=== PATIENT | male | born 1945 | race Two or more races ===

== ENCOUNTER → 2017-10-31 | Day surgery (SDC) | payer MEDICARE, BC ==
[2017-10-25 15:04] VITALS: BMI 35.4
[~2017-10-31] MED LIST: BUPIVACAIN-EPI 0.25%-1:200,000 30 ML VIAL SQ ONE; DEXAMETHASONE SOD PHOSPHATE 10 MG/ML 1 ML VIAL IV ONE; GLYCOPYRROLATE 0.2 MG/ML 2 ML VIAL ONE; HEPARIN SODIUM,PORCINE 5,000 UNIT/ML 1 ML VIAL SQ ONE; HYDROcodone/APAP 7.5-325MG 1 EACH TAB PO ONE; LACTATED RINGERS 1,000 ML IV SCH; LIDOCAINE 1% 20 ML VIAL (10MG/ML) FOR IV START INTRADERMA ONE; LIDOCAINE 1% INJ 10MG/ML (20 ML MDV) ONE; MIDAZOLAM 2 MG/2 ML VIAL IV PRN; NEOSTIGMINE 1 MG/ML 10 ML VIAL ONE; ONDANSETRON 4 MG/2 ML VIAL IVP ONE; PHENYLEPHRINE-0.9% NACL SYG 1 MG/10 ML SYRINGE ONE; PROPOFOL 10 MG/ML 20 ML VIAL IV ONE; ROCURONIUM BROMIDE 10 MG/ML 10 ML VIAL IV ONE; SUCCINYLCHOLINE CHLORIDE 100 MG/5 ML SYR IV ONE; ceFAZolin IN SWFI 2 GM/20 ML SYRINGE IVP ONE; fentaNYL (PF) 50 MCG/ML 2 ML AMP ONE
[2017-10-31 10:47] LABS: Glucose,Whole Blood 98 mg/dL (75-99)
--- NOTE | 2017-10-31 11:04 | P.GSHP ---
History of Present Illness H&P Date: 10/31/17 Chief Complaint: Umbilical hernia This a 72-year-old male has developed complaints of umbilical pain. He seen in the office and found have a reducible umbilical hernia. Patient presents today for laparoscopic robotic-assisted repair of umbilical hernia. Past Medical History Past Medical History: Chest Pain / Angina, Heart Failure, CVA/TIA, Diabetes Mellitus, Hyperlipidemia, Hypertension, Osteoarthritis (OA) Additional Past Medical History / Comment(s): TIA-no effects, frequent urination and bowel movements History of Any Multi-Drug Resistant Organisms: None Reported Past Surgical History: No Surgical Hx Reported Past Anesthesia/Blood Transfusion Reactions: No Reported Reaction Additional Past Anesthesia/Blood Transfusion Reaction / Comment(s): never had anesthesia Smoking Status: Current every day smoker - Past Family History Mother Family Medical History: Cancer Additional Family Medical History / Comment(s): breast cancer Father Family Medical History: Unable to Obtain Sister(s) Family Medical History: Cancer Medications and Allergies Home Medications Medication Instructions Recorded Confirmed Type Benazepril HCl 40 mg PO W/SUPPER 01/22/17 10/25/17 History glipiZIDE [Glucotrol] 20 mg PO W/LUNCH 01/22/17 10/25/17 History Aspirin 81 mg PO DAILY 01/23/17 10/25/17 History Insulin Glargine [Lantus] 45 unit SQ DAILY 01/23/17 10/25/17 History Tamsulosin [Flomax] 0.4 mg PO HS 01/23/17 10/25/17 History metFORMIN HCL ER [Glucophage Xr] 500 mg PO QID 01/23/17 10/25/17 History Carvedilol [Coreg] 6.25 mg PO BID 10/25/17 10/31/17 History Furosemide [Lasix] 40 mg PO BID 10/25/17 10/25/17 History Isosorbide Mononitrate ER [Imdur] 30 mg PO W/LUNCH 10/25/17 10/25/17 History Lovastatin [Mevacor] 40 mg PO HS 10/25/17 10/25/17 History Spironolactone [Aldactone] 25 mg PO W/SUPPER 10/25/17 10/25/17 History Allergies Allergy/AdvReac Type Severity Reaction Status Date / Time No Known Allergies Allergy Verified 10/31/17 10:26 Surgical - Exam Vital Signs Temp Pulse Resp BP Pulse Ox 97.8 F 69 18 172/77 96 10/31/17 10:18 10/31/17 10:18 10/31/17 10:18 10/31/17 10:18 10/31/17 10:18 - General well developed, no distress - Eyes PERRL - ENT normal pinna - Neck no masses - Respiratory normal expansion - Cardiovascular Rhythm: regular - Abdomen Abdomen: soft, non tender Hernia: umbilical Assessment and Plan Assessment: We'll perform laparoscopic robotic system repair of umbilical hernia.
--- NOTE | 2017-10-31 12:17 | P.OP ---
Date of Procedure: 10/31/17 Preoperative Diagnosis: Incarcerated umbilical hernia Postoperative Diagnosis: Incarcerated umbilical hernia Procedure(s) Performed: Laparoscopic robotic-assisted repair of incarcerated hernia Partial omentectomy Anesthesia: KRAIG Surgeon: Ochoa Kulkarni Estimated Blood Loss (ml): 5 Pathology: other (Omentum) Condition: stable Disposition: PACU Description of Procedure: The patient was placed on the operating table in the supine position. He received general anesthesia. His abdomen was prepped and draped usual fashion. Using a 5 mm optical trocar under direct visualization the peritoneal cavity was entered in the left upper quadrant. The abdomen was then insufflated. The laparoscope was placed back into the perineal cavity. Next a 8 mm robotic trocar was placed in the left lower quadrant and a 12 mm robotic trocar was placed in the left lateral position. The original 5 mm trocar was exchanged for a 8 mm robotic trocar. The patient's placed in the left side up position. And the patient was undocked the robot. The umbilical hernia was visualized. Using the cautery the incarcerated omentum was reduced and transected. Using hook cautery the peritoneum over the umbilical hernia was excised. The fascial opening was repaired using 0V LOC suture. Next a piece of 11 cm round ventral light ST mesh was placed into the. Cavity and secured with 2 OV lock suture. The patient was undocked the robot. The needles were retrieved. The omentum was retrieved. The fascia of the 12 mm trocar site was closed with 0 Ethibond suture. Skin was closed interrupted 3-0 Monocryl suture. Dermabond dressings was applied. Patient top procedure well and was sent to recovery room stable condition.
[2017-10-31 12:39] VITALS: RESP 16; TEMP 97.6
[2017-10-31] MEDS: HYDROmorphone 0.5 MG/0.5 ML SYRINGE IVP PRN ×3 (12:52→13:36)
[2017-10-31 14:21] VITALS: BP 178/91; PULSE 71
== END ==
LOC: OR 09:52
PROVIDERS: ATTEND Surgery
DX: K42.0 Umbilical hernia with obstruction, without gangrene (principal); I20.9 Angina pectoris, unspecified; I11.0 Hypertensive heart disease with heart failure; I50.9 Heart failure, unspecified; F17.200 Nicotine dependence, unspecified, uncomplicated; E78.5 Hyperlipidemia, unspecified; E11.9 Type 2 diabetes mellitus without complications; Z79.4 Long term (current) use of insulin; Z86.73 Personal history of transient ischemic attack (TIA), and cerebral infarction without residual deficits; M19.90 Unspecified osteoarthritis, unspecified site; Z79.82 Long term (current) use of aspirin; Z79.899 Other long term (current) drug therapy
CPT/HCPCS: 49653; S2900; 88302; 88305

== ENCOUNTER 2018-01-18 02:28 | Inpatient (IN) | payer MEDICARE, BC ==
--- NOTE | 2018-01-18 02:36 | ED ---
General Adult HPI - General Stated complaint: SOB Time Seen by Provider: 01/18/18 02:35 - History of Present Illness Initial comments: is a 72-year-old male with a history of congestive heart failure who is brought to the ED today via EMS for evaluation of acute respiratory failure. Per EMS they were dispatched for complaint of respiratory distress, they found the patient in respiratory distress with oxygen saturations in the 70s, patient was tachypneic and had wails in all lung obrine. He was placed on CPAP given nitro as well as DuoNeb and Solu-Medrol in route to the hospital with improvement in his oxygenation to the high 80s. Patient was awake and alert though in respiratory distress which limited his ability to speak however he could nod his head and provide minimal history. He denied chest pain or palpitations. He stated that this came on suddenly. Patient's son arrived at bedside to provide further history on the medication list. Patient's son states that seen by a physician who discontinued his Lasix approximately a couple weeks ago however the patient does continue to take Aldactone for a diuretic. Patient's medications are managed primarily by his who provides him with his appropriate pills throughout the day. Son and do admit that the patient does not always take all of his pills, he is somewhat overwhelmed by his pill burden. He has been taking most of his pills lately. He reports the patient was in his usual state of health when he went to bed last evening and woke during the night in acute distress. Son does state that this exact situation occurred approximately one year ago requiring admission to the hospital at that time however at that time the patient did not require any airway support including BiPAP or CPAP to the son's recollection. - Related Data Home Medications Medication Instructions Recorded Confirmed Benazepril HCl 40 mg PO W/SUPPER 01/22/17 10/25/17 glipiZIDE [Glucotrol] 20 mg PO W/LUNCH 01/22/17 10/25/17 Aspirin 81 mg PO DAILY 01/23/17 10/25/17 Insulin Glargine [Lantus] 45 unit SQ DAILY 01/23/17 10/25/17 Tamsulosin [Flomax] 0.4 mg PO HS 01/23/17 10/25/17 metFORMIN HCL ER [Glucophage Xr] 500 mg PO QID 01/23/17 10/25/17 Carvedilol [Coreg] 6.25 mg PO BID 10/25/17 10/31/17 Furosemide [Lasix] 40 mg PO BID 10/25/17 10/25/17 Isosorbide Mononitrate ER [Imdur] 30 mg PO W/LUNCH 10/25/17 10/25/17 Lovastatin [Mevacor] 40 mg PO HS 10/25/17 10/25/17 Spironolactone [Aldactone] 25 mg PO W/SUPPER 10/25/17 10/25/17 Previous Rx's Medication Instructions Recorded Docusate [Colace] 100 mg PO BID #20 capsule 10/31/17 HYDROcodone/APAP 7.5-325MG [[place] 1 tab PO Q4H PRN 3 Days #18 tab 10/31/17 7.5-325] Allergies Allergy/AdvReac Type Severity Reaction Status Date / Time No Known Allergies Allergy Verified 10/31/17 10:26 Review of Systems ROS Statement: Those systems with pertinent positive or pertinent negative responses have been documented in the HPI. ROS Other: All systems not noted in ROS Statement are negative. Past Medical History Past Medical History: Chest Pain / Angina, Heart Failure, CVA/TIA, Diabetes Mellitus, Hyperlipidemia, Hypertension, Osteoarthritis (OA) Additional Past Medical History / Comment(s): TIA-no effects, frequent urination and bowel movements History of Any Multi-Drug Resistant Organisms: None Reported Past Surgical History: No Surgical Hx Reported Past Anesthesia/Blood Transfusion Reactions: No Reported Reaction Additional Past Anesthesia/Blood Transfusion Reaction / Comment(s): never had anesthesia Smoking Status: Current every day smoker - Past Family History Mother Family Medical History: Cancer Additional Family Medical History / Comment(s): breast cancer Father Family Medical History: Unable to Obtain Sister(s) Family Medical History: Cancer General Exam - General Exam Comments Initial Comments: GENERAL: Moderate respiratory distress HENT: Normocephalic, Atraumatic. JVD EYES: The sclera were anicteric and conjunctiva were pink and moist. Extraocular movements were intact and pupils were equal round and reactive to light. Eyelids were unremarkable. PULMONARY: Rales in all lung obrien CARDIOVASCULAR: Tachycardic, regular ABDOMEN: Obese, Soft and nontender with normal bowel sounds. SKIN: Ashen and diaphoretic NEUROLOGIC: Patient is alert Cranial nerves II through XII are grossly intact. Motor and sensory are also intact. Normal speech, volume and content. Symmetrical smile. MUSCULOSKELETAL: Normal extremities with adequate strength and full range of motion. No lower extremity swelling or edema. No calf tenderness. LYMPHATICS: No significant lymphadenopathy is noted PSYCHIATRIC: Normal psychiatric evaluation. Limitations: Respiratory distress Course Vital Signs 01/18/18 01/18/18 01/18/18 02:30 02:47 03:08 Temperature 97.4 F L Pulse Rate 121 H 103 H Respiratory 27 H 27 H 21 Rate Blood Pressure 201/114 170/94 O2 Sat by Pulse 98 99 Oximetry 01/18/18 04:15 Temperature Pulse Rate 90 Respiratory 19 Rate Blood Pressure 106/93 O2 Sat by Pulse 98 Oximetry EKG Findings - EKG Comments: EKG Findings:: Initial EKG was obtained at 2:33 AM, there is significant artifact on this EKG likely related to the patient's respiratory distress, rate is 121, rhythm is sinus tachycardia, There are frequent PVCs appears to be bigeminy. Difficult to assess for ST elevations or depressions patient's not currently having a chest pain will repeat EKG upon resolution of respiratory distress. Repeat EKG obtained at 3:21 AM, repeat is 100, rhythm is sinus tachycardia, there is a left axis deviation, ME is 168, QRS is 132, QTc is mildly prolonged at 516. There is no acute ST elevations, mild ST depressions in lateral leads. No evidence of acute ischemia or infarction. Medical Decision Making - Medical Decision Making Patient called in by EMS as a constitution party 1 respiratory distress The patient was seen and evaluated immediately upon arrival to the emergency department Patient appears to be in flash pulmonary edema BiPAP initiated immediately Cardiac workup initiated Initial EKG nondiagnostic due to respiratory distress Patient improving with BiPAP Labs are reviewed, troponin not elevated, electrolytes within normal limits, mild anemia Chest x-ray is consistent with CHF exacerbation Patient was reevaluated, has improved significantly with BiPAP and Nitropaste, blood pressure is within normal limits, heart rate in the 80s to 90s, oxygen saturation 100%, continues to have rales in all lung obrien, producing significant amount of urine secondary to the IV Lasix Patient care was discussed with Dr. Read who accepts the admission for CHF exacerbation with a consult to cardiology - Lab Data Result diagrams: 01/18/18 02:33 01/18/18 02:33 Lab Results 01/18/18 01/18/18 01/18/18 Range/Units 02:32 02:33 02:33 WBC 9.4 (3.8-10.6) k/uL RBC 4.35 (4.30-5.90) m/uL Hgb 10.9 L (13.0-17.5) gm/dL Hct 35.4 L (39.0-53.0) % MCV 81.4 (80.0-100.0) fL MCH 25.0 (25.0-35.0) pg MCHC 30.7 L (31.0-37.0) g/dL RDW 15.3 (11.5-15.5) % Plt Count 237 (150-450) k/uL Neutrophils % 70 % Lymphocytes % 19 % Monocytes % 6 % Eosinophils % 3 % Basophils % 0 % Neutrophils # 6.6 (1.3-7.7) k/uL Lymphocytes # 1.8 (1.0-4.8) k/uL Monocytes # 0.6 (0-1.0) k/uL Eosinophils # 0.2 (0-0.7) k/uL Basophils # 0.0 (0-0.2) k/uL Hypochromasia Moderate PT (9.0-12.0) sec INR (<1.2) APTT (22.0-30.0) sec Sodium 142 (137-145) mmol/L Potassium 4.8 (3.5-5.1) mmol/L Chloride 111 H (98-107) mmol/L Carbon Dioxide 23 (22-30) mmol/L Anion Gap 8 mmol/L BUN 25 H (9-20) mg/dL Creatinine 1.19 (0.66-1.25) mg/dL Est GFR (CKD-EPI)AfAm 69 (>60 ml/min/1.73 sqM) Est GFR (CKD-EPI)NonAf 60 (>60 ml/min/1.73 sqM) Glucose 180 H (74-99) mg/dL POC Glucose (mg/dL) 180 H (75-99) mg/dL POC Glu Seismic Interpreter ID Nusrat Platt Plasma Lactic Acid Calvin (0.7-2.0) mmol/L Calcium 8.0 L (8.4-10.2) mg/dL Total Bilirubin 0.5 (0.2-1.3) mg/dL AST 30 (17-59) U/L ALT 31 (21-72) U/L Alkaline Phosphatase 134 H (38-126) U/L Troponin I (0.000-0.034) ng/mL Total Protein 6.5 (6.3-8.2) g/dL Albumin 3.1 L (3.5-5.0) g/dL 01/18/18 01/18/18 01/18/18 Range/Units 02:33 02:33 02:33 WBC (3.8-10.6) k/uL RBC (4.30-5.90) m/uL Hgb (13.0-17.5) gm/dL Hct (39.0-53.0) % MCV (80.0-100.0) fL MCH (25.0-35.0) pg MCHC (31.0-37.0) g/dL RDW (11.5-15.5) % Plt Count (150-450) k/uL Neutrophils % % Lymphocytes % % Monocytes % % Eosinophils % % Basophils % % Neutrophils # (1.3-7.7) k/uL Lymphocytes # (1.0-4.8) k/uL Monocytes # (0-1.0) k/uL Eosinophils # (0-0.7) k/uL Basophils # (0-0.2) k/uL Hypochromasia PT 10.6 (9.0-12.0) sec INR 1.1 (<1.2) APTT 22.5 (22.0-30.0) sec Sodium (137-145) mmol/L Potassium (3.5-5.1) mmol/L Chloride (98-107) mmol/L Carbon Dioxide (22-30) mmol/L Anion Gap mmol/L BUN (9-20) mg/dL Creatinine (0.66-1.25) mg/dL Est GFR (CKD-EPI)AfAm (>60 ml/min/1.73 sqM) Est GFR (CKD-EPI)NonAf (>60 ml/min/1.73 sqM) Glucose (74-99) mg/dL POC Glucose (mg/dL) (75-99) mg/dL POC Glu Seismic Interpreter ID Plasma Lactic Acid Calvin 1.0 (0.7-2.0) mmol/L Calcium (8.4-10.2) mg/dL Total Bilirubin (0.2-1.3) mg/dL AST (17-59) U/L ALT (21-72) U/L Alkaline Phosphatase (38-126) U/L Troponin I <0.012 (0.000-0.034) ng/mL Total Protein (6.3-8.2) g/dL Albumin (3.5-5.0) g/dL Critical Care Time Critical Care Time: Yes Total Critical Care Time: 30 Disposition Clinical Impression: Congestive heart failure Disposition: ADMITTED IP TO THIS HOSP Referrals: Minerva Edgar MD [Primary Care Provider] - 1-2 days
[2018-01-18 02:45] LABS: Basophils % (A) 0 %; Eosinophils # (A) 0.2 k/uL (0-0.7); Eosinophils % (A) 3 %; HCT 35.4 % (39.0-53.0); HGB 10.9 gm/dL (13.0-17.5); Hypochromasia Moderate; Lymphocytes # (A) 1.8 k/uL (1.0-4.8); Lymphocytes % (A) 19 %; MCHC 30.7 g/dL (31.0-37.0); MCV 81.4 fL (80.0-100.0); Mean Platelet Volume 6.7; Monocytes # (A) 0.6 k/uL (0-1.0); Monocytes % (A) 6 %; Neutrophils # (A) 6.6 k/uL (1.3-7.7); Neutrophils % (A) 70 %; Platelet Count 237 k/uL (150-450); RBC 4.35 m/uL (4.30-5.90); RDW 15.3 % (11.5-15.5); WBC 9.4 k/uL (3.8-10.6)
[2018-01-18 02:55] LABS: INR 1.1 (<1.2); Partial Thromboplastin Time 22.5 sec (22.0-30.0); Prothrombin Time 10.6 sec (9.0-12.0)
[2018-01-18 03:06] LABS: Glucose,Whole Blood 180 mg/dL (75-99)
[2018-01-18 03:11] LABS: Albumin 3.1 g/dL (3.5-5.0); Potassium 4.8 mmol/L (3.5-5.1); Total Bilirubin 0.5 mg/dL (0.2-1.3); Total Protein 6.5 g/dL (6.3-8.2)
--- NOTE | 2018-01-18 03:42 | XR ---
EXAMINATION TYPE: XR chest 1V portable DATE OF EXAM: 01/18/2018 COMPARISON: 01/24/2017 HISTORY: Heart failure short of breath TECHNIQUE: Single frontal view of the chest is obtained. FINDINGS: Heart is enlarged. There is pulmonary interstitial edema. Thoracic aorta is atheromatous. There are chest leads. I see no pleural fluid. IMPRESSION: There is new pulmonary interstitial edema compared to old exam and suggestive of acute c ongestive heart failure.
[2018-01-18] MEDS ORDERED: FUROSEMIDE 10 MG/ML 4 ML VIAL IV STA (03:48)
[2018-01-18] MEDS ORDERED: NITROGLYCERIN OINT 1 INCH/GM PACKET TOPICAL STA (03:48)
[2018-01-18] MEDS ORDERED: NALOXONE 0.4 MG/ML 1 ML VIAL IV PRN (04:45)
[2018-01-18] MEDS ORDERED: HYDROcodone/APAP 7.5-325MG 1 EACH TAB PO PRN (04:47)
[2018-01-18 05:40] LABS: Appearance,Urine Clear (Clear); Bilirubin,Urine Negative (Negative); Blood,Urine Negative (Negative); Color,Urine Yellow; Glucose,Urine (UA) Negative (Negative); Ketones,Urine Negative (Negative); Leukocyte Esterase,Urine Negative (Negative); Mucus,Urine Rare /hpf; Nitrite,Urine Negative (Negative); PH, Urine 5.5 (5.0-8.0); Protein,Urine 2+ (Negative); RBC,Urine 1 /hpf (0-5); Specific Gravity,Urine 1.012 (1.001-1.035); Squamous Epithelial Cell,Urine <1 /hpf (0-4); Urobilinogen,Urine <2.0 mg/dL (<2.0); WBC,Urine 2 /hpf (0-5)
[2018-01-18] MEDS: FUROSEMIDE 10 MG/ML 4 ML VIAL IV SCH ×3 (06:36→20:26)
[2018-01-18 09:57] LABS: Glucose,Whole Blood 230 mg/dL (75-99)
[2018-01-18] MEDS: INSULIN ASPART 100 UNIT/ML 1 ML 10 ML VIAL SQ SCH ×4 (10:27→20:39)
[2018-01-18] MEDS: CARVEDILOL 6.25 MG TAB PO SCH ×2 (10:50→19:44)
--- NOTE | 2018-01-18 11:18 | P.HPIM ---
History of Present Illness H&P Date: 01/18/18 Chief Complaint: Shortness of breath This is a 72-year-old male, patient of Dr. Edgar. Patient has a known past medical history of congestive heart failure, TIA, diabetes, hypertension, hyperlipidemia, osteoarthritis and nicotine dependence. Patient presents to the emergency room with complaints of shortness of breath and evidence of congestive heart failure. Patient reports the shortness of breath started around midnight last night. He was concerned and called EMS. Per ER reports upon EMS evaluation patient was in acute respiratory failure. Oxygen saturations were in the 70s and radials noted on lung exam. He was placed on CPAP given nitro and DuoNeb as well as IV Solu-Medrol in route. He required to be on BiPAP in the ER. Patient was started on IV Lasix for congestive heart failure and pulmonary edema. Chest x-ray showed evidence of congestive heart failure. Patient did have significant elevated blood pressure and was tachycardic on admission. Blood pressure 201/114 and heart rate 121. Patient started on IV Lasix. Respiratory symptoms are improving. He is currently on 2 L of oxygen satting at 95%. Cardiology has been placed on consult. Patient stopped taking his oral Lasix about 2 weeks ago by his physician. Patient reports eating a half of sausage yesterday, in which she knows is very salty. And blames this for contributing to his fluid overload. Patient denies any chest pain, fever, chills, sweats, nausea or vomiting, bowel movement changes or urinary symptoms. Uriostegui catheter inserted in ER due to him being on IV Lasix. Cardiology has been placed on consult for CHF exacerbation. Review of Systems Please refer to HPI otherwise unremarkable Past Medical History Past Medical History: Chest Pain / Angina, Heart Failure, CVA/TIA, Diabetes Mellitus, Hyperlipidemia, Hypertension, Osteoarthritis (OA) Additional Past Medical History / Comment(s): TIA-no effects, frequent urination and bowel movements History of Any Multi-Drug Resistant Organisms: None Reported Past Surgical History: No Surgical Hx Reported Past Anesthesia/Blood Transfusion Reactions: No Reported Reaction Additional Past Anesthesia/Blood Transfusion Reaction / Comment(s): never had anesthesia Smoking Status: Current every day smoker - Past Family History Mother Family Medical History: Cancer Additional Family Medical History / Comment(s): breast cancer Father Family Medical History: Unable to Obtain Sister(s) Family Medical History: Cancer Medications and Allergies Home Medications Medication Instructions Recorded Confirmed Type Benazepril HCl 40 mg PO DAILY 01/22/17 01/18/18 History glipiZIDE [Glucotrol] 20 mg PO W/BRKFST 01/22/17 01/18/18 History Aspirin 81 mg PO DAILY 01/23/17 01/18/18 History Insulin Glargine [Lantus] 40 unit SQ DAILY 01/23/17 01/18/18 History Tamsulosin [Flomax] 0.4 mg PO HS 01/23/17 01/18/18 History metFORMIN HCL ER [Glucophage Xr] 1,000 mg PO BID 01/23/17 01/18/18 History Carvedilol [Coreg] 6.25 mg PO BID 10/25/17 01/18/18 History Furosemide [Lasix] 40 mg PO BID 10/25/17 01/18/18 History Isosorbide Mononitrate ER [Imdur] 30 mg PO DAILY 10/25/17 01/18/18 History Lovastatin [Mevacor] 20 mg PO HS 10/25/17 01/18/18 History Spironolactone [Aldactone] 25 mg PO DAILY 10/25/17 01/18/18 History Allergies Allergy/AdvReac Type Severity Reaction Status Date / Time No Known Allergies Allergy Verified 01/18/18 08:52 Physical Exam Vitals: Vital Signs Temp Pulse Resp BP Pulse Ox 01/18/18 10:25 85 18 180/96 95 01/18/18 07:00 84 23 163/87 99 01/18/18 06:00 79 12 142/66 96 01/18/18 05:00 82 19 123/62 96 01/18/18 04:15 90 19 106/93 98 01/18/18 04:00 92 19 132/70 97 01/18/18 03:08 103 H 21 170/94 99 01/18/18 03:00 107 H 10 L 170/94 99 01/18/18 02:47 27 H 01/18/18 02:34 117 H 29 H 201/114 99 01/18/18 02:30 97.4 F L 121 H 27 H 201/114 98 Intake and Output 01/17/18 01/18/18 01/18/18 22:59 06:59 14:59 Output Total 3100 Balance -3100 Output: Urine 3100 Other: Weight 106.594 kg Head normocephalic Neck supple Lungs crackles at bases Heart regular rate and rhythm S1-S2, no rub or gallop Abdomen is soft nontender nondistended positive bowel sounds no hepatosplenomegaly Extremities no edema Neuro alert and orientated to 3 Results CBC & Chem 7: 01/18/18 02:33 01/18/18 02:33 Labs: Abnormal Lab Results - Last 24 Hours (Table) 01/18/18 01/18/18 01/18/18 Range/Units 02:32 02:33 02:33 Hgb 10.9 L (13.0-17.5) gm/dL Hct 35.4 L (39.0-53.0) % MCHC 30.7 L (31.0-37.0) g/dL Chloride 111 H (98-107) mmol/L BUN 25 H (9-20) mg/dL Glucose 180 H (74-99) mg/dL POC Glucose (mg/dL) 180 H (75-99) mg/dL Calcium 8.0 L (8.4-10.2) mg/dL Alkaline Phosphatase 134 H (38-126) U/L Albumin 3.1 L (3.5-5.0) g/dL Urine Protein (Negative) Urine Mucus (None) /hpf 01/18/18 01/18/18 Range/Units 04:30 09:51 Hgb (13.0-17.5) gm/dL Hct (39.0-53.0) % MCHC (31.0-37.0) g/dL Chloride (98-107) mmol/L BUN (9-20) mg/dL Glucose (74-99) mg/dL POC Glucose (mg/dL) 230 H (75-99) mg/dL Calcium (8.4-10.2) mg/dL Alkaline Phosphatase (38-126) U/L Albumin (3.5-5.0) g/dL Urine Protein 2+ H (Negative) Urine Mucus Rare H (None) /hpf Microbiology - Last 24 Hours (Table) 01/18/18 04:30 Urine Culture - Preliminary Urine,Voided Assessment and Plan Assessment: 1. Acute hypoxic respiratory failure secondary to congestive heart failure exacerbation and pulmonary edema 2. Acute on chronic systolic CHF exacerbation: Patient started on IV Lasix 40 mg IV every 8 hours. Cardiology on consult. Check 2-D echo. Echo from January 2017 shows an EF of 40-45% 3. History of diabetes mellitus type 2: Check A1c. Resume patient's Lantus and glipizide. Hold metformin during hospitalization. Add Humalog sliding scale coverage. 4. Essential hypertension 5. Hypertensive emergency on admission likely due to patient's respiratory status. Patient's blood pressures have improved. 6. Sinus tachycardia again likely related to patient's respiratory status now improved 8. History of TIA 9. History of hyperlipidemia 10. Nicotine dependence: Discussed smoking cessation for greater than 3 minutes. Patient refusing nicotine patch at this time. 11. Anemia: Hemoglobin 10.9 on admission. No evidence of bleeding. Check iron studies. GI prophylaxis Pepcid and DVT prophylaxis subcu heparin Time with Patient: Greater than 30 (Greater than 60% of the total time spent in counseling and coordination of care.I performed an examination of the patient and discussed their management with the physician Technology Strategist. I have reviewed the Physician Technology Strategist's notes and agree with the documented findings and plan of care)
[2018-01-18 12:58] LABS: Glucose,Whole Blood 263 mg/dL (75-99)
[2018-01-18] MEDS: INSULIN DETEMIR 100 UNIT/ML 10 ML VIAL SQ SCH (13:02)
[2018-01-18 14:39] LABS: Hemoglobin A1C 6.7 % (4.0-6.0)
--- NOTE | 2018-01-18 14:45 | P.CRDCN ---
History of Present Illness Consult date: 01/18/18 History of present illness: This is a 72-year-old gentleman with history of hypertension, chronic congestive heart failure and known ischemic heart disease with previous inferior wall myocardial infarction, who was brought to the hospital this time with complaints of increasing shortness of breath. Apparently patient stopped taking diuretics for about a week or so and has been eating salty food. He developed a progressively increasing shortness of breath and orthopnea. Denied any chest pain, palpitation, dizziness or syncope. His EKG showed sinus rhythm with newly found left bundle branch block pattern. Chest x-ray showed findings consistent with pulmonary edema. Patient was treated with IV Lasix with good diuresis. Patient is feeling better. Patient is going to have an echocardiogram. We'll follow his cardiac enzymes. Further recommendations depend upon the clinical course. Review of Systems As per the chart Past Medical History Past Medical History: Chest Pain / Angina, Heart Failure, CVA/TIA, Diabetes Mellitus, Hyperlipidemia, Hypertension, Osteoarthritis (OA) Additional Past Medical History / Comment(s): TIA, IDDM type II. History of Any Multi-Drug Resistant Organisms: None Reported Past Surgical History: Hernia Repair Additional Past Surgical History / Comment(s): 10/31/17 robot assisted laprascopic umbilical hernia repair with mesh. Past Anesthesia/Blood Transfusion Reactions: No Reported Reaction Additional Past Anesthesia/Blood Transfusion Reaction / Comment(s): never had anesthesia Smoking Status: Light tobacco smoker - Past Family History Mother Family Medical History: Cancer Additional Family Medical History / Comment(s): breast cancer Father Family Medical History: Unable to Obtain Sister(s) Family Medical History: Cancer Medications and Allergies Home Medications Medication Instructions Recorded Confirmed Type Benazepril HCl 40 mg PO DAILY 01/22/17 01/18/18 History glipiZIDE [Glucotrol] 20 mg PO W/BRKFST 01/22/17 01/18/18 History Aspirin 81 mg PO DAILY 01/23/17 01/18/18 History Insulin Glargine [Lantus] 40 unit SQ DAILY 01/23/17 01/18/18 History Tamsulosin [Flomax] 0.4 mg PO HS 01/23/17 01/18/18 History metFORMIN HCL ER [Glucophage Xr] 1,000 mg PO BID 01/23/17 01/18/18 History Carvedilol [Coreg] 6.25 mg PO BID 10/25/17 01/18/18 History Furosemide [Lasix] 40 mg PO BID 10/25/17 01/18/18 History Isosorbide Mononitrate ER [Imdur] 30 mg PO DAILY 10/25/17 01/18/18 History Lovastatin [Mevacor] 20 mg PO HS 10/25/17 01/18/18 History Spironolactone [Aldactone] 25 mg PO DAILY 10/25/17 01/18/18 History Allergies Allergy/AdvReac Type Severity Reaction Status Date / Time No Known Allergies Allergy Verified 01/18/18 08:52 Physical Exam Vitals: Vital Signs Temp Pulse Resp BP Pulse Ox 01/18/18 13:05 86 20 189/87 95 01/18/18 10:25 85 18 180/96 95 01/18/18 07:00 84 23 163/87 99 01/18/18 06:00 79 12 142/66 96 01/18/18 05:00 82 19 123/62 96 01/18/18 04:15 90 19 106/93 98 01/18/18 04:00 92 19 132/70 97 01/18/18 03:08 103 H 21 170/94 99 01/18/18 03:00 107 H 10 L 170/94 99 01/18/18 02:47 27 H 01/18/18 02:34 117 H 29 H 201/114 99 01/18/18 02:30 97.4 F L 121 H 27 H 201/114 98 Intake and Output 01/17/18 01/18/18 01/18/18 22:59 06:59 14:59 Output Total 4900 Balance -4900 Output: Urine 4000 Urine/Stool Mix 900 Other: Weight 106.594 kg GENERAL EXAM: Patient is alert and oriented and appears to be in mild-to- moderate distress, normal HEENT: Normocephalic. Normal reaction of pupils, equal size, normal range of extraocular motion. No erythema or exudates in the throat. NECK: No masses, no nuchal rigidity. CHEST: No chest wall deformity. LUNGS: Decreased breath sounds at bases. Few rales HEART: [S1 and S2 normal with no audible mumurs or gallops. Regular rhythm, ABDOMEN: No hepatosplenomegaly, normal bowel sounds, no guarding or rigidity. SKIN: No rashes CENTRAL NERVOUS SYSTEM: No focal deficits. EXTREMITIES: No cyanosis, clubbing or edema. Results 01/18/18 02:33 01/18/18 02:33 Cardiac Enzymes 01/18/18 01/18/18 Range/Units 02:33 02:33 AST 30 (17-59) U/L Troponin I <0.012 (0.000-0.034) ng/mL Coagulation 01/18/18 Range/Units 02:33 PT 10.6 (9.0-12.0) sec APTT 22.5 (22.0-30.0) sec CBC 01/18/18 Range/Units 02:33 WBC 9.4 (3.8-10.6) k/uL RBC 4.35 (4.30-5.90) m/uL Hgb 10.9 L (13.0-17.5) gm/dL Hct 35.4 L (39.0-53.0) % Plt Count 237 (150-450) k/uL Comprehensive Metabolic Panel 01/18/18 Range/Units 02:33 Sodium 142 (137-145) mmol/L Potassium 4.8 (3.5-5.1) mmol/L Chloride 111 H (98-107) mmol/L Carbon Dioxide 23 (22-30) mmol/L BUN 25 H (9-20) mg/dL Creatinine 1.19 (0.66-1.25) mg/dL Glucose 180 H (74-99) mg/dL Calcium 8.0 L (8.4-10.2) mg/dL AST 30 (17-59) U/L ALT 31 (21-72) U/L Alkaline Phosphatase 134 H (38-126) U/L Total Protein 6.5 (6.3-8.2) g/dL Albumin 3.1 L (3.5-5.0) g/dL Current Medications Generic Name Dose Route Start Last Admin Trade Name Freq PRN Reason Stop Dose Admin Hydrocodone Bitart/Acetaminophen 1 each 01/18/18 04:47 [place] 7.5-325 PO Q4H PRN Pain Aspirin 325 mg 01/19/18 04:47 Aspirin PO DAILY [facility] Atorvastatin Calcium 10 mg 01/18/18 21:00 Lipitor PO HS [facility] Carvedilol 6.25 mg 01/18/18 07:30 01/18/18 10:50 Coreg PO 6.25 mg BID-W/MEALS MOLLY Administration Famotidine 20 mg 01/19/18 09:00 Pepcid PO DAILY [facility] Furosemide 40 mg 01/18/18 05:00 01/18/18 13:03 Lasix IV 40 mg Q8H MOLLY Administration Glipizide 20 mg 01/19/18 07:30 Glucotrol PO W/BRKFST MOLLY Heparin Sodium (Porcine) 5,000 unit 01/18/18 21:00 Heparin SQ Q12HR [facility] Insulin Aspart 0 unit 01/18/18 07:30 01/18/18 13:00 Novolog SQ 7 unit ACHS MOLLY Administration Protocol Insulin Detemir 40 unit 01/18/18 12:00 01/18/18 13:02 Levemir SQ 40 unit DAILY MOLLY Administration Isosorbide Mononitrate 30 mg 01/19/18 09:00 Imdur PO DAILY [facility] Lisinopril 40 mg 01/18/18 17:30 Zestril PO W/SUPPER MOLLY Naloxone HCl 0.2 mg 01/18/18 04:45 Narcan IV Q2M PRN Opioid Reversal Spironolactone 25 mg 01/18/18 17:30 Aldactone PO W/SUPPER MOLLY Tamsulosin HCl 0.4 mg 01/18/18 21:00 Flomax PO HS [facility] Intake and Output 01/17/18 01/18/18 01/18/18 22:59 06:59 14:59 Output Total 4900 Balance -4900 Output: Urine 4000 Urine/Stool Mix 900 Other: Weight 106.594 kg 01/18/18 02:33 01/18/18 02:33 EKG Interpretations (text) Sinus rhythm with a left bundle branch block pattern Assessment and Plan (1) Pulmonary edema Current Visit: Yes Status: Acute Code(s): J81.1 - CHRONIC PULMONARY EDEMA SNOMED Code(s): 21849808 (2) Left bundle branch block Current Visit: Yes Status: Acute Code(s): I44.7 - LEFT BUNDLE-BRANCH BLOCK, UNSPECIFIED SNOMED Code(s): 52980790 (3) Coronary artery disease Current Visit: Yes Status: Acute Code(s): I25.10 - ATHSCL HEART DISEASE OF [place] CORONARY ARTERY W/O ANG PCTRS SNOMED Code(s): 67903569 (4) Ischemic cardiomyopathy Current Visit: Yes Status: Acute Code(s): I25.5 - ISCHEMIC CARDIOMYOPATHY SNOMED Code(s): 193785828 (5) Hypertension, essential Current Visit: Yes Status: Acute Code(s): I10 - ESSENTIAL (PRIMARY) HYPERTENSION SNOMED Code(s): 15475130 (6) Hypercholesterolemia Current Visit: Yes Status: Acute Code(s): E78.00 - PURE HYPERCHOLESTEROLEMIA , UNSPECIFIED SNOMED Code(s): 58722668 Plan: We'll continue with current medical therapy with IV diuretics, Coreg, JOHN inhibitor and also Aldactone. We'll follow Cardec enzymes studies. We'll repeat the echocardiogram. Further recommendation depend upon the clinical course
--- NOTE | 2018-01-18 18:06 | ECHOF ---
Referral Reason:CHF, check EF MEASUREMENTS -------- HEIGHT: 180.3 cm WEIGHT: 106.6 kg BP: IVSd: 1.5 cm (0.6 - 1.1) LVIDd: 5.2 cm (3.9 - 5.3) LVPWd: 1.3 cm (0.6 - 1.1) IVSs: 2.1 cm LVIDs: 4.2 cm LVPWs: 1.8 cm Ao Diam: 2.7 cm (2.0 - 3.7) AV Cusp: 1.2 cm (1.5 - 2.6) LA Diam: 3.2 cm (2.7 - 3.8) MV EXCURSION: 12.148 mm (> 18.000) MV EF SLOPE: 48 mm/s (70 - 150) EPSS: 1.4 cm MV E Jaziel: 0.87 m/s MV DecT: 121 ms MV A Jaziel: 0.77 m/s MV E/A Ratio: 1.14 AV maxP.13 mmHg AV meanP.09 mmHg RAP: 5.00 mmHg RVSP: 10.25 mmHg FINDINGS -------- Sinus rhythm. This was a technically difficult study with suboptimal views. The left ventricular size is normal. There is moderate concentric left ventricular hypertrophy. O verall left ventricular systolic function is mild-moderately impaired with, an EF between 40 - 45 %. Sigmoid shaped septum with focal hypertrophy of the basal septum. The remaining wall thickness is n ormal. Basal lateral LV wall motion is hypokinetic. Basal inferior LV wall motion is hypokinetic . Mid lateral LV wall motion is hypokinetic. Mid inferior LV wall motion is hypokinetic. Api faraz inferior LV wall motion is hypokinetic. The right ventricle is normal in size and function. The left atrium is normal in size. The right atrium is normal in size. Lumason used Aortic valve is trileaflet and is mildly thickened. There is mild aortic stenosis present. Peak/m katie gradient across the Aortic Valve is 18.13mmHg / 10.09mmHg. Mild mitral annular calcification present. Mild mitral regurgitation is present. Mild tricuspid regurgitation present. There is no evidence of pulmonary hypertension. The right v entricular systolic pressure, as measured by Doppler, is 10.25mmHg. The pulmonic valve was not well visualized. There is no pulmonic regurgitation present. There is no pericardial effusion. CONCLUSIONS -------- 1. Sinus rhythm. 2. This was a technically difficult study with suboptimal views. 3. The left ventricular size is normal. 4. There is moderate concentric left ventricular hypertrophy. 5. Overall left ventricular systolic function is mild-moderately impaired with, an EF between 40 - 45 %. 6. Sigmoid shaped septum with focal hypertrophy of the basal septum. The remaining wall thickness is normal. 7. Basal lateral LV wall motion is hypokinetic. 8. Basal inferior LV wall motion is hypokinetic. 9. Mid lateral LV wall motion is hypokinetic. 10. Mid inferior LV wall motion is hypokinetic. 11. Apical inferior LV wall motion is hypokinetic. 12. The left atrium is normal in size. 13. Lumason used 14. Aortic valve is trileaflet and is mildly thickened. 15. There is mild aortic stenosis present. 16. Peak/mean gradient across the Aortic Valve is 18.13mmHg / 10.09mmHg. 17. Mild mitral annular calcification present. 18. Mild mitral regurgitation is present. 19. Mild tricuspid regurgitation present. 20. There is no evidence of pulmonary hypertension. 21. There is no pulmonic regurgitation present. 22. There is no pericardial effusion. BASKETBALL COACH: Nikki Ryan RDCS
[2018-01-18 18:14] LABS: Iron Saturation 6.05 (15.00-50.00)
[2018-01-18] MEDS: SPIRONOLACTONE 25 MG TAB PO SCH (19:44)
[2018-01-18] MEDS: LISINOPRIL 20 MG TAB PO SCH (19:44)
[2018-01-18] MEDS: HEPARIN SODIUM,PORCINE 5,000 UNIT/ML 1 ML VIAL SQ SCH (20:26)
[2018-01-18] MEDS: ATORVASTATIN 10 MG TAB PO SCH (20:26)
[2018-01-18] MEDS: TAMSULOSIN 0.4 MG CAP.ER.24H PO SCH (20:26)
[2018-01-18 21:05] LABS: Glucose,Whole Blood 317 mg/dL (75-99)
[2018-01-19] MEDS ORDERED: ASPIRIN 325 MG TAB PO SCH (04:47)
[2018-01-19] MEDS: FUROSEMIDE 10 MG/ML 4 ML VIAL IV SCH ×2 (05:31→11:31)
[2018-01-19 06:04] LABS: Glucose,Whole Blood 140 mg/dL (75-99)
[2018-01-19] MEDS: INSULIN ASPART 100 UNIT/ML 1 ML 10 ML VIAL SQ SCH ×4 (06:08→20:32)
[2018-01-19 07:00] LABS: Basophils % (A) 0 %; Eosinophils % (A) 0 %; HCT 36.5 % (39.0-53.0); HGB 11.4 gm/dL (13.0-17.5); Hypochromasia Slight; Lymphocytes % (A) 14 %; MCH 24.9 pg (25.0-35.0); MCHC 31.1 g/dL (31.0-37.0); Mean Platelet Volume 7.3; Monocytes # (A) 0.5 k/uL (0-1.0); Monocytes % (A) 8 %; Neutrophils # (A) 5.3 k/uL (1.3-7.7); Neutrophils % (A) 77 %; Platelet Count 241 k/uL (150-450); RBC 4.56 m/uL (4.30-5.90); RDW 15.4 % (11.5-15.5); WBC 6.9 k/uL (3.8-10.6)
[2018-01-19] MEDS: CARVEDILOL 6.25 MG TAB PO SCH ×2 (07:02→16:31)
[2018-01-19] MEDS: glipiZIDE 10 MG TAB PO SCH (07:02)
[2018-01-19 07:11] LABS: Albumin 3.6 g/dL (3.5-5.0); Calcium 9.2 mg/dL (8.4-10.2); Potassium 4.4 mmol/L (3.5-5.1); Total Bilirubin 0.4 mg/dL (0.2-1.3); Total Protein 7.2 g/dL (6.3-8.2)
[2018-01-19] MEDS: ASPIRIN 325 MG TAB PO SCH (08:25)
[2018-01-19] MEDS: HEPARIN SODIUM,PORCINE 5,000 UNIT/ML 1 ML VIAL SQ SCH ×2 (08:25→20:18)
[2018-01-19] MEDS: ISOSORBIDE MONONITRATE ER 30 MG TAB.ER.24H PO SCH (08:25)
[2018-01-19] MEDS: FAMOTIDINE 20 MG TAB PO SCH (08:25)
[2018-01-19] MEDS: INSULIN DETEMIR 100 UNIT/ML 10 ML VIAL SQ SCH (09:34)
[2018-01-19 11:10] VITALS: BMI 32.0
[2018-01-19 11:22] LABS: Glucose,Whole Blood 74 mg/dL (75-99)
[2018-01-19] MEDS: FERROUS SULFATE 325 MG TAB PO SCH (12:12)
--- NOTE | 2018-01-19 12:54 | P.PN ---
Subjective Progress Note Date: 01/19/18 This is a 72-year-old male, patient of Dr. Edgar. Patient has a known past medical history of congestive heart failure, myocardial infarction, TIA, diabetes, hypertension, hyperlipidemia, osteoarthritis and nicotine dependence. Patient presents to the emergency room with complaints of shortness of breath and evidence of congestive heart failure. Patient reports the shortness of breath started around midnight last night. He was concerned and called EMS. Per ER reports upon EMS evaluation patient was in acute respiratory failure. Oxygen saturations were in the 70s and radials noted on lung exam. He was placed on CPAP given nitro and DuoNeb as well as IV Solu-Medrol in route. He required to be on BiPAP in the ER. Patient was started on IV Lasix for congestive heart failure and pulmonary edema. Chest x-ray showed evidence of congestive heart failure. Patient did have significant elevated blood pressure and was tachycardic on admission. Blood pressure 201/114 and heart rate 121. Patient started on IV Lasix. Respiratory symptoms are improving. He is currently on 2 L of oxygen satting at 95%. Cardiology has been placed on consult. Patient stopped taking his oral Lasix about 2 weeks ago by his physician. Patient reports eating a half of sausage yesterday, in which she knows is very salty. And blames this for contributing to his fluid overload. Patient denies any chest pain, fever, chills, sweats, nausea or vomiting, bowel movement changes or urinary symptoms. Uriostegui catheter inserted in ER due to him being on IV Lasix. Cardiology has been placed on consult for CHF exacerbation. 01/19/18 patient's shortness of breath has improved. He is currently off of oxygen. He has been able to ambulate to the bathroom and back without shortness of breath. Otherwise he has not ambulated much. He's been on the IV Lasix. Creatinine has increased to 1.32. We'll discuss diuretics with cardiology service. At this time instructed nursing staff to hold afternoon dose of Lasix. Patient denies any chest pain shortness of breath nausea vomiting. Reports having bowel movements. Denies any difficulty urinating. Objective - Vital Signs Vital signs: Vital Signs Temp 97.8 F 01/19/18 11:28 Pulse 69 01/19/18 11:28 Resp 18 01/19/18 11:28 BP 116/50 01/19/18 11:28 Pulse Ox 91 L 01/19/18 11:28 Intake & Output 01/18/18 01/19/18 01/19/18 18:59 06:59 18:59 Intake Total 10 240 Output Total 4900 1200 400 Balance -4900 -1190 -160 Weight 107 kg 107 kg Intake: IV 10 0.9 10 Oral 240 Output: Urine 4000 1200 400 Uretheral (Uriostegui) 400 Urine/Stool Mix 900 Other: Voiding Method Indwelling Catheter Indwelling Catheter Urinal - Exam Head normocephalic Neck supple Lungs a few faint crackles at the bases Heart regular rate and rhythm S1-S2, no rub or gallop Abdomen is soft nontender nondistended positive bowel sounds no hepatosplenomegaly Extremities no edema Neuro alert and orientated to 3 - Labs CBC & Chem 7: 01/19/18 06:26 01/19/18 06:26 Labs: Abnormal Lab Results - Last 24 Hours (Table) 01/18/18 01/18/18 01/18/18 Range/Units 02:33 02:33 12:56 Hgb (13.0-17.5) gm/dL Hct (39.0-53.0) % MCH (25.0-35.0) pg BUN (9-20) mg/dL Creatinine (0.66-1.25) mg/dL Glucose (74-99) mg/dL POC Glucose (mg/dL) 263 H (75-99) mg/dL Hemoglobin A1c 6.7 H (4.0-6.0) % Iron 21 L (65-175) ug/dL Iron Saturation 6.05 L (15.00-50.00) 01/18/18 01/19/18 01/19/18 Range/Units 20:35 05:43 06:26 Hgb 11.4 L (13.0-17.5) gm/dL Hct 36.5 L (39.0-53.0) % MCH 24.9 L (25.0-35.0) pg BUN (9-20) mg/dL Creatinine (0.66-1.25) mg/dL Glucose (74-99) mg/dL POC Glucose (mg/dL) 317 H 140 H (75-99) mg/dL Hemoglobin A1c (4.0-6.0) % Iron (65-175) ug/dL Iron Saturation (15.00-50.00) 01/19/18 01/19/18 Range/Units 06:26 11:20 Hgb (13.0-17.5) gm/dL Hct (39.0-53.0) % MCH (25.0-35.0) pg BUN 37 H (9-20) mg/dL Creatinine 1.32 H (0.66-1.25) mg/dL Glucose 120 H (74-99) mg/dL POC Glucose (mg/dL) 74 L (75-99) mg/dL Hemoglobin A1c (4.0-6.0) % Iron (65-175) ug/dL Iron Saturation (15.00-50.00) Microbiology - Last 24 Hours (Table) 01/18/18 04:30 Urine Culture - Preliminary Urine,Voided Gram Neg Bacilli 01/18/18 02:33 Blood Culture - Preliminary Blood No Growth after 24 hours Assessment and Plan Assessment: 1. Acute hypoxic respiratory failure secondary to congestive heart failure exacerbation and pulmonary edema 2. Acute on chronic systolic CHF exacerbation: Patient started on IV Lasix 40 mg IV every 8 hours. Cardiology on consult. Echo shows an EF of 40-45% with wall motion normality. Also mild aortic stenosis, mild mitral regurgitation and tricuspid regurgitation 3. History of diabetes mellitus type 2: A1c 6.7. Resume patient's Lantus and glipizide. Hold metformin during hospitalization. Add Humalog sliding scale coverage. 4. Essential hypertension 5. Hypertensive urgency on admission likely due to patient's respiratory status. Patient's blood pressures have improved. 6. Sinus tachycardia again likely related to patient's respiratory status now improved 8. History of TIA 9. History of hyperlipidemia 10. Nicotine dependence: Discussed smoking cessation for greater than 3 minutes. Patient refusing nicotine patch at this time. 11. Iron deficiency Anemia: Hemoglobin 10.9 on admission. No evidence of bleeding. Total iron 21. Hemoglobin has improved to 11.4. Patient started on ferrous sulfate 325 mg daily 12. Acute kidney injury secondary to diuretics. Hold afternoon Lasix. Discussed diuretics with cardiology Consult PT OT Anticipate discharge possibly tomorrow GI prophylaxis Pepcid and DVT prophylaxis subcu heparin
--- NOTE | 2018-01-19 16:06 | P.PN ---
Subjective Progress Note Date: 01/19/18 This is a 72-year-old gentleman with history of hypertension, release inferior wall [place] and chronic congestive heart failure who was admitted to the hospital with increasing shortness of breath. Patient stopped taking his diuretics for a few days. He was found to be in congestive heart failure. Patient responded to diuretics very well. He is feeling much better today. His creatinine has gone up to 1.3. His echo showed an ejection fraction about 45%. The inferior wall hypokinesis noted. Otherwise patient is doing well. We'll switch to by mouth diuretics and continue Rest of the medication. Increase activity. Possible discharge in 24-48 hours Objective - Vital Signs Vital signs: Vital Signs Temp 97.8 F 01/19/18 11:28 Pulse 69 01/19/18 11:28 Resp 18 01/19/18 11:28 BP 116/50 01/19/18 11:28 Pulse Ox 91 L 01/19/18 11:28 Intake & Output 01/18/18 01/19/18 01/19/18 18:59 06:59 18:59 Intake Total 10 1200 Output Total 4900 1200 1000 Balance -4900 -1190 200 Weight 107 kg 107 kg Intake: IV 10 0.9 10 Oral 1200 Output: Urine 4000 1200 1000 Uretheral (Uriostegui) 400 Urine/Stool Mix 900 Other: Voiding Method Indwelling Catheter Indwelling Catheter Urinal - Exam GENERAL EXAM: Patient is alert and oriented and doesn't appear to be in any acute distress HEENT: Normocephalic. Normal reaction of pupils, equal size, normal range of extraocular motion. No erythema or exudates in the throat. NECK: No masses, no nuchal rigidity. CHEST: No chest wall deformity. LUNGS: Equal air entry and scattered rhonchi HEART: S1 and S2 normal with no audible mumurs or gallops. Regular rhythm, femorals equal on both sides.. ABDOMEN: No hepatosplenomegaly, normal bowel sounds, no guarding or rigidity. SKIN: No rashes CENTRAL NERVOUS SYSTEM: No focal deficits. EXTREMITIES: No cyanosis, clubbing or edema. - Labs CBC & Chem 7: 01/19/18 06:26 01/19/18 06:26 Labs: Abnormal Lab Results - Last 24 Hours (Table) 01/18/18 01/18/18 01/19/18 Range/Units 02:33 20:35 05:43 Hgb (13.0-17.5) gm/dL Hct (39.0-53.0) % MCH (25.0-35.0) pg BUN (9-20) mg/dL Creatinine (0.66-1.25) mg/dL Glucose (74-99) mg/dL POC Glucose (mg/dL) 317 H 140 H (75-99) mg/dL Iron 21 L (65-175) ug/dL Iron Saturation 6.05 L (15.00-50.00) 01/19/18 01/19/18 01/19/18 Range/Units 06:26 06:26 11:20 Hgb 11.4 L (13.0-17.5) gm/dL Hct 36.5 L (39.0-53.0) % MCH 24.9 L (25.0-35.0) pg BUN 37 H (9-20) mg/dL Creatinine 1.32 H (0.66-1.25) mg/dL Glucose 120 H (74-99) mg/dL POC Glucose (mg/dL) 74 L (75-99) mg/dL Iron (65-175) ug/dL Iron Saturation (15.00-50.00) Microbiology - Last 24 Hours (Table) 01/18/18 04:30 Urine Culture - Preliminary Urine,Voided Gram Neg Bacilli 01/18/18 02:33 Blood Culture - Preliminary Blood No Growth after 24 hours Assessment and Plan (1) Pulmonary edema Current Visit: Yes Status: Acute Code(s): J81.1 - CHRONIC PULMONARY EDEMA SNOMED Code(s): 49818287 (2) Left bundle branch block Current Visit: Yes Status: Acute Code(s): I44.7 - LEFT BUNDLE-BRANCH BLOCK, UNSPECIFIED SNOMED Code(s): 76830891 (3) Coronary artery disease Current Visit: Yes Status: Acute Code(s): I25.10 - ATHSCL HEART DISEASE OF [place] CORONARY ARTERY W/O ANG PCTRS SNOMED Code(s): 40253830 (4) Ischemic cardiomyopathy Current Visit: Yes Status: Acute Code(s): I25.5 - ISCHEMIC CARDIOMYOPATHY SNOMED Code(s): 182552050 (5) Hypertension, essential Current Visit: Yes Status: Acute Code(s): I10 - ESSENTIAL (PRIMARY) HYPERTENSION SNOMED Code(s): 76303699 (6) Hypercholesterolemia Current Visit: Yes Status: Acute Code(s): E78.00 - PURE HYPERCHOLESTEROLEMIA , UNSPECIFIED SNOMED Code(s): 23169544 Plan: Continue current medical therapy except changing IV Lasix to by mouth Lasix. Increase activity as tolerated
[2018-01-19] MEDS: SPIRONOLACTONE 25 MG TAB PO SCH (16:32)
[2018-01-19] MEDS: LISINOPRIL 20 MG TAB PO SCH (16:32)
[2018-01-19] MEDS: FUROSEMIDE 40 MG TAB PO SCH (16:32)
[2018-01-19 16:47] LABS: Glucose,Whole Blood 129 mg/dL (75-99)
[2018-01-19] MEDS: ATORVASTATIN 10 MG TAB PO SCH (20:18)
[2018-01-19] MEDS: TAMSULOSIN 0.4 MG CAP.ER.24H PO SCH (20:18)
[2018-01-19 20:28] LABS: Glucose,Whole Blood 185 mg/dL (75-99)
[2018-01-20 06:23] LABS: Glucose,Whole Blood 93 mg/dL (75-99)
[2018-01-20] MEDS: INSULIN ASPART 100 UNIT/ML 1 ML 10 ML VIAL SQ SCH ×4 (06:44→20:38)
[2018-01-20] MEDS: glipiZIDE 10 MG TAB PO SCH (06:47)
[2018-01-20] MEDS: CARVEDILOL 6.25 MG TAB PO SCH ×2 (06:47→18:18)
[2018-01-20 08:50] LABS: Basophils % (A) 1 %; Eosinophils # (A) 0.1 k/uL (0-0.7); Eosinophils % (A) 2 %; HCT 33.6 % (39.0-53.0); HGB 10.8 gm/dL (13.0-17.5); Hypochromasia Slight; Lymphocytes # (A) 0.9 k/uL (1.0-4.8); Lymphocytes % (A) 17 %; MCH 25.8 pg (25.0-35.0); MCV 80.4 fL (80.0-100.0); Mean Platelet Volume 7.4; Monocytes # (A) 0.4 k/uL (0-1.0); Monocytes % (A) 8 %; Neutrophils # (A) 3.6 k/uL (1.3-7.7); Neutrophils % (A) 71 %; Platelet Count 199 k/uL (150-450); RBC 4.18 m/uL (4.30-5.90); RDW 15.5 % (11.5-15.5); WBC 5.1 k/uL (3.8-10.6)
[2018-01-20 09:01] LABS: Calcium 8.7 mg/dL (8.4-10.2); Potassium 4.1 mmol/L (3.5-5.1); Total Bilirubin 0.3 mg/dL (0.2-1.3); Total Protein 6.3 g/dL (6.3-8.2)
[2018-01-20] MEDS: FUROSEMIDE 40 MG TAB PO SCH ×2 (09:17→18:18)
[2018-01-20] MEDS: FAMOTIDINE 20 MG TAB PO SCH (09:17)
[2018-01-20] MEDS: ASPIRIN 325 MG TAB PO SCH (09:17)
[2018-01-20] MEDS: FERROUS SULFATE 325 MG TAB PO SCH (09:17)
[2018-01-20] MEDS: HEPARIN SODIUM,PORCINE 5,000 UNIT/ML 1 ML VIAL SQ SCH ×2 (09:17→20:41)
[2018-01-20] MEDS: ISOSORBIDE MONONITRATE ER 30 MG TAB.ER.24H PO SCH (09:17)
[2018-01-20] MEDS: INSULIN DETEMIR 100 UNIT/ML 10 ML VIAL SQ SCH (09:17)
[2018-01-20 11:28] LABS: Glucose,Whole Blood 134 mg/dL (75-99)
--- NOTE | 2018-01-20 14:34 | P.PN ---
Subjective Progress Note Date: 01/20/18 This is a 72-year-old male, patient of Dr. Edgar. Patient has a known past medical history of congestive heart failure, myocardial infarction, TIA, diabetes, hypertension, hyperlipidemia, osteoarthritis and nicotine dependence. Patient presents to the emergency room with complaints of shortness of breath and evidence of congestive heart failure. Patient reports the shortness of breath started around midnight last night. He was concerned and called EMS. Per ER reports upon EMS evaluation patient was in acute respiratory failure. Oxygen saturations were in the 70s and radials noted on lung exam. He was placed on CPAP given nitro and DuoNeb as well as IV Solu-Medrol in route. He required to be on BiPAP in the ER. Patient was started on IV Lasix for congestive heart failure and pulmonary edema. Chest x-ray showed evidence of congestive heart failure. Patient did have significant elevated blood pressure and was tachycardic on admission. Blood pressure 201/114 and heart rate 121. Patient started on IV Lasix. Respiratory symptoms are improving. He is currently on 2 L of oxygen satting at 95%. Cardiology has been placed on consult. Patient stopped taking his oral Lasix about 2 weeks ago by his physician. Patient reports eating a half of sausage yesterday, in which she knows is very salty. And blames this for contributing to his fluid overload. Patient denies any chest pain, fever, chills, sweats, nausea or vomiting, bowel movement changes or urinary symptoms. Uriostegui catheter inserted in ER due to him being on IV Lasix. Cardiology has been placed on consult for CHF exacerbation. 01/19/18 patient's shortness of breath has improved. He is currently off of oxygen. He has been able to ambulate to the bathroom and back without shortness of breath. Otherwise he has not ambulated much. He's been on the IV Lasix. Creatinine has increased to 1.32. We'll discuss diuretics with cardiology service. At this time instructed nursing staff to hold afternoon dose of Lasix. Patient denies any chest pain shortness of breath nausea vomiting. Reports having bowel movements. Denies any difficulty urinating. On 01/20/2018 patient is alert and oriented 3 he was seen and examined on the telemetry floor his shortness of breath has improved, kidney function has worsened since yesterday with a BUN of 52 and a creatinine of 1.5, patient clinically is doing well there is no fever or chills no headache or dizziness no chest pain there is some shortness of breath with activity no cough no nausea or vomiting no abdominal pain no diarrhea and no urinary symptoms Objective - Vital Signs Vital signs: Vital Signs Temp 98.2 F 01/20/18 12:00 Pulse 65 01/20/18 12:00 Resp 20 01/20/18 12:00 BP 119/58 01/20/18 12:00 Pulse Ox 96 01/20/18 12:00 Intake & Output 01/19/18 01/20/18 01/20/18 18:59 06:59 18:59 Intake Total 1440 598 Output Total 1000 Balance 440 598 Weight 107 kg 108.7 kg Intake: Oral 1440 598 Output: Urine 1000 Uretheral (Uriostegui) 400 Other: Voiding Method Urinal Urinal - Exam Head normocephalic and atraumatic Neck supple no JVD no goiter Lungs a few faint crackles at the bases Heart regular rate and rhythm S1-S2, no rub or gallop Abdomen is soft nontender nondistended positive bowel sounds no hepatosplenomegaly Extremities no edema no cyanosis or clubbing Neuro alert and orientated to 3 - Labs CBC & Chem 7: 01/20/18 08:13 01/20/18 08:13 Labs: Abnormal Lab Results - Last 24 Hours (Table) 01/19/18 01/19/18 01/20/18 Range/Units 16:45 20:26 08:13 RBC 4.18 L (4.30-5.90) m/uL Hgb 10.8 L (13.0-17.5) gm/dL Hct 33.6 L (39.0-53.0) % Lymphocytes # 0.9 L (1.0-4.8) k/uL BUN (9-20) mg/dL Creatinine (0.66-1.25) mg/dL Glucose (74-99) mg/dL POC Glucose (mg/dL) 129 H 185 H (75-99) mg/dL Albumin (3.5-5.0) g/dL 01/20/18 01/20/18 Range/Units 08:13 11:26 RBC (4.30-5.90) m/uL Hgb (13.0-17.5) gm/dL Hct (39.0-53.0) % Lymphocytes # (1.0-4.8) k/uL BUN 52 H (9-20) mg/dL Creatinine 1.50 H (0.66-1.25) mg/dL Glucose 120 H (74-99) mg/dL POC Glucose (mg/dL) 134 H (75-99) mg/dL Albumin 3.0 L (3.5-5.0) g/dL Microbiology - Last 24 Hours (Table) 01/18/18 04:30 Urine Culture - Final Urine,Voided Morganella morganii 01/18/18 02:33 Blood Culture - Preliminary Blood No Growth after 48 hours Assessment and Plan Plan: 1. Acute hypoxic respiratory failure secondary to congestive heart failure exacerbation and pulmonary edema 2. Acute on chronic systolic CHF exacerbation: Patient started on IV Lasix 40 mg IV every 8 hours. Cardiology on consult. Echo shows an EF of 40-45% with wall motion normality. Also mild aortic stenosis, mild mitral regurgitation and tricuspid regurgitation 3. History of diabetes mellitus type 2: A1c 6.7. Resume patient's Lantus and glipizide. Hold metformin during hospitalization. Add Humalog sliding scale coverage. 4. Essential hypertension 5. Hypertensive urgency on admission likely due to patient's respiratory status. Patient's blood pressures have improved. 6. Sinus tachycardia again likely related to patient's respiratory status now improved 8. History of TIA 9. History of hyperlipidemia 10. Nicotine dependence: Discussed smoking cessation for greater than 3 minutes. Patient refusing nicotine patch at this time. 11. Iron deficiency Anemia: Hemoglobin 10.9 on admission. No evidence of bleeding. Total iron 21. Hemoglobin has improved to 11.4. Patient started on ferrous sulfate 325 mg daily 12. Acute kidney injury secondary to diuretics. Hold afternoon Lasix. Discussed diuretics with cardiology Consult PT OT Anticipate discharge possibly tomorrow GI prophylaxis Pepcid and DVT prophylaxis subcu heparin
--- NOTE | 2018-01-20 14:55 | P.PN ---
Subjective This is a pleasant 72-year-old male past medical history significant for myocardial infarction of the inferior wall, hypertension and chronic congestive heart failure. He was admitted to the hospital for symptoms of increasing shortness of breath. Per the patient he stopped taking his diuretics for a few days prior to admission. He has been transitioned to oral diuretics in the form of Lasix 40 mg twice a day. He is seen and examined laying flat resting comfortably in bed in no acute distress. He denies any symptoms of chest pain, shortness of breath, dizziness or palpitations. He is currently maintained on aspirin 81 mg daily, atorvastatin 10 mg daily, carvedilol 6.25 mg twice a day, Lasix 40 mg twice a day, Imdur 30 mg daily, lisinopril 40 mg daily and Aldactone 25 mg daily. Blood pressure 119/58 heart 65 maintaining oxygen saturation on room air. Laboratory data reviewed, WBC 5.1, hemoglobin 10.8, platelets 189, sodium 142, potassium 4.1, creatinine 1.5. GENERAL: Well-appearing, well-nourished and in no acute distress. NECK: Supple without JVD or thyromegaly. LUNGS: Breath sounds clear to auscultation bilaterally. Respiration equal and unlabored. No wheezes, rales or rhonchi. HEART: Regular rate and rhythm with systolic ejection murmur at the base, no rubs or gallops. S1 and S2 heard. EXTREMITIES: Normal range of motion, no edema. No clubbing or cyanosis. Peripheral pulses intact. ASSESSMENT Acute pulmonary edema, improved History of coronary artery disease Chronic ischemic cardiomyopathy Hypertension Dyslipidemia PLAN Stable from a cardiac perspective on current regimen. Patient is hemodynamically stable and asymptomatic. He medial discharged home follow-up with Dr. Fong in the office in 2-3 weeks. Nurse Practitioner note has been reviewed, I agree with a documented findings and plan of care. Patient was seen and examined. Objective - Vital Signs Vital signs: Vital Signs Temp 98.2 F 01/20/18 12:00 Pulse 65 01/20/18 12:00 Resp 20 01/20/18 12:00 BP 119/58 01/20/18 12:00 Pulse Ox 96 01/20/18 12:00 Intake & Output 01/19/18 01/20/18 01/20/18 18:59 06:59 18:59 Intake Total 1440 598 Output Total 1000 Balance 440 598 Weight 107 kg 108.7 kg Intake: Oral 1440 598 Output: Urine 1000 Uretheral (Uriostegui) 400 Other: Voiding Method Urinal Urinal - Labs CBC & Chem 7: 01/20/18 08:13 01/20/18 08:13 Labs: Abnormal Lab Results - Last 24 Hours (Table) 01/19/18 01/19/18 01/20/18 Range/Units 16:45 20:26 08:13 RBC 4.18 L (4.30-5.90) m/uL Hgb 10.8 L (13.0-17.5) gm/dL Hct 33.6 L (39.0-53.0) % Lymphocytes # 0.9 L (1.0-4.8) k/uL BUN (9-20) mg/dL Creatinine (0.66-1.25) mg/dL Glucose (74-99) mg/dL POC Glucose (mg/dL) 129 H 185 H (75-99) mg/dL Albumin (3.5-5.0) g/dL 01/20/18 01/20/18 Range/Units 08:13 11:26 RBC (4.30-5.90) m/uL Hgb (13.0-17.5) gm/dL Hct (39.0-53.0) % Lymphocytes # (1.0-4.8) k/uL BUN 52 H (9-20) mg/dL Creatinine 1.50 H (0.66-1.25) mg/dL Glucose 120 H (74-99) mg/dL POC Glucose (mg/dL) 134 H (75-99) mg/dL Albumin 3.0 L (3.5-5.0) g/dL Microbiology - Last 24 Hours (Table) 01/18/18 04:30 Urine Culture - Final Urine,Voided Morganella morganii 01/18/18 02:33 Blood Culture - Preliminary Blood No Growth after 48 hours
[2018-01-20 16:36] LABS: Glucose,Whole Blood 116 mg/dL (75-99)
[2018-01-20] MEDS: LISINOPRIL 20 MG TAB PO SCH (18:18)
[2018-01-20] MEDS: SPIRONOLACTONE 25 MG TAB PO SCH (18:18)
[2018-01-20 20:31] LABS: Glucose,Whole Blood 126 mg/dL (75-99)
[2018-01-20] MEDS: ATORVASTATIN 10 MG TAB PO SCH (20:41)
[2018-01-20] MEDS: TAMSULOSIN 0.4 MG CAP.ER.24H PO SCH (20:41)
[2018-01-21 05:53] LABS: Glucose,Whole Blood 109 mg/dL (75-99)
[2018-01-21] MEDS: INSULIN ASPART 100 UNIT/ML 1 ML 10 ML VIAL SQ SCH ×4 (06:07→20:45)
[2018-01-21 06:16] LABS: Basophils % (A) 1 %; Eosinophils # (A) 0.2 k/uL (0-0.7); Eosinophils % (A) 4 %; HCT 33.4 % (39.0-53.0); HGB 10.5 gm/dL (13.0-17.5); Lymphocytes % (A) 19 %; MCH 24.8 pg (25.0-35.0); MCHC 31.3 g/dL (31.0-37.0); MCV 79.1 fL (80.0-100.0); Mean Platelet Volume 7.6; Monocytes # (A) 0.6 k/uL (0-1.0); Monocytes % (A) 11 %; Neutrophils # (A) 3.5 k/uL (1.3-7.7); Neutrophils % (A) 64 %; Platelet Count 200 k/uL (150-450); RBC 4.22 m/uL (4.30-5.90); RDW 15.4 % (11.5-15.5); WBC 5.4 k/uL (3.8-10.6)
[2018-01-21 06:28] LABS: Albumin 2.9 g/dL (3.5-5.0); Calcium 8.5 mg/dL (8.4-10.2); Potassium 4.3 mmol/L (3.5-5.1); Total Bilirubin 0.3 mg/dL (0.2-1.3)
[2018-01-21] MEDS: glipiZIDE 10 MG TAB PO SCH (06:36)
[2018-01-21] MEDS: CARVEDILOL 6.25 MG TAB PO SCH ×2 (06:36→17:09)
[2018-01-21] MEDS: FERROUS SULFATE 325 MG TAB PO SCH (09:23)
[2018-01-21] MEDS: ISOSORBIDE MONONITRATE ER 30 MG TAB.ER.24H PO SCH (09:23)
[2018-01-21] MEDS: FAMOTIDINE 20 MG TAB PO SCH (09:23)
[2018-01-21] MEDS: FUROSEMIDE 40 MG TAB PO SCH ×2 (09:23→17:10)
[2018-01-21] MEDS: ASPIRIN 81 MG PO SCH (09:23)
[2018-01-21] MEDS: INSULIN DETEMIR 100 UNIT/ML 10 ML VIAL SQ SCH (09:23)
[2018-01-21] MEDS: HEPARIN SODIUM,PORCINE 5,000 UNIT/ML 1 ML VIAL SQ SCH ×2 (09:23→20:34)
[2018-01-21 11:58] LABS: Glucose,Whole Blood 113 mg/dL (75-99)
--- NOTE | 2018-01-21 15:14 | P.PN ---
Subjective Progress Note Date: 01/21/18 This is a 72-year-old male, patient of Dr. Edgar. Patient has a known past medical history of congestive heart failure, myocardial infarction, TIA, diabetes, hypertension, hyperlipidemia, osteoarthritis and nicotine dependence. Patient presents to the emergency room with complaints of shortness of breath and evidence of congestive heart failure. Patient reports the shortness of breath started around midnight last night. He was concerned and called EMS. Per ER reports upon EMS evaluation patient was in acute respiratory failure. Oxygen saturations were in the 70s and radials noted on lung exam. He was placed on CPAP given nitro and DuoNeb as well as IV Solu-Medrol in route. He required to be on BiPAP in the ER. Patient was started on IV Lasix for congestive heart failure and pulmonary edema. Chest x-ray showed evidence of congestive heart failure. Patient did have significant elevated blood pressure and was tachycardic on admission. Blood pressure 201/114 and heart rate 121. Patient started on IV Lasix. Respiratory symptoms are improving. He is currently on 2 L of oxygen satting at 95%. Cardiology has been placed on consult. Patient stopped taking his oral Lasix about 2 weeks ago by his physician. Patient reports eating a half of sausage yesterday, in which she knows is very salty. And blames this for contributing to his fluid overload. Patient denies any chest pain, fever, chills, sweats, nausea or vomiting, bowel movement changes or urinary symptoms. Uriostegui catheter inserted in ER due to him being on IV Lasix. Cardiology has been placed on consult for CHF exacerbation. 01/19/18 patient's shortness of breath has improved. He is currently off of oxygen. He has been able to ambulate to the bathroom and back without shortness of breath. Otherwise he has not ambulated much. He's been on the IV Lasix. Creatinine has increased to 1.32. We'll discuss diuretics with cardiology service. At this time instructed nursing staff to hold afternoon dose of Lasix. Patient denies any chest pain shortness of breath nausea vomiting. Reports having bowel movements. Denies any difficulty urinating. On 01/20/2018 patient is alert and oriented 3 he was seen and examined on the telemetry floor his shortness of breath has improved, kidney function has worsened since yesterday with a BUN of 52 and a creatinine of 1.5, patient clinically is doing well there is no fever or chills no headache or dizziness no chest pain there is some shortness of breath with activity no cough no nausea or vomiting no abdominal pain no diarrhea and no urinary symptoms On 01/21/2018 patient is alert and oriented 3 he has shortness of breath with activity otherwise no complaints at this time creatinine is still elevated at 1.54, cardiology will reevaluate the patient to assess his medications including diuretics Objective - Vital Signs Vital signs: Vital Signs Temp 98.1 F 01/21/18 12:00 Pulse 68 01/21/18 12:00 Resp 20 01/21/18 12:00 BP 105/52 01/21/18 12:00 Pulse Ox 93 L 01/21/18 12:00 Intake & Output 01/20/18 01/21/18 01/21/18 18:59 06:59 18:59 Intake Total 778 Balance 778 Weight 108.6 kg Intake: Oral 778 Other: Voiding Method Urinal # Voids 1 2 # Bowel Movements 1 - Exam Head normocephalic and atraumatic Neck supple no JVD no goiter Lungs a few faint crackles at the bases Heart regular rate and rhythm S1-S2, no rub or gallop Abdomen is soft nontender nondistended positive bowel sounds no hepatosplenomegaly Extremities no edema no cyanosis or clubbing Neuro alert and orientated to 3 - Labs CBC & Chem 7: 01/21/18 05:43 01/21/18 05:43 Labs: Abnormal Lab Results - Last 24 Hours (Table) 01/20/18 01/20/18 01/21/18 Range/Units 16:35 20:30 05:43 RBC 4.22 L (4.30-5.90) m/uL Hgb 10.5 L (13.0-17.5) gm/dL Hct 33.4 L (39.0-53.0) % MCV 79.1 L (80.0-100.0) fL MCH 24.8 L (25.0-35.0) pg BUN (9-20) mg/dL Creatinine (0.66-1.25) mg/dL Glucose (74-99) mg/dL POC Glucose (mg/dL) 116 H 126 H (75-99) mg/dL AST (17-59) U/L ALT (21-72) U/L Total Protein (6.3-8.2) g/dL Albumin (3.5-5.0) g/dL 01/21/18 01/21/18 01/21/18 Range/Units 05:43 05:51 11:57 RBC (4.30-5.90) m/uL Hgb (13.0-17.5) gm/dL Hct (39.0-53.0) % MCV (80.0-100.0) fL MCH (25.0-35.0) pg BUN 49 H (9-20) mg/dL Creatinine 1.54 H (0.66-1.25) mg/dL Glucose 106 H (74-99) mg/dL POC Glucose (mg/dL) 109 H 113 H (75-99) mg/dL AST 12 L (17-59) U/L ALT 19 L (21-72) U/L Total Protein 6.0 L (6.3-8.2) g/dL Albumin 2.9 L (3.5-5.0) g/dL Microbiology - Last 24 Hours (Table) 01/18/18 02:33 Blood Culture - Preliminary Blood No Growth after 72 hours Assessment and Plan Plan: 1. Acute hypoxic respiratory failure secondary to congestive heart failure exacerbation and pulmonary edema 2. Acute on chronic systolic CHF exacerbation: Patient started on IV Lasix 40 mg IV every 8 hours. Cardiology on consult. Echo shows an EF of 40-45% with wall motion normality. Also mild aortic stenosis, mild mitral regurgitation and tricuspid regurgitation 3. History of diabetes mellitus type 2: A1c 6.7. Resume patient's Lantus and glipizide. Hold metformin during hospitalization. Add Humalog sliding scale coverage. 4. Essential hypertension 5. Hypertensive urgency on admission likely due to patient's respiratory status. Patient's blood pressures have improved. 6. Sinus tachycardia again likely related to patient's respiratory status now improved 8. History of TIA 9. History of hyperlipidemia 10. Nicotine dependence: Discussed smoking cessation for greater than 3 minutes. Patient refusing nicotine patch at this time. 11. Iron deficiency Anemia: Hemoglobin 10.9 on admission. No evidence of bleeding. Total iron 21. Hemoglobin has improved to 11.4. Patient started on ferrous sulfate 325 mg daily 12. Acute kidney injury secondary to diuretics. Hold afternoon Lasix. Discussed diuretics with cardiology Consult PT OT Anticipate discharge possibly tomorrow GI prophylaxis Pepcid and DVT prophylaxis subcu heparin
[2018-01-21 16:25] LABS: Glucose,Whole Blood 90 mg/dL (75-99)
[2018-01-21] MEDS: LISINOPRIL 20 MG TAB PO SCH (17:10)
[2018-01-21] MEDS: SPIRONOLACTONE 25 MG TAB PO SCH (17:10)
[2018-01-21 20:05] LABS: Glucose,Whole Blood 236 mg/dL (75-99)
[2018-01-21] MEDS: TAMSULOSIN 0.4 MG CAP.ER.24H PO SCH (20:45)
[2018-01-21] MEDS: ATORVASTATIN 10 MG TAB PO SCH (20:45)
[2018-01-22 06:00] LABS: Glucose,Whole Blood 172 mg/dL (75-99)
[2018-01-22] MEDS: INSULIN ASPART 100 UNIT/ML 1 ML 10 ML VIAL SQ SCH ×2 (06:23→12:57)
[2018-01-22] MEDS: glipiZIDE 10 MG TAB PO SCH (06:26)
[2018-01-22] MEDS: CARVEDILOL 6.25 MG TAB PO SCH (06:26)
[2018-01-22 06:28] LABS: Basophils % (A) 1 %; Eosinophils # (A) 0.2 k/uL (0-0.7); Eosinophils % (A) 4 %; HCT 34.4 % (39.0-53.0); HGB 10.8 gm/dL (13.0-17.5); Lymphocytes # (A) 0.9 k/uL (1.0-4.8); Lymphocytes % (A) 17 %; MCH 24.8 pg (25.0-35.0); MCHC 31.4 g/dL (31.0-37.0); MCV 79.2 fL (80.0-100.0); Mean Platelet Volume 7.7; Monocytes # (A) 0.5 k/uL (0-1.0); Monocytes % (A) 9 %; Neutrophils # (A) 3.4 k/uL (1.3-7.7); Neutrophils % (A) 67 %; Platelet Count 200 k/uL (150-450); RBC 4.34 m/uL (4.30-5.90); RDW 15.5 % (11.5-15.5); WBC 5.1 k/uL (3.8-10.6)
[2018-01-22 06:40] LABS: Calcium 8.6 mg/dL (8.4-10.2); Potassium 4.1 mmol/L (3.5-5.1); Total Bilirubin 0.3 mg/dL (0.2-1.3); Total Protein 6.3 g/dL (6.3-8.2)
[2018-01-22] MEDS: HEPARIN SODIUM,PORCINE 5,000 UNIT/ML 1 ML VIAL SQ SCH (09:25)
[2018-01-22] MEDS: ISOSORBIDE MONONITRATE ER 30 MG TAB.ER.24H PO SCH (09:25)
[2018-01-22] MEDS: FAMOTIDINE 20 MG TAB PO SCH (09:25)
[2018-01-22] MEDS: FUROSEMIDE 40 MG TAB PO SCH (09:25)
[2018-01-22] MEDS: FERROUS SULFATE 325 MG TAB PO SCH (09:25)
[2018-01-22] MEDS: ASPIRIN 81 MG PO SCH (09:25)
[2018-01-22] MEDS: INSULIN DETEMIR 100 UNIT/ML 10 ML VIAL SQ SCH (10:08)
[2018-01-22 11:33] LABS: Glucose,Whole Blood 167 mg/dL (75-99)
[2018-01-22 12:21] VITALS: BP 129/63; PULSE 65; RESP 16; TEMP 98
--- NOTE | 2018-01-22 14:14 | P.DS ---
Providers Date of admission: 01/18/18 04:45 Expected date of discharge: 01/22/18 Attending physician: Cheryle Read Consults: 01/18/18 04:45 Consult Physician Stat Consulting Provider: [facility] Consult Reason/Comments: CHF, flash pulmonary edema Do you want consulting provider notified?: Yes, Notify in am Primary care physician: Minerva Edgar Hospital Course: Discharge diagnosis 1. Acute hypoxic respiratory failure secondary to congestive heart failure exacerbation and pulmonary edema 2. Acute on chronic systolic CHF exacerbation: Patient switched from IV Lasix to oral Lasix 60 mg by mouth daily. Echo shows an EF of 40-45% with wall motion normality. Also mild aortic stenosis, mild mitral regurgitation and tricuspid regurgitation 3. History of diabetes mellitus type 2: A1c 6.7. Resume patient's Lantus and glipizide. Continue to hold metformin due to the elevated creatinine of 1.59 4. Essential hypertension 5. Hypertensive urgency on admission likely due to patient's respiratory status. Patient's blood pressures have improved. 6. Sinus tachycardia again likely related to patient's respiratory status now improved 8. History of TIA 9. History of hyperlipidemia 10. Nicotine dependence: Discussed smoking cessation for greater than 3 minutes. Patient refusing nicotine patch at this time. 11. Iron deficiency Anemia: Hemoglobin 10.9 on admission. No evidence of bleeding. Total iron 21. Patient started on ferrous sulfate 325 mg daily during hospitalization 12. Acute kidney injury secondary to diuretics. Evidence of cardiorenal syndrome. Creatinine at discharge 1.59. Lasix again decreased to 60 mg by mouth daily from 40 mg twice a day. Hospital course This is a 72-year-old male, patient of Dr. Edgar. Patient has a known past medical history of congestive heart failure, myocardial infarction, TIA, diabetes, hypertension, hyperlipidemia, osteoarthritis and nicotine dependence. Patient presents to the emergency room with complaints of shortness of breath and evidence of congestive heart failure. Patient reports the shortness of breath started around midnight last night. He was concerned and called EMS. Per ER reports upon EMS evaluation patient was in acute respiratory failure. Oxygen saturations were in the 70s and radials noted on lung exam. He was placed on CPAP given nitro and DuoNeb as well as IV Solu-Medrol in route. He required to be on BiPAP in the ER. Patient was started on IV Lasix for congestive heart failure and pulmonary edema. Chest x-ray showed evidence of congestive heart failure. Patient did have significant elevated blood pressure and was tachycardic on admission. Blood pressure 201/114 and heart rate 121. Patient started on IV Lasix. Respiratory symptoms are improving. He is currently on 2 L of oxygen satting at 95%. Cardiology has been placed on consult. Patient stopped taking his oral Lasix about 2 weeks ago by his physician. Patient reports eating a half of sausage yesterday, in which she knows is very salty. And blames this for contributing to his fluid overload. Patient denies any chest pain, fever, chills, sweats, nausea or vomiting, bowel movement changes or urinary symptoms. Uriostegui catheter inserted in ER due to him being on IV Lasix. Cardiology has been placed on consult for CHF exacerbation. 01/19/18 patient's shortness of breath has improved. He is currently off of oxygen. He has been able to ambulate to the bathroom and back without shortness of breath. Otherwise he has not ambulated much. He's been on the IV Lasix. Creatinine has increased to 1.32. We'll discuss diuretics with cardiology service. At this time instructed nursing staff to hold afternoon dose of Lasix. Patient denies any chest pain shortness of breath nausea vomiting. Reports having bowel movements. Denies any difficulty urinating. On 01/20/2018 patient is alert and oriented 3 he was seen and examined on the telemetry floor his shortness of breath has improved, kidney function has worsened since yesterday with a BUN of 52 and a creatinine of 1.5, patient clinically is doing well there is no fever or chills no headache or dizziness no chest pain there is some shortness of breath with activity no cough no nausea or vomiting no abdominal pain no diarrhea and no urinary symptoms On 01/21/2018 patient is alert and oriented 3 he has shortness of breath with activity otherwise no complaints at this time creatinine is still elevated at 1.54, cardiology will reevaluate the patient to assess his medications including diuretics 01/22/2018 patient is medically stable for discharge. He has been cleared by cardiology for discharge. He was found have evidence of an acute CHF exacerbation likely due to him eating salty foods. He will be on Lasix 60 mg daily. Dose needed to be decreased from 40 twice a day due to the rise in the creatinine. Creatinine at discharge is 1.59. Recommend following up on a BMP in 3 days. Patient seen evaluated by cardiology during this admission and has been cleared for discharge. As stated above echo showed an EF of 40-45%. Cardiology did recommend the patient continues with the Aldactone and JOHN inhibitor. At this time metformin was discontinued due to the elevated creatinine and recommend hold on that medication until kidney functions have improved. Patient is medical stable for discharge. Please refer to chart for any further details. Recommend follow-up with his PCP in 1 week. Recommend checking CBC and BMP in 3 days. Follow-up with cardiology in 2 weeks. Continue to monitor functions closely in the outpatient setting. If creatinine continues to increase further adjustments in patient's medications may be warranted. May need to cut back on diuretics Lasix or Aldactone. Also may need to cut back on the JOHN inhibitor. I performed an examination of the patient and discussed their management with the physician Realty Specialist. I have reviewed the Physician Realty Specialist's notes and agree with the documented findings and plan of care Patient Condition at Discharge: Stable Plan - Discharge Summary Discharge Rx Participant: No New Discharge Prescriptions: New Cefuroxime Axetil [Ceftin] 500 mg PO BID 3 Days #6 tab Ferrous Sulfate [Iron (65 MG Elemental)] 325 mg PO DAILY #30 tab Furosemide [Lasix] 60 mg PO DAILY #30 tab Continue glipiZIDE [Glucotrol] 20 mg PO W/BRKFST Benazepril HCl 40 mg PO DAILY Aspirin 81 mg PO DAILY Tamsulosin [Flomax] 0.4 mg PO HS Insulin Glargine [Lantus] 40 unit SQ DAILY Carvedilol [Coreg] 6.25 mg PO BID Lovastatin [Mevacor] 20 mg PO HS Isosorbide Mononitrate ER [Imdur] 30 mg PO DAILY Spironolactone [Aldactone] 25 mg PO DAILY Discontinued metFORMIN HCL ER [Glucophage Xr] 1,000 mg PO BID Furosemide [Lasix] 40 mg PO BID Discharge Medication List Benazepril HCl 40 mg PO DAILY 01/22/17 [History] glipiZIDE [Glucotrol] 20 mg PO W/BRKFST 01/22/17 [History] Aspirin 81 mg PO DAILY 01/23/17 [History] Insulin Glargine [Lantus] 40 unit SQ DAILY 12/04/17 [History] Tamsulosin [Flomax] 0.4 mg PO HS 01/23/17 [History] Carvedilol [Coreg] 6.25 mg PO BID 10/25/17 [History] Isosorbide Mononitrate ER [Imdur] 30 mg PO DAILY 10/25/17 [History] Lovastatin [Mevacor] 20 mg PO HS 10/25/17 [History] Spironolactone [Aldactone] 25 mg PO DAILY 10/25/17 [History] Cefuroxime Axetil [Ceftin] 500 mg PO BID 3 Days #6 tab 01/22/18 [Rx] Ferrous Sulfate [Iron (65 MG Elemental)] 325 mg PO DAILY #30 tab 01/22/18 [Rx] Furosemide [Lasix] 60 mg PO DAILY #30 tab 01/22/18 [Rx] Follow up Appointment(s)/Referral(s): Minerva Edgar MD [Primary Care Provider] - 01/29/18 1:15 pm (Monday) Jessica Fong MD [STAFF PHYSICIAN] - 02/07/18 4:00 pm (Monday) Ambulatory/Diagnostic Orders: Basic Metabolic Panel [LAB.AMB] Time Frame: 3 Days, Location: None Selected Patient Instructions/Handouts: Heart Failure (DC) Activity/Diet/Wound Care/Special Instructions: Diet: cardiac, low salt, diabetic Activity: as tolerated Discharge Disposition: HOME SELF-CARE
[2018-01-23] MEDS ORDERED: FUROSEMIDE 20 MG TAB PO SCH (09:00)
== END 2018-01-22 16:41 | disposition home or self-care (01) | DRG 291 ==
LOC: EC 02:28 → 3SCARD 04:45
PROVIDERS: ADMIT Internal Medicine; ATTEND Internal Medicine
PROC: 5A09457 Assistance with Respiratory Ventilation, 24-96 Consecutive Hours, Continuous Positive Airway Pressure (ICD-10-PCS; principal; 2018-01-18)
DX: I13.0 Hypertensive heart and chronic kidney disease with heart failure and stage 1 through stage 4 chronic kidney disease, or unspecified chronic kidney disease (principal); I50.23 Acute on chronic systolic (congestive) heart failure; J96.01 Acute respiratory failure with hypoxia; I16.1 Hypertensive emergency; N17.9 Acute kidney failure, unspecified; E11.22 Type 2 diabetes mellitus with diabetic chronic kidney disease; I25.5 Ischemic cardiomyopathy; I08.3 Combined rheumatic disorders of mitral, aortic and tricuspid valves; I44.7 Left bundle-branch block, unspecified; D50.9 Iron deficiency anemia, unspecified; T50.2X5A Adverse effect of carbonic-anhydrase inhibitors, benzothiadiazides and other diuretics, initial encounter; N18.9 Chronic kidney disease, unspecified; E78.00 Pure hypercholesterolemia, unspecified; E78.5 Hyperlipidemia, unspecified; I25.10 Atherosclerotic heart disease of native coronary artery without angina pectoris; I25.2 Old myocardial infarction; M19.90 Unspecified osteoarthritis, unspecified site; T50.2X6A Underdosing of carbonic-anhydrase inhibitors, benzothiadiazides and other diuretics, initial encounter; Z91.128 Patient's intentional underdosing of medication regimen for other reason; E66.9 Obesity, unspecified; Z68.32 Body mass index [BMI] 32.0-32.9, adult; F17.200 Nicotine dependence, unspecified, uncomplicated; Z71.6 Tobacco abuse counseling; Z79.82 Long term (current) use of aspirin; Z79.4 Long term (current) use of insulin; Z79.899 Other long term (current) drug therapy; Z86.73 Personal history of transient ischemic attack (TIA), and cerebral infarction without residual deficits; Z80.3 Family history of malignant neoplasm of breast
CPT/HCPCS: 36415; 71045; 80053; 81001; 82728; 83036; 83540; 83550; 83605; 83735; 84484; 85025; 85610; 85730; 87040; 87077; 87086; 87186; 87502; 93005; 93306; 94660; 96374; 96376; 99291

== ENCOUNTER → 2018-07-26 | Outpatient (CLI) | payer MEDICARE, BC ==
[2018-07-26 16:23] LABS: Basophils % (A) 1 %; Eosinophils # (A) 0.2 k/uL (0-0.7); Eosinophils % (A) 3 %; HCT 35.1 % (39.0-53.0); HGB 11.3 gm/dL (13.0-17.5); Lymphocytes % (A) 14 %; MCH 26.6 pg (25.0-35.0); MCHC 32.1 g/dL (31.0-37.0); Mean Platelet Volume 7.4; Monocytes # (A) 0.6 k/uL (0-1.0); Monocytes % (A) 8 %; Neutrophils % (A) 73 %; Platelet Count 222 k/uL (150-450); RBC 4.24 m/uL (4.30-5.90); RDW 14.1 % (11.5-15.5); WBC 6.8 k/uL (3.8-10.6)
== END ==
LOC: LABPAT 15:31
PROVIDERS: ATTEND Surgery
DX: Z01.818 Encounter for other preprocedural examination (principal); Z01.812 Encounter for preprocedural laboratory examination; K43.6 Other and unspecified ventral hernia with obstruction, without gangrene; F17.200 Nicotine dependence, unspecified, uncomplicated; D64.9 Anemia, unspecified
CPT/HCPCS: 85025; 86850; 86900; 86901; 93005

== ENCOUNTER 2018-07-30 06:25 | Day surgery (SDC) | payer MEDICARE, BC ==
[2018-07-27 10:18] VITALS: BMI 36.9
[~2018-07-30 06:25] MED LIST changes: -BUPIVACAIN-EPI 0.25%-1:200,000 30 ML VIAL SQ ONE; -GLYCOPYRROLATE 0.2 MG/ML 2 ML VIAL ONE; -HYDROcodone/APAP 7.5-325MG 1 EACH TAB PO ONE; -LIDOCAINE 1% 20 ML VIAL (10MG/ML) FOR IV START INTRADERMA ONE; +LIDOCAINE 1% 20 ML VIAL (10MG/ML) FOR IV START INTRADERMA PRN; -LIDOCAINE 1% INJ 10MG/ML (20 ML MDV) ONE; -MIDAZOLAM 2 MG/2 ML VIAL IV PRN; -NEOSTIGMINE 1 MG/ML 10 ML VIAL ONE; -PHENYLEPHRINE-0.9% NACL SYG 1 MG/10 ML SYRINGE ONE; -PROPOFOL 10 MG/ML 20 ML VIAL IV ONE; -ROCURONIUM BROMIDE 10 MG/ML 10 ML VIAL IV ONE; +SCOPOLAMINE 1.5MG/72HR PATCH TRANSDERM ONE; -SUCCINYLCHOLINE CHLORIDE 100 MG/5 ML SYR IV ONE; -ceFAZolin IN SWFI 2 GM/20 ML SYRINGE IVP ONE; -fentaNYL (PF) 50 MCG/ML 2 ML AMP ONE
[2018-07-30 07:18] LABS: Glucose,Whole Blood 160 mg/dL (75-99)
[2018-07-30] MEDS ORDERED: MIDAZOLAM 2 MG/2 ML VIAL ONE (07:52)
[2018-07-30] MEDS ORDERED: SUCCINYLCHOLINE CHLORIDE VIAL 200 MG/10 ML VIAL IV ONE (07:52)
[2018-07-30] MEDS ORDERED: LIDOCAINE 1% INJ 10MG/ML (20 ML MDV) ONE (07:52)
[2018-07-30] MEDS ORDERED: NEOSTIGMINE 1 MG/ML 10 ML VIAL ONE (07:52)
[2018-07-30] MEDS ORDERED: PHENYLEPHRINE-0.9% NACL SYG 1 MG/10 ML SYRINGE ONE (07:52)
[2018-07-30] MEDS ORDERED: PROPOFOL 10 MG/ML 20 ML VIAL IV ONE (07:52)
[2018-07-30] MEDS ORDERED: ROCURONIUM BROMIDE 10 MG/ML 10 ML VIAL IV ONE (07:52)
[2018-07-30] MEDS ORDERED: GLYCOPYRROLATE 0.2 MG/ML 2 ML VIAL ONE (07:52)
[2018-07-30] MEDS ORDERED: fentaNYL (PF) 50 MCG/ML 2 ML AMP ONE (07:52)
[2018-07-30] MEDS: ceFAZolin IN SWFI 2 GM/20 ML SYRINGE IVP ONE ×2 (07:57→08:10)
[2018-07-30] MEDS ORDERED: BUPIVACAIN-EPI 0.25%-1:200,000 30 ML VIAL SQ ONE (07:57)
--- NOTE | 2018-07-30 08:04 | P.GSHP ---
History of Present Illness H&P Date: 07/30/18 Chief Complaint: Recurrent incarcerated incisional hernia This a 73-year-old male who's had a previous ventral hernia. The patient developed recurrent incarcerated incisional/ventral hernia. He presents today for open repair. Past Medical History Past Medical History: Chest Pain / Angina, Heart Failure, CVA/TIA, Diabetes Mellitus, Hyperlipidemia, Hypertension, Osteoarthritis (OA) Additional Past Medical History / Comment(s): some bruising ralf arms [id number] no residual History of Any Multi-Drug Resistant Organisms: None Reported Past Surgical History: Hernia Repair Additional Past Surgical History / Comment(s): 10/31/17 robot assisted laprascopic umbilical hernia repair with mesh. Past Anesthesia/Blood Transfusion Reactions: No Reported Reaction Additional Past Anesthesia/Blood Transfusion Reaction / Comment(s): no hx blood transfusion Smoking Status: Light tobacco smoker - Past Family History Mother Family Medical History: Cancer Additional Family Medical History / Comment(s): breast cancer Father Family Medical History: Unable to Obtain Sister(s) Family Medical History: Cancer Medications and Allergies Home Medications Medication Instructions Recorded Confirmed Type Benazepril HCl 40 mg PO QAM 01/22/17 07/30/18 History glipiZIDE [Glucotrol] 20 mg PO W/BRKFST 01/22/17 07/30/18 History Aspirin 81 mg PO DAILY 01/23/17 07/30/18 History Insulin Glargine [Lantus] 40 unit SQ QAM 01/23/17 07/30/18 History Tamsulosin [Flomax] 0.4 mg PO HS 01/23/17 07/30/18 History Carvedilol [Coreg] 6.25 mg PO BID 10/25/17 07/30/18 History Isosorbide Mononitrate ER [Imdur] 30 mg PO QAM 10/25/17 07/30/18 History Lovastatin [Mevacor] 20 mg PO HS 10/25/17 07/30/18 History Spironolactone [Aldactone] 25 mg PO QAM 10/25/17 07/30/18 History Ferrous Sulfate [Iron (65 MG 325 mg PO DAILY #30 tab 01/22/18 07/30/18 Rx Elemental)] Furosemide [Lasix] 60 mg PO DAILY #30 tab 01/22/18 07/30/18 Rx Multivitamins, Thera [Multivitamin 1 tab PO DAILY 07/27/18 07/30/18 History (formulary)] Allergies Allergy/AdvReac Type Severity Reaction Status Date / Time No Known Allergies Allergy Verified 07/30/18 06:52 Surgical - Exam Vital Signs Temp Pulse Resp BP Pulse Ox 97.5 F L 69 18 143/63 94 L 07/30/18 07:15 07/30/18 07:15 07/30/18 07:15 07/30/18 07:15 07/30/18 07:15 - General BMI 37 well developed, well nourished, no distress - Eyes PERRL - ENT normal pinna - Neck no masses - Respiratory normal expansion - Cardiovascular Rhythm: regular - Abdomen Incarcerated ventral/incisional hernia located in the periumbilical area Abdomen: soft, non tender Results - Labs Abnormal Lab Results - Last 24 Hours (Table) 07/30/18 Range/Units 07:15 POC Glucose (mg/dL) 160 H (75-99) mg/dL Assessment and Plan Assessment: Incarcerated recurrent incisional/ventral hernia. We'll perform open repair.
[2018-07-30 08:05] LABS: Potassium 4.1 mmol/L (3.5-5.1)
[2018-07-30 09:11] VITALS: RESP 16; TEMP 97.2
[2018-07-30 09:16] LABS: Glucose,Whole Blood 183 mg/dL (75-99)
[2018-07-30] MEDS: HYDROmorphone 0.5 MG/0.5 ML SYRINGE IVP PRN ×2 (09:25→09:38)
--- NOTE | 2018-07-30 09:27 | P.OP ---
Date of Procedure: 07/30/18 Preoperative Diagnosis: Incarcerated recurrent incisional hernia Postoperative Diagnosis: Recurrent incarcerated incisional hernia Procedure(s) Performed: Repair of recurrent incarcerated incisional hernia Anesthesia: KRAIG Surgeon: Ochoa Kulkarni Estimated Blood Loss (ml): 10 Pathology: other (Hernia sac) Condition: stable Disposition: PACU Description of Procedure: The patient's placed on the operating table in supine position. He received general anesthesia. His abdomen was prepped and draped usual sterile fashion. The patient had pain recurrent incisional hernia located above the umbilicus. Using a 15 blade the skin was incised and then using blunt and sharp dissection with cautery the subcutaneous tissues were divided away from the hernia sac. The hernia sac was then transected to pathology. The fascial defect was then closed with figure 8-0 Ethibond suture. A 6 x 6" piece of Prolene mesh was placed in the wound and secured with a secure strap tacker. A DIANN drains placed over top the repair brought out through a separate stab incision. Valorie's fascia closed with 0 Vicryl. Skin was closed kamlesh. Patient top she will was sent to recovery room stable condition.
[2018-07-30] MEDS ORDERED: SODIUM CHLORIDE 0.9% 1,000 ML IV ONE (09:41)
[2018-07-30 10:30] VITALS: BP 123/62; PULSE 64
== END 2018-07-30 11:40 | disposition home or self-care (01) ==
LOC: OR 06:25
PROVIDERS: ATTEND Surgery
DX: K43.0 Incisional hernia with obstruction, without gangrene (principal); E11.9 Type 2 diabetes mellitus without complications; E78.5 Hyperlipidemia, unspecified; F17.210 Nicotine dependence, cigarettes, uncomplicated; I11.0 Hypertensive heart disease with heart failure; I50.9 Heart failure, unspecified; M19.90 Unspecified osteoarthritis, unspecified site; Z79.4 Long term (current) use of insulin; Z79.82 Long term (current) use of aspirin; Z86.73 Personal history of transient ischemic attack (TIA), and cerebral infarction without residual deficits; Z79.899 Other long term (current) drug therapy
CPT/HCPCS: 82565; 84132; 84520; 88302; 49566; 49568; C1781; J2250; J0330; J1644; J1100; J2710; J2405; J2001; J3010; J2370; J2704; J1170; J0690; 86850; 86900; 86901

== ENCOUNTER 2019-04-21 04:14 | Inpatient (IN) | payer MEDICARE, BC ==
[2019-04-21 04:48] LABS: Basophils % (A) 0 %; Eosinophils # (A) 0.1 k/uL (0-0.7); Eosinophils % (A) 1 %; HGB 10.7 gm/dL (13.0-17.5); Lymphocytes # (A) 0.4 k/uL (1.0-4.8); Lymphocytes % (A) 3 %; MCH 27.2 pg (25.0-35.0); MCHC 32.5 g/dL (31.0-37.0); MCV 83.6 fL (80.0-100.0); Mean Platelet Volume 8.1; Monocytes # (A) 0.8 k/uL (0-1.0); Monocytes % (A) 6 %; Neutrophils # (A) 13.4 k/uL (1.3-7.7); Neutrophils % (A) 91 %; Platelet Count 173 k/uL (150-450); RBC 3.95 m/uL (4.30-5.90); RDW 14.9 % (11.5-15.5); WBC 14.8 k/uL (3.8-10.6)
[2019-04-21 04:55] LABS: INR 1.1 (<1.2); Partial Thromboplastin Time 24.4 sec (22.0-30.0); Prothrombin Time 10.9 sec (9.0-12.0)
[2019-04-21 04:56] LABS: Albumin 2.6 g/dL (3.5-5.0); Calcium 8.1 mg/dL (8.4-10.2); Potassium 3.4 mmol/L (3.5-5.1); Total Protein 5.8 g/dL (6.3-8.2)
--- NOTE | 2019-04-21 05:10 | XR ---
EXAMINATION TYPE: XR chest 2V DATE OF EXAM: 04/21/2019 COMPARISON: 01/18/2018 HISTORY: Cough. Short of breath TECHNIQUE: Heart is borderline enlarged. There is no heart failure. There are chest leads. Costophrenic angles a re clear. There is no pulmonary consolidation. There is no sign of pleural effusion. IMPRESSION: No active cardiopulmonary disease. There is clearing of the mild pulmonary interstitial edema compare d to old exam.
--- NOTE | 2019-04-21 05:46 | ED ---
SOB HPI - General Chief Complaint: Shortness of Breath Stated Complaint: SOB Source: patient, EMS Mode of arrival: EMS Limitations: no limitations - History of Present Illness Initial Comments: Prashant is an obese 73-year-old gentleman with a history of hypertension diabetes who presents to the ER today for evaluation of multiple vague complaints. Son reports that the patient was in his usual state of health around dinnertime, he went to check on his dad and found him kind of and a half off the bed position though he hadn't fallen. His dad seemed to be out of it and had incontinence of bowel and bladder which she has experienced in the past and is hypoglycemic. Son checked his dad's blood sugar noted that it was in the 150s and then checked his vitals noticed that his heart rate also seemed to be in the 150s and he was mildly hypertensive. Son helped cleaned and his dad up and get him back to bed. He did note that his dad was very sweaty like he was breathing hard. The patient himself didn't offer any complaints reported that he was feeling okay. Didn't really recall the event that happened at home. Patient denies any chest pain palpitations, he did report your short of breath until the ambulance arrived at which time she was given a breathing treatment seemed to feel better. Patient and son deny any recent fevers chills nausea vomiting. - Related Data Home Medications Medication Instructions Recorded Confirmed Benazepril HCl 40 mg PO QAM 01/22/17 03/01/19 Aspirin 81 mg PO DAILY 01/23/17 02/27/19 Tamsulosin [Flomax] 0.4 mg PO HS 01/23/17 03/01/19 Carvedilol [Coreg] 6.25 mg PO BID 10/25/17 03/01/19 Isosorbide Mononitrate ER [Imdur] 30 mg PO QAM 10/25/17 03/01/19 Lovastatin [Mevacor] 20 mg PO HS 10/25/17 03/01/19 Spironolactone [Aldactone] 12.5 mg PO QAM 10/25/17 03/01/19 Multivitamins, Thera [Multivitamin 1 tab PO DAILY 07/27/18 02/27/19 (formulary)] Furosemide [Lasix] 20 mg PO DAILY 02/14/19 03/01/19 Cholecalciferol (Vitamin D3) 2,000 unit PO DAILY 02/27/19 02/27/19 [Vitamin D3] Insulin Glargine,Hum.rec.anlog 40 unit SQ QAM 02/27/19 03/01/19 [Basaglar Alikpen U-100] Previous Rx's Medication Instructions Recorded Ferrous Sulfate [Iron (65 MG 325 mg PO DAILY #30 tab 01/22/18 Elemental)] Allergies Allergy/AdvReac Type Severity Reaction Status Date / Time No Known Allergies Allergy Verified 03/01/19 07:28 Review of Systems ROS Statement: Those systems with pertinent positive or pertinent negative responses have been documented in the HPI. ROS Other: All systems not noted in ROS Statement are negative. Past Medical History Past Medical History: Chest Pain / Angina, Heart Failure, CVA/TIA, Diabetes Mellitus, Hyperlipidemia, Hypertension, Osteoarthritis (OA) Additional Past Medical History / Comment(s): incontinent of stools intermittently. low iron levels, possible GI bleed-dark tarry stools per son, Son stated "has had recent falls related to blood sugar going low 60s"-HX 2017 and 2018 had episodes of CHF approx 7-10 days post receiving flu va ccine,TIA,Type2 IDDM History of Any Multi-Drug Resistant Organisms: None Reported Past Surgical History: Hernia Repair Additional Past Surgical History / Comment(s): 10/31/17 robot assisted laprascopic umbilical hernia repair with mesh., 07/30/18 repair recurrent incarerated hernia Past Anesthesia/Blood Transfusion Reactions: No Reported Reaction Additional Past Anesthesia/Blood Transfusion Reaction / Comment(s): never had anesthesia Past Psychological History: Depression Smoking Status: Current every day smoker Past Alcohol Use History: None Reported Past Drug Use History: None Reported - Past Family History Mother Family Medical History: Cancer Additional Family Medical History / Comment(s): breast cancer Father Family Medical History: Unable to Obtain Sister(s) Family Medical History: Cancer General Exam - General Exam Comments Initial Comments: Physical Exam GENERAL: Elderly, chronically ill-appearing HENT: Normocephalic, Atraumatic. EYES: PERRL, EOMI No conjunctival pallor PULMONARY: Mild expiratory wheezing CARDIOVASCULAR: There is a regular rate and rhythm without any murmurs gallops or rubs. ABDOMEN: Soft and nontender with normal bowel sounds. Obese with healed surgical scars on the abdomen SKIN: Skin is clear with no lesions or rashes and otherwise unremarkable. : Deferred NEUROLOGIC: Patient is alert and oriented x3. Moving all extremities spontaneously MUSCULOSKELETAL: Normal extremities with adequate strength and full range of motion. 1+ pitting edema bilateral feet PSYCHIATRIC: Normal psychiatric evaluation. Limitations: no limitations Course Vital Signs 04/21/19 04/21/19 04/21/19 04:16 04:20 04:24 Temperature 99.8 F H Pulse Rate 92 93 Respiratory 20 20 Rate Blood Pressure 124/57 124/57 O2 Sat by Pulse 95 94 L Oximetry 04/21/19 04/21/19 04/21/19 04:30 05:00 05:30 Temperature Pulse Rate 87 88 Respiratory Rate Blood Pressure 117/54 110/52 110/52 O2 Sat by Pulse 93 L Oximetry 04/21/19 05:59 Temperature 98.9 F Pulse Rate Respiratory Rate Blood Pressure O2 Sat by Pulse 96 Oximetry Medical Decision Making - Medical Decision Making The patient was seen and evaluated history is obtained from patient, EMS and son at bedside History and physical exam concerning for possible heart failure labs and imaging were obtained Labs resulted with multiple significant abnormalities most concerning a elevated troponin, EKG appeared nonischemic Chest x-ray were unremarkable Patient has chronic kidney disease unchanged from previous Given the patient's kidney disease is not a candidate for CT pulmonary embolism study therefore he'll be started on low-dose heparin and a VQ scan will be ordered. Serial troponins as well as hemoglobin will be obtained given the patient's anemia. Patient care was discussed with Dr. Read who agrees with this plan - Lab Data Result diagrams: 04/21/19 04:18 04/21/19 04:18 Lab Results 04/21/19 04/21/19 04/21/19 Range/Units 04:18 04:18 04:18 WBC 14.8 H (3.8-10.6) k/uL RBC 3.95 L (4.30-5.90) m/uL Hgb 10.7 L (13.0-17.5) gm/dL Hct 33.0 L (39.0-53.0) % MCV 83.6 (80.0-100.0) fL MCH 27.2 (25.0-35.0) pg MCHC 32.5 (31.0-37.0) g/dL RDW 14.9 (11.5-15.5) % Plt Count 173 (150-450) k/uL Neutrophils % 91 % Lymphocytes % 3 % Monocytes % 6 % Eosinophils % 1 % Basophils % 0 % Neutrophils # 13.4 H (1.3-7.7) k/uL Lymphocytes # 0.4 L (1.0-4.8) k/uL Monocytes # 0.8 (0-1.0) k/uL Eosinophils # 0.1 (0-0.7) k/uL Basophils # 0.0 (0-0.2) k/uL PT 10.9 (9.0-12.0) sec INR 1.1 (<1.2) APTT 24.4 (22.0-30.0) sec Sodium 136 L (137-145) mmol/L Potassium 3.4 L (3.5-5.1) mmol/L Chloride 101 (98-107) mmol/L Carbon Dioxide 25 (22-30) mmol/L Anion Gap 10 mmol/L BUN 29 H (9-20) mg/dL Creatinine 1.54 H (0.66-1.25) mg/dL Est GFR (CKD-EPI)AfAm 50 (>60 ml/min/1.73 sqM) Est GFR (CKD-EPI)NonAf 44 (>60 ml/min/1.73 sqM) Glucose 115 H (74-99) mg/dL Plasma Lactic Acid Calvin (0.7-2.0) mmol/L Calcium 8.1 L (8.4-10.2) mg/dL Total Bilirubin 1.0 (0.2-1.3) mg/dL AST 37 (17-59) U/L ALT 15 (4-49) U/L Alkaline Phosphatase 184 H (38-126) U/L Troponin I (0.000-0.034) ng/mL Total Protein 5.8 L (6.3-8.2) g/dL Albumin 2.6 L (3.5-5.0) g/dL Urine Color Urine Appearance (Clear) Urine pH (5.0-8.0) Ur Specific [place] (1.001-1.035) Urine Protein (Negative) Urine Glucose (UA) (Negative) Urine Ketones (Negative) Urine Blood (Negative) Urine Nitrite (Negative) Urine Bilirubin (Negative) Urine Urobilinogen (<2.0) mg/dL Ur Leukocyte Esterase (Negative) Urine RBC (0-5) /hpf Urine WBC (0-5) /hpf Urine WBC Clumps (None) /hpf Ur Squamous Epith Cells (0-4) /hpf Urine Bacteria (None) /hpf Hyaline Casts (0-2) /lpf Granular Casts (0) /lpf Urine Mucus (None) /hpf Influenza Type A RNA (Not Detectd) Influenza Type B (PCR) (Not Detectd) 04/21/19 04/21/19 04/21/19 Range/Units 04:18 04:18 04:32 WBC (3.8-10.6) k/uL RBC (4.30-5.90) m/uL Hgb (13.0-17.5) gm/dL Hct (39.0-53.0) % MCV (80.0-100.0) fL MCH (25.0-35.0) pg MCHC (31.0-37.0) g/dL RDW (11.5-15.5) % Plt Count (150-450) k/uL Neutrophils % % Lymphocytes % % Monocytes % % Eosinophils % % Basophils % % Neutrophils # (1.3-7.7) k/uL Lymphocytes # (1.0-4.8) k/uL Monocytes # (0-1.0) k/uL Eosinophils # (0-0.7) k/uL Basophils # (0-0.2) k/uL PT (9.0-12.0) sec INR (<1.2) APTT (22.0-30.0) sec Sodium (137-145) mmol/L Potassium (3.5-5.1) mmol/L Chloride (98-107) mmol/L Carbon Dioxide (22-30) mmol/L Anion Gap mmol/L BUN (9-20) mg/dL Creatinine (0.66-1.25) mg/dL Est GFR (CKD-EPI)AfAm (>60 ml/min/1.73 sqM) Est GFR (CKD-EPI)NonAf (>60 ml/min/1.73 sqM) Glucose (74-99) mg/dL Plasma Lactic Acid Calvin 1.4 (0.7-2.0) mmol/L Calcium (8.4-10.2) mg/dL Total Bilirubin (0.2-1.3) mg/dL AST (17-59) U/L ALT (4-49) U/L Alkaline Phosphatase (38-126) U/L Troponin I 0.862 H* (0.000-0.034) ng/mL Total Protein (6.3-8.2) g/dL Albumin (3.5-5.0) g/dL Urine Color Urine Appearance (Clear) Urine pH (5.0-8.0) Ur Specific [place] (1.001-1.035) Urine Protein (Negative) Urine Glucose (UA) (Negative) Urine Ketones (Negative) Urine Blood (Negative) Urine Nitrite (Negative) Urine Bilirubin (Negative) Urine Urobilinogen (<2.0) mg/dL Ur Leukocyte Esterase (Negative) Urine RBC (0-5) /hpf Urine WBC (0-5) /hpf Urine WBC Clumps (None) /hpf Ur Squamous Epith Cells (0-4) /hpf Urine Bacteria (None) /hpf Hyaline Casts (0-2) /lpf Granular Casts (0) /lpf Urine Mucus (None) /hpf Influenza Type A RNA Not Detected (Not Detectd) Influenza Type B (PCR) Not Detected (Not Detectd) 04/21/19 Range/Units 05:39 WBC (3.8-10.6) k/uL RBC (4.30-5.90) m/uL Hgb (13.0-17.5) gm/dL Hct (39.0-53.0) % MCV (80.0-100.0) fL MCH (25.0-35.0) pg MCHC (31.0-37.0) g/dL RDW (11.5-15.5) % Plt Count (150-450) k/uL Neutrophils % % Lymphocytes % % Monocytes % % Eosinophils % % Basophils % % Neutrophils # (1.3-7.7) k/uL Lymphocytes # (1.0-4.8) k/uL Monocytes # (0-1.0) k/uL Eosinophils # (0-0.7) k/uL Basophils # (0-0.2) k/uL PT (9.0-12.0) sec INR (<1.2) APTT (22.0-30.0) sec Sodium (137-145) mmol/L Potassium (3.5-5.1) mmol/L Chloride (98-107) mmol/L Carbon Dioxide (22-30) mmol/L Anion Gap mmol/L BUN (9-20) mg/dL Creatinine (0.66-1.25) mg/dL Est GFR (CKD-EPI)AfAm (>60 ml/min/1.73 sqM) Est GFR (CKD-EPI)NonAf (>60 ml/min/1.73 sqM) Glucose (74-99) mg/dL Plasma Lactic Acid Calvin (0.7-2.0) mmol/L Calcium (8.4-10.2) mg/dL Total Bilirubin (0.2-1.3) mg/dL AST (17-59) U/L ALT (4-49) U/L Alkaline Phosphatase (38-126) U/L Troponin I (0.000-0.034) ng/mL Total Protein (6.3-8.2) g/dL Albumin (3.5-5.0) g/dL Urine Color [place] Urine Appearance Cloudy (Clear) Urine pH 5.5 (5.0-8.0) Ur Specific [place] 1.026 (1.001-1.035) Urine Protein 2+ H (Negative) Urine Glucose (UA) Negative (Negative) Urine Ketones Negative (Negative) Urine Blood Trace H (Negative) Urine Nitrite Negative (Negative) Urine Bilirubin 1+ H (Negative) Urine Urobilinogen 12.0 (<2.0) mg/dL Ur Leukocyte Esterase Trace H (Negative) Urine RBC 3 (0-5) /hpf Urine WBC 19 H (0-5) /hpf Urine WBC Clumps Few H (None) /hpf Ur Squamous Epith Cells 6 H (0-4) /hpf Urine Bacteria Rare H (None) /hpf Hyaline Casts 169 H (0-2) /lpf Granular Casts 33 (0) /lpf Urine Mucus Occasional H (None) /hpf Influenza Type A RNA (Not Detectd) Influenza Type B (PCR) (Not Detectd) - EKG Data -: EKG Interpreted by Nv EKG Comments: EKG was obtained due to shortness of breath and tachycardia, EKG was obtained at 4:19 AM, rate is 93, sinus prolonged LA first-degree AV block, normal axis, LA prolonged at 268, QRS 110, QTC is [address] elevations or T-wave inversion noted in B6 ST depression noted in aVL. Frequent PVCs noted. No acute ST elevation or STEMI criteria. Disposition Clinical Impression: Elevated troponin, Chronic anemia, Chronic kidney disease, Hypertension, essential Disposition: ADMITTED IP TO THIS HOSP Condition: Serious Is patient prescribed a controlled substance at d/c from ED?: No Referrals: Minerva Edgar MD [Primary Care Provider] - 1-2 days
[2019-04-21 05:56] LABS: Appearance,Urine Cloudy (Clear); Bacteria,Urine Rare /hpf; Bilirubin,Urine 1+ (Negative); Blood,Urine Trace (Negative); Color,Urine Orange; Glucose,Urine (UA) Negative (Negative); Granular Casts,Urine 33 /lpf (0); Hyaline Casts,Urine 169 /lpf (0-2); Ketones,Urine Negative (Negative); Leukocyte Esterase,Urine Trace (Negative); Mucus,Urine Occasional /hpf; Nitrite,Urine Negative (Negative); PH, Urine 5.5 (5.0-8.0); Protein,Urine 2+ (Negative); RBC,Urine 3 /hpf (0-5); Specific Gravity,Urine 1.026 (1.001-1.035); Squamous Epithelial Cell,Urine 6 /hpf (0-4); WBC,Urine 19 /hpf (0-5)
[2019-04-21] MEDS ORDERED: HEPARIN SODIUM,PORCINE 5,000 UNIT/ML 1 ML VIAL IV ONE (06:31)
[2019-04-21] MEDS ORDERED: HEPARIN SODIUM,PORCINE 5,000 UNIT/ML 1 ML VIAL IV PRN (06:31)
[2019-04-21] MEDS: HEPARIN SOD,PORK IN 0.45% NACL 25,000 UNIT in 0.45% NACL 1 250ML.BAG IV SCH (07:00)
[2019-04-21 07:44] LABS: Glucose,Whole Blood 151 mg/dL (75-99)
--- NOTE | 2019-04-21 10:36 | NM ---
EXAMINATION TYPE: NM pul vent and perfuse DATE OF EXAM: 04/21/2019 COMPARISON: NONE HISTORY: Difficulty breathing TECHNIQUE: Utilizing inhalation of 38.9 mCi Tc 99m DTPA aerosol and intravenous injection of 4.6 mCi of Tc 99m MAA, ventilation and perfusion images are acquired post injection in multiple projections. FINDINGS: Perfusion images appear normal. There is patchy uptake of radiopharmaceutical in the ventilation imag es. There are no VQ mismatches. There is some activity within the stomach. IMPRESSION: THIS EXAMINATION IS LOW PROBABILITY FOR PULMONARY EMBOLUS.
[2019-04-21 12:08] LABS: Glucose,Whole Blood 135 mg/dL (75-99)
[2019-04-21] MEDS ORDERED: FUROSEMIDE 10 MG/ML 4 ML VIAL IV SCH (12:30)
--- NOTE | 2019-04-21 12:54 | P.CRDCN ---
History of Present Illness Consult date: 04/21/19 Consult reason: chest pain History of present illness: The patient is a 73-year-old male with past medical history diabetes mellitus, CVA/TIA, hyperlipidemia,hypertension, and obesity, who presents to the hospital with mental status changes, dizziness, and diaphoresis. His son states that approximately midnight last night he went to check on his father, and he found him slumped over half weaning off the bed. Occasionally he will become diso riented and diaphoretic when he is hypoglycemic, however his glucose was in the 150s. He states he was assisting him back into bed when he became incontinent of stool, and was unaware of his surroundings. According to his son he was breathing hard although the patient did not complain of shortness of breath until arrival to the hospital. EKG on arrival shows sinus mechanism with new T-wave inversions in V6. Changes in aVL are consistent with prior EKG. Initial troponin 0.862. BNP 10,060 Chest x-ray shows mild pulmonary interstitial edema, with no overt heart failure or pulmonary consolidation. On exam this morning the patient is lying comfortably in bed with his family at the bedside. He states he is experiencing an increase in fatigue and mild shortness of breath. He denies any chest pain, chest pressure, palpitations, dizziness, or lightheadedness. He states he has not been up walking since his arrival. PAST MEDICAL HISTORY: Diabetes mellitus type 2, CVA/TIA, hyperlipidemia, hypertension, obesity REVIEW OF SYSTEMS: No fever or chills. No cough or expectoration. No diaphoresis. Patient denies headache, dizziness, blurred vision, double vision. Patient denies any stomach discomfort. No nausea, vomiting. No hematochezia. No hematemesis. Denies any black stools or blood in his stools. Denies dysuria or hematuria. No muscle weakness or numbness. PHYSICAL EXAMINATION: This is a 73-year-old male in no apparent distress at the time of my examination. HEENT: Head is atraumatic, normocephalic. Pupils are equal, round. Sclerae anicteric. Conjunctivae are clear. Mucous membranes of the mouth are moist. Neck is supple. There is no jugular venous distention. No carotid bruit is heard. CHEST EXAMINATION: Lungs are diminished bilaterally. No chest wall tenderness is noted on palpation or with deep breathing. HEART EXAMINATION: Heart regular rate and rhythm. S1, S2 heard. No murmurs, gallops or rub. ABDOMEN: Soft, nontender. Bowel sounds are heard. No organomegaly noted. EXTREMITIES: 2+ peripheral pulses. Mild lower extremity edema, worse on the left. no calf tenderness noted. NEUROLOGIC EXAMINATION: Patient is awake, alert and oriented x3. LABORATORY DATA: WBC 14.8, hemoglobin 10.7, hematocrit 33.0, platelet 173, sodium 136, potassium 3.4, BUN 29, creatinine 1.54, AST 37, ALT 15, troponin 0.862, 1.6-0, BNP 10,600. Vital signs: Blood pressure 113/45, respirations 20, heart rate 75, temperature 98.9, SpO2 96% on 4 L nasal cannula FINAL ASSESSMENT AND PLAN: #1 non-ST elevated myocardial infarction, troponins trending upward #2 congestive heart failure, elevated BNP, EF in 2018 1840-45% #3 hypertension #4 worsening shortness of breath, VQ scan negative #5 diabetes mellitus #6 chronic kidney disease, stage III PLAN: We will start IV Lasix 40 mg IV push. Continue heparin drip and resume home medications. We'll switch the patient to high intensity statin therapy. Echocardiogram to be done tomorrow morning. Consider coronary angiography if patient develops chest discomfort. Past Medical History Past Medical History: Chest Pain / Angina, Heart Failure, CVA/TIA, Diabetes Mellitus, Hyperlipidemia, Hypertension, Osteoarthritis (OA) Additional Past Medical History / Comment(s): incontinent of stools intermittently. low iron levels, possible GI bleed-dark tarry stools per son, Son stated "has had recent falls related to blood sugar going low 60s"- 2016 and 2018 had episodes of CHF approx 7-10 days post receiving flu vaccine,TIA,Type2 IDDM History of Any Multi-Drug Resistant Organisms: None Reported Past Surgical History: Hernia Repair Additional Past Surgical History / Comment(s): 10/31/17 robot assisted laprascopic umbilical hernia repair with mesh., 07/30/18 repair recurrent incarerated hernia Past Anesthesia/Blood Transfusion Reactions: No Reported Reaction Additional Past Anesthesia/Blood Transfusion Reaction / Comment(s): never had anesthesia Past Psychological History: Depression Smoking Status: Current every day smoker Past Alcohol Use History: None Reported Past Drug Use History: None Reported - Past Family History Mother Family Medical History: Cancer Additional Family Medical History / Comment(s): breast cancer Father Family Medical History: Unable to Obtain Sister(s) Family Medical History: Cancer Medications and Allergies Home Medications Medication Instructions Recorded Confirmed Type Benazepril HCl 40 mg PO QAM 01/22/17 04/21/19 History Aspirin 81 mg PO DAILY 01/23/17 04/21/19 History Tamsulosin [Flomax] 0.4 mg PO HS 01/23/17 04/21/19 History Carvedilol [Coreg] 6.25 mg PO BID 10/25/17 04/21/19 History Isosorbide Mononitrate ER [Imdur] 30 mg PO QAM 10/25/17 04/21/19 History Lovastatin [Mevacor] 20 mg PO HS 10/25/17 04/21/19 History Spironolactone [Aldactone] 12.5 mg PO QAM 10/25/17 04/21/19 History Ferrous Sulfate [Iron (65 MG 325 mg PO DAILY #30 tab 01/22/18 04/21/19 Rx Elemental)] Furosemide [Lasix] 20 mg PO DAILY 02/14/19 04/21/19 History Insulin Glargine,Hum.rec.anlog 40 unit SQ [facility] 02/27/19 04/21/19 History [[facility] [place] U-100] Allergies Allergy/AdvReac Type Severity Reaction Status Date / Time No Known Allergies Allergy Verified 04/21/19 11:12 Physical Exam Vitals: Vital Signs Temp Pulse Resp BP Pulse Ox 04/21/19 08:00 20 04/21/19 07:00 75 20 113/45 97 04/21/19 06:30 72 20 116/52 97 04/21/19 06:00 80 20 137/73 99 04/21/19 05:59 98.9 F 96 04/21/19 05:30 88 110/52 04/21/19 05:00 110/52 04/21/19 04:30 87 117/54 93 L 04/21/19 04:24 20 04/21/19 04:20 93 124/57 94 L 04/21/19 04:16 99.8 F H 92 20 124/57 95 Intake and Output 04/20/19 04/21/1920 22:59 06:59 14:59 Intake Total 240 Balance 240 Intake: Oral 240 Other: Weight 102.512 kg Results 04/21/19 04:18 04/21/19 04:18 Cardiac Enzymes 04/21/19 04/21/19 04/21/19 Range/Units 04:18 04:18 10:38 AST 37 (17-59) U/L Troponin I 0.862 H* 1.620 H* (0.000-0.034) ng/mL Coagulation 04/21/19 Range/Units 04:18 PT 10.9 (9.0-12.0) sec APTT 24.4 (22.0-30.0) sec CBC 04/21/19 Range/Units 04:18 WBC 14.8 H (3.8-10.6) k/uL RBC 3.95 L (4.30-5.90) m/uL Hgb 10.7 L (13.0-17.5) gm/dL Hct 33.0 L (39.0-53.0) % Plt Count 173 (150-450) k/uL Comprehensive Metabolic Panel 04/21/19 Range/Units 04:18 Sodium 136 L (137-145) mmol/L Potassium 3.4 L (3.5-5.1) mmol/L Chloride 101 (98-107) mmol/L Carbon Dioxide 25 (22-30) mmol/L BUN 29 H (9-20) mg/dL Creatinine 1.54 H (0.66-1.25) mg/dL Glucose 115 H (74-99) mg/dL Calcium 8.1 L (8.4-10.2) mg/dL AST 37 (17-59) U/L ALT 15 (4-49) U/L Alkaline Phosphatase 184 H (38-126) U/L Total Protein 5.8 L (6.3-8.2) g/dL Albumin 2.6 L (3.5-5.0) g/dL Current Medications Generic Name Dose Route Start Last Admin Trade Name Freq PRN Reason Stop Dose Admin Aspirin 81 mg 04/22/19 09:00 Aspirin PO DAILY [facility] Atorvastatin Calcium 80 mg 04/21/19 12:30 Lipitor PO DAILY [facility] Carvedilol 3.125 mg 04/21/19 17:30 Coreg PO BID-W/MEALS [facility] Furosemide 40 mg 04/21/19 12:30 Lasix IV DAILY [facility] Heparin Sodium (Porcine) 0 unit 04/21/19 06:31 Heparin IV Q6HR PRN Low PTT Protocol Heparin Sodium/Sodium Chloride 250 mls @ 10.005 mls/hr 04/21/19 06:45 04/21/19 07:00 25,000 unit/ Sodium Chloride IV 9.76 units/kg/hr .Q24H [facility] 10.005 mls/hr Administration Protocol 9.76 UNITS/KG/HR Intake and Output 04/20/19 04/21/19 04/21/19 22:59 06:59 14:59 Intake Total 240 Balance 240 Intake: Oral 240 Other: Weight 102.512 kg 04/21/19 04:18 04/21/19 04:18
[2019-04-21] MEDS: ATORVASTATIN 80 MG TAB PO SCH (13:23)
[2019-04-21] MEDS ORDERED: INSULIN DETEMIR (LEVEMIR) 100 UNIT/ML SYR SQ SCH (13:45)
[2019-04-21] MEDS: SPIRONOLACTONE 25 MG TAB PO SCH (14:35)
[2019-04-21] MEDS: ISOSORBIDE MONONITRATE ER 30 MG TAB.ER.24H PO SCH (14:36)
[2019-04-21] MEDS: ASPIRIN 81 MG PO SCH (14:36)
[2019-04-21 14:37] LABS: Glucose,Whole Blood 181 mg/dL (75-99)
--- NOTE | 2019-04-21 15:42 | P.HPIM ---
History of Present Illness H&P Date: 04/21/19 Patient is a 73-year-old male who presented to [facility] emergency room via EMS with multiple vague symptoms including confusion and mental status changes, episodes of shortness of breath he was evaluated in the emergency room, he had evidence of urinary tract infection and evidence of elevated troponin level, he also had evidence of dehydration was elevated BUN and creatinine he was admitted to telemetry floor for further evaluation and cardiology consultation was requested. Patient was seen and examined on the telemetry floor he is alert and oriented 3 in no apparent distress, he denies any chest pain or shortness of breath there is no fever or chills no headache or dizziness no nausea or vomiting no abdominal pain no diarrhea no burning was urination no frequency or urgency and no hematuria Past Medical History Past Medical History: Chest Pain / Angina, Heart Failure, CVA/TIA, Diabetes Mellitus, Hyperlipidemia, Hypertension, Osteoarthritis (OA) Additional Past Medical History / Comment(s): incontinent of stools intermittently. low iron levels, possible GI bleed-dark tarry stools per son, Son stated "has had recent falls related to blood sugar going low 60s"-HX 2016 and 2018 had episodes of CHF approx 7-10 days post receiving flu vaccine,TIA,Type2 IDDM History of Any Multi-Drug Resistant Organisms: None Reported Past Surgical History: Hernia Repair Additional Past Surgical History / Comment(s): 10/31/17 robot assisted laprascopic umbilical hernia repair with mesh., 07/30/18 repair recurrent incarerated hernia Past Anesthesia/Blood Transfusion Reactions: No Reported Reaction Additional Past Anesthesia/Blood Transfusion Reaction / Comment(s): never had anesthesia Past Psychological History: Depression Smoking Status: Current every day smoker Past Alcohol Use History: None Reported Past Drug Use History: None Reported - Past Family History Mother Family Medical History: Cancer Additional Family Medical History / Comment(s): breast cancer Father Family Medical History: Unable to Obtain Sister(s) Family Medical History: Cancer Brother(s) Family Medical History: Diabetes Mellitus Medications and Allergies Home Medications Medication Instructions Recorded Confirmed Type Benazepril HCl 40 mg PO QAM 01/22/17 04/21/19 History Aspirin 81 mg PO DAILY 01/23/17 04/21/19 History Tamsulosin [Flomax] 0.4 mg PO HS 01/23/17 04/21/19 History Carvedilol [Coreg] 6.25 mg PO BID 10/25/17 04/21/19 History Isosorbide Mononitrate ER [Imdur] 30 mg PO QAM 10/25/17 04/21/19 History Lovastatin [Mevacor] 20 mg PO HS 10/25/17 04/21/19 History Spironolactone [Aldactone] 12.5 mg PO QAM 10/25/17 04/21/19 History Ferrous Sulfate [Iron (65 MG 325 mg PO DAILY #30 tab 01/22/18 04/21/19 Rx Elemental)] Furosemide [Lasix] 20 mg PO DAILY 02/14/19 04/21/19 History Insulin Glargine,Hum.rec.anlog 40 unit SQ [facility] 02/27/19 04/21/19 History [[facility] [place] U-100] Allergies Allergy/AdvReac Type Severity Reaction Status Date / Time No Known Allergies Allergy Verified 04/21/19 11:12 Physical Exam Vitals: Vital Signs Temp Pulse Pulse Resp BP BP Pulse Ox 04/21/19 12:00 98.7 F 67 20 134/68 96 04/21/19 08:00 98.0 F 74 20 113/46 94 L 04/21/19 07:00 75 20 113/45 97 04/21/19 06:30 72 20 116/52 97 04/21/19 06:00 80 20 137/73 99 04/21/19 05:59 98.9 F 96 04/21/19 05:30 88 110/52 04/21/19 05:00 110/52 04/21/19 04:30 87 117/54 93 L 04/21/19 04:24 20 04/21/19 04:20 93 124/57 94 L 04/21/19 04:16 99.8 F H 92 20 124/57 95 Intake and Output 04/20/19 04/21/19 04/21/19 22:59 06:59 14:59 Intake Total 313.032 Output Total 100 Balance 213.032 Intake: IV 10 Invasive Line 1 10 Intake, IV Titration 63.032 Amount Heparin Sod,Pork in 0.45% 63.032 NaCl 25,000 unit In 0.45 % NaCl 1 250ml.bag @ 9.76 UNITS/KG/HR 10.005 mls/ hr IV .Q24H [facility] Rx#: [id number] Oral 240 Output: Urine 100 Other: # Voids 1 Weight 102.512 kg In general patient is alert and oriented 3 in no apparent distress HEENT head normocephalic and atraumatic Neck is supple no JVD no goiter no lymphadenopathy Chest exam reveals a few scattered rhonchi no wheezing Cardiac exam reveals regular heart sounds no gallops no murmurs Abdomen is soft nontender no organomegaly Extremity exam reveals no edema no cyanosis or clubbing Neurological examination reveals no gross focal deficits Results CBC & Chem 7: 04/21/19 04:18 04/21/19 04:18 Labs: Abnormal Lab Results - Last 24 Hours (Table) 04/21/19 04/21/19 04/21/19 Range/Units 04:18 04:18 04:18 WBC 14.8 H (3.8-10.6) k/uL RBC 3.95 L (4.30-5.90) m/uL Hgb 10.7 L (13.0-17.5) gm/dL Hct 33.0 L (39.0-53.0) % Neutrophils # 13.4 H (1.3-7.7) k/uL Lymphocytes # 0.4 L (1.0-4.8) k/uL Sodium 136 L (137-145) mmol/L Potassium 3.4 L (3.5-5.1) mmol/L BUN 29 H (9-20) mg/dL Creatinine 1.54 H (0.66-1.25) mg/dL Glucose 115 H (74-99) mg/dL POC Glucose (mg/dL) (75-99) mg/dL Calcium 8.1 L (8.4-10.2) mg/dL Alkaline Phosphatase 184 H (38-126) U/L Troponin I 0.862 H* (0.000-0.034) ng/mL Total Protein 5.8 L (6.3-8.2) g/dL Albumin 2.6 L (3.5-5.0) g/dL Urine Protein (Negative) Urine Blood (Negative) Urine Bilirubin (Negative) Ur Leukocyte Esterase (Negative) Urine WBC (0-5) /hpf Urine WBC Clumps (None) /hpf Ur Squamous Epith Cells (0-4) /hpf Urine Bacteria (None) /hpf Hyaline Casts (0-2) /lpf Urine Mucus (None) /hpf 04/21/19 04/21/19 04/21/19 Range/Units 05:39 07:43 10:38 WBC (3.8-10.6) k/uL RBC (4.30-5.90) m/uL Hgb (13.0-17.5) gm/dL Hct (39.0-53.0) % Neutrophils # (1.3-7.7) k/uL Lymphocytes # (1.0-4.8) k/uL Sodium (137-145) mmol/L Potassium (3.5-5.1) mmol/L BUN (9-20) mg/dL Creatinine (0.66-1.25) mg/dL Glucose (74-99) mg/dL POC Glucose (mg/dL) 151 H (75-99) mg/dL Calcium (8.4-10.2) mg/dL Alkaline Phosphatase (38-126) U/L Troponin I 1.620 H* (0.000-0.034) ng/mL Total Protein (6.3-8.2) g/dL Albumin (3.5-5.0) g/dL Urine Protein 2+ H (Negative) Urine Blood Trace H (Negative) Urine Bilirubin 1+ H (Negative) Ur Leukocyte Esterase Trace H (Negative) Urine WBC 19 H (0-5) /hpf Urine WBC Clumps Few H (None) /hpf Ur Squamous Epith Cells 6 H (0-4) /hpf Urine Bacteria Rare H (None) /hpf Hyaline Casts 169 H (0-2) /lpf Urine Mucus Occasional H (None) /hpf 04/21/19 Range/Units 12:07 WBC (3.8-10.6) k/uL RBC (4.30-5.90) m/uL Hgb (13.0-17.5) gm/dL Hct (39.0-53.0) % Neutrophils # (1.3-7.7) k/uL Lymphocytes # (1.0-4.8) k/uL Sodium (137-145) mmol/L Potassium (3.5-5.1) mmol/L BUN (9-20) mg/dL Creatinine (0.66-1.25) mg/dL Glucose (74-99) mg/dL POC Glucose (mg/dL) 135 H (75-99) mg/dL Calcium (8.4-10.2) mg/dL Alkaline Phosphatase (38-126) U/L Troponin I (0.000-0.034) ng/mL Total Protein (6.3-8.2) g/dL Albumin (3.5-5.0) g/dL Urine Protein (Negative) Urine Blood (Negative) Urine Bilirubin (Negative) Ur Leukocyte Esterase (Negative) Urine WBC (0-5) /hpf Urine WBC Clumps (None) /hpf Ur Squamous Epith Cells (0-4) /hpf Urine Bacteria (None) /hpf Hyaline Casts (0-2) /lpf Urine Mucus (None) /hpf Microbiology - Last 24 Hours (Table) 04/21/19 05:39 Urine Culture - Preliminary Urine,Clean Catch Assessment and Plan Plan: #1 non-ST elevation myocardial infarction #2 evidence of dehydration was elevated BUN and creatinine #3 underlying history of congestive heart failure #4 evidence of urinary tract infection #5 underlying history of chronic kidney disease #6 underlying history of diabetes mellitus #7 shortness of breath likely related to congestive heart failure and possibly related to ischemic heart disease, VQ scan was done and was negative At this time patient is admitted to telemetry floor cardiology consultation was requested he is maintained on IV heparin and IV Lasix Will follow closely
[2019-04-21 17:00] LABS: Glucose,Whole Blood 119 mg/dL (75-99)
[2019-04-21] MEDS ORDERED: CARVEDILOL 3.125 MG TAB PO SCH (17:30)
[2019-04-21] MEDS ORDERED: Potassium Replacement Protocol 1 EACH MISC MISCELLANE PRN (18:47)
[2019-04-21 20:27] LABS: Glucose,Whole Blood 106 mg/dL (75-99)
[2019-04-21] MEDS: TAMSULOSIN 0.4 MG CAP.ER.24H PO SCH (20:36)
[2019-04-21] MEDS: POTASSIUM CHLORIDE ER 20 MEQ TAB.ER PO SCH (20:36)
[2019-04-21] MEDS: CARVEDILOL 6.25 MG TAB PO SCH (20:36)
[2019-04-21] MEDS ORDERED: ATORVASTATIN 10 MG TAB PO SCH (21:00)
[2019-04-22] MEDS: HEPARIN SOD,PORK IN 0.45% NACL 25,000 UNIT in 0.45% NACL 1 250ML.BAG IV SCH ×2 (05:57→09:01)
[2019-04-22 06:00] LABS: Glucose,Whole Blood 105 mg/dL (75-99)
[2019-04-22] MEDS: INSULIN DETEMIR (LEVEMIR) 100 UNIT/ML SYR SQ SCH (06:03)
[2019-04-22 06:24] LABS: Basophils % (A) 0 %; Eosinophils # (A) 0.2 k/uL (0-0.7); Eosinophils % (A) 4 %; HCT 29.9 % (39.0-53.0); HGB 9.5 gm/dL (13.0-17.5); Lymphocytes # (A) 0.5 k/uL (1.0-4.8); Lymphocytes % (A) 9 %; MCHC 31.8 g/dL (31.0-37.0); MCV 84.7 fL (80.0-100.0); Mean Platelet Volume 8.2; Monocytes # (A) 0.4 k/uL (0-1.0); Monocytes % (A) 8 %; Neutrophils # (A) 4.1 k/uL (1.3-7.7); Neutrophils % (A) 78 %; Platelet Count 111 k/uL (150-450); RBC 3.53 m/uL (4.30-5.90); RDW 15.2 % (11.5-15.5); WBC 5.2 k/uL (3.8-10.6)
[2019-04-22 07:11] LABS: Albumin 2.3 g/dL (3.5-5.0); Calcium 7.8 mg/dL (8.4-10.2); Potassium 3.8 mmol/L (3.5-5.1); Total Bilirubin 0.5 mg/dL (0.2-1.3); Total Protein 5.4 g/dL (6.3-8.2)
[2019-04-22] MEDS ORDERED: FUROSEMIDE 20 MG TAB PO SCH (09:00)
[2019-04-22] MEDS: FERROUS SULFATE 325 MG TAB PO SCH (09:00)
[2019-04-22] MEDS ORDERED: ASPIRIN 81 MG PO SCH (09:00)
[2019-04-22] MEDS: SPIRONOLACTONE 25 MG TAB PO SCH (09:00)
[2019-04-22] MEDS ORDERED: ASPIRIN 325 MG TAB PO SCH (09:00)
[2019-04-22] MEDS: ISOSORBIDE MONONITRATE ER 30 MG TAB.ER.24H PO SCH (09:01)
[2019-04-22] MEDS: ATORVASTATIN 80 MG TAB PO SCH (09:01)
[2019-04-22] MEDS: CARVEDILOL 6.25 MG TAB PO SCH ×2 (09:01→20:59)
[2019-04-22] MEDS: ASPIRIN 81 MG PO SCH (09:01)
[2019-04-22] MEDS: FUROSEMIDE 10 MG/ML 4 ML VIAL IV SCH (09:01)
[2019-04-22] MEDS: LISINOPRIL 20 MG TAB PO SCH (09:01)
[2019-04-22] MEDS ORDERED: IPRATROPIUM-ALBUTEROL 3 ML NEB INHALATION PRN (10:52)
--- NOTE | 2019-04-22 11:00 | P.PN ---
Subjective Progress Note Date: 04/22/19 Patient is a 73-year-old male who presented to [facility] emergency room via EMS with multiple vague symptoms including confusion and mental status changes, episodes of shortness of breath he was evaluated in the emergency room, he had evidence of urinary tract infection and evidence of e levated troponin level, he also had evidence of dehydration was elevated BUN and creatinine he was admitted to telemetry floor for further evaluation and cardiology consultation was requested. Patient was seen and examined on the telemetry floor he is alert and oriented 3 in no apparent distress, he denies any chest pain or shortness of breath there is no fever or chills no headache or dizziness no nausea or vomiting no abdominal pain no diarrhea no burning was urination no frequency or urgency and no hematuria On 04/22/2019 patient is alert and oriented 3. 2-D echo completed awaiting to be red. Patient remains on IV Lasix and IV heparin. Cardiology services are following. Repeat chest x-ray has been ordered due to wheezing is auscultation. DuoNeb breathing treatments ordered creatinine is improving at 1.32 and bun 33. At this time patient denies chest pain. Patient is any nausea vomiting or diarrhea. Patient denies any urinary burning or frequency Objective - Vital Signs Vital signs: Vital Signs Temp 98.1 F 04/22/19 08:02 Pulse 68 04/22/19 08:02 Resp 16 04/22/19 08:02 BP 129/69 04/22/19 08:02 Pulse Ox 94 L 04/22/19 08:03 Intake & Output 04/21/19 04/22/19 04/22/19 18:59 06:59 18:59 Intake Total 793.032 426.968 250 Output Total 600 Balance 193.032 426.968 250 Weight 103.3 kg 103.6 kg Intake: IV 30 10 Invasive Line 1 10 Invasive Line 2 20 10 Intake, IV Titration 63.032 186.968 Amount Heparin Sod,Pork in 0.45% 63.032 186.968 NaCl 25,000 unit In 0.45 % NaCl 1 250ml.bag @ 9.76 UNITS/KG/HR 10.005 mls/ hr IV .Q24H [facility] Rx#: [id number] Oral 700 240 240 Output: Urine 600 Other: Voiding Method Urinal Urinal Urinal Diaper Diaper # Voids 1 1 - Exam In general patient is alert and oriented 3 in no apparent distress HEENT head normocephalic and atraumatic Neck is supple no JVD no goiter no lymphadenopathy Chest exam reveals a few scattered rhonchi no wheezing Cardiac exam reveals regular heart sounds no gallops no murmurs Abdomen is soft nontender no organomegaly Extremity exam reveals no edema no cyanosis or clubbing Neurological examination reveals no gross focal deficits - Labs CBC & Chem 7: 04/22/19 05:46 04/22/19 05:46 Labs: Abnormal Lab Results - Last 24 Hours (Table) 04/21/19 04/21/19 04/21/19 Range/Units 10:38 12:07 14:35 RBC (4.30-5.90) m/uL Hgb (13.0-17.5) gm/dL Hct (39.0-53.0) % Plt Count (150-450) k/uL Lymphocytes # (1.0-4.8) k/uL APTT (22.0-30.0) sec BUN (9-20) mg/dL Creatinine (0.66-1.25) mg/dL POC Glucose (mg/dL) 135 H 181 H (75-99) mg/dL Calcium (8.4-10.2) mg/dL Alkaline Phosphatase (38-126) U/L Troponin I 1.620 H* (0.000-0.034) ng/mL Total Protein (6.3-8.2) g/dL Albumin (3.5-5.0) g/dL HDL Cholesterol (40-60) mg/dL 04/21/19 04/21/19 04/21/19 Range/Units 15:48 16:59 19:45 RBC (4.30-5.90) m/uL Hgb (13.0-17.5) gm/dL Hct (39.0-53.0) % Plt Count (150-450) k/uL Lymphocytes # (1.0-4.8) k/uL APTT 31.3 H (22.0-30.0) sec BUN (9-20) mg/dL Creatinine (0.66-1.25) mg/dL POC Glucose (mg/dL) 119 H (75-99) mg/dL Calcium (8.4-10.2) mg/dL Alkaline Phosphatase (38-126) U/L Troponin I 1.140 H* (0.000-0.034) ng/mL Total Protein (6.3-8.2) g/dL Albumin (3.5-5.0) g/dL HDL Cholesterol (40-60) mg/dL 04/21/19 04/22/19 04/22/19 Range/Units 20:25 05:46 05:46 RBC 3.53 L (4.30-5.90) m/uL Hgb 9.5 L (13.0-17.5) gm/dL Hct 29.9 L (39.0-53.0) % Plt Count 111 L (150-450) k/uL Lymphocytes # 0.5 L (1.0-4.8) k/uL APTT (22.0-30.0) sec BUN 33 H (9-20) mg/dL Creatinine 1.32 H (0.66-1.25) mg/dL POC Glucose (mg/dL) 106 H (75-99) mg/dL Calcium 7.8 L (8.4-10.2) mg/dL Alkaline Phosphatase 149 H (38-126) U/L Troponin I (0.000-0.034) ng/mL Total Protein 5.4 L (6.3-8.2) g/dL Albumin 2.3 L (3.5-5.0) g/dL HDL Cholesterol 13 L (40-60) mg/dL 04/22/19 Range/Units 05:56 RBC (4.30-5.90) m/uL Hgb (13.0-17.5) gm/dL Hct (39.0-53.0) % Plt Count (150-450) k/uL Lymphocytes # (1.0-4.8) k/uL APTT (22.0-30.0) sec BUN (9-20) mg/dL Creatinine (0.66-1.25) mg/dL POC Glucose (mg/dL) 105 H (75-99) mg/dL Calcium (8.4-10.2) mg/dL Alkaline Phosphatase (38-126) U/L Troponin I (0.000-0.034) ng/mL Total Protein (6.3-8.2) g/dL Albumin (3.5-5.0) g/dL HDL Cholesterol (40-60) mg/dL Microbiology - Last 24 Hours (Table) 04/21/19 04:45 Blood Culture - Preliminary Blood No Growth after 24 hours 04/21/19 05:39 Urine Culture - Preliminary Urine,Clean Catch Assessment and Plan Assessment: 1. shortness of breath likely related to congestive heart failure and possibly related to ischemic heart disease, VQ scan was done and was negative. 2. non-ST elevation myocardial infarction. Patient remains on IV heparin and cardiology services are following 3. evidence of dehydration was elevated BUN and creatinine. Creatinine improving to 1.3 to and bun 33. This does appear baseline for patient 4. underlying history of congestive heart failure. 2-D echo has been ordered per cardiology. BNP 10,600. Patient currently on IV Lasix 5. evidence of urinary tract infection. Patient asymptomatic. Urine culture ordered. Will repeat urinary analysis for a.m. 6. underlying history of chronic kidney disease stage II 7. underlying history of diabetes mellitus type II. Home meds resumed 8. Increased wheeziness. Chest x-ray and DuoNeb breathing DVT prophylaxis IV heparin. GI prophylaxis Pepcid 2-D echo ordered Patient remains on IV heparin and IV Lasix Cardiology service consulted Chest x-ray and repeat UA ordered I performed an examination of the patient and discussed their management with the Nurse Practitioner. I have reviewed the Nurse Practitioner's notes and agree with the documented findings and plan of care
[2019-04-22] MEDS: IPRATROPIUM-ALBUTEROL 3 ML NEB INHALATION SCH ×3 (11:31→19:26)
--- NOTE | 2019-04-22 12:01 | ECHOF ---
Referral Reason:chest pain MEASUREMENTS -------- HEIGHT: 175.3 cm WEIGHT: 103.0 kg BP: 126/62 RVIDd: 3.0 cm (< 3.3) IVSd: 1.6 cm (0.6 - 1.1) LVIDd: 5.3 cm (3.9 - 5.3) LVPWd: 1.1 cm (0.6 - 1.1) IVSs: 2.3 cm LVIDs: 4.3 cm LVPWs: 1.5 cm LAESV Index (A-L): 25.99 ml/m Ao Diam: 2.6 cm (2.0 - 3.7) AV Cusp: 1.6 cm (1.5 - 2.6) LA Diam: 4.0 cm (2.7 - 3.8) MV EXCURSION: 11.800 mm (> 18.000) MV EF SLOPE: 58 mm/s (70 - 150) EPSS: 0.9 cm MV E Jaziel: 0.93 m/s MV DecT: 186 ms MV A Jaziel: 0.93 m/s MV E/A Ratio: 1.01 AV maxP.82 mmHg AV meanP.54 mmHg RAP: 5.00 mmHg RVSP: 13.76 mmHg TAPSE: 29.67 mm FINDINGS -------- Sinus rhythm. This was a technically adequate study. The left ventricular size is normal. There is mild concentric left ventricular hypertrophy. Overa ll left ventricular systolic function is mildly impaired with, an EF between 45 - 50 %. Mid Normal L AP Grade 1 Diastolic Dysfunction. Basal inferior LV wall motion is hypokinetic. Inferiorlateral Hypokinesis The right ventricle is normal in size. The right ventricular systolic function is normal. The left atrial size is normal. Normal LA size by volume 22+/-6 ml/m2. The right atrial size is normal. Aortic valve is trileaflet and is mildly thickened. There is mild aortic stenosis present. Peak/m katie gradient across the Aortic Valve is 18.82mmHg / 11.54mmHg. The mitral valve is normal. The mitral valve leaflets are mildly thickened. Mild mitral annular c alcification present. Mild mitral regurgitation is present. The tricuspid valve appears structurally normal. Mild tricuspid regurgitation present. Right vent ricular systolic pressure is normal at < 35 mmHg. There is no pulmonic regurgitation present. The aortic root size is normal. Normal inferior vena cava with normal inspiratory collapse consistent with estimated right atrial pre ssure of 5 mmHg. There is no pericardial effusion. CONCLUSIONS -------- 1. Sinus rhythm. 2. This was a technically adequate study. 3. The left ventricular size is normal. 4. There is mild concentric left ventricular hypertrophy. 5. Overall left ventricular systolic function is mildly impaired with, an EF between 45 - 50 %. 6. Normal LAP Grade 1 Diastolic Dysfunction. 7. Basal inferior LV wall motion is hypokinetic. 8. Mid Inferiorlateral Hypokinesis 9. The right ventricle is normal in size. 10. The right ventricular systolic function is normal. 11. The left atrial size is normal. 12. Normal LA size by volume 22+/-6 ml/m2. 13. The right atrial size is normal. 14. Aortic valve is trileaflet and is mildly thickened. 15. There is mild aortic stenosis present. 16. Peak/mean gradient across the Aortic Valve is 18.82mmHg / 11.54mmHg. 17. The mitral valve is normal. 18. The mitral valve leaflets are mildly thickened. 19. Mild mitral annular calcification present. 20. Mild mitral regurgitation is present. 21. The tricuspid valve appears structurally normal. 22. Mild tricuspid regurgitation present. 23. Right ventricular systolic pressure is normal at < 35 mmHg. 24. There is no pulmonic regurgitation present. 25. The aortic root size is normal. 26. Normal inferior vena cava with normal inspiratory collapse consistent with estimated right atrial pressure of 5 mmHg. 27. There is no pericardial effusion. [employer]: Nikki Ryan RDCS
[2019-04-22 12:14] LABS: Glucose,Whole Blood 110 mg/dL (75-99)
[2019-04-22 13:09] LABS: Appearance,Urine Clear (Clear); Bilirubin,Urine Negative (Negative); Blood,Urine Negative (Negative); Color,Urine Light Yellow; Glucose,Urine (UA) Negative (Negative); Ketones,Urine Negative (Negative); Leukocyte Esterase,Urine Negative (Negative); Nitrite,Urine Negative (Negative); Protein,Urine Negative (Negative); Specific Gravity,Urine 1.007 (1.001-1.035); Urobilinogen,Urine <2.0 mg/dL (<2.0)
--- NOTE | 2019-04-22 14:50 | P.PN ---
Subjective Progress Note Date: 04/22/19 His is a 73-year-old gentleman with past medical history of diabetes, I pretension, hyperlipidemia, prior TIA, obesity, current preventative the hospital with mental status changes, dizziness, diaphoresis and shortness of breath. He is currently receiving treatment for congestive cardiac failure. Patient was also noted to have abnormality in his troponins suggestive of a possible non-Q-wave myocardial infarction. The V/Q scan was negative for pulmonary embolism. Blood pressure 132/60 with a heart rate in the 70s, 92% on room air. White blood cell count 5.2, hemoglobin 9.5, platelet count 110. C reatinine 1.3 today. Echocardiogram with Doppler study revealed an ejection fraction of 45-50%. Objective - Vital Signs Vital signs: Vital Signs Temp 97.7 F 04/22/19 11:36 Pulse 70 04/22/19 11:43 Resp 16 04/22/19 11:38 BP 133/61 04/22/19 11:36 Pulse Ox 92 L 04/22/19 11:36 Intake & Output 04/21/19 04/22/19 04/22/19 18:59 06:59 18:59 Intake Total 793.032 426.968 549.039 Output Total 600 400 Balance 193.032 426.968 149.039 Weight 103.3 kg 103.6 kg Intake: IV 30 20 Invasive Line 1 10 Invasive Line 2 20 20 Intake, IV Titration 63.032 186.968 49.039 Amount Heparin Sod,Pork in 0.45% 63.032 186.968 49.039 NaCl 25,000 unit In 0.45 % NaCl 1 250ml.bag @ 9.76 UNITS/KG/HR 10.005 mls/ hr IV .Q24H [facility] Rx#: [id number] Oral 700 240 480 Output: Urine 600 400 Other: Voiding Method Urinal Urinal Urinal Diaper Diaper # Voids 1 1 - Exam PHYSICAL EXAMINATION: This is a 73-year-old male in no apparent distress at the time of my examination. HEENT: Head is atraumatic, normocephalic. Pupils are equal, round. Sclerae anicteric. Conjunctivae are clear. Mucous membranes of the mouth are moist. Neck is supple. There is no jugular venous distention. No carotid bruit is heard. CHEST EXAMINATION: Lungs are diminished bilaterally. No chest wall tenderness is noted on palpation or with deep breathing. HEART EXAMINATION: Heart regular rate and rhythm. S1, S2 heard. No murmurs, gallops or rub. ABDOMEN: Soft, nontender. Bowel sounds are heard. No organomegaly noted. EXTREMITIES: 2+ peripheral pulses. Mild lower extremity edema, worse on the left. no calf tenderness noted. NEUROLOGIC EXAMINATION: Patient is awake, alert and oriented x3. - Labs CBC & Chem 7: 04/22/19 05:46 04/22/19 05:46 Labs: Abnormal Lab Results - Last 24 Hours (Table) 04/21/19 04/21/19 04/21/19 Range/Units 15:48 16:59 19:45 RBC (4.30-5.90) m/uL Hgb (13.0-17.5) gm/dL Hct (39.0-53.0) % Plt Count (150-450) k/uL Lymphocytes # (1.0-4.8) k/uL APTT 31.3 H (22.0-30.0) sec BUN (9-20) mg/dL Creatinine (0.66-1.25) mg/dL POC Glucose (mg/dL) 119 H (75-99) mg/dL Calcium (8.4-10.2) mg/dL Alkaline Phosphatase (38-126) U/L Troponin I 1.140 H* (0.000-0.034) ng/mL Total Protein (6.3-8.2) g/dL Albumin (3.5-5.0) g/dL HDL Cholesterol (40-60) mg/dL 04/21/19 04/22/19 04/22/19 Range/Units 20:25 05:46 05:46 RBC 3.53 L (4.30-5.90) m/uL Hgb 9.5 L (13.0-17.5) gm/dL Hct 29.9 L (39.0-53.0) % Plt Count 111 L (150-450) k/uL Lymphocytes # 0.5 L (1.0-4.8) k/uL APTT (22.0-30.0) sec BUN 33 H (9-20) mg/dL Creatinine 1.32 H (0.66-1.25) mg/dL POC Glucose (mg/dL) 106 H (75-99) mg/dL Calcium 7.8 L (8.4-10.2) mg/dL Alkaline Phosphatase 149 H (38-126) U/L Troponin I (0.000-0.034) ng/mL Total Protein 5.4 L (6.3-8.2) g/dL Albumin 2.3 L (3.5-5.0) g/dL HDL Cholesterol 13 L (40-60) mg/dL 04/22/19 04/22/19 04/22/19 Range/Units 05:56 10:29 12:06 RBC (4.30-5.90) m/uL Hgb (13.0-17.5) gm/dL Hct (39.0-53.0) % Plt Count (150-450) k/uL Lymphocytes # (1.0-4.8) k/uL APTT 32.8 H (22.0-30.0) sec BUN (9-20) mg/dL Creatinine (0.66-1.25) mg/dL POC Glucose (mg/dL) 105 H 110 H (75-99) mg/dL Calcium (8.4-10.2) mg/dL Alkaline Phosphatase (38-126) U/L Troponin I (0.000-0.034) ng/mL Total Protein (6.3-8.2) g/dL Albumin (3.5-5.0) g/dL HDL Cholesterol (40-60) mg/dL Microbiology - Last 24 Hours (Table) 04/21/19 05:39 Urine Culture - Final Urine,Clean Catch 04/21/19 04:45 Blood Culture - Preliminary Blood No Growth after 24 hours Assessment and Plan Plan: FINAL ASSESSMENT AND PLAN: #1 non-ST elevated myocardial infarction #2 congestive heart failure diastolic acute on chronic #3 hypertension #4 worsening shortness of breath, VQ scan negative #5 diabetes mellitus #6 chronic kidney disease, stage III #7 hyperlipidemia Plan We will continue current dose of IV Lasix. Continue to monitor the intake and output along with daily weights and daily lytes BUN and creatinine. DNP note has been reviewed, I agree with a documented findings and plan of care. Patient was seen and examined.
[2019-04-22 16:45] LABS: Glucose,Whole Blood 181 mg/dL (75-99)
[2019-04-22] MEDS ORDERED: INSULIN DETEMIR (LEVEMIR) 100 UNIT/ML SYR SQ ONE (17:00)
--- NOTE | 2019-04-22 20:03 | XR ---
EXAMINATION TYPE: XR chest 2V DATE OF EXAM: 04/22/2019 COMPARISON: April 21, 2019 HISTORY: Short of breath TECHNIQUE: 2 views FINDINGS: Heart is normal. Lungs are clear of consolidation. Thoracic aorta is atheromatous. There ar e chest leads. Costophrenic angles are clear. The bony thorax is intact. IMPRESSION: No active cardiopulmonary disease. No change.
[2019-04-22] MEDS: TAMSULOSIN 0.4 MG CAP.ER.24H PO SCH (20:59)
[2019-04-22 21:13] LABS: Glucose,Whole Blood 175 mg/dL (75-99)
[2019-04-23 07:01] LABS: Mean Platelet Volume 8.3; Platelet Count 109 k/uL (150-450)
[2019-04-23 07:01] LABS: Glucose,Whole Blood 129 mg/dL (75-99)
[2019-04-23] MEDS: INSULIN DETEMIR (LEVEMIR) 100 UNIT/ML SYR SQ SCH (07:12)
[2019-04-23] MEDS: HEPARIN SOD,PORK IN 0.45% NACL 25,000 UNIT in 0.45% NACL 1 250ML.BAG IV SCH ×3 (07:14→17:51)
[2019-04-23] MEDS: IPRATROPIUM-ALBUTEROL 3 ML NEB INHALATION SCH ×4 (07:20→20:34)
[2019-04-23 07:29] LABS: Calcium 7.9 mg/dL (8.4-10.2); Potassium 4.1 mmol/L (3.5-5.1)
[2019-04-23] MEDS: FERROUS SULFATE 325 MG TAB PO SCH (08:49)
[2019-04-23] MEDS: CARVEDILOL 6.25 MG TAB PO SCH ×2 (08:50→20:26)
[2019-04-23] MEDS: LISINOPRIL 20 MG TAB PO SCH (08:50)
[2019-04-23] MEDS: ASPIRIN 81 MG PO SCH (08:50)
[2019-04-23] MEDS: FUROSEMIDE 10 MG/ML 4 ML VIAL IV SCH (08:50)
[2019-04-23] MEDS: ATORVASTATIN 80 MG TAB PO SCH (08:50)
[2019-04-23] MEDS: FAMOTIDINE 20 MG TAB PO SCH (08:50)
[2019-04-23] MEDS: ISOSORBIDE MONONITRATE ER 30 MG TAB.ER.24H PO SCH (08:50)
[2019-04-23] MEDS: SPIRONOLACTONE 25 MG TAB PO SCH (08:50)
--- NOTE | 2019-04-23 10:59 | CDI ---
Documentation Clarification Form Date: 04/23/2019 10:50:02 AM From: Nusrat Reese CCS, CCDS Admit Date: 04/21/2019 03:40:00 PM Patient Name: Prashant Alonzo Visit Number: [id number] Discharge Date: ATTENTION: The Clinical Documentation Specialists (CDI) and [facility] Coding Staff appreciate your assistance in clarifying documentation. Please respond to the clarification below the line at the bottom and electronically sign. The CDI & [facility] Coding staff will review the response and follow-up if needed. Please note: Queries are made part of the Legal Health Record. If you have any questions, please contact the author of this message via ITS. Dr. Cheryle Read: Conflicting documentation has been found in the medical record: Per the Cardiology Consult on 04/20 & subsequent progress note on 04/21, the CKD stage is documented as Stage III. Per the History & Physical on 04/20 & subsequent progress note on 04/21, the CKD stage is documented as Stage II. History/Risk Factors: Hypertension, Diastolic CHF, TIA, IDDM II, Hyperlipidemia, Smoker. Clinical Indicators: Presented to the ED on 04/20 via EMS with confusion & mental status changes, episodes of SOB & had evidence of UTI, elevated troponins & dehydration. Diagnosed with a NSTEMI, Acute on chronic diastolic CHF, UTI & Hypoglycemia. LABS 04/20: BUN 29, Cr 1.54, GFR 44. 04/21: BUN 33, Cr 1.32, GFR 53 04/22: BUN 28, Cr 1.12, GFR 64 Treatment: IV Heparin drip, IV Lasix, Insulin sq In your opinion, what is the most clinically appropriate stage of CKD for this patient? CKD Stage II CKD Stage III Other, please specify: Unable to determine (Last Revision: May 2017) chronic kidney disease stage 3 MTDD
[2019-04-23 11:42] LABS: Glucose,Whole Blood 93 mg/dL (75-99)
--- NOTE | 2019-04-23 12:29 | P.PN ---
Subjective Progress Note Date: 04/23/19 This is a 73-year-old gentleman with past medical history of diabetes, hypertension, hyperlipidemia, prior TIA, obesity, current preventative the hospital with mental status changes, dizziness, diaphoresis and shortness of breath. He is currently receiving treatment for congestive cardiac failure. Patient was also noted to have abnormality in his troponins suggestive of a possible non-Q-wave myocardial infarction. The V/Q scan was negative for pulmonary embolism. Blood pressure 132/60 with a heart rate in the 70s, 92% on room air. White blood cell count 5.2, hemoglobin 9.5, platelet count 110. Creatinine 1.3 today. Echocardiogram with Doppler study revealed an ejection fraction of 45-50%. 04/23/2019 Patient seen and examined this morning, breathing is significantly improved. Diuresing well on IV Lasix. Blood pressure 144/68 with a heart rate in the 60s, 96% on room air. Sodium 136, potassium 4.1, BUN 28, creatinine 1.2. Continues to be on IV Lasix 40 mg daily, we will continue this for another 24 hours. Repeat chest x-ray did not reveal any active cardiopulmonary disease. Patient continues to have trace to 1+ bilateral peripheral edema. Objective - Vital Signs Vital signs: Vital Signs Temp 98.2 F 04/23/19 11:47 Pulse 66 04/23/19 11:47 Resp 16 04/23/19 12:00 BP 144/68 04/23/19 11:47 Pulse Ox 96 04/23/19 11:47 Intake & Output 04/22/19 04/23/19 04/23/19 18:59 06:59 18:59 Intake Total 819.039 260 482.368 Output Total 400 1725 300 Balance 419.039 -1465 182.368 Weight 103.2 kg Intake: IV 30 10 Invasive Line 2 30 10 Intake, IV Titration 49.039 242.368 Amount Heparin Sod,Pork in 0.45% 49.039 242.368 NaCl 25,000 unit In 0.45 % NaCl 1 250ml.bag @ 9.76 UNITS/KG/HR 10.005 mls/ hr IV .Q24H [facility] Rx#: [id number] Oral 740 250 240 Output: Urine 400 1725 300 Other: Voiding Method Urinal Urinal Urinal Diaper # Voids 8 1 # Bowel Movements 1 - Exam PHYSICAL EXAMINATION: This is a 73-year-old male in no apparent distress at the time of my examination. HEENT: Head is atraumatic, normocephalic. Pupils are equal, round. Sclerae anicteric. Conjunctivae are clear. Mucous membranes of the mouth are moist. Neck is supple. There is no jugular venous distention. No carotid bruit is heard. CHEST EXAMINATION: Lungs are diminished bilaterally. No chest wall tenderness is noted on palpation or with deep breathing. HEART EXAMINATION: Heart regular rate and rhythm. S1, S2 heard. No murmurs, gallops or rub. ABDOMEN: Soft, nontender. Bowel sounds are heard. No organomegaly noted. EXTREMITIES: 2+ peripheral pulses. Trace to 1+ bilateral lower extremity edema, no calf tenderness noted. NEUROLOGIC EXAMINATION: Patient is awake, alert and oriented x3. - Labs CBC & Chem 7: 04/23/19 06:42 04/23/19 06:42 Labs: Abnormal Lab Results - Last 24 Hours (Table) 04/22/19 04/22/19 04/22/19 Range/Units 16:42 18:05 21:05 Plt Count (150-450) k/uL APTT 53.7 H (22.0-30.0) sec Sodium (137-145) mmol/L BUN (9-20) mg/dL Glucose (74-99) mg/dL POC Glucose (mg/dL) 181 H 175 H (75-99) mg/dL Calcium (8.4-10.2) mg/dL 04/23/19 04/23/19 04/23/19 Range/Units 06:42 06:42 06:42 Plt Count 109 L (150-450) k/uL APTT 38.0 H (22.0-30.0) sec Sodium 136 L (137-145) mmol/L BUN 28 H (9-20) mg/dL Glucose 133 H (74-99) mg/dL POC Glucose (mg/dL) (75-99) mg/dL Calcium 7.9 L (8.4-10.2) mg/dL 04/23/19 Range/Units 07:00 Plt Count (150-450) k/uL APTT (22.0-30.0) sec Sodium (137-145) mmol/L BUN (9-20) mg/dL Glucose (74-99) mg/dL POC Glucose (mg/dL) 129 H (75-99) mg/dL Calcium (8.4-10.2) mg/dL Microbiology - Last 24 Hours (Table) 04/21/19 04:45 Blood Culture - Preliminary Blood No Growth after 48 hours 04/21/19 05:39 Urine Culture - Final Urine,Clean Catch Assessment and Plan Plan: FINAL ASSESSMENT AND PLAN: #1 non-ST elevated myocardial infarction #2 congestive heart failure diastolic acute on chronic #3 hypertension #4 worsening shortness of breath, VQ scan negative #5 diabetes mellitus #6 chronic kidney disease, stage III #7 hyperlipidemia Plan We'll continue current dose of IV Lasix for 24 hours. Patient may need to undergo cardiac catheterization for further evaluation of possible underlying obstructive coronary artery disease. This will be discussed further with the patient and the family today by Dr. Pickering. DNP note has been reviewed, I agree with a documented findings and plan of care. Patient was seen and examined.
--- NOTE | 2019-04-23 12:47 | P.PN ---
Subjective Progress Note Date: 04/23/19 Patient is a 73-year-old male who presented to [facility] emergency room via EMS with multiple vague symptoms including confusion and mental status changes, episodes of shortness of breath he was evaluated in the emergency room, he had evidence of urinary tract infection and evidence of e levated troponin level, he also had evidence of dehydration was elevated BUN and creatinine he was admitted to telemetry floor for further evaluation and cardiology consultation was requested. Patient was seen and examined on the telemetry floor he is alert and oriented 3 in no apparent distress, he denies any chest pain or shortness of breath there is no fever or chills no headache or dizziness no nausea or vomiting no abdominal pain no diarrhea no burning was urination no frequency or urgency and no hematuria On 04/22/2019 patient is alert and oriented 3. 2-D echo completed awaiting to be red. Patient remains on IV Lasix and IV heparin. Cardiology services are following. Repeat chest x-ray has been ordered due to wheezing is auscultation. DuoNeb breathing treatments ordered creatinine is improving at 1.32 and bun 33. At this time patient denies chest pain. Patient is any nausea vomiting or diarrhea. Patient denies any urinary burning or frequency On 04/23/2019 patient is alert and oriented 3. 2-D echo completed showing an EF of 45-50%. Patient remains on IV Lasix per cardiology services. Creatinine improving to 1.12 and bun 28. Did discuss case with cardiology nurse practitioner Dr. Gu possible plans for heart cath will discuss with Dr. Pickering. At this time patient remains on heparin drip. Wheeziness has improved. Patient is maintained on DuoNeb breathing treatments. No active cardiopulmonary disease. No change. Patient denies chest pain or shortness of breath. Patient denies nausea vomiting or diarrhea. Patient denies any urinary burning or frequency Objective - Vital Signs Vital signs: Vital Signs Temp 98.2 F 04/23/19 11:47 Pulse 66 04/23/19 11:47 Resp 16 04/23/19 12:00 BP 144/68 04/23/19 11:47 Pulse Ox 96 04/23/19 11:47 Intake & Output 04/22/19 04/23/19 04/23/19 18:59 06:59 18:59 Intake Total 819.039 260 482.368 Output Total 400 1725 300 Balance 419.039 -1465 182.368 Weight 103.2 kg Intake: IV 30 10 Invasive Line 2 30 10 Intake, IV Titration 49.039 242.368 Amount Heparin Sod,Pork in 0.45% 49.039 242.368 NaCl 25,000 unit In 0.45 % NaCl 1 250ml.bag @ 9.76 UNITS/KG/HR 10.005 mls/ hr IV .Q24H [facility] Rx#: [id number] Oral 740 250 240 Output: Urine 400 1725 300 Other: Voiding Method Urinal Urinal Urinal Diaper # Voids 8 1 # Bowel Movements 1 - Exam In general patient is alert and oriented 3 in no apparent distress HEENT head normocephalic and atraumatic Neck is supple no JVD no goiter no lymphadenopathy Chest exam reveals a few scattered rhonchi no wheezing Cardiac exam reveals regular heart sounds no gallops no murmurs Abdomen is soft nontender no organomegaly Extremity exam reveals no edema no cyanosis or clubbing Neurological examination reveals no gross focal deficits - Labs CBC & Chem 7: 04/23/19 06:42 04/23/19 06:42 Labs: Abnormal Lab Results - Last 24 Hours (Table) 04/22/19 04/22/19 04/22/19 Range/Units 16:42 18:05 21:05 Plt Count (150-450) k/uL APTT 53.7 H (22.0-30.0) sec Sodium (137-145) mmol/L BUN (9-20) mg/dL Glucose (74-99) mg/dL POC Glucose (mg/dL) 181 H 175 H (75-99) mg/dL Calcium (8.4-10.2) mg/dL 04/23/19 04/23/19 04/23/19 Range/Units 06:42 06:42 06:42 Plt Count 109 L (150-450) k/uL APTT 38.0 H (22.0-30.0) sec Sodium 136 L (137-145) mmol/L BUN 28 H (9-20) mg/dL Glucose 133 H (74-99) mg/dL POC Glucose (mg/dL) (75-99) mg/dL Calcium 7.9 L (8.4-10.2) mg/dL 04/23/19 Range/Units 07:00 Plt Count (150-450) k/uL APTT (22.0-30.0) sec Sodium (137-145) mmol/L BUN (9-20) mg/dL Glucose (74-99) mg/dL POC Glucose (mg/dL) 129 H (75-99) mg/dL Calcium (8.4-10.2) mg/dL Microbiology - Last 24 Hours (Table) 04/21/19 04:45 Blood Culture - Preliminary Blood No Growth after 48 hours 04/21/19 05:39 Urine Culture - Final Urine,Clean Catch Assessment and Plan Assessment: 1. shortness of breath likely related to congestive heart failure and possibly related to ischemic heart disease, VQ scan was done and was negative. 2. non-ST elevation myocardial infarction. Patient remains on IV heparin. Per cardiology patient may need to undergo cardiac catheterization. This was discussed with cardiology services. 3. evidence of dehydration was elevated BUN and creatinine. Creatinine improving to 1.3 to and bun 33. This does appear baseline for patient. Creatinine improving to 1.12 and bun 28 4. Acute on chronic diastolic congestive heart failure. 2-D echo completed showing an EF of 45-50% BNP 10,600. Patient currently on IV Lasix. Discussed case with cardiology patient will continue current dose of IV Lasix for 24 hours 5. evidence of urinary tract infection. Patient asymptomatic. Urine culture negative. Urine culture showing no growth. No need for antibiotics at this time 6. underlying history of chronic kidney disease stage II 7. underlying history of diabetes mellitus type II. Home meds resumed 8. Increased wheeziness. Chest x-ray and DuoNeb breathing. Chest x-ray completed showing no active cardiopulmonary disease. No change. Wheeziness has resolved DVT prophylaxis IV heparin. GI prophylaxis Pepcid Per cardiology continue current dose of IV Lasix possible plans for cardiac catheterization I performed an examination of the patient and discussed their management with the Nurse Practitioner. I have reviewed the Nurse Practitioner's notes and agree with the documented findings and plan of care
[2019-04-23] MEDS ORDERED: CARVEDILOL 3.125 MG TAB PO STA (15:29)
[2019-04-23] MEDS ORDERED: ASPIRIN 325 MG TAB PO STA (15:37)
[2019-04-23] MEDS ORDERED: ALPRAZolam 0.5 MG TAB PO PRN (15:37)
[2019-04-23] MEDS ORDERED: NITROGLYCERIN SL TABS 0.4 MG TAB SUBLINGUAL PRN (15:37)
[2019-04-23] MEDS ORDERED: ALPRAZolam 0.25 MG TAB PO PRN (15:37)
[2019-04-23] MEDS ORDERED: ATORVASTATIN 80 MG TAB PO STA (15:37)
[2019-04-23] MEDS ORDERED: SODIUM CHLORIDE 0.9% 1,000 ML in EMPTY BAG 1 BAG IV ONE (15:37)
[2019-04-23] MEDS ORDERED: methylPREDNISolone SOD SUCCI 125 MG/2 ML VIAL IV STA (15:39)
[2019-04-23] MEDS ORDERED: POTASSIUM CHLORIDE ER 20 MEQ TAB.ER PO STA (15:51)
[2019-04-23 16:41] LABS: Glucose,Whole Blood 204 mg/dL (75-99)
--- NOTE | 2019-04-23 17:53 | P.CONS ---
History of Present Illness - Reason for Consult Consult date: 04/23/19 Bacteremia Requesting physician: Cheryle Read - Chief Complaint Shortness of breath x 2 days - History of Present Illness Patient is 73-year-old male presenting to the ER at [facility] on 04/21/2019 for evaluation of acute change in his clinical condition a pparently the patient was noticed by his son to be half of the bed position though he hasn't fallen down he was noticed to be incontinence of bowel and bladder which has previously happened when his sugar has been low and she did have blood sugar check at that time was in 150s clean his father and bring back to the bed he was noted to be sweaty and breathing hard patient mentioning his breathing has been getting worse for 2 days before he presented to the hospital, but denies having any chest pain or cough and no sputum production denies having any URI symptoms no nausea no vomiting and no abdominal pain no diarrhea or any constipation, on presentation hospital. Did have low-grade fever of 99.8 and he did have elevated white count of 14.8 and subsequently normalized, the patient did have mildly positive UA however repeat the next day has been negative, patient influenza PCR was negative chest x-ray was negative for active cardio pulmonary disease and echocardiogram was done which was mildly impaired ejection fraction, the patient did have blood cultures drawn on admission which is now documented positive gram-positive bacilli that probably this infection disease consultation, patient currently denies having active skin sore or any swelling or redness and denies having any joint swelling no nausea no vomiting no diarrhea no urinary symptoms Review of Systems Positive point has been mentioned in the HPI rest of the systems are negative Past Medical History Past Medical History: Chest Pain / Angina, Heart Failure, CVA/TIA, Diabetes Mellitus, Hyperlipidemia, Hypertension, Osteoarthritis (OA) Additional Past Medical History / Comment(s): incontinent of stools intermittently. low iron levels, possible GI bleed-dark tarry stools per son, Son stated "has had recent falls related to blood sugar going low 60s"-HX 2016 and 2018 had episodes of CHF approx 7-10 days post receiving flu vaccine,TIA,Type2 IDDM History of Any Multi-Drug Resistant Organisms: None Reported Past Surgical History: Hernia Repair Additional Past Surgical History / Comment(s): 10/31/17 robot assisted laprascopic umbilical hernia repair with mesh., 07/30/18 repair recurrent incarerated hernia Past Anesthesia/Blood Transfusion Reactions: No Reported Reaction Additional Past Anesthesia/Blood Transfusion Reaction / Comm: never had anesthesia Past Psychological History: Depression Smoking Status: Current every day smoker Past Alcohol Use History: None Reported Past Drug Use History: None Reported - Past Family History Mother Family Medical History: Cancer Additional Family Medical History / Comment(s): breast cancer Father Family Medical History: Unable to Obtain Sister(s) Family Medical History: Cancer Brother(s) Family Medical History: Diabetes Mellitus Medications and Allergies Home Medications Medication Instructions Recorded Confirmed Type Benazepril HCl 40 mg PO QAM 01/22/17 04/21/19 History Aspirin 81 mg PO DAILY 01/23/17 04/21/19 History Tamsulosin [Flomax] 0.4 mg PO HS 01/23/17 04/21/19 History Carvedilol [Coreg] 6.25 mg PO BID 10/25/17 04/21/19 History Isosorbide Mononitrate ER [Imdur] 30 mg PO QAM 10/25/17 04/21/19 History Lovastatin [Mevacor] 20 mg PO HS 10/25/17 04/21/19 History Spironolactone [Aldactone] 12.5 mg PO QAM 10/25/17 04/21/19 History Ferrous Sulfate [Iron (65 MG 325 mg PO DAILY #30 tab 01/22/18 04/21/19 Rx Elemental)] Furosemide [Lasix] 20 mg PO DAILY 02/14/19 04/21/19 History Insulin Glargine,Hum.rec.anlog 40 unit SQ [facility] 02/27/19 04/21/19 History [[place] U-100] Allergies Allergy/AdvReac Type Severity Reaction Status Date / Time No Known Allergies Allergy Verified 04/21/19 11:12 Physical Exam Vitals: Vital Signs Temp Pulse Pulse Resp BP Pulse Ox 04/23/19 12:00 16 04/23/19 11:47 98.2 F 66 16 144/68 96 04/23/19 11:38 78 04/23/19 11:28 78 04/23/19 08:00 16 04/23/19 07:59 97.6 F 71 16 158/71 96 04/23/19 07:32 70 04/23/19 07:22 68 91 L 04/23/19 04:05 97.9 F 78 16 148/65 92 L 04/22/19 23:53 97.4 F L 69 18 162/72 97 04/22/19 20:00 97 F L 65 16 177/71 96 04/22/19 19:38 74 04/22/19 19:26 72 04/22/19 16:12 70 04/22/19 16:00 97.5 F L 68 16 132/59 95 04/22/19 15:59 68 97 Intake and Output 04/23/19 04/23/19 04/23/19 06:59 14:59 22:59 Intake Total 250 602.368 Output Total 825 300 Balance -575 302.368 Intake: Intake, IV Titration 242.368 Amount Heparin Sod,Pork in 0.45% 242.368 NaCl 25,000 unit In 0.45 % NaCl 1 250ml.bag @ 9.76 UNITS/KG/HR 10.005 mls/ hr IV [facility] Rx#: [id number] Oral 250 360 Output: Urine 825 300 Other: Voiding Method Urinal Urinal # Voids 1 # Bowel Movements 1 Weight 103.2 kg GENERAL DESCRIPTION: Elderly male up in bed, no distress. No tachypnea or accessory muscle of respiration use. HEENT: Shows Pallor , no scleral icterus. Oral mucous membrane is dry. No phar yngeal erythema or thrush NECK: Trachea central, no thyromegaly. LUNGS: Unlabored breathing. Decreased breath sound the bases. No wheeze or crackle. HEART: S1, S2, regular rate and rhythm. No loud murmur ABDOMEN: Soft, mild left-sided tenderness , no guarding or rigidity, no organomegaly EXTREMITIES: No edema of feet. SKIN: No rash, no masses palpable. NEUROLOGICAL: The patient is awake, alert, oriented x3, mood and affect normal. Results CBC & Chem 7: 04/23/19 06:42 04/23/19 06:42 Labs: Abnormal Lab Results - Last 24 Hours (Table) 04/22/19 04/22/19 04/22/19 Range/Units 16:42 18:05 21:05 Plt Count (150-450) k/uL APTT 53.7 H (22.0-30.0) sec Sodium (137-145) mmol/L BUN (9-20) mg/dL Glucose (74-99) mg/dL POC Glucose (mg/dL) 181 H 175 H (75-99) mg/dL Calcium (8.4-10.2) mg/dL 04/23/19 04/23/19 04/23/19 Range/Units 06:42 06:42 06:42 Plt Count 109 L (150-450) k/uL APTT 38.0 H (22.0-30.0) sec Sodium 136 L (137-145) mmol/L BUN 28 H (9-20) mg/dL Glucose 133 H (74-99) mg/dL POC Glucose (mg/dL) (75-99) mg/dL Calcium 7.9 L (8.4-10.2) mg/dL 04/23/19 Range/Units 07:00 Plt Count (150-450) k/uL APTT (22.0-30.0) sec Sodium (137-145) mmol/L BUN (9-20) mg/dL Glucose (74-99) mg/dL POC Glucose (mg/dL) 129 H (75-99) mg/dL Calcium (8.4-10.2) mg/dL Microbiology - Last 24 Hours (Table) 04/21/19 04:45 Blood Culture Gram Stain - Preliminary Blood 04/21/19 04:45 Blood Culture - Final Blood 04/21/19 05:39 Urine Culture - Final Urine,Clean Catch Assessment and Plan Assessment: 1-patient with positive blood culture with gram-positive bacilli which are usually skin contamination however we'll wait for the final ID of this pathogen blood cultures will be repeated to document clearance of bacteremia 2-patient was sweaty did have low-grade fever and elevated white count and pr esentation and also noticed to have mild tenderness left abdominal side will need to rule out any intra-abdominal pathology (1) Bacteremia Current Visit: Yes Status: Acute Code(s): R78.81 - BACTEREMIA SNOMED Code(s): 7008575 Plan: 1-blood culture repeat times one to document clearance of bacteremia 2-we will obtain CT of abdominal pelvis with oral contrast only to rule out any abdominal pathology We will follow on clinical condition and cultures to further adjust medication if needed Thank you for this consultation will follow this patient with you Time with Patient: Greater than 30
[2019-04-23] MEDS: IOPAMIDOL CONTRAST (ORAL USE) VIAL PO PRN ×2 (18:24→18:29)
[2019-04-23 20:22] LABS: Glucose,Whole Blood 262 mg/dL (75-99)
[2019-04-23] MEDS: TAMSULOSIN 0.4 MG CAP.ER.24H PO SCH (20:26)
[2019-04-23] MEDS: INSULIN ASPART (NovoLOG) 100 UNIT/ML VIAL SQ SCH (20:26)
--- NOTE | 2019-04-23 20:37 | CT ---
EXAMINATION TYPE: CT abdomen pelvis wo con DATE OF EXAM: 04/23/2019 COMPARISON: HISTORY: ABDOMINAL PAIN CT DLP: 1642.4 mGycm Automated exposure control for dose reduction was used. Images were obtained from the diaphragm to the floor the pelvis with oral contrast only. Lung bases are clear of consolidation. There is no pleural effusion. Heart is enlarged. Stomach is in tact. There are numerous calcified splenic granulomata. There is no pancreatic mass. Gallbladder appe ars normal. Liver shows no focal defect. There is no adrenal mass. Kidneys have normal size and contour. There is no hydronephrosis. Ureters a re not dilated. There is no retroperitoneal adenopathy. Bladder distends smoothly. There is no inguin al hernia. There is possible right-sided scrotal hydrocele. Appendix appears normal. There is no evidence of bowel obstruction. There is some wall thickening of the proximal sigmoid colo n. The bowel is locally dilated up to 8 cm. On coronal image 39 there is suggestion of an annular con stricting lesion of the proximal sigmoid colon with shoulders. Lumbar spine is intact. There is no significant compression deformity. Bony pelvis is intact. I see n o bony destructive process. IMPRESSION: Locally dilated proximal sigmoid colon with irregular wall thickening suggestive of constricting lesi on and tumor. Follow-up recommended. normal appendix. Mild inflammatory changes around the proximal sigmoid colon.
[2019-04-23] MEDS ORDERED: predniSONE 20 MG TAB PO SCH (21:00)
[2019-04-23] MEDS ORDERED: diphenhydrAMINE 25 MG CAP PO SCH (21:00)
[2019-04-24 06:05] LABS: Basophils % (A) 1 %; Eosinophils # (A) 0.1 k/uL (0-0.7); Eosinophils % (A) 3 %; HGB 9.9 gm/dL (13.0-17.5); Lymphocytes # (A) 0.6 k/uL (1.0-4.8); Lymphocytes % (A) 17 %; MCH 27.1 pg (25.0-35.0); MCHC 31.9 g/dL (31.0-37.0); MCV 84.9 fL (80.0-100.0); Mean Platelet Volume 8.4; Monocytes # (A) 0.3 k/uL (0-1.0); Monocytes % (A) 7 %; Neutrophils # (A) 2.6 k/uL (1.3-7.7); Neutrophils % (A) 71 %; Platelet Count 125 k/uL (150-450); RBC 3.65 m/uL (4.30-5.90); RDW 14.5 % (11.5-15.5); WBC 3.7 k/uL (3.8-10.6)
[2019-04-24 06:15] LABS: Glucose,Whole Blood 132 mg/dL (75-99)
[2019-04-24] MEDS: FAMOTIDINE 20 MG TAB PO SCH (06:26)
[2019-04-24] MEDS: LISINOPRIL 20 MG TAB PO SCH (06:27)
[2019-04-24] MEDS: FERROUS SULFATE 325 MG TAB PO SCH (06:27)
[2019-04-24] MEDS: ISOSORBIDE MONONITRATE ER 30 MG TAB.ER.24H PO SCH (06:27)
[2019-04-24] MEDS: CARVEDILOL 6.25 MG TAB PO SCH ×2 (06:27→20:55)
[2019-04-24] MEDS: HEPARIN SOD,PORK IN 0.45% NACL 25,000 UNIT in 0.45% NACL 1 250ML.BAG IV SCH ×2 (06:29→08:26)
[2019-04-24] MEDS: INSULIN ASPART (NovoLOG) 100 UNIT/ML VIAL SQ SCH ×4 (06:42→20:56)
[2019-04-24] MEDS: INSULIN DETEMIR (LEVEMIR) 100 UNIT/ML SYR SQ SCH (06:42)
[2019-04-24 06:43] LABS: Albumin 2.7 g/dL (3.5-5.0); Calcium 8.6 mg/dL (8.4-10.2); Potassium 4.6 mmol/L (3.5-5.1); Total Bilirubin 0.4 mg/dL (0.2-1.3)
[2019-04-24] MEDS: ATORVASTATIN 80 MG TAB PO SCH (07:09)
[2019-04-24] MEDS: ASPIRIN 81 MG PO SCH (07:09)
[2019-04-24 07:17] LABS: Glucose,Whole Blood 125 mg/dL (75-99)
[2019-04-24] MEDS: IPRATROPIUM-ALBUTEROL 3 ML NEB INHALATION SCH ×4 (07:29→21:53)
[2019-04-24] MEDS: SPIRONOLACTONE 25 MG TAB PO SCH (08:25)
[2019-04-24] MEDS: FUROSEMIDE 10 MG/ML 4 ML VIAL IV SCH (08:25)
[2019-04-24] MEDS: metroNIDAZOLE 500 MG TAB PO SCH ×3 (10:52→20:55)
--- NOTE | 2019-04-24 11:31 | P.PN ---
Subjective Progress Note Date: 04/24/19 This is a 73-year-old gentleman with past medical history of diabetes, hypertension, hyperlipidemia, prior TIA, obesity, current preventative the hospital with mental status changes, dizziness, diaphoresis and shortness of breath. He is currently receiving treatment for congestive cardiac failure. Patient was also noted to have abnormality in his troponins suggestive of a possible non-Q-wave myocardial infarction. The V/Q scan was negative for pulmonary embolism. Blood pressure 132/60 with a heart rate in the 70s, 92% on room air. White blood cell count 5.2, hemoglobin 9.5, platelet count 110. Creatinine 1.3 today. Echocardiogram with Doppler study revealed an ejection fraction of 45-50%. 04/23/2019 Patient seen and examined this morning, breathing is significantly improved. Diuresing well on IV Lasix. Blood pressure 144/68 with a heart rate in the 60s, 96% on room air. Sodium 136, potassium 4.1, BUN 28, creatinine 1.2. Continues to be on IV Lasix 40 mg daily, we will continue this for another 24 hours. Repeat chest x-ray did not reveal any active cardiopulmonary disease. Patient continues to have trace to 1+ bilateral peripheral edema. 04/24/2019 Patient seen and examined this morning, states he does not feel too well, denies any worsening shortness of breath, sleepy today. Diuresing well. Creatinine 1.1. Blood cultures came back positive for gram-positive bacilli. The decision was made to cancel the cardiac catheterization and maximize the patient's medical therapy. We will continue current dose of IV Lasix for 24 hours, check lytes BUN and creatinine in the morning. Objective - Vital Signs Vital signs: Vital Signs Temp 97.7 F 04/24/19 08:25 Pulse 68 04/24/19 11:02 Resp 16 04/24/19 08:25 BP 124/54 04/24/19 08:25 Pulse Ox 94 L 04/24/19 08:25 Intake & Output 04/23/19 04/24/19 04/24/19 18:59 06:59 18:59 Intake Total 676.768 0612 407.496 Output Total 300 2000 550 Balance 659.551 100 -142.504 Weight 103.6 kg Intake: IV 20 Invasive Line 3 20 Intake, IV Titration 318.318 1149 47.496 Amount Heparin Sod,Pork in 0.45% 459.551 250 47.496 NaCl 25,000 unit In 0.45 % NaCl 1 250ml.bag @ 9.76 UNITS/KG/HR 10.005 mls/ hr IV .Q24H [facility] Rx#: [id number] Sodium Chloride 0.9% 1, 1000 000 ml In Empty Bag 1 bag @ 1 ML/KG/HR 103.2 mls/ hr IV .Q9H42M [facility] Rx#: [id number] Oral 480 850 360 Output: Urine 300 2000 550 Other: Voiding Method Urinal Urinal Urinal # Voids 1 1 # Bowel Movements 1 1 - Exam PHYSICAL EXAMINATION: This is a 73-year-old male in no apparent distress at the time of my examination. HEENT: Head is atraumatic, normocephalic. Pupils are equal, round. Sclerae anicteric. Conjunctivae are clear. Mucous membranes of the mouth are moist. Neck is supple. There is no jugular venous distention. No carotid bruit is heard. CHEST EXAMINATION: Lungs are diminished bilaterally. No chest wall tenderness is noted on palpation or with deep breathing. HEART EXAMINATION: Heart regular rate and rhythm. S1, S2 heard. No murmurs, gallops or rub. ABDOMEN: Soft, nontender. Bowel sounds are heard. No organomegaly noted. EXTREMITIES: 2+ peripheral pulses. Trace to 1+ bilateral lower extremity edema, no calf tenderness noted. NEUROLOGIC EXAMINATION: Patient is awake, alert and oriented x3. - Labs CBC & Chem 7: 04/24/19 05:39 04/24/19 05:39 Labs: Abnormal Lab Results - Last 24 Hours (Table) 04/23/19 04/23/19 04/23/19 Range/Units 16:09 16:38 20:21 WBC (3.8-10.6) k/uL RBC (4.30-5.90) m/uL Hgb (13.0-17.5) gm/dL Hct (39.0-53.0) % Plt Count (150-450) k/uL Lymphocytes # (1.0-4.8) k/uL APTT 50.0 H (22.0-30.0) sec BUN (9-20) mg/dL Glucose (74-99) mg/dL POC Glucose (mg/dL) 204 H 262 H (75-99) mg/dL Alkaline Phosphatase (38-126) U/L Total Protein (6.3-8.2) g/dL Albumin (3.5-5.0) g/dL 04/24/19 04/24/19 04/24/19 Range/Units 05:39 05:39 05:39 WBC 3.7 L (3.8-10.6) k/uL RBC 3.65 L (4.30-5.90) m/uL Hgb 9.9 L (13.0-17.5) gm/dL Hct 31.0 L (39.0-53.0) % Plt Count 125 L (150-450) k/uL Lymphocytes # 0.6 L (1.0-4.8) k/uL APTT 51.1 H (22.0-30.0) sec BUN 25 H (9-20) mg/dL Glucose 128 H (74-99) mg/dL POC Glucose (mg/dL) (75-99) mg/dL Alkaline Phosphatase 140 H (38-126) U/L Total Protein 6.0 L (6.3-8.2) g/dL Albumin 2.7 L (3.5-5.0) g/dL 04/24/19 04/24/19 Range/Units 06:06 07:14 WBC (3.8-10.6) k/uL RBC (4.30-5.90) m/uL Hgb (13.0-17.5) gm/dL Hct (39.0-53.0) % Plt Count (150-450) k/uL Lymphocytes # (1.0-4.8) k/uL APTT (22.0-30.0) sec BUN (9-20) mg/dL Glucose (74-99) mg/dL POC Glucose (mg/dL) 132 H 125 H (75-99) mg/dL Alkaline Phosphatase (38-126) U/L Total Protein (6.3-8.2) g/dL Albumin (3.5-5.0) g/dL Microbiology - Last 24 Hours (Table) 04/21/19 04:45 Blood Culture Gram Stain - Preliminary Blood 04/21/19 04:45 Blood Culture - Final Blood Assessment and Plan Plan: FINAL ASSESSMENT AND PLAN: #1 non-ST elevated myocardial infarction #2 congestive heart failure diastolic acute on chronic #3 hypertension #4 worsening shortness of breath, VQ scan negative #5 diabetes mellitus #6 chronic kidney disease, stage III #7 hyperlipidemia Plan We'll continue current dose of IV Lasix for 24 hours. Patient will not undergo cardiac catheterization we will maximize his medical therapy. Continue to monitor the intake and output along with daily weights and daily lytes BUN and creatinine. DNP note has been reviewed, I agree with a documented findings and plan of care. Patient was seen and examined.
[2019-04-24 12:00] LABS: Glucose,Whole Blood 188 mg/dL (75-99)
--- NOTE | 2019-04-24 12:49 | P.PN ---
Subjective Progress Note Date: 04/24/19 Patient is a 73-year-old male who presented to [facility] emergency room via EMS with multiple vague symptoms including confusion and mental status changes, episodes of shortness of breath he was evaluated in the emergency room, he had evidence of urinary tract infection and evidence of e levated troponin level, he also had evidence of dehydration was elevated BUN and creatinine he was admitted to telemetry floor for further evaluation and cardiology consultation was requested. Patient was seen and examined on the telemetry floor he is alert and oriented 3 in no apparent distress, he denies any chest pain or shortness of breath there is no fever or chills no headache or dizziness no nausea or vomiting no abdominal pain no diarrhea no burning was urination no frequency or urgency and no hematuria On 04/22/2019 patient is alert and oriented 3. 2-D echo completed awaiting to be red. Patient remains on IV Lasix and IV heparin. Cardiology services are following. Repeat chest x-ray has been ordered due to wheezing is auscultation. DuoNeb breathing treatments ordered creatinine is improving at 1.32 and bun 33. At this time patient denies chest pain. Patient is any nausea vomiting or diarrhea. Patient denies any urinary burning or frequency On 04/23/2019 patient is alert and oriented 3. 2-D echo completed showing an EF of 45-50%. Patient remains on IV Lasix per cardiology services. Creatinine improving to 1.12 and bun 28. Did discuss case with cardiology nurse practitioner Dr. Gu possible plans for heart cath will discuss with Dr. Pickering. At this time patient remains on heparin drip. Wheeziness has improved. Patient is maintained on DuoNeb breathing treatments. No active cardiopulmonary disease. No change. Patient denies chest pain or shortness of breath. Patient denies nausea vomiting or diarrhea. Patient denies any urinary burning or frequency On 04/24/2019 patient is alert and oriented 3 family at bedside. Patient having positive blood culture growing gram-negative bacilli. Infectious disease has been consulted and patient started on Flagyl and Rocephin. No plans for cardiac catheterization at this time per cardiology CT of abdomen and pelvis completed per infectious disease ordered. Concerns for possible constricting le mohit and tumor. Oncology services will be consulted. Patient at bedside reports that he did have a colonoscopy in February with Dr. Tian and and was recommended after that colonoscopy to obtain a CT of abdomen and pelvis but patient declined. At this time patient denies any chest pain or shortness of breath. Patient denies nausea vomiting or diarrhea. Patient denies any urinary burning or frequency. Objective - Vital Signs Vital signs: Vital Signs Temp 97.7 F 04/24/19 11:05 Pulse 66 04/24/19 11:05 Resp 16 04/24/19 11:05 BP 149/72 04/24/19 11:05 Pulse Ox 94 L 04/24/19 11:05 Intake & Output 04/23/19 04/24/19 04/24/19 18:59 06:59 18:59 Intake Total 292.167 9405 417.496 Output Total 300 2000 550 Balance 659.551 100 -132.504 Weight 103.6 kg Intake: IV 20 10 Invasive Line 3 20 10 Intake, IV Titration 749.569 0242 47.496 Amount Heparin Sod,Pork in 0.45% 459.551 250 47.496 NaCl 25,000 unit In 0.45 % NaCl 1 250ml.bag @ 9.76 UNITS/KG/HR 10.005 mls/ hr IV .Q24H [facility] Rx#: [id number] Sodium Chloride 0.9% 1, 1000 000 ml In Empty Bag 1 bag @ 1 ML/KG/HR 103.2 mls/ hr IV .Q9H42M [facility] Rx#: [id number] Oral 480 850 360 Output: Urine 300 2000 550 Other: Voiding Method Urinal Urinal Urinal # Voids 1 1 # Bowel Movements 1 1 - Exam In general patient is alert and oriented 3 in no apparent distress HEENT head normocephalic and atraumatic Neck is supple no JVD no goiter no lymphadenopathy Chest exam reveals a few scattered rhonchi no wheezing Cardiac exam reveals regular heart sounds no gallops no murmurs Abdomen is soft nontender no organomegaly Extremity exam reveals no edema no cyanosis or clubbing Neurological examination reveals no gross focal deficits - Labs CBC & Chem 7: 04/24/19 05:39 04/24/19 05:39 Labs: Abnormal Lab Results - Last 24 Hours (Table) 04/23/19 04/23/19 04/23/19 Range/Units 16:09 16:38 20:21 WBC (3.8-10.6) k/uL RBC (4.30-5.90) m/uL Hgb (13.0-17.5) gm/dL Hct (39.0-53.0) % Plt Count (150-450) k/uL Lymphocytes # (1.0-4.8) k/uL APTT 50.0 H (22.0-30.0) sec BUN (9-20) mg/dL Glucose (74-99) mg/dL POC Glucose (mg/dL) 204 H 262 H (75-99) mg/dL Alkaline Phosphatase (38-126) U/L Total Protein (6.3-8.2) g/dL Albumin (3.5-5.0) g/dL 04/24/19 04/24/19 04/24/19 Range/Units 05:39 05:39 05:39 WBC 3.7 L (3.8-10.6) k/uL RBC 3.65 L (4.30-5.90) m/uL Hgb 9.9 L (13.0-17.5) gm/dL Hct 31.0 L (39.0-53.0) % Plt Count 125 L (150-450) k/uL Lymphocytes # 0.6 L (1.0-4.8) k/uL APTT 51.1 H (22.0-30.0) sec BUN 25 H (9-20) mg/dL Glucose 128 H (74-99) mg/dL POC Glucose (mg/dL) (75-99) mg/dL Alkaline Phosphatase 140 H (38-126) U/L Total Protein 6.0 L (6.3-8.2) g/dL Albumin 2.7 L (3.5-5.0) g/dL 04/24/19 04/24/19 04/24/19 Range/Units 06:06 07:14 11:55 WBC (3.8-10.6) k/uL RBC (4.30-5.90) m/uL Hgb (13.0-17.5) gm/dL Hct (39.0-53.0) % Plt Count (150-450) k/uL Lymphocytes # (1.0-4.8) k/uL APTT (22.0-30.0) sec BUN (9-20) mg/dL Glucose (74-99) mg/dL POC Glucose (mg/dL) 132 H 125 H 188 H (75-99) mg/dL Alkaline Phosphatase (38-126) U/L Total Protein (6.3-8.2) g/dL Albumin (3.5-5.0) g/dL Microbiology - Last 24 Hours (Table) 04/21/19 04:45 Blood Culture Gram Stain - Preliminary Blood 04/21/19 04:45 Blood Culture - Final Blood Assessment and Plan Assessment: 1. shortness of breath likely related to congestive heart failure and possibly related to ischemic heart disease, VQ scan was done and was negative. 2. non-ST elevation myocardial infarction. Patient remains on IV heparin. At this time no plans for cardiac catheterization continue medical management 3. evidence of dehydration was elevated BUN and creatinine. Creatinine improving to 1.3 to and bun 33. This does appear baseline for patient. Creatinine improving to 1.12 and bun 28 4. Acute on chronic diastolic congestive heart failure. 2-D echo completed showing an EF of 45-50% BNP 10,600. Patient currently on IV Lasix. Discussed case with cardiology patient will continue current dose of IV Lasix for 24 hours. IV Lasix has been changed to Lasix 20 mg twice a day 5. evidence of urinary tract infection. Patient asymptomatic. Urine culture negative. Urine culture showing no growth. Patient is currently maintained on Rocephin 6. underlying history of chronic kidney disease stage II 7. underlying history of diabetes mellitus type II. Home meds resumed 8. Increased wheeziness. Chest x-ray and DuoNeb breathing. Chest x-ray completed showing no active cardiopulmonary disease. No change. Wheeziness has resolved 9. Positive blood culture with gram positive bacilli. Infectious disease consulted she started on Rocephin and Flagyl repeat blood culture ordered 10. Abnormal CT of abdomen and pelvis. CT of abdomen and pelvis completed showing locally dilated proximal sigmoid colon with irregular wall thickening suggestive a constricting lesion in tumor. Per patients without bedside patient did have colonoscopy in February with Dr. Tian. Oncology services will be consulted at this time to further investigate DVT prophylaxis heparin. GI prophylaxis Pepcid Cardiology, infectious disease and oncology services consulted Patient currently on Rocephin and Flagyl Repeat cultures ordered I performed an examination of the patient and discussed their management with the Nurse Practitioner. I have reviewed the Nurse Practitioner's notes and agree with the documented findings and plan of care
[2019-04-24 16:58] LABS: Glucose,Whole Blood 217 mg/dL (75-99)
--- NOTE | 2019-04-24 17:00 | PN ---
PROGRESS NOTE DATE OF SERVICE: 04/24/2019. REASON FOR FOLLOWUP: 1. Positive blood culture. 2. Sigmoid colitis. INTERVAL HISTORY: The patient is currently afebrile, has been breathing comfortably. Denies having any chest pain or cough. Denies having any abdominal pain and no diarrhea. PHYSICAL EXAMINATION: Blood pressure 149/72 with a pulse of 66, temperature 97.7. He is 94% on room air. General description is an elderly male up in the bed in no distress. RESPIRATORY SYSTEM: Unlabored breathing. Clear to auscultation. HEART: S1, S2. Regular rate and rhythm. ABDOMEN: Soft. No tenderness. LABS/IMAGING: Hemoglobin 9.9, white count 3.7, BUN of 25, creatinine 1.12. Blood culture with a Gram- positive. ID and sensitivities pending. He did have a CT of abdomen and pelvis completed yesterday that showed locally dilated proximal colon with irregular wall suggestive of constricting lesion, inflammatory changes in the proximal sigmoid colon. DIAGNOSTIC IMPRESSION AND PLAN: Patient with positive blood culture. Waiting for the final ID and sensitivity, now with abnormal CT suggestive of colitis and a constricting tumor. Oncology has been consulted. Patient to continue on Rocephin. Flagyl has been added and we will monitor clinical course closely. Family at the bedside. Questions were answered. MMODL / IJN: [id number] /
[2019-04-24 20:36] LABS: Glucose,Whole Blood 270 mg/dL (75-99)
[2019-04-24] MEDS: FUROSEMIDE 20 MG TAB PO SCH (20:55)
[2019-04-24] MEDS: HEPARIN SODIUM,PORCINE 5,000 UNIT/ML 1 ML VIAL SQ SCH (20:56)
[2019-04-24] MEDS: TAMSULOSIN 0.4 MG CAP.ER.24H PO SCH (20:56)
[2019-04-25 06:45] LABS: Basophils % (A) 0 %; Eosinophils # (A) 0.1 k/uL (0-0.7); Eosinophils % (A) 2 %; HCT 32.1 % (39.0-53.0); HGB 10.4 gm/dL (13.0-17.5); Lymphocytes # (A) 0.4 k/uL (1.0-4.8); Lymphocytes % (A) 8 %; MCH 27.4 pg (25.0-35.0); MCHC 32.3 g/dL (31.0-37.0); Mean Platelet Volume 7.7; Monocytes # (A) 0.3 k/uL (0-1.0); Monocytes % (A) 6 %; Neutrophils # (A) 4.1 k/uL (1.3-7.7); Neutrophils % (A) 83 %; Platelet Count 131 k/uL (150-450); RBC 3.78 m/uL (4.30-5.90); RDW 14.8 % (11.5-15.5)
[2019-04-25 07:12] LABS: Albumin 2.7 g/dL (3.5-5.0); Calcium 8.3 mg/dL (8.4-10.2); Total Bilirubin 0.4 mg/dL (0.2-1.3); Total Protein 5.9 g/dL (6.3-8.2)
[2019-04-25 07:18] LABS: Glucose,Whole Blood 168 mg/dL (75-99)
[2019-04-25 07:27] LABS: Potassium 4.2 mmol/L (3.5-5.1)
[2019-04-25] MEDS: IPRATROPIUM-ALBUTEROL 3 ML NEB INHALATION SCH ×4 (08:10→20:48)
[2019-04-25] MEDS: ATORVASTATIN 80 MG TAB PO SCH (09:27)
[2019-04-25] MEDS: FUROSEMIDE 20 MG TAB PO SCH ×2 (09:27→20:56)
[2019-04-25] MEDS: CARVEDILOL 6.25 MG TAB PO SCH ×2 (09:27→20:56)
[2019-04-25] MEDS: ISOSORBIDE MONONITRATE ER 30 MG TAB.ER.24H PO SCH (09:27)
[2019-04-25] MEDS: ASPIRIN 81 MG PO SCH (09:27)
[2019-04-25] MEDS: FERROUS SULFATE 325 MG TAB PO SCH (09:28)
[2019-04-25] MEDS: FAMOTIDINE 20 MG TAB PO SCH (09:28)
[2019-04-25] MEDS: SPIRONOLACTONE 25 MG TAB PO SCH (09:28)
[2019-04-25] MEDS: LISINOPRIL 20 MG TAB PO SCH (09:28)
[2019-04-25] MEDS: INSULIN ASPART (NovoLOG) 100 UNIT/ML VIAL SQ SCH ×4 (09:28→20:53)
[2019-04-25] MEDS: INSULIN DETEMIR (LEVEMIR) 100 UNIT/ML SYR SQ SCH (09:28)
[2019-04-25] MEDS: metroNIDAZOLE 500 MG TAB PO SCH ×3 (09:28→20:57)
[2019-04-25] MEDS: HEPARIN SODIUM,PORCINE 5,000 UNIT/ML 1 ML VIAL SQ SCH ×2 (09:29→20:56)
--- NOTE | 2019-04-25 10:23 | P.PN ---
Subjective Progress Note Date: 04/25/19 Patient is a 73-year-old male who presented to [facility] emergency room via EMS with multiple vague symptoms including confusion and mental status changes, episodes of shortness of breath he was evaluated in the emergency room, he had evidence of urinary tract infection and evidence of e levated troponin level, he also had evidence of dehydration was elevated BUN and creatinine he was admitted to telemetry floor for further evaluation and cardiology consultation was requested. Patient was seen and examined on the telemetry floor he is alert and oriented 3 in no apparent distress, he denies any chest pain or shortness of breath there is no fever or chills no headache or dizziness no nausea or vomiting no abdominal pain no diarrhea no burning was urination no frequency or urgency and no hematuria On 04/22/2019 patient is alert and oriented 3. 2-D echo completed awaiting to be red. Patient remains on IV Lasix and IV heparin. Cardiology services are following. Repeat chest x-ray has been ordered due to wheezing is auscultation. DuoNeb breathing treatments ordered creatinine is improving at 1.32 and bun 33. At this time patient denies chest pain. Patient is any nausea vomiting or diarrhea. Patient denies any urinary burning or frequency On 04/23/2019 patient is alert and oriented 3. 2-D echo completed showing an EF of 45-50%. Patient remains on IV Lasix per cardiology services. Creatinine improving to 1.12 and bun 28. Did discuss case with cardiology nurse practitioner Dr. Gu possible plans for heart cath will discuss with Dr. Pickering. At this time patient remains on heparin drip. Wheeziness has improved. Patient is maintained on DuoNeb breathing treatments. No active cardiopulmonary disease. No change. Patient denies chest pain or shortness of breath. Patient denies nausea vomiting or diarrhea. Patient denies any urinary burning or frequency On 04/24/2019 patient is alert and oriented 3 family at bedside. Patient having positive blood culture growing gram-negative bacilli. Infectious disease has been consulted and patient started on Flagyl and Rocephin. No plans for cardiac catheterization at this time per cardiology CT of abdomen and pelvis completed per infectious disease ordered. Concerns for possible constricting le mohit and tumor. Oncology services will be consulted. Patient at bedside reports that he did have a colonoscopy in February with Dr. Tian and and was recommended after that colonoscopy to obtain a CT of abdomen and pelvis but patient declined. At this time patient denies any chest pain or shortness of breath. Patient denies nausea vomiting or diarrhea. Patient denies any urinary burning or frequency. On 04/25/2019 patient is alert and oriented 3. Dr. lyon consulted for CT resulted discussed case with Dr. santiago recommending GI consult due to recent colonoscopy. Patient remains on Rocephin and Flagyl repeat blood culture pending. Cardiology, infectious disease, oncology and GI services following. Patient denies chest pain or shortness of breath. Patient denies nausea vomiting or diarrhea. Patient denies any urinary burning or frequency. Patient has been transitioned to oral Lasix per cardiology Objective - Vital Signs Vital signs: Vital Signs Temp 98.1 F 04/25/19 08:00 Pulse 67 04/25/19 08:20 Resp 20 04/25/19 08:00 BP 151/69 04/25/19 08:00 Pulse Ox 95 04/25/19 08:00 Intake & Output 04/24/19 04/25/19 04/25/19 18:59 06:59 18:59 Intake Total 947.496 240 240 Output Total 1100 500 Balance -152.504 -260 240 Weight 102.7 kg Intake: IV 20 Invasive Line 3 20 Intake, IV Titration 47.496 Amount Heparin Sod,Pork in 0.45% 47.496 NaCl 25,000 unit In 0.45 % NaCl 1 250ml.bag @ 9.76 UNITS/KG/HR 10.005 mls/ hr IV .Q24H MOLLY Rx#: [id number] Oral 880 240 240 Output: Urine 1100 500 Other: Voiding Method Urinal Urinal # Voids 1 # Bowel Movements 1 - Exam In general patient is alert and oriented 3 in no apparent distress HEENT head normocephalic and atraumatic Neck is supple no JVD no goiter no lymphadenopathy Chest exam reveals a few scattered rhonchi no wheezing Cardiac exam reveals regular heart sounds no gallops no murmurs Abdomen is soft nontender no organomegaly Extremity exam reveals no edema no cyanosis or clubbing Neurological examination reveals no gross focal deficits - Labs CBC & Chem 7: 04/25/19 06:20 04/25/19 06:20 Labs: Abnormal Lab Results - Last 24 Hours (Table) 04/24/19 04/24/19 04/24/19 Range/Units 11:55 16:56 20:34 RBC (4.30-5.90) m/uL Hgb (13.0-17.5) gm/dL Hct (39.0-53.0) % Plt Count (150-450) k/uL Lymphocytes # (1.0-4.8) k/uL BUN (9-20) mg/dL Glucose (74-99) mg/dL POC Glucose (mg/dL) 188 H 217 H 270 H (75-99) mg/dL Calcium (8.4-10.2) mg/dL AST (17-59) U/L Alkaline Phosphatase (38-126) U/L Total Protein (6.3-8.2) g/dL Albumin (3.5-5.0) g/dL 04/25/19 04/25/19 04/25/19 Range/Units 06:20 06:20 07:17 RBC 3.78 L (4.30-5.90) m/uL Hgb 10.4 L (13.0-17.5) gm/dL Hct 32.1 L (39.0-53.0) % Plt Count 131 L (150-450) k/uL Lymphocytes # 0.4 L (1.0-4.8) k/uL BUN 22 H (9-20) mg/dL Glucose 157 H (74-99) mg/dL POC Glucose (mg/dL) 168 H (75-99) mg/dL Calcium 8.3 L (8.4-10.2) mg/dL AST 16 L (17-59) U/L Alkaline Phosphatase 144 H (38-126) U/L Total Protein 5.9 L (6.3-8.2) g/dL Albumin 2.7 L (3.5-5.0) g/dL Microbiology - Last 24 Hours (Table) 04/23/19 17:31 Blood Culture - Preliminary Blood No Growth after 24 hours Assessment and Plan Assessment: 1. shortness of breath likely related to congestive heart failure and possibly related to ischemic heart disease, VQ scan was done and was negative. 2. non-ST elevation myocardial infarction. Patient remains on IV heparin. At this time no plans for cardiac catheterization continue medical management 3. evidence of dehydration was elevated BUN and creatinine. Creatinine improving to 1.3 to and bun 33. This does appear baseline for patient. Creatinine improving to 1.12 and bun 28 4. Acute on chronic diastolic congestive heart failure. 2-D echo completed showing an EF of 45-50% BNP 10,600. Patient currently on IV Lasix. Discussed case with cardiology patient will continue current dose of IV Lasix for 24 hours. IV Lasix has been changed to Lasix 20 mg twice a day 5. evidence of urinary tract infection. Patient asymptomatic. Urine culture negative. Urine culture showing no growth. Patient is currently maintained on Rocephin 6. underlying history of chronic kidney disease stage II 7. underlying history of diabetes mellitus type II. Home meds resumed 8. Increased wheeziness. Chest x-ray and DuoNeb breathing. Chest x-ray completed showing no active cardiopulmonary disease. No change. Wheeziness has resolved 9. Positive blood culture with gram positive bacilli. Infectious disease consulted she started on Rocephin and Flagyl repeat blood culture ordered 10. Abnormal CT of abdomen and pelvis. CT of abdomen and pelvis completed showing locally dilated proximal sigmoid colon with irregular wall thickening suggestive a constricting lesion in tumor. Per patients without bedside patient did have colonoscopy in February with Dr. Tian. Oncology services will be consulted at this time to further investigate. Per oncology service is recommending GI consult. DVT prophylaxis heparin. GI prophylaxis Pepcid Cardiology, infectious disease and oncology services consulted Patient currently on Rocephin and Flagyl Repeat cultures ordered I performed an examination of the patient and discussed their management with the Nurse Practitioner. I have reviewed the Nurse Practitioner's notes and agree with the documented findings and plan of care
[2019-04-25 11:49] LABS: Glucose,Whole Blood 158 mg/dL (75-99)
--- NOTE | 2019-04-25 12:49 | P.PN ---
Subjective Progress Note Date: 04/25/19 This is a 73-year-old gentleman with past medical history of diabetes, hypertension, hyperlipidemia, prior TIA, obesity, current preventative the hospital with mental status changes, dizziness, diaphoresis and shortness of breath. He is currently receiving treatment for congestive cardiac failure. Patient was also noted to have abnormality in his troponins suggestive of a possible non-Q-wave myocardial infarction. The V/Q scan was negative for pulmonary embolism. Blood pressure 132/60 with a heart rate in the 70s, 92% on room air. White blood cell count 5.2, hemoglobin 9.5, platelet count 110. Creatinine 1.3 today. Echocardiogram with Doppler study revealed an ejection fraction of 45-50%. 04/23/2019 Patient seen and examined this morning, breathing is significantly improved. Diuresing well on IV Lasix. Blood pressure 144/68 with a heart rate in the 60s, 96% on room air. Sodium 136, potassium 4.1, BUN 28, creatinine 1.2. Continues to be on IV Lasix 40 mg daily, we will continue this for another 24 hours. Repeat chest x-ray did not reveal any active cardiopulmonary disease. Patient continues to have trace to 1+ bilateral peripheral edema. 04/24/2019 Patient seen and examined this morning, states he does not feel too well, denies any worsening shortness of breath, sleepy today. Diuresing well. Creatinine 1.1. Blood cultures came back positive for gram-positive bacilli. The decision was made to cancel the cardiac catheterization and maximize the patient's medical therapy. We will continue current dose of IV Lasix for 24 hours, check lytes BUN and creatinine in the morning. 04/25/2019 Patient was seen and examined this morning, [facility] Blood pressure 150/70 with a heart rate in the 60s, 93% on room air. White blood cell count 5.0, hemoglobin 10.4, platelet count 131. Sodium 137, potassium 4.2, BUN 22, creatinine 1.1. Objective - Vital Signs Vital signs: Vital Signs Temp 98.0 F 04/25/19 12:00 Pulse 64 04/25/19 12:00 Resp 18 04/25/19 12:00 BP 156/78 04/25/19 12:00 Pulse Ox 93 L 04/25/19 12:00 Intake & Output 04/24/19 04/25/19 04/25/19 18:59 06:59 18:59 Intake Total 947.496 240 240 Output Total 1100 500 Balance -152.504 -260 240 Weight 102.7 kg Intake: IV 20 Invasive Line 3 20 Intake, IV Titration 47.496 Amount Heparin Sod,Pork in 0.45% 47.496 NaCl 25,000 unit In 0.45 % NaCl 1 250ml.bag @ 9.76 UNITS/KG/HR 10.005 mls/ hr IV .Q24H MOLLY Rx#: [id number] Oral 880 240 240 Output: Urine 1100 500 Other: Voiding Method Urinal Urinal Toilet # Voids 1 # Bowel Movements 1 - Exam PHYSICAL EXAMINATION: This is a 73-year-old male in no apparent distress at the time of my examination. HEENT: Head is atraumatic, normocephalic. Pupils are equal, round. Sclerae anicteric. Conjunctivae are clear. Mucous membranes of the mouth are moist. Neck is supple. There is no jugular venous distention. No carotid bruit is heard. CHEST EXAMINATION: Lungs are diminished bilaterally. No chest wall tenderness is noted on palpation or with deep breathing. HEART EXAMINATION: Heart regular rate and rhythm. S1, S2 heard. No murmurs, gallops or rub. ABDOMEN: Soft, nontender. Bowel sounds are heard. No organomegaly noted. EXTREMITIES: 2+ peripheral pulses. Trace to 1+ bilateral lower extremity edema, no calf tenderness noted. NEUROLOGIC EXAMINATION: Patient is awake, alert and oriented x3. - Labs CBC & Chem 7: 04/25/19 06:20 04/25/19 06:20 Labs: Abnormal Lab Results - Last 24 Hours (Table) 04/24/19 04/24/19 04/25/19 Range/Units 16:56 20:34 06:20 RBC 3.78 L (4.30-5.90) m/uL Hgb 10.4 L (13.0-17.5) gm/dL Hct 32.1 L (39.0-53.0) % Plt Count 131 L (150-450) k/uL Lymphocytes # 0.4 L (1.0-4.8) k/uL BUN (9-20) mg/dL Glucose (74-99) mg/dL POC Glucose (mg/dL) 217 H 270 H (75-99) mg/dL Calcium (8.4-10.2) mg/dL AST (17-59) U/L Alkaline Phosphatase (38-126) U/L Total Protein (6.3-8.2) g/dL Albumin (3.5-5.0) g/dL 04/25/19 04/25/19 04/25/19 Range/Units 06:20 07:17 11:48 RBC (4.30-5.90) m/uL Hgb (13.0-17.5) gm/dL Hct (39.0-53.0) % Plt Count (150-450) k/uL Lymphocytes # (1.0-4.8) k/uL BUN 22 H (9-20) mg/dL Glucose 157 H (74-99) mg/dL POC Glucose (mg/dL) 168 H 158 H (75-99) mg/dL Calcium 8.3 L (8.4-10.2) mg/dL AST 16 L (17-59) U/L Alkaline Phosphatase 144 H (38-126) U/L Total Protein 5.9 L (6.3-8.2) g/dL Albumin 2.7 L (3.5-5.0) g/dL Microbiology - Last 24 Hours (Table) 04/23/19 17:31 Blood Culture - Preliminary Blood No Growth after 24 hours Assessment and Plan Plan: FINAL ASSESSMENT AND PLAN: #1 non-ST elevated myocardial infarction #2 congestive heart failure diastolic acute on chronic #3 hypertension #4 worsening shortness of breath, VQ scan negative #5 diabetes mellitus #6 chronic kidney disease, stage III #7 hyperlipidemia Plan From cardiology's perspective, we'll continue the patient on his current medications. He is currently on oral diuretics. Plan for possible discharge home soon. DNP note has been reviewed, I agree with a documented findings and plan of care. Patient was seen and examined.
[2019-04-25] MEDS ORDERED: BISACODYL 5 MG TABLET.DR PO STA (15:15)
[2019-04-25 17:23] LABS: Glucose,Whole Blood 129 mg/dL (75-99)
[2019-04-25] MEDS ORDERED: MAGNESIUM CITRATE 296 ML BOTTLE PO ONE (18:00)
[2019-04-25 20:43] LABS: Glucose,Whole Blood 99 mg/dL (75-99)
[2019-04-25] MEDS: TAMSULOSIN 0.4 MG CAP.ER.24H PO SCH (20:56)
--- NOTE | 2019-04-25 23:16 | P.CONS ---
History of Present Illness - Reason for Consult Consult date: 04/25/19 Possible colon mass, anemia, thrombocytopenia - History of Present Illness The patient is a 73-year-old male, with multiple medical problems. The patient was admitted with multiple complaints including lethargy, decreased appetite, episodes of confusion since weakness be on over a period of few days. He was ultimately found to have elevated troponin, as well as a UTI with culture positive for Morganella. The patient was also subsequently found to have blood cultures positive for gram-positive bacilli. he was also noted to have elevated troponins, and on cardiology evaluation was felt to likely have coronary artery disease. He was placed on IV heparin. Initially there was a plan for cardiac catheterization according to my discussion with cardiology. However subsequently it was decided to manage him medically He is on antibiotics being followed by ID. 2 workup source of infection, CT of the abdomen and pelvis was ordered. This did not show any obvious source, but incidentally noted a possible mass in the distal colon, related segment of colon proximal to it. Consult was therefore placed for further evaluation and recommendations. There is no prior history of malignancy. The patient had colonoscopy done in 03/11 with multiple polyps removed. The largest polyp however was 1.5 cm in the distal colon. Pathology was positive only for tubular adenomas. There was no evidence of any significant mass that could cause CT abnormality noted during this admission. Incidentally EGD did show evidence of small esophageal and gastric varices leading to suspicion of possible chronic liver disease The patient was also noted to have anemia this admission with hemoglobin most ly in the 10 range. Hemoglobin has been in the 10-11 range, going back to at least 2018. Iron studies have showed low saturation with normal ferritin, but ferritin level has been less than 100. As on admission were normal but subsequently fell into the low 100 range with subsequent recovery to 131. Patient's recall was quite poor at the time of evaluation and history was mostly obtained from his son. He denied any prior history of malignancy or known blood problems. He also denied any history of heavy alcohol use. Review of Systems Constitutional: Reports fatigue, Reports poor appetite, Reports weakness, Reports weight loss Eyes: denies blurred vision, denies pain Ears: deny: decreased hearing, ear discharge, earache, tinnitus Ears, nose, mouth and throat: Denies headache, Denies sore throat Cardiovascular: Reports decreased exercise tolerance, Reports dyspnea on exertion Respiratory: Denies cough Gastrointestinal: Reports hematochezia (mild, intermittent), Denies abdominal p ain, Denies diarrhea, Denies nausea, Denies vomiting Genitourinary: Reports as per HPI Musculoskeletal: Reports muscle weakness Integumentary: Denies pruritus, Denies rash Neurological: Reports confusion, Reports weakness Psychiatric: Reports confusion, Reports difficulty concentrating Endocrine: Reports high blood sugars Hematologic/Lymphatic: Reports as per HPI Allergic/Immunologic: Reports as per HPI Past Medical History Past Medical History: Chest Pain / Angina, Heart Failure, CVA/TIA, Diabetes Mellitus, Hyperlipidemia, Hypertension, Osteoarthritis (OA) Additional Past Medical History / Comment(s): incontinent of stools int ermittently. low iron levels, possible GI bleed-dark tarry stools per son, Son stated "has had recent falls related to blood sugar going low 60s"-HX 2016 and 2018 had episodes of CHF approx 7-10 days post receiving flu vaccine,TIA,Type2 IDDM History of Any Multi-Drug Resistant Organisms: None Reported Past Surgical History: Hernia Repair Additional Past Surgical History / Comment(s): 10/31/17 robot assisted laprascopic umbilical hernia repair with mesh., 07/30/18 repair recurrent incarerated hernia Past Anesthesia/Blood Transfusion Reactions: No Reported Reaction Additional Past Anesthesia/Blood Transfusion Reaction / Comm: never had anesthesia Past Psychological History: Depression Smoking Status: Current every day smoker Past Alcohol Use History: None Reported Past Drug Use History: None Reported - Past Family History Mother Family Medical History: Cancer Additional Family Medical History / Comment(s): breast cancer Father Family Medical History: Unable to Obtain Sister(s) Family Medical History: Cancer Brother(s) Family Medical History: Diabetes Mellitus Medications and Allergies Home Medications Medication Instructions Recorded Confirmed Type Benazepril HCl 40 mg PO QAM 01/22/17 04/21/19 History Aspirin 81 mg PO DAILY 01/23/17 04/21/19 History Tamsulosin [Flomax] 0.4 mg PO HS 01/23/17 04/21/19 History Carvedilol [Coreg] 6.25 mg PO BID 10/25/17 04/21/19 History Isosorbide Mononitrate ER [Imdur] 30 mg PO QAM 10/25/17 04/21/19 History Lovastatin [Mevacor] 20 mg PO HS 10/25/17 04/21/19 History Spironolactone [Aldactone] 12.5 mg PO QAM 10/25/17 04/21/19 History Ferrous Sulfate [Iron (65 MG 325 mg PO DAILY #30 tab 01/22/18 04/21/19 Rx Elemental)] Furosemide [Lasix] 20 mg PO DAILY 02/14/19 04/21/19 History Insulin Glargine,Hum.rec.anlog 40 unit SQ QAM 02/27/19 04/21/19 History [Basaglar Kwikpen U-100] Allergies Allergy/AdvReac Type Severity Reaction Status Date / Time No Known Allergies Allergy Verified 04/21/19 11:12 Physical Exam Vitals: Vital Signs Temp Pulse Pulse Resp BP Pulse Ox 04/25/19 21:00 72 04/25/19 20:48 75 16 04/25/19 16:41 64 04/25/19 16:28 60 97 04/25/19 16:15 98.4 F 60 20 144/68 94 L 04/25/19 14:45 64 18 04/25/19 12:00 98.0 F 64 18 156/78 93 L 04/25/19 11:50 70 04/25/19 11:40 68 04/25/19 08:20 67 04/25/19 08:10 66 04/25/19 08:00 98.1 F 79 20 151/69 95 04/25/19 03:51 98.2 F 74 16 160/69 97 04/25/19 00:28 98.5 F 69 18 150/68 98 Intake and Output 04/25/19 04/25/19 04/25/19 06:59 14:59 22:59 Intake Total 240 Output Total 500 Balance -500 240 Intake: Oral 240 Output: Urine 500 Other: Voiding Method Urinal Toilet # Voids 2 2 # Bowel Movements 1 Weight 102.7 kg - Constitutional lethargic, mildly confused. Poor recall General appearance: morbidly obese, no acute distress - EENT Eyes: EOMI, PERRLA ENT: hearing grossly normal, normal oropharynx - Neck Neck: no lymphadenopathy Thyroid: bilateral: normal size - Respiratory Respiratory: bilateral: CTA - Cardiovascular Rhythm: regular Heart sounds: normal: S1, S2 - Gastrointestinal General gastrointestinal: normal bowel sounds, soft - Integumentary Integumentary: normal - Neurologic mental status as noted above Neurologic: CNII-XII intact - Musculoskeletal Musculoskeletal: generalized weakness, strength equal bilaterally - Psychiatric mental status as noted above Results CBC & Chem 7: 04/25/19 06:20 04/25/19 06:20 Labs: Abnormal Lab Results - Last 24 Hours (Table) 04/25/19 04/25/19 04/25/19 Range/Units 06:20 06:20 07:17 RBC 3.78 L (4.30-5.90) m/uL Hgb 10.4 L (13.0-17.5) gm/dL Hct 32.1 L (39.0-53.0) % Plt Count 131 L (150-450) k/uL Lymphocytes # 0.4 L (1.0-4.8) k/uL BUN 22 H (9-20) mg/dL Glucose 157 H (74-99) mg/dL POC Glucose (mg/dL) 168 H (75-99) mg/dL Calcium 8.3 L (8.4-10.2) mg/dL AST 16 L (17-59) U/L Alkaline Phosphatase 144 H (38-126) U/L Total Protein 5.9 L (6.3-8.2) g/dL Albumin 2.7 L (3.5-5.0) g/dL 04/25/19 04/25/19 Range/Units 11:48 17:23 RBC (4.30-5.90) m/uL Hgb (13.0-17.5) gm/dL Hct (39.0-53.0) % Plt Count (150-450) k/uL Lymphocytes # (1.0-4.8) k/uL BUN (9-20) mg/dL Glucose (74-99) mg/dL POC Glucose (mg/dL) 158 H 129 H (75-99) mg/dL Calcium (8.4-10.2) mg/dL AST (17-59) U/L Alkaline Phosphatase (38-126) U/L Total Protein (6.3-8.2) g/dL Albumin (3.5-5.0) g/dL Microbiology - Last 24 Hours (Table) 04/23/19 17:31 Blood Culture - Preliminary Blood No Growth after 48 hours Comments: VQ scan report, echo report, procedure note, and path reports reviewed and summarized above Chest x-ray: report reviewed CT scan - abdomen: report reviewed CT scan - pelvis: report reviewed Assessment and Plan (1) Colonic mass Narrative/Plan: The patient's current CAT scan notes possible colonic mass in the distal colon actually causing validation of the segment proximal to it. The finding is quite surprising given the very recent colonoscopy with no evidence of a mass of that dimension noted. There has been no change in symptoms. At this time it is possible that the CT findings are artifactual, due to redundant colon for example. Case was discussed with the admitting service, and it was recommended that GI be consulted to evaluate the patient lives with a flexible sigmoidoscopy. If a mass is confirmed, then it can be biopsied with further recommendations according to those results. If ruled out, then obviously no further workup would be required Current Visit: Yes Status: Acute Code(s): K63.89 - OTHER SPECIFIED DISEASES OF INTESTINE SNOMED Code(s): 205874505 (2) Chronic anemia Narrative/Plan: The patient's anemia is mild and overall stable. Iron studies do indicate possible iron deficiency, with low saturation and ferritin less than 100. EGD did note small gastric and esophageal varices. Therefore a likely etiology is decreased absorption due to her degree of portal gastropathy, as well as chronic low-volume blood losses from the varices, as well as possibly small bowel AVMs, which are more common with chronic liver disease. Workup for other causes of anemia will be ordered. I would recommend starting the patient on iron supplementation, with regular outpatient follow-up, with utilization of IV iron if oral is not effective. Current Visit: Yes Status: Acute Code(s): D64.9 - ANEMIA, UNSPECIFIED SNOMED Code(s): 133018431 (3) Thrombocytopenia Narrative/Plan: Thrombocytopenia is actually a new finding during this admission. Platelet count was normal on admission and subsequently declined but then showing signs of recovery. The patient may have some impairment of platelet production, and/or degree of increased destruction, assuming he has chronic liver disease and portal hypertension. However even if that is present, this is likely very mild given the platelet count at baseline are normal. Drop in counts during this admission is likely due to his UTI and bacteremia. As counts have remained well within a safe range, no intervention is required Counts are well above the limit of 50,000, required for anticoagulation and/or antiplatelet therapy, if this would be recommended by cardiology Workup for other causes of thrombocytopenia will be ordered, which will overlap with workup for other causes of anemia. Current Visit: Yes Status: Acute Code(s): D69.6 - THROMBOCYTOPENIA, UNSPECIFIED SNOMED Code(s): 224744054 Plan: Defer to the admitting service and other consultants for management of his other medical problems. As noted, there is no contraindication to any invasive procedure, anticoagulation or antiplatelet therapy if recommended by cardiology, from the hematology standpoint as long as his platelets are greater than 50,000
--- NOTE | 2019-04-25 23:17 | PN ---
PROGRESS NOTE DATE OF SERVICE: 04/25/2019 REASON FOR FOLLOWUP: 1. Positive blood culture. 2. Colitis. INTERVAL HISTORY: The patient is currently afebrile. The patient has been breathing comfortably. Denies having any chest pain or any cough. No nausea. No vomiting. No abdominal pain or diarrhea. PHYSICAL EXAMINATION: Blood pressure 144/68 with a pulse of 60, temperature 98.4. He is 94% on room air. General description is an elderly male lying in bed in no distress. RESPIRATORY SYSTEM: Unlabored breathing. Clear to auscultation anteriorly. HEART: S1, S2. Regular rate and rhythm. ABDOMEN: Soft. No tenderness. LABS: Hemoglobin is 10.4, white count 5.0, BUN of 22, creatinine is 1.16. Blood cultures with Gram-positive bacilli. Repeat blood cultures have been negative so far. DIAGNOSTIC IMPRESSION AND PLAN: 1. Patient with positive blood culture gram-positive bacilli likely representing contamination. Follow-up blood culture has been negative so far. 2. Patient with colitis with a constricting mass seen on the CT for colonoscopy tomorrow. Covered with Rocephin and Flagyl; to continue. Continue with supportive care. MMODL / IJN: [id number] / MTDIvone
[2019-04-26 00:54] VITALS: RESP 18
[2019-04-26 06:13] LABS: Glucose,Whole Blood 74 mg/dL (75-99)
[2019-04-26] MEDS: INSULIN ASPART (NovoLOG) 100 UNIT/ML VIAL SQ SCH ×4 (06:14→21:17)
[2019-04-26] MEDS: INSULIN DETEMIR (LEVEMIR) 100 UNIT/ML SYR SQ SCH (06:14)
--- NOTE | 2019-04-26 06:55 | P.CONS ---
History of Present Illness - Reason for Consult Consult date: 04/25/[address] abdomen Requesting physician: Cheryle Read - Chief Complaint Weakness - History of Present Illness 73-year-old male with multiple medical comorbidities including hypertension, osteoarthritis, hyperlipidemia, congestive heart failure, obesity, colonic polyps colonoscopy and gastric and esophageal varices on EGD who presented to the hospital with complaints of lethargy. At that time the patient had been complaining of weakness, decreased appetite and episodes of confusion. He was found to have elevation in his troponins and is currently being medically ma naged by the cardiology service. In addition the patient is also receiving antibiotic therapy for a urinary tract infection. He had a computed tomography scan of the abdomen performed in evaluation of his symptoms with findings concerning for a sigmoid mass. However on review of the electronic medical record the patient had EGD and colonoscopy performed in 02/2019 with EGD showing findings of esophageal and gastric varices and colonoscopy with polypectomy as stated. The prep for the colonoscopy was deemed fair. He also has a history of chronic anemia and given the above the hematology/oncology service has been consult. Review of Systems REVIEW OF SYSTEMS: CONSTITUTIONAL: Denies any fevers, chills, but he does report fatigue and lethargy. CARDIOVASCULAR: Denies any chest pain, palpitations high or low blood pressures RESPIRATORY: Denies any shortness of breath, hemoptysis or cough. GENITOURINARY: No dysuria or hematuria, currently receiving treatment for urinary tract infection. MUSCULOSKELETAL: No weakness reported. SKIN: Denies any new rashes or lesions, jaundice or pallor. PSYCHIATRIC: Denies any depression or anxiety. NEUROLOGY: Denies headache, denies any new focal deficits. EARS/NOSE/THROAT: No recent hearing change, congestion, nasal discharge or sore throat. EYES: No pain in eyes, discharge or change in vision. GASTROINTESTINAL: As per HPI. Past Medical History Past Medical History: Chest Pain / Angina, Heart Failure, CVA/TIA, Diabetes Mellitus, Hyperlipidemia, Hypertension, Osteoarthritis (OA) Additional Past Medical History / Comment(s): incontinent of stools intermittently. low iron levels, possible GI bleed-dark tarry stools per son, Son stated "has had recent falls related to blood sugar going low 60s"-HX 2017 and 2018 had episodes of CHF approx 7-10 days post receiving flu vaccine,TIA,Type2 IDDM History of Any Multi-Drug Resistant Organisms: None Reported Past Surgical History: Hernia Repair Additional Past Surgical History / Comment(s): 10/31/17 robot assisted laprascopic umbilical hernia repair with mesh., 07/30/18 repair recurrent inca rerated hernia Past Anesthesia/Blood Transfusion Reactions: No Reported Reaction Additional Past Anesthesia/Blood Transfusion Reaction / Comm: never had anesthesia Past Psychological History: Depression Smoking Status: Current every day smoker Past Alcohol Use History: None Reported Past Drug Use History: None Reported - Past Family History Mother Family Medical History: Cancer Additional Family Medical History / Comment(s): breast cancer Father Family Medical History: Unable to Obtain Sister(s) Family Medical History: Cancer Brother(s) Family Medical History: Diabetes Mellitus Medications and Allergies Home Medications Medication Instructions Recorded Confirmed Type Benazepril HCl 40 mg PO QAM 01/22/17 04/21/19 History Aspirin 81 mg PO DAILY 01/23/17 04/21/19 History Tamsulosin [Flomax] 0.4 mg PO HS 01/23/17 04/21/19 History Carvedilol [Coreg] 6.25 mg PO BID 10/25/17 04/21/19 History Isosorbide Mononitrate ER [Imdur] 30 mg PO QAM 10/25/17 04/21/19 History Lovastatin [Mevacor] 20 mg PO HS 10/25/17 04/21/19 History Spironolactone [Aldactone] 12.5 mg PO QAM 10/25/17 04/21/19 History Ferrous Sulfate [Iron (65 MG 325 mg PO DAILY #30 tab 01/22/18 04/21/19 Rx Elemental)] Furosemide [Lasix] 20 mg PO DAILY 02/14/19 04/21/19 History Insulin Glargine,Hum.rec.anlog 40 unit SQ QAM 02/27/19 04/21/19 History [[place] U-100] Allergies Allergy/AdvReac Type Severity Reaction Status Date / Time No Known Allergies Allergy Verified 04/21/19 11:12 Physical Exam Vitals: Vital Signs Temp Pulse Pulse Resp BP Pulse Ox 04/25/19 14:45 64 18 04/25/19 12:00 98.0 F 64 18 156/78 93 L 04/25/19 11:50 70 04/25/19 11:40 68 04/25/19 08:20 67 04/25/19 08:10 66 04/25/19 08:00 98.1 F 79 20 151/69 95 04/25/19 03:51 98.2 F 74 16 160/69 97 04/25/19 00:28 98.5 F 69 18 150/68 98 04/24/19 20:00 16 04/24/19 16:51 70 04/24/19 16:40 72 04/24/19 15:34 68 16 04/24/19 15:31 98.2 F 68 16 153/69 95 Intake and Output 04/25/19 04/25/19 04/25/19 06:59 14:59 22:59 Intake Total 240 Output Total 500 Balance -500 240 Intake: Oral 240 Output: Urine 500 Other: Voiding Method Urinal Toilet Weight 102.7 kg On physical examination, patient appears comfortable in no apparent distress. HEAD: Normocephalic, atraumatic. EYES: No scleral icterus. No conjunctival injection. MOUTH: No lesions, tongue midline. NECK: Trachea midline, no gross abnormalities. CHEST: Decreased air entry in all lung obrien. HEART: S1-S2 appreciated. ABDOMEN: Soft, obese. Bowel sounds are positive. No organomegaly. No guarding or rigidity. EXTREMITIES: No pedal edema. SKIN: No rashes, no jaundice. NEUROLOGIC: Alert and oriented to person and place. No focal deficits. Results CBC & Chem 7: 04/25/19 06:20 04/25/19 06:20 Labs: Abnormal Lab Results - Last 24 Hours (Table) 04/24/19 04/24/19 04/25/19 Range/Units 16:56 20:34 06:20 RBC 3.78 L (4.30-5.90) m/uL Hgb 10.4 L (13.0-17.5) gm/dL Hct 32.1 L (39.0-53.0) % Plt Count 131 L (150-450) k/uL Lymphocytes # 0.4 L (1.0-4.8) k/uL BUN (9-20) mg/dL Glucose (74-99) mg/dL POC Glucose (mg/dL) 217 H 270 H (75-99) mg/dL Calcium (8.4-10.2) mg/dL AST (17-59) U/L Alkaline Phosphatase (38-126) U/L Total Protein (6.3-8.2) g/dL Albumin (3.5-5.0) g/dL 04/25/19 04/25/19 04/25/19 Range/Units 06:20 07:17 11:48 RBC (4.30-5.90) m/uL Hgb (13.0-17.5) gm/dL Hct (39.0-53.0) % Plt Count (150-450) k/uL Lymphocytes # (1.0-4.8) k/uL BUN 22 H (9-20) mg/dL Glucose 157 H (74-99) mg/dL POC Glucose (mg/dL) 168 H 158 H (75-99) mg/dL Calcium 8.3 L (8.4-10.2) mg/dL AST 16 L (17-59) U/L Alkaline Phosphatase 144 H (38-126) U/L Total Protein 5.9 L (6.3-8.2) g/dL Albumin 2.7 L (3.5-5.0) g/dL Microbiology - Last 24 Hours (Table) 04/23/19 17:31 Blood Culture - Preliminary Blood No Growth after [address] scan - abdomen: report reviewed (Suspicion for proximal sigmoid lesion on computed tomography scan abdomen.) Assessment and Plan (1) Abnormal CT of the abdomen Narrative/Plan: 73-year-old male who presented to the hospital with multiple complaints currently being managed medically by the cardiology service and on antibiotic therapy for urinary tract infection. Computed tomography scan of the abdomen performed was suspicious for colonic mass. However, patient has recently undergone endoscopic evaluation with colonoscopy in February 2019 with polypectomy and completed colonoscopy with prep team to fair. Although sigmoid mass is highly unlikely we'll plan for flexible sigmoidoscopy to rule out a lesion correlating to computed tomography scan. More likely finding is related to peristalsis, redundant colon, or other etiology. Current Visit: Yes Status: Acute Code(s): R93.5 - ABN FINDINGS ON DX IMAGING OF ABD REGIONS, INC RETROPERITON SNOMED Code(s): 59448733971133595 (2) Chronic anemia Current Visit: Yes Status: Acute Code(s): D64.9 - ANEMIA, UNSPECIFIED SNOMED Code(s): 711164475 Plan: Supportive care Clear liquid diet Bowel prep ordered today with tap water enemas 2 prior to procedure tomorrow Plan for flexible sigmoidoscopy tomorrow Nothing by mouth after midnight Case has been discussed with the patient and his son at length Thank you for allowing us to participate in the care of the patient
[2019-04-26] MEDS: IPRATROPIUM-ALBUTEROL 3 ML NEB INHALATION SCH ×4 (07:07→20:13)
[2019-04-26] MEDS: HEPARIN SODIUM,PORCINE 5,000 UNIT/ML 1 ML VIAL SQ SCH ×2 (08:08→20:22)
[2019-04-26 08:13] LABS: Basophils % (A) 1 %; Eosinophils # (A) 0.1 k/uL (0-0.7); Eosinophils % (A) 2 %; HCT 31.1 % (39.0-53.0); Lymphocytes # (A) 0.9 k/uL (1.0-4.8); Lymphocytes % (A) 18 %; MCHC 32.1 g/dL (31.0-37.0); MCV 83.9 fL (80.0-100.0); Mean Platelet Volume 8.1; Monocytes # (A) 0.5 k/uL (0-1.0); Monocytes % (A) 10 %; Neutrophils # (A) 3.2 k/uL (1.3-7.7); Neutrophils % (A) 67 %; Platelet Count 153 k/uL (150-450); RDW 14.8 % (11.5-15.5); WBC 4.8 k/uL (3.8-10.6)
[2019-04-26 08:32] LABS: ALT 11 U/L (4-49); AST 18 U/L (17-59); African American GFR (CKD) >90 (>60 ml/min/1.73 sqM); Albumin 2.6 g/dL (3.5-5.0); Alkaline Phosphatase 120 U/L (38-126); Anion Gap 6 mmol/L; Blood Urea Nitrogen 16 mg/dL (9-20); Calcium 8.1 mg/dL (8.4-10.2); Carbon Dioxide 27 mmol/L (22-30); Chloride 104 mmol/L (98-107); Glucose 71 mg/dL (74-99); Non-African American GFR(CKD) 83 (>60 ml/min/1.73 sqM); Potassium 3.8 mmol/L (3.5-5.1); Sodium 137 mmol/L (137-145); Total Bilirubin 0.3 mg/dL (0.2-1.3); Total Protein 5.8 g/dL (6.3-8.2)
--- NOTE | 2019-04-26 10:25 | P.PN ---
Subjective Progress Note Date: 04/26/19 Patient is a 73-year-old male who presented to [facility] emergency room via EMS with multiple vague symptoms including confusion and mental status changes, episodes of shortness of breath he was evaluated in the emergency room, he had evidence of urinary tract infection and evidence of e levated troponin level, he also had evidence of dehydration was elevated BUN and creatinine he was admitted to telemetry floor for further evaluation and cardiology consultation was requested. Patient was seen and examined on the telemetry floor he is alert and oriented 3 in no apparent distress, he denies any chest pain or shortness of breath there is no fever or chills no headache or dizziness no nausea or vomiting no abdominal pain no diarrhea no burning was urination no frequency or urgency and no hematuria On 04/22/2019 patient is alert and oriented 3. 2-D echo completed awaiting to be red. Patient remains on IV Lasix and IV heparin. Cardiology services are following. Repeat chest x-ray has been ordered due to wheezing is auscultation. DuoNeb breathing treatments ordered creatinine is improving at 1.32 and bun 33. At this time patient denies chest pain. Patient is any nausea vomiting or diarrhea. Patient denies any urinary burning or frequency On 04/23/2019 patient is alert and oriented 3. 2-D echo completed showing an EF of 45-50%. Patient remains on IV Lasix per cardiology services. Creatinine improving to 1.12 and bun 28. Did discuss case with cardiology nurse practitioner Dr. Gu possible plans for heart cath will discuss with Dr. Pickering. At this time patient remains on heparin drip. Wheeziness has improved. Patient is maintained on DuoNeb breathing treatments. No active cardiopulmonary disease. No change. Patient denies chest pain or shortness of breath. Patient denies nausea vomiting or diarrhea. Patient denies any urinary burning or frequency On 04/24/2019 patient is alert and oriented 3 family at bedside. Patient having positive blood culture growing gram-negative bacilli. Infectious disease has been consulted and patient started on Flagyl and Rocephin. No plans for cardiac catheterization at this time per cardiology CT of abdomen and pelvis completed per infectious disease ordered. Concerns for possible constricting le mohit and tumor. Oncology services will be consulted. Patient at bedside reports that he did have a colonoscopy in February with Dr. Tian and and was recommended after that colonoscopy to obtain a CT of abdomen and pelvis but patient declined. At this time patient denies any chest pain or shortness of breath. Patient denies nausea vomiting or diarrhea. Patient denies any urinary burning or frequency. On 04/25/2019 patient is alert and oriented 3. Dr. lyon consulted for CT resulted discussed case with Dr. santiago recommending GI consult due to recent colonoscopy. Patient remains on Rocephin and Flagyl repeat blood culture pending. Cardiology, infectious disease, oncology and GI services following. Patient denies chest pain or shortness of breath. Patient denies nausea vomiting or diarrhea. Patient denies any urinary burning or frequency. Patient has been transitioned to oral Lasix per cardiology On 04/26/2019 patient is alert and oriented 3. GI services planning flexible sigmoidoscopy today due to abnormal CT of the abdomen with recent colonoscopy completed in February. Patient remains on Flagyl and Levaquin per ID for positive blood culture repeat blood culture pending. At this time patient denies chest pain or shortness breath. Patient denies nausea vomiting or diarrhea. Patient denies any urinary burning or frequency Objective - Vital Signs Vital signs: Vital Signs Temp 98.7 F 04/26/19 08:10 Pulse 66 04/26/19 08:10 Resp 18 04/26/19 08:10 BP 137/63 04/26/19 08:10 Pulse Ox 98 04/26/19 08:10 Intake & Output 04/25/19 04/26/19 04/26/19 18:59 06:59 18:59 Intake Total 240 Balance 240 Weight 101.9 kg Intake: Oral 240 Other: Voiding Method Toilet Toilet Toilet # Voids 2 1 # Bowel Movements 1 - Exam In general patient is alert and oriented 3 in no apparent distress HEENT head normocephalic and atraumatic Neck is supple no JVD no goiter no lymphadenopathy Chest exam reveals a few scattered rhonchi no wheezing Cardiac exam reveals regular heart sounds no gallops no murmurs Abdomen is soft nontender no organomegaly Extremity exam reveals no edema no cyanosis or clubbing Neurological examination reveals no gross focal deficits - Labs CBC & Chem 7: 04/26/19 07:38 04/26/19 07:38 Labs: Abnormal Lab Results - Last 24 Hours (Table) 04/25/19 04/25/19 04/26/19 Range/Units 11:48 17:23 06:11 RBC (4.30-5.90) m/uL Hgb (13.0-17.5) gm/dL Hct (39.0-53.0) % Lymphocytes # (1.0-4.8) k/uL Glucose (74-99) mg/dL POC Glucose (mg/dL) 158 H 129 H 74 L (75-99) mg/dL Calcium (8.4-10.2) mg/dL Total Protein (6.3-8.2) g/dL Albumin (3.5-5.0) g/dL 04/26/19 04/26/19 Range/Units 07:38 07:38 RBC 3.70 L (4.30-5.90) m/uL Hgb 10.0 L (13.0-17.5) gm/dL Hct 31.1 L (39.0-53.0) % Lymphocytes # 0.9 L (1.0-4.8) k/uL Glucose 71 L (74-99) mg/dL POC Glucose (mg/dL) (75-99) mg/dL Calcium 8.1 L (8.4-10.2) mg/dL Total Protein 5.8 L (6.3-8.2) g/dL Albumin 2.6 L (3.5-5.0) g/dL Microbiology - Last 24 Hours (Table) 04/23/19 17:31 Blood Culture - Preliminary Blood No Growth after 48 hours Assessment and Plan Assessment: 1. shortness of breath likely related to congestive heart failure and possibly related to ischemic heart disease, VQ scan was done and was negative. 2. non-ST elevation myocardial infarction. Patient remains on IV heparin. At this time no plans for cardiac catheterization continue medical management 3. evidence of dehydration was elevated BUN and creatinine. Creatinine improving to 1.3 to and bun 33. This does appear baseline for patient. Creatinine improving to 1.12 and bun 28. Resolved 4. Acute on chronic diastolic congestive heart failure. 2-D echo completed showing an EF of 45-50% BNP 10,600. Patient currently on IV Lasix. Discussed case with cardiology patient will continue current dose of IV Lasix for 24 hours. IV Lasix has been changed to Lasix 20 mg twice a day 5. evidence of urinary tract infection. Patient asymptomatic. Urine culture negative. Urine culture showing no growth. Patient is currently maintained on Rocephin 6. underlying history of chronic kidney disease stage II 7. underlying history of diabetes mellitus type II. Home meds resumed 8. Increased wheeziness. Chest x-ray and DuoNeb breathing. Chest x-ray completed showing no active cardiopulmonary disease. No change. Wheeziness has resolved 9. Positive blood culture with gram positive bacilli. Infectious disease consulted started on Rocephin and Flagyl repeat blood culture ordered 10. Abnormal CT of abdomen and pelvis. CT of abdomen and pelvis completed showing locally dilated proximal sigmoid colon with irregular wall thickening suggestive a constricting lesion in tumor. Per patients without bedside patient did have colonoscopy in February with Dr. Tian. Oncology services will be consulted at this time to further investigate. Per oncology service is recommending GI consult. Per GI services patient to undergo flex sigmoidoscopy today 04/26/2019 DVT prophylaxis heparin. GI prophylaxis Pepcid Cardiology, infectious disease and oncology services consulted Patient currently on Rocephin and Flagyl Repeat cultures ordered Plans for flexible sigmoidoscopy today 04/26/2019 I performed an examination of the patient and discussed their management with the Nurse Practitioner. I have reviewed the Nurse Practitioner's notes and agree with the documented findings and plan of care
[2019-04-26 12:47] LABS: Glucose,Whole Blood 106 mg/dL (75-99)
--- NOTE | 2019-04-26 12:51 | PN ---
PROGRESS NOTE Mr. Alonzo is a 73-year-old male who presented with symptoms of progressive dyspnea, change in mental status and mild troponin elevation. He had a positive blood culture. He is scheduled to undergo workup today with colonoscopy. He is feeling better breathing jeronimo. His breathing is better. He denies any dizziness. No palpitation. He denies any nausea. He was seen by Dr. Paz yesterday for possible colonic mass. He continues to be at this time on aspirin once a day, Lipitor 80 mg daily, Coreg 6.25 mg twice a day, Lasix 20 mg twice a day, isosorbide mononitrate 30 mg daily, lisinopril 40 mg daily, spironolactone 12.5 mg daily. PHYSICAL EXAMINATION: Blood pressure 137/60 with the heart rate in the 70s. LUNGS: Clear. HEART: Regular rate and rhythm. S1, S2. No S3. No rub with a systolic murmur. ABDOMEN: Soft, nontender. EXTREMITIES: No edema. LAB DATA: Lab data revealed BUN and creatinine 16 and 0.9, potassium 3.8, hemoglobin of 10. IMPRESSION: 1. Non ST-segment elevation myocardial infarction. 2. Episode of congestive heart failure with preserved systolic function. 3. Questionable colonic mass. 4. Positive blood cultures. Workup in progress. 5. Renal function abnormality improving. 6. Diabetes mellitus. RECOMMENDATION: From the cardiac standpoint, he is stable. We will continue on present regimen. He will follow up as an outpatient with Dr. Fong and we will see him on as-needed basis. He will be further evaluated as an outpatient regarding the need to undergo further cardiac workup including coronary angiography. I discussed those findings with the patient as well as his son. MMODL / IJN: [id number] /
[2019-04-26] MEDS ORDERED: LIDOCAINE 1% INJ 10MG/ML (20 ML MDV) ONE (14:40)
[2019-04-26] MEDS ORDERED: PROPOFOL 10 MG/ML 20 ML VIAL IV ONE (14:40)
[2019-04-26] MEDS ORDERED: LACTATED RINGERS 1,000 ML IV ONE (14:47)
[2019-04-26 15:25] VITALS: BMI 33.1
--- NOTE | 2019-04-26 15:28 | P.PCN ---
Date of Procedure: 04/26/19 Description of Procedure: BRIEF HISTORY: 73-year-old male with multiple medical comorbidities including hypertension, osteoarthritis, hyperlipidemia, congestive heart failure, obesity, colonic polyps colonoscopy and gastric and esophageal varices on EGD who presented to the hospital with complaints of lethargy. At that time the patient had been complaining of weakness, decreased appetite and episodes of confusion. He was found to have elevation in his troponins and is currently being medically managed by the cardiology service. In addition the patient is also receiving antibiotic therapy for a urinary tract infection. He had a computed tomography scan of the abdomen performed in evaluation of his symptoms with findings concerning for a sigmoid mass. However on review of the electronic medical record the patient had EGD and colonoscopy performed in 02/2019 with EGD showing findings of esophageal and gastric varices and colonoscopy with polypectomy as stated. The prep for the colonoscopy was deemed fair. He also has a history of chronic anemia and given the above the hematology/oncology service has been consult. PROCEDURE PERFORMED: Flexible sigmoidoscopy. PREOPERATIVE DIAGNOSIS: Abnormal CT imaging of the abdomen (concern for sigmoid mass on computed isidoro graphy scan). ESTIMATED BLOOD LOSS: Minimal. IV sedation per Anesthesia. PROCEDURE: After informed consent was obtained, the patient, was brought into the endoscopy unit. IV sedation was administered by Anesthesia under continuous monitoring. Digital rectal examination was normal. Initially the Olympus CF-190 flexible video colonoscope was then inserted in the rectum, gradually advanced into the descending colon to the splenic flexure. The prep was fair with a large amount of retained stool. The colonoscope was then slowly withdrawn with the patient noted to have some diverticulosis and a fairly redundant sigmoid colon however no gross mass was noted to correlate with the computed tomography scan findings. Retroflexion in the rectum was significant for moderate internal hemorrhoids. The patient tolerated the procedure well. IMPRESSION: No gross mass noted on flexible sigmoidoscopy. Left colonic diverticulosis. Moderate internal hemorrhoids. Fair prep. RECOMMENDATIONS: Findings of this examination were discussed with the patient and his son. Okay to resume diet. Okay to resume medications. Continue workup for other medical services. Okay for discharge from gastroenterology when otherwise stable.
[2019-04-26 16:05] LABS: Protein, Total 5.4 g/dL (6.2-8.2)
[2019-04-26] MEDS: CARVEDILOL 6.25 MG TAB PO SCH ×2 (16:18→20:22)
[2019-04-26] MEDS: metroNIDAZOLE 500 MG TAB PO SCH ×3 (16:18→20:22)
[2019-04-26] MEDS: FAMOTIDINE 20 MG TAB PO SCH (16:24)
[2019-04-26] MEDS: LISINOPRIL 20 MG TAB PO SCH (16:24)
[2019-04-26] MEDS: ASPIRIN 81 MG PO SCH (16:24)
[2019-04-26] MEDS: SPIRONOLACTONE 25 MG TAB PO SCH (16:24)
[2019-04-26] MEDS: FERROUS SULFATE 325 MG TAB PO SCH (16:25)
[2019-04-26] MEDS: ISOSORBIDE MONONITRATE ER 30 MG TAB.ER.24H PO SCH (16:25)
[2019-04-26] MEDS: FUROSEMIDE 20 MG TAB PO SCH ×2 (16:25→20:22)
[2019-04-26] MEDS: ATORVASTATIN 80 MG TAB PO SCH (16:25)
--- NOTE | 2019-04-26 16:42 | US ---
EXAMINATION TYPE: US abdomen complete DATE OF EXAM: 04/26/2019 COMPARISON: CT CLINICAL HISTORY: liver disease. EXAM MEASUREMENTS: Liver Length: 15.6 cm Gallbladder Wall: 0.4 cm CBD: 0.4 cm Spleen: 17.1 cm Right Kidney: 13.9 x 6.7 x 5.8 cm Left Kidney: 13.2 x 5.8 x 5.4 cm Technically difficult study due to extensive midline bowel gas. Pancreas: not visualized due to midline bowel gas Liver: wnl Gallbladder: No stones seen Evidence for sonographic Harper's sign: No CBD: wnl Spleen: enlarged at 17.1 cm Right Kidney: No hydronephrosis or masses seen Left Kidney: No hydronephrosis or masses seen Upper IVC: wnl Abd Aorta: not visualized due to midline bowel gas. Impression There is splenomegaly. No focal liver defect. No gallstones or dilated ducts. Gallbladder wall appear s mildly thickened.
[2019-04-26 17:01] LABS: Rheumatoid Factor, Qnt 8 IU/mL (0-15)
[2019-04-26 17:16] LABS: Glucose,Whole Blood 143 mg/dL (75-99)
--- NOTE | 2019-04-26 18:15 | PN ---
PROGRESS NOTE DATE OF SERVICE: 04/26/2019 REASON FOR FOLLOWUP: 1. Positive blood culture. 2. Colitis. INTERVAL HISTORY: The patient is currently afebrile, has been breathing comfortably. The patient denies having any chest pain, shortness or breath or cough. No nausea, no vomiting. No abdominal pain or diarrhea. PHYSICAL EXAMINATION: Blood pressure 171/72 with a pulse of 70, temperature 98.4. He is 93% on room air. General description is an elderly male up in the chair in no distress. RESPIRATORY SYSTEM: Unlabored breathing. Clear to auscultation anteriorly. HEART: S1, S2. Regular rate and rhythm. ABDOMEN: Soft. No tenderness. LABS: Hemoglobin is 10, white count 4.8. BUN of 16, creatinine 0.90. Blood culture initial has not been identified. Repeat has been negative so far. DIAGNOSTIC IMPRESSION AND PLAN: 1. Patient with positive blood culture with Gram-positive bacilli, more likely pointing to skin contamination, as he did have repeat blood cultures before receiving antibiotic. Those are negative. Still waiting for the final ID of that pathogen. 2. Patient with colitis with possible constricting colon mass, for colonoscopy today. Patient is covered with Rocephin and Flagyl. Son was at the bedside. He had multiple questions. Those were answered in layman's terms. MMODL / IJN: [id number] /
[2019-04-26] MEDS: TAMSULOSIN 0.4 MG CAP.ER.24H PO SCH (20:22)
[2019-04-26 20:42] LABS: Glucose,Whole Blood 279 mg/dL (75-99)
[2019-04-27 06:20] LABS: Glucose,Whole Blood 214 mg/dL (75-99)
[2019-04-27 06:39] LABS: HCT 31.3 % (39.0-53.0); MCH 27.1 pg (25.0-35.0); MCHC 31.9 g/dL (31.0-37.0); Mean Platelet Volume 7.9; Platelet Count 185 k/uL (150-450); RBC 3.68 m/uL (4.30-5.90); WBC 3.4 k/uL (3.8-10.6)
[2019-04-27 06:49] LABS: Prothrombin Time 10.6 sec (9.0-12.0)
[2019-04-27] MEDS: INSULIN ASPART (NovoLOG) 100 UNIT/ML VIAL SQ SCH ×2 (06:49→12:15)
[2019-04-27] MEDS: IPRATROPIUM-ALBUTEROL 3 ML NEB INHALATION SCH ×2 (07:30→11:15)
[2019-04-27] MEDS: SPIRONOLACTONE 25 MG TAB PO SCH (09:13)
[2019-04-27] MEDS: FAMOTIDINE 20 MG TAB PO SCH (09:14)
[2019-04-27] MEDS: CARVEDILOL 6.25 MG TAB PO SCH (09:14)
[2019-04-27] MEDS: HEPARIN SODIUM,PORCINE 5,000 UNIT/ML 1 ML VIAL SQ SCH (09:14)
[2019-04-27] MEDS: ISOSORBIDE MONONITRATE ER 30 MG TAB.ER.24H PO SCH (09:14)
[2019-04-27] MEDS: FERROUS SULFATE 325 MG TAB PO SCH (09:14)
[2019-04-27] MEDS: metroNIDAZOLE 500 MG TAB PO SCH (09:14)
[2019-04-27] MEDS: FUROSEMIDE 20 MG TAB PO SCH (09:14)
[2019-04-27] MEDS: ASPIRIN 81 MG PO SCH (09:14)
[2019-04-27] MEDS: LISINOPRIL 20 MG TAB PO SCH (09:14)
[2019-04-27] MEDS: ATORVASTATIN 80 MG TAB PO SCH (09:14)
[2019-04-27] MEDS: INSULIN DETEMIR (LEVEMIR) 100 UNIT/ML SYR SQ SCH (10:17)
[2019-04-27 10:43] LABS: Free Kappa Lt Chain Qnt, Serum 8.23 mg/dL (0.33-1.94)
--- NOTE | 2019-04-27 11:46 | PN ---
PROGRESS NOTE Mr. Alonzo is a 73-year-old male who presented to the hospital with symptoms of progressive dyspnea and change in mental status with mild troponin elevation. He underwent sigmoidoscopy yesterday that revealed no evidence of significant masses. He is doing well this morning. His breathing is stable. He denies any dizziness or palpitation. He denies any nausea. He is continuing to be at this time on aspirin, Lipitor 80 mg daily, Coreg 6.5 mg twice a day, Lasix 20 mg twice a day, isosorbide mononitrate 30 mg daily, lisinopril 40 mg daily, spironolactone 12.5 mg daily. PHYSICAL EXAMINATION: Blood pressure 128/60 with a heart rate in the 70s. LUNGS: Clear. HEART: Regular rate and rhythm, S1, S2. No S3. No rub. ABDOMEN: Soft and nontender. EXTREMITIES: No significant edema. IMPRESSION: 1. Symptoms of congestive heart failure, resolved. 2. Mild troponin elevation. Further workup will be needed. 3. An episode of positive blood culture. Workup in progress. 4. Diabetes mellitus. RECOMMENDATIONS: From the cardiac standpoint, he should be able to be discharged home today and followed as an outpatient with Dr. Jenelle Fong to make a decision regarding further cardiac workup. MMODL / IJN: [id number] /
[2019-04-27 12:06] LABS: Glucose,Whole Blood 304 mg/dL (75-99)
[2019-04-27 12:56] VITALS: BP 105/54; PULSE 66; TEMP 98
[2019-04-27 17:40] LABS: Hepatitis A Antibody IgM Non-Reactive (Non-Reactive); Hepatitis B Core IgM Non-Reactive (Non-Reactive); Hepatitis B Surface Antigen Non-Reactive (Non-Reactive); Hepatitis C IgG Antibody Non-Reactive (Non-Reactive)
[2019-04-27 17:59] LABS: Hemoglobin A1C 7.2 % (4.0-6.0)
--- NOTE | 2019-04-29 13:10 | P.DS ---
Providers Date of admission: 04/21/19 15:40 Expected date of discharge: 04/27/19 Attending physician: Cheryle Read Consults: 04/21/19 06:32 Consult Physician Urgent Consulting Provider: [facility] Consult Reason/Comments: elevated trop, HTN Do you want consulting provider notified?: Yes, Notify in am 04/23/19 14:42 Consult Physician Urgent Consulting Provider: Carissa Grider Consult Reason/Comments: positive blood cultures Do you want consulting provider notified?: Yes 04/24/19 10:32 Consult Physician Routine Consulting Provider: Reese Paz Consult Reason/Comments: CT result Do you want consulting provider notified?: Yes [facility] care [facility] Course: Discharge diagnosis 1. shortness of breath likely related to congestive heart failure and possibly related to ischemic heart disease, VQ scan was done and was negative. 2. non-ST elevation myocardial infarction. Patient remains on IV heparin. At this time no plans for cardiac catheterization continue medical management. Patient cleared for discharge from cardiology standpoint will follow-up outpatient 3. evidence of dehydration was elevated BUN and creatinine. Creatinine improving to 1.3 to and bun 33. This does appear baseline for patient. Creatinine improving to 1.12 and bun 28. Resolved 4. Acute on chronic diastolic congestive heart failure. 2-D echo completed showing an EF of 45-50% BNP 10,600. Patient currently on IV Lasix. Discussed case with cardiology patient will continue current dose of IV Lasix for 24 hours. IV Lasix has been changed to Lasix 20 mg twice a day 5. evidence of urinary tract infection. Patient asymptomatic. Urine culture negative. Urine culture showing no growth. Patient is currently maintained on Rocephin 6. underlying history of chronic kidney disease stage II 7. underlying history of diabetes mellitus type II. Home meds resumed 8. Increased wheeziness. Chest x-ray and DuoNeb breathing. Chest x-ray completed showing no active cardiopulmonary disease. No change. Wheeziness has resolved 9. Positive blood culture with gram positive bacilli. Infectious disease consulted started on Rocephin and Flagyl repeat blood culture ordered. Repeat blood culture negative. Patient was discharged on Ceftin 10. Abnormal CT of abdomen and pelvis. CT of abdomen and pelvis completed showing locally dilated proximal sigmoid colon with irregular wall thickening suggestive a constricting lesion in tumor. Per patients without bedside patient did have colonoscopy in February with Dr. Tian. Oncology services will be consulted at this time to further investigate. Per oncology service is recommending GI consult. Status post flexible sigmoidoscopy showing no gross mass, left colonic diverticulosis moderate internal hemorrhoids fair prep. Okay for discharge from GI standpoint Hospital course Patient is a 73-year-old male who presented to [facility] emergency room via EMS with multiple vague symptoms including confusion and mental status changes, episodes of shortness of breath he was evaluated in the emergency room, he had evidence of urinary tract infection and evidence of elevated troponin level, he also had evidence of dehydration was elevated BUN and creatinine he was admitted to telemetry floor for further evaluation and cardiology consultation was requested. Patient was seen and examined on the telemetry floor he is alert and oriented 3 in no apparent distress, he denies any chest pain or shortness of breath there is no fever or chills no headache or dizziness no nausea or vomiting no abdominal pain no diarrhea no burning was urination no frequency or urgency and no hematuria On 04/22/2019 patient is alert and oriented 3. 2-D echo completed awaiting to be red. Patient remains on IV Lasix and IV heparin. Cardiology services are following. Repeat chest x-ray has been ordered due to wheezing is auscultation. DuoNeb breathing treatments ordered creatinine is improving at 1.32 and bun 33. At this time patient denies chest pain. Patient is any nausea vomiting or diarrhea. Patient denies any urinary burning or frequency On 04/23/2019 patient is alert and oriented 3. 2-D echo completed showing an EF of 45-50%. Patient remains on IV Lasix per cardiology services. Creatinine improving to 1.12 and bun 28. Did discuss case with cardiology nurse practitioner Dr. Gu possible plans for heart cath will discuss with Dr. Pickering. At this time patient remains on heparin drip. Wheeziness has improved. Patient is maintained on DuoNeb breathing treatments. No active cardiopulmonary disease. No change. Patient denies chest pain or shortness of breath. Patient denies nausea vomiting or diarrhea. Patient denies any urinary burning or frequency On 04/24/2019 patient is alert and oriented 3 family at bedside. Patient having positive blood culture growing gram-negative bacilli. Infectious disease has been consulted and patient started on Flagyl and Rocephin. No plans for cardiac catheterization at this time per cardiology CT of abdomen and pelvis completed per infectious disease ordered. Concerns for possible constricting lesion and tumor. Oncology services will be consulted. Patient at bedside reports that he did have a colonoscopy in February with Dr. Tian and and was recommended after that colonoscopy to obtain a CT of abdomen and pelvis but patient declined. At this time patient denies any chest pain or shortness of breath. Patient denies nausea vomiting or diarrhea. Patient denies any urinary burning or frequency. On 04/25/2019 patient is alert and oriented 3. Dr. paz consulted for CT resulted discussed case with Dr. santiago recommending GI consult due to recent colonoscopy. Patient remains on Rocephin and Flagyl repeat blood culture pending. Cardiology, infectious disease, oncology and GI services following. Patient denies chest pain or shortness of breath. Patient denies nausea vomiting or diarrhea. Patient denies any urinary burning or frequency. Patient has been transitioned to oral Lasix per cardiology On 04/26/2019 patient is alert and oriented 3. GI services planning flexible sigmoidoscopy today due to abnormal CT of the abdomen with recent colonoscopy completed in February. Patient remains on Flagyl and Levaquin per ID for positive blood culture repeat blood culture pending. At this time patient denies chest pain or shortness breath. Patient denies nausea vomiting or diarrhea. Patient denies any urinary burning or frequency On 04/27/2019 patient will be discharged home. Flexible sigmoidoscopy completed showing no mass. Patient discharged on Ceftin. This was dictated for . Dr. Read did not personally examine patient on 04/27/2019 I performed an examination of the patient and discussed their management with the Nurse Practitioner. I have reviewed the Nurse Practitioner's notes and agree with the documented findings and plan of care Patient Condition at Discharge: Stable Plan - Discharge Summary New Discharge Prescriptions: New Cefuroxime Axetil [Ceftin] 500 mg PO BID 5 Days #10 tab metroNIDAZOLE [Flagyl] 500 mg PO TID tab Furosemide [Lasix] 20 mg PO BID tab Atorvastatin [Lipitor] 80 mg PO DAILY tab Nitroglycerin Sl Tabs [Nitrostat] 0.4 mg SUBLINGUAL Q5M PRN tab PRN Reason: Chest Pain ALPRAZolam [Xanax] 0.25 mg PO Q6HR PRN tab PRN Reason: Mild Anxiety Continue Benazepril HCl 40 mg PO QAM Aspirin 81 mg PO DAILY Tamsulosin [Flomax] 0.4 mg PO HS Carvedilol [Coreg] 6.25 mg PO BID Isosorbide Mononitrate ER [Imdur] 30 mg PO QAM Spironolactone [Aldactone] 12.5 mg PO QAM Ferrous Sulfate [Iron (65 MG Elemental)] 325 mg PO DAILY #30 tab Insulin Glargine,Hum.rec.anlog [Basaglar Kwikpen U-100] 40 unit SQ QAM Discontinued Lovastatin [Mevacor] 20 mg PO HS Furosemide [Lasix] 20 mg PO DAILY Discharge Medication List Benazepril HCl 40 mg PO QAM 01/22/17 [History] Aspirin 81 mg PO DAILY 01/23/17 [History] Tamsulosin [Flomax] 0.4 mg PO HS 01/23/17 [History] Carvedilol [Coreg] 6.25 mg PO BID 10/25/17 [History] Isosorbide Mononitrate ER [Imdur] 30 mg PO QAM 10/25/17 [History] Spironolactone [Aldactone] 12.5 mg PO QAM 10/25/17 [History] Ferrous Sulfate [Iron (65 MG Elemental)] 325 mg PO DAILY #30 tab 01/22/18 [Rx] Insulin Glargine,Hum.rec.anlog [Basaglar Kwikpen U-100] 40 unit SQ QAM 02/27/19 [History] ALPRAZolam [Xanax] 0.25 mg PO Q6HR PRN tab 04/27/19 [Rx] Atorvastatin [Lipitor] 80 mg PO DAILY tab 04/27/19 [Rx] Cefuroxime Axetil [Ceftin] 500 mg PO BID 5 Days #10 tab 04/27/19 [Rx] Furosemide [Lasix] 20 mg PO BID tab 04/27/19 [Rx] Nitroglycerin Sl Tabs [Nitrostat] 0.4 mg SUBLINGUAL Q5M PRN tab 04/27/19 [Rx] metroNIDAZOLE [Flagyl] 500 mg PO TID tab 04/27/19 [Rx] Follow up Appointment(s)/Referral(s): Reese Paz MD [STAFF PHYSICIAN] - 1 Week (Patient to call & schedule appt - office closed today. ) Minerva Edgar MD [Primary Care Provider] - 1-2 days (Patient to call and schedule follow up - office closed today. ) Klarissa Thomason MD [STAFF PHYSICIAN] - 1 Week (Patient to call and schedule follow up - office closed today. ) Jessica Fong MD [STAFF PHYSICIAN] - 1 Week (Patient to call and schedule follow up - office closed today) Patient Instructions/Handouts: Shortness of Breath (DC) Discharge Disposition: HOME SELF-CARE
--- NOTE | 2019-04-30 08:06 | CDI ---
Documentation Clarification Form Date: 04/30/19 From: Tonya Moser Phone: If you have a question about this query, please contact Holli Red, Manager Of Application Development at [phone] between 8am and 5pm. Admit Date: 04/21/19 Discharge Date: 04/27/19 Patient Name: MILLI NEW Visit Number: [id number] ATTENTION: The Clinical Documentation Specialists (CDI) and [facility] Coding Staff appreciate your assistance in clarifying documentation. Please respond to the clarification below the line at the bottom and electronically sign. The CDI & [facility] Coding staff will review the response and follow-up if needed. Please note: Queries are made part of the Legal Health Record. If you have any questions, please contact the author of this message via ITS. Dear Dr. Cheryle Read, Bacteremia/positive blood culture were documented in the infectious disease & hematology consult, many progress notes and DS. Patient history/risk factors: NSTEMI, HTN w acute on chronic diastolic CHF and Stage III CKD, UTI, DM, portal HTN w gastropathy, gastric & esophageal varices Clinical Indicators: WBC-14.8, Left Shift-13.4, lactic acid-1.4, total Bilrubin- 1.0, Plt-173/111, Blood Culture: Eubacterium limosum Treatment: IV fluids, Antibiotics: /-IV Rocephin, discharged on Ceftin 500 mg po BID x 5 days Bacteremia is considered a lab finding. Please clarify if that lab finding is clinical indicator of a more definitive medical diagnosis such as: Sepsis Infectious Process, please specify: Other, please specify Unable to determine other, skin contamination MTDD
[2019-04-30 09:44] LABS: Gamma Globulin 1.24 g/dL (0.70-1.50)
== END 2019-04-27 14:29 | disposition home or self-care (01) | DRG 280 ==
LOC: EC 04:14 → 3SCARD 06:32 → OBSVTOIN 15:40
PROVIDERS: ADMIT Internal Medicine; ATTEND Internal Medicine
PROC: 0DJD8ZZ Inspection of Lower Intestinal Tract, Via Natural or Artificial Opening Endoscopic (ICD-10-PCS; principal; 2019-04-26 07:30)
DX: I21.4 Non-ST elevation (NSTEMI) myocardial infarction (principal); I50.33 Acute on chronic diastolic (congestive) heart failure; I13.0 Hypertensive heart and chronic kidney disease with heart failure and stage 1 through stage 4 chronic kidney disease, or unspecified chronic kidney disease; N39.0 Urinary tract infection, site not specified; I85.00 Esophageal varices without bleeding; K76.6 Portal hypertension; Q43.8 Other specified congenital malformations of intestine; D69.6 Thrombocytopenia, unspecified; E11.649 Type 2 diabetes mellitus with hypoglycemia without coma; D63.1 Anemia in chronic kidney disease; N18.3 Chronic kidney disease, stage 3 (moderate); E11.22 Type 2 diabetes mellitus with diabetic chronic kidney disease; E86.0 Dehydration; I25.10 Atherosclerotic heart disease of native coronary artery without angina pectoris; K31.89 Other diseases of stomach and duodenum; I86.4 Gastric varices; K57.30 Diverticulosis of large intestine without perforation or abscess without bleeding; K64.8 Other hemorrhoids; R15.9 Full incontinence of feces; R32 Unspecified urinary incontinence; E78.5 Hyperlipidemia, unspecified; M19.90 Unspecified osteoarthritis, unspecified site; E66.9 Obesity, unspecified; Z68.33 Body mass index [BMI] 33.0-33.9, adult; F17.200 Nicotine dependence, unspecified, uncomplicated; Z79.82 Long term (current) use of aspirin; Z79.4 Long term (current) use of insulin; Z79.899 Other long term (current) drug therapy; Z71.3 Dietary counseling and surveillance; Z86.010 Personal history of colon polyps; Z86.73 Personal history of transient ischemic attack (TIA), and cerebral infarction without residual deficits; Z98.890 Other specified postprocedural states; Z86.59 Personal history of other mental and behavioral disorders; Z80.3 Family history of malignant neoplasm of breast; Z83.3 Family history of diabetes mellitus
CPT/HCPCS: 36415; 45330; 71046; 74176; 76700; 78582; 80048; 80053; 80061; 80074; 81001; 81003; 82607; 82747; 83036; 83605; 83735; 83880; 83883; 83921; 84165; 84443; 84484; 85025; 85027; 85049; 85610; 85730; 86038; 86334; 86431; 87040; 87086; 87502; 93005; 93306; 94640; 94760; 96374; 99285

== ENCOUNTER 2019-08-16 14:24 | Inpatient (IN) | payer MEDICARE, BC ==
[2019-08-16] MEDS ORDERED: IPRATROPIUM-ALBUTEROL 3 ML NEB INHALATION STA (14:54)
--- NOTE | 2019-08-16 14:55 | ED ---
General Adult HPI - General Chief complaint: Weakness Stated complaint: Weakness Time Seen by Provider: 08/16/19 14:34 Source: patient, EMS, RN notes reviewed Mode of arrival: EMS Limitations: no limitations - History of Present Illness Initial comments: Patient is a pleasant 74-year-old male presenting to the emergency department with generalized weakness. Symptoms have been present for the past several days. Decreased oral intake. Patient has fallen several times without injury. No confusion. No history of similar symptoms previously. No chest pain or dyspnea. No isolated area of weakness. Patient did go to his doctor's office with a recommended he come to the emergency department - Related Data Home Medications Medication Instructions Recorded Confirmed Benazepril HCl 40 mg PO QAM 01/22/17 04/21/19 Aspirin 81 mg PO DAILY 01/23/17 04/21/19 Tamsulosin [Flomax] 0.4 mg PO HS 01/23/17 04/21/19 Carvedilol [Coreg] 6.25 mg PO BID 10/25/17 04/21/19 Isosorbide Mononitrate ER [Imdur] 30 mg PO QAM 10/25/17 04/21/19 Spironolactone [Aldactone] 12.5 mg PO QAM 10/25/17 04/21/19 Insulin Glargine,Hum.rec.anlog 40 unit SQ QAM 02/27/19 04/21/19 [Basaglmyles Cárdenas U-100] Previous Rx's Medication Instructions Recorded Ferrous Sulfate [Iron (65 MG 325 mg PO DAILY #30 tab 01/22/18 Elemental)] ALPRAZolam [Xanax] 0.25 mg PO Q6HR PRN tab 04/27/19 Atorvastatin [Lipitor] 80 mg PO DAILY tab 04/27/19 Cefuroxime Axetil [Ceftin] 500 mg PO BID 5 Days #10 tab 04/27/19 Furosemide [Lasix] 20 mg PO BID tab 04/27/19 Nitroglycerin Sl Tabs [Nitrostat] 0.4 mg SUBLINGUAL Q5M PRN tab 04/27/19 metroNIDAZOLE [Flagyl] 500 mg PO TID tab 04/27/19 Allergies Allergy/AdvReac Type Severity Reaction Status Date / Time No Known Allergies Allergy Verified 08/16/19 14:32 Review of Systems ROS Statement: Those systems with pertinent positive or pertinent negative responses have been documented in the HPI. ROS Other: All systems not noted in ROS Statement are negative. Constitutional: Denies: fever Eyes: Denies: eye pain ENT: Denies: ear pain Respiratory: Denies: cough, dyspnea Cardiovascular: Denies: chest pain Endocrine: Denies: fatigue Gastrointestinal: Denies: abdominal pain Genitourinary: Denies: dysuria Musculoskeletal: Denies: back pain Skin: Denies: rash Neurological: Reports: as per HPI. Denies: headache, confusion Past Medical History Past Medical History: Chest Pain / Angina, Heart Failure, CVA/TIA, Diabetes Mellitus, Hyperlipidemia, Hypertension, Osteoarthritis (OA) Additional Past Medical History / Comment(s): incontinent of stools intermittently. low iron levels, possible GI bleed-dark tarry stools per son, Son stated "has had recent falls related to blood sugar going low 60s"-HX 2017 a nd 2018 had episodes of CHF approx 7-10 days post receiving flu vaccine,TIA,Type2 IDDM History of Any Multi-Drug Resistant Organisms: None Reported Past Surgical History: Hernia Repair Additional Past Surgical History / Comment(s): 10/31/17 robot assisted laprascopic umbilical hernia repair with mesh., 07/30/18 repair recurrent incarerated hernia Past Anesthesia/Blood Transfusion Reactions: No Reported Reaction Additional Past Anesthesia/Blood Transfusion Reaction / Comment(s): never had anesthesia Past Psychological History: Depression Smoking Status: Current every day smoker Past Alcohol Use History: None Reported Past Drug Use History: None Reported - Past Family History Mother Family Medical History: Cancer Additional Family Medical History / Comment(s): breast cancer Father Family Medical History: Unable to Obtain Sister(s) Family Medical History: Cancer Brother(s) Family Medical History: Diabetes Mellitus General Exam Limitations: no limitations General appearance: alert, in no apparent distress Head exam: Present: atraumatic, normocephalic Eye exam: Present: normal appearance, PERRL, EOMI ENT exam: Present: normal oropharynx Neck exam: Present: normal inspection. Absent: tenderness Respiratory exam: Present: wheezes Cardiovascular Exam: Present: regular rate, normal rhythm GI/Abdominal exam: Present: soft. Absent: tenderness Extremities exam: Present: pedal edema (Trace bilateral). Absent: calf tenderness Back exam: Present: normal inspection. Absent: vertebral tenderness Neurological exam: Present: alert, oriented X3, CN II-XII intact. Absent: motor sensory deficit Expanded Neurological exam: Present: protecting the airway Patient oriented to: Present: person, place, time Speech: Present: fluid speech Cranial nerves: EOM's Intact: Normal Motor strength exam: RUE: 5, LUE: 5, RLE: 5, LLE: 5 Eye Response: (4) open spontaneously Motor Response: (6) obeys commands Verbal Response: (5) oriented Psychiatric exam: Present: normal affect, normal mood Skin exam: Present: normal color Course Vital Signs 08/16/19 08/16/19 08/16/19 14:25 15:06 15:16 Temperature 97.8 F Pulse Rate 64 67 61 Respiratory 20 Rate Blood Pressure 112/64 O2 Sat by Pulse 95 Oximetry 08/16/19 15:58 Temperature Pulse Rate 64 Respiratory 18 Rate Blood Pressure 107/70 O2 Sat by Pulse 94 L Oximetry EKG Findings - EKG Comments: EKG Findings:: Sinus rhythm at 62. For screening AV block VA of 250. QRS 136. QT 44. QTC 491. Right axis. Right bundle branch block. Inferior Q waves. No acute ST change. Medical Decision Making - Medical Decision Making Patient reevaluated and updated. Patient resting comfortably in bed. Case discussed with Dr. Read, who will admit covering for Dr. rosalse. - Lab Data Result diagrams: 08/16/19 14:55 08/16/19 14:55 Lab Results 08/16/19 08/16/19 08/16/19 Range/Units 14:42 14:55 14:55 WBC 6.8 (3.8-10.6) k/uL RBC 4.01 L (4.30-5.90) m/uL Hgb 10.6 L (13.0-17.5) gm/dL Hct 33.3 L (39.0-53.0) % MCV 82.9 (80.0-100.0) fL MCH 26.3 (25.0-35.0) pg MCHC 31.7 (31.0-37.0) g/dL RDW 14.4 (11.5-15.5) % Plt Count 193 (150-450) k/uL Neutrophils % 80 % Lymphocytes % 11 % Monocytes % 8 % Eosinophils % 1 % Basophils % 0 % Neutrophils # 5.4 (1.3-7.7) k/uL Lymphocytes # 0.7 L (1.0-4.8) k/uL Monocytes # 0.5 (0-1.0) k/uL Eosinophils # 0.0 (0-0.7) k/uL Basophils # 0.0 (0-0.2) k/uL PT 10.9 (9.0-12.0) sec INR 1.1 (<1.2) APTT 24.8 (22.0-30.0) sec Sodium (137-145) mmol/L Potassium (3.5-5.1) mmol/L Chloride (98-107) mmol/L Carbon Dioxide (22-30) mmol/L Anion Gap mmol/L BUN (9-20) mg/dL Creatinine (0.66-1.25) mg/dL Est GFR (CKD-EPI)AfAm (>60 ml/min/1.73 sqM) Est GFR (CKD-EPI)NonAf (>60 ml/min/1.73 sqM) Glucose (74-99) mg/dL POC Glucose (mg/dL) 70 L (75-99) mg/dL POC Glu Tree Trimmer ID Guamanian, Maria Alejandra Plasma Lactic Acid Calvin (0.7-2.0) mmol/L Calcium (8.4-10.2) mg/dL Phosphorus (2.5-4.5) mg/dL Magnesium (1.6-2.3) mg/dL Total Bilirubin (0.2-1.3) mg/dL AST (17-59) U/L ALT (4-49) U/L Alkaline Phosphatase (38-126) U/L Creatine Kinase (55-170) U/L Troponin I (0.000-0.034) ng/mL NT-Pro-B Natriuret Pep pg/mL Total Protein (6.3-8.2) g/dL Albumin (3.5-5.0) g/dL TSH (0.465-4.680) mIU/L 08/16/19 08/16/19 08/16/19 Range/Units 14:55 14:55 14:55 WBC (3.8-10.6) k/uL RBC (4.30-5.90) m/uL Hgb (13.0-17.5) gm/dL Hct (39.0-53.0) % MCV (80.0-100.0) fL MCH (25.0-35.0) pg MCHC (31.0-37.0) g/dL RDW (11.5-15.5) % Plt Count (150-450) k/uL Neutrophils % % Lymphocytes % % Monocytes % % Eosinophils % % Basophils % % Neutrophils # (1.3-7.7) k/uL Lymphocytes # (1.0-4.8) k/uL Monocytes # (0-1.0) k/uL Eosinophils # (0-0.7) k/uL Basophils # (0-0.2) k/uL PT (9.0-12.0) sec INR (<1.2) APTT (22.0-30.0) sec Sodium 136 L (137-145) mmol/L Potassium 3.6 (3.5-5.1) mmol/L Chloride 104 (98-107) mmol/L Carbon Dioxide 25 (22-30) mmol/L Anion Gap 7 mmol/L BUN 31 H (9-20) mg/dL Creatinine 1.18 (0.66-1.25) mg/dL Est GFR (CKD-EPI)AfAm 69 (>60 ml/min/1.73 sqM) Est GFR (CKD-EPI)NonAf 60 (>60 ml/min/1.73 sqM) Glucose 65 L (74-99) mg/dL POC Glucose (mg/dL) (75-99) mg/dL POC Glu Tree Trimmer ID Plasma Lactic Acid Calvin 1.0 (0.7-2.0) mmol/L Calcium 7.9 L (8.4-10.2) mg/dL Phosphorus 3.8 (2.5-4.5) mg/dL Magnesium 1.8 (1.6-2.3) mg/dL Total Bilirubin 0.8 (0.2-1.3) mg/dL AST 39 (17-59) U/L ALT 12 (4-49) U/L Alkaline Phosphatase 94 (38-126) U/L Creatine Kinase 635 H (55-170) U/L Troponin I 0.138 H* (0.000-0.034) ng/mL NT-Pro-B Natriuret Pep pg/mL Total Protein 5.6 L (6.3-8.2) g/dL Albumin 2.4 L (3.5-5.0) g/dL TSH 3.020 (0.465-4.680) mIU/L 08/16/19 08/16/19 08/16/19 Range/Units 14:55 15:12 15:13 WBC (3.8-10.6) k/uL RBC (4.30-5.90) m/uL Hgb (13.0-17.5) gm/dL Hct (39.0-53.0) % MCV (80.0-100.0) fL MCH (25.0-35.0) pg MCHC (31.0-37.0) g/dL RDW (11.5-15.5) % Plt Count (150-450) k/uL Neutrophils % % Lymphocytes % % Monocytes % % Eosinophils % % Basophils % % Neutrophils # (1.3-7.7) k/uL Lymphocytes # (1.0-4.8) k/uL Monocytes # (0-1.0) k/uL Eosinophils # (0-0.7) k/uL Basophils # (0-0.2) k/uL PT (9.0-12.0) sec INR (<1.2) APTT (22.0-30.0) sec Sodium (137-145) mmol/L Potassium (3.5-5.1) mmol/L Chloride (98-107) mmol/L Carbon Dioxide (22-30) mmol/L Anion Gap mmol/L BUN (9-20) mg/dL Creatinine (0.66-1.25) mg/dL Est GFR (CKD-EPI)AfAm (>60 ml/min/1.73 sqM) Est GFR (CKD-EPI)NonAf (>60 ml/min/1.73 sqM) Glucose (74-99) mg/dL POC Glucose (mg/dL) 72 L 76 (75-99) mg/dL POC Glu Tree Trimmer ID Guamanian, Maria Alejandra Guamanian, Maria Alejandra Plasma Lactic Acid Calvin (0.7-2.0) mmol/L Calcium (8.4-10.2) mg/dL Phosphorus (2.5-4.5) mg/dL Magnesium (1.6-2.3) mg/dL Total Bilirubin (0.2-1.3) mg/dL AST (17-59) U/L ALT (4-49) U/L Alkaline Phosphatase (38-126) U/L Creatine Kinase (55-170) U/L Troponin I (0.000-0.034) ng/mL NT-Pro-B Natriuret Pep 50485 pg/mL Total Protein (6.3-8.2) g/dL Albumin (3.5-5.0) g/dL TSH (0.465-4.680) mIU/L - Radiology Data Radiology results: report reviewed (Computed tomography scan of the brain shows degenerative and nonspecific white matter changes.), image reviewed (Two-view chest x-ray shows no acute process) Disposition Clinical Impression: Congestive heart failure Disposition: ADMITTED IP TO THIS [facility] Condition: Serious Is patient prescribed a controlled substance at d/c from ED?: No Referrals: Minerva Edgar MD [Primary Care Provider] - 1-2 days Decision Time: 16:22
[2019-08-16 15:02] LABS: Glucose,Whole Blood 70 mg/dL (75-99)
[2019-08-16 15:14] LABS: Glucose,Whole Blood 72 mg/dL (75-99)
[2019-08-16 15:14] LABS: Glucose,Whole Blood 76 mg/dL (75-99)
[2019-08-16 15:16] LABS: Basophils % (A) 0 %; Eosinophils % (A) 1 %; HCT 33.3 % (39.0-53.0); HGB 10.6 gm/dL (13.0-17.5); Lymphocytes # (A) 0.7 k/uL (1.0-4.8); Lymphocytes % (A) 11 %; MCH 26.3 pg (25.0-35.0); MCHC 31.7 g/dL (31.0-37.0); MCV 82.9 fL (80.0-100.0); Mean Platelet Volume 7.3; Monocytes # (A) 0.5 k/uL (0-1.0); Monocytes % (A) 8 %; Neutrophils # (A) 5.4 k/uL (1.3-7.7); Neutrophils % (A) 80 %; Platelet Count 193 k/uL (150-450); RBC 4.01 m/uL (4.30-5.90); RDW 14.4 % (11.5-15.5); WBC 6.8 k/uL (3.8-10.6)
[2019-08-16 15:23] LABS: INR 1.1 (<1.2); Partial Thromboplastin Time 24.8 sec (22.0-30.0); Prothrombin Time 10.9 sec (9.0-12.0)
[2019-08-16 15:28] LABS: Albumin 2.4 g/dL (3.5-5.0); Potassium 3.6 mmol/L (3.5-5.1); Total Protein 5.6 g/dL (6.3-8.2)
[2019-08-16 15:29] LABS: Calcium 7.9 mg/dL (8.4-10.2); Magnesium 1.8 mg/dL (1.6-2.3); Phosphorus 3.8 mg/dL (2.5-4.5); Total Bilirubin 0.8 mg/dL (0.2-1.3)
--- NOTE | 2019-08-16 15:44 | CT ---
EXAMINATION TYPE: CT brain wo con DATE OF EXAM: 08/16/2019 COMPARISON: None HISTORY: Weakness. CT DLP: 1151.4 mGycm Automated exposure control for dose reduction was used. FINDINGS: There is moderate generalized degenerative change. Low-attenuation throughout the white matter which is nonspecific. Intracranial atherosclerotic changes are seen. There is calcification within the left basal ganglia. Hyperostosis of the calvarium. No acute hemorrhage or mass effect. No midline shift. Abnormal low att enuation in the maru suggestive of remote ischemic change. IMPRESSION: DEGENERATIVE AND NONSPECIFIC WHITE MATTER CHANGES MOST TYPICAL OF REMOTE MICROVASCULAR ISCHEMIA. HANS ELATE WITH MRI IF THERE IS CONCERN FOR ACUTE ISCHEMIA CLINICALLY WARRANTED.
--- NOTE | 2019-08-16 15:46 | XR ---
EXAMINATION TYPE: XR chest 2V DATE OF EXAM: 08/16/2019 COMPARISON: 04/22/2019 TECHNIQUE: PA and lateral views submitted. HISTORY: Weakness FINDINGS: The lungs are clear and there is no pneumothorax, pleural effusion, or focal pneumonia. Heart is en larged and there is atherosclerotic changes aorta. Arthropathy of the shoulders. No overt failure. IMPRESSION: 1. No acute process.
[2019-08-16] MEDS ORDERED: ASPIRIN 325 MG TAB PO STA (16:23)
[2019-08-16 16:26] LABS: Amorphous Sediment,Urine Rare /hpf; Appearance,Urine Clear (Clear); Bilirubin,Urine Negative (Negative); Blood,Urine Negative (Negative); Color,Urine Yellow; Glucose,Urine (UA) Negative (Negative); Hyaline Casts,Urine 14 /lpf (0-2); Ketones,Urine Negative (Negative); Leukocyte Esterase,Urine Negative (Negative); Mucus,Urine Rare /hpf; Nitrite,Urine Negative (Negative); PH, Urine 5.5 (5.0-8.0); Protein,Urine 1+ (Negative); RBC,Urine <1 /hpf (0-5); Specific Gravity,Urine 1.012 (1.001-1.035); Squamous Epithelial Cell,Urine 1 /hpf (0-4); Urobilinogen,Urine <2.0 mg/dL (<2.0); WBC,Urine 2 /hpf (0-5)
[2019-08-16] MEDS ORDERED: HEPARIN SODIUM,PORCINE 5,000 UNIT/ML 1 ML VIAL IV ONE (16:26)
[2019-08-16] MEDS ORDERED: HEPARIN SODIUM,PORCINE 5,000 UNIT/ML 1 ML VIAL IV PRN (16:26)
[2019-08-16] MEDS: HEPARIN SOD,PORK IN 0.45% NACL 25,000 UNIT in 0.45% NACL 1 250ML.BAG IV SCH (17:27)
[2019-08-16] MEDS: FUROSEMIDE 10 MG/ML 4 ML VIAL IV SCH ×2 (17:27→23:32)
[2019-08-16] MEDS: NITROGLYCERIN OINT 1 INCH/GM PACKET TOPICAL SCH ×2 (20:44→22:18)
[2019-08-16 21:41] LABS: Glucose,Whole Blood 87 mg/dL (75-99)
[2019-08-16] MEDS ORDERED: ACETAMINOPHEN TAB 500 MG TAB PO PRN (23:51)
[2019-08-17 02:08] LABS: Glucose,Whole Blood 112 mg/dL (75-99)
[2019-08-17 06:09] LABS: Glucose,Whole Blood 101 mg/dL (75-99)
[2019-08-17] MEDS: INSULIN ASPART (NovoLOG) 100 UNIT/ML VIAL SQ SCH ×4 (06:10→20:39)
[2019-08-17] MEDS: SPIRONOLACTONE 25 MG TAB PO SCH (08:00)
[2019-08-17] MEDS: LISINOPRIL 20 MG TAB PO SCH (08:00)
[2019-08-17] MEDS: ISOSORBIDE MONONITRATE ER 30 MG TAB.ER.24H PO SCH (08:00)
[2019-08-17] MEDS: FERROUS SULFATE 325 MG TAB PO SCH (08:00)
[2019-08-17] MEDS: CARVEDILOL 6.25 MG TAB PO SCH ×2 (08:00→20:43)
[2019-08-17] MEDS: FUROSEMIDE 10 MG/ML 4 ML VIAL IV SCH (08:00)
[2019-08-17] MEDS: CYANOCOBALAMIN 500 MCG TAB PO SCH (08:00)
[2019-08-17 08:37] LABS: Basophils % (A) 1 %; Eosinophils % (A) 1 %; HCT 30.2 % (39.0-53.0); HGB 9.3 gm/dL (13.0-17.5); Lymphocytes # (A) 0.4 k/uL (1.0-4.8); Lymphocytes % (A) 13 %; MCH 25.8 pg (25.0-35.0); MCV 83.2 fL (80.0-100.0); Mean Platelet Volume 7.3; Monocytes # (A) 0.3 k/uL (0-1.0); Monocytes % (A) 9 %; Neutrophils # (A) 2.3 k/uL (1.3-7.7); Neutrophils % (A) 76 %; Platelet Count 157 k/uL (150-450); RBC 3.63 m/uL (4.30-5.90); RDW 14.5 % (11.5-15.5)
[2019-08-17] MEDS ORDERED: ASPIRIN 325 MG TAB PO SCH (09:00)
[2019-08-17] MEDS: ASPIRIN 81 MG PO SCH ×2 (09:42→10:42)
--- NOTE | 2019-08-17 10:18 | P.CRDCN ---
History of Present Illness Consult date: 08/17/19 Requesting physician: Cheryle Read Consult reason: congestive heart failure Chief complaint: Generalized weakness History of present illness: This is a 74-year-old gentleman with past medical history significant for diabetes, prior CVA, hyperlipidemia, hypertension, obesity, who came to the hospital mainly with symptoms of generalized weakness, he also has not been eating or drinking at home, patient states he's had several falls within the past one week. He denies any chest discomfort he does get occasionally dizzy according to him. Breathing is overall stable. He does state that he is more swelling in his lower extremities than his normal. CAT scan of the brain performed on arrival here showed degenerative and nonspecific white matter changes, most typical of remote microvascular ischemia. Chest x-ray did not reveal any acute process. EKG shows normal sinus rhythm with a first-degree AV block, right bundle branch block pattern. Blood pressure on arrival here 112/60 with a heart rate in the 60s, 95% on room air. Blood pressure this morning 140/60 with a heart rate in the 70s, 94% on room air. Laboratory data, white blood cell count on admission 6.8, 3.0 this morning, hemoglobin 10.6, 9.3 this morning. Platelet count 157. Sodium 136, potassium 3.6, BUN 31, creatinine 1.1, troponin 0.13, 0.13, 0.11. BNP level 14,900. TSH level 3.0. A cardiology consultation has been requested because of the abnormality in troponin as well as the elevated BNP level. On review of the patient's prior admissions, he is also noted at that time to have abnormality in troponin. Past Medical History Past Medical History: Chest Pain / Angina, Heart Failure, CVA/TIA, Diabetes Mellitus, Hyperlipidemia, Hypertension, Osteoarthritis (OA) Additional Past Medical History / Comment(s): incontinent of stools intermittent ly. low iron levels, possible GI bleed-dark tarry stools per son, Son stated "has had recent falls related to blood sugar going low 60s"-HX 2017 and 2018 had episodes of CHF approx 7-10 days post receiving flu vaccine,TIA,Type2 IDDM History of Any Multi-Drug Resistant Organisms: None Reported Past Surgical History: Hernia Repair Additional Past Surgical History / Comment(s): 10/31/17 robot assisted laprascopic umbilical hernia repair with mesh., 07/30/18 repair recurrent incarerated hernia Past Anesthesia/Blood Transfusion Reactions: No Reported Reaction Additional Past Anesthesia/Blood Transfusion Reaction / Comment(s): never had anesthesia Past Psychological History: Depression Additional Psychological History / Comment(s): Pt resides with his spouse. He states he uses no assistive devices. He no longer drives, his spouse does the driving and manages his medications. Smoking Status: Former smoker Past Alcohol Use History: None Reported Additional Past Alcohol Use History / Comment(s): started smoking age teen, stopped for 25 years and restarted smoking occasionally/lightly-a pack will last 2 weeks Past Drug Use History: None Reported - Past Family History Mother Family Medical History: Cancer Additional Family Medical History / Comment(s): breast cancer Father Family Medical History: Unable to Obtain Sister(s) Family Medical History: Cancer Brother(s) Family Medical History: Diabetes Mellitus Medications and Allergies Home Medications Medication Instructions Recorded Confirmed Type Benazepril HCl 40 mg PO QAM 01/22/17 08/16/19 History Aspirin 81 mg PO DAILY 01/23/17 08/16/19 History Tamsulosin [Flomax] 0.4 mg PO HS 01/23/17 08/16/19 History Carvedilol [Coreg] 6.25 mg PO BID 10/25/17 08/16/19 History Isosorbide Mononitrate ER [Imdur] 30 mg PO QAM 10/25/17 08/16/19 History Spironolactone [Aldactone] 12.5 mg PO QAM 10/25/17 08/16/19 History Ferrous Sulfate [Iron (65 MG 325 mg PO DAILY #30 tab 01/22/18 08/16/19 Rx Elemental)] Insulin Glargine,Hum.rec.anlog 40 unit SQ QAM 02/27/19 08/16/19 History [Basaglar Kwikpen U-100] ALPRAZolam [Xanax] 0.25 mg PO Q6HR PRN tab 04/27/19 08/16/19 Rx Furosemide [Lasix] 20 mg PO BID tab 04/27/19 08/16/19 Rx Atorvastatin [Lipitor] 80 mg PO HS 08/16/19 08/16/19 History Cyanocobalamin (Vitamin B-12) 1,000 mcg PO DAILY 08/16/19 08/16/19 History [Vitamin B-12] Nitroglycerin Sl Tab (0.3mg) 0.3 mg SUBLINGUAL Q5M PRN 08/16/19 08/16/19 History Allergies Allergy/AdvReac Type Severity Reaction Status Date / Time No Known Allergies Allergy Verified 08/16/19 17:27 Physical Exam Vitals: Vital Signs Temp Pulse Pulse Resp BP BP Pulse Ox 08/17/19 08:00 98.6 F 74 18 140/65 94 L 08/17/19 04:00 98.4 F 71 18 133/63 100 08/17/19 00:00 98 F 90 19 131/60 95 08/16/19 21:45 98.2 F 71 19 146/68 94 L 08/16/19 20:57 99 08/16/19 20:45 97.8 F 66 20 116/60 92 L 08/16/19 19:40 70 08/16/19 17:22 73 18 115/58 95 08/16/19 15:58 64 18 107/70 94 L 08/16/19 15:16 61 08/16/19 15:06 67 08/16/19 14:25 97.8 F 64 20 112/64 95 Intake and Output 08/16/19 08/17/19 08/17/19 22:59 06:59 14:59 Intake Total 64.352 0 Output Total 325 75 Balance -260.648 -75 Intake: Intake, IV Titration 64.352 Amount Heparin Sod,Pork in 0.45% 64.352 NaCl 25,000 unit In 0.45 % NaCl 1 250ml.bag @ 9.4 UNITS/KG/HR 9.977 mls/hr IV .Q24H [facility] Rx#: [id number] Oral 0 Output: Urine 325 75 Other: Voiding Method Toilet Toilet # Voids 2 Weight 106.141 kg 104.5 kg PHYSICAL EXAMINATION: GENERAL: 74-year-old gentleman in no acute distress at the time of my examination HEENT: Head is atraumatic, normocephalic. Pupils equal, round. Sclera anicteric. Conjunctiva are clear. Mucous membranes of the mouth are moist. Neck is supple. There is no elevated jugular venous pressure. No carotid b ruit is heard. HEART EXAMINATION: Heart S1, S2 normal. No murmur or gallop heard. CHEST EXAMINATION: Lungs are clear with fine crackles to the bases bilaterally ABDOMEN: Soft, obese, nontender. Bowel sounds are heard. No organomegaly noted. EXTREMITIES: 2+ peripheral pulses with 1-2+ evidence of peripheral edema and no calf tenderness noted. NEUROLOGIC patient is awake, alert and oriented 2. . Results 08/17/19 07:57 08/16/19 14:55 Cardiac Enzymes 08/16/19 08/16/19 08/16/19 Range/Units 14:55 14:55 17:45 AST 39 (17-59) U/L Troponin I 0.138 H* 0.138 H* (0.000-0.034) ng/mL 08/16/19 Range/Units 21:12 AST (17-59) U/L Troponin I 0.118 H* (0.000-0.034) ng/mL Coagulation 08/16/19 08/16/19 08/17/19 Range/Units 14:55 23:24 07:57 PT 10.9 (9.0-12.0) sec APTT 24.8 27.3 31.5 H (22.0-30.0) sec CBC 08/16/19 08/17/19 Range/Units 14:55 07:57 WBC 6.8 3.0 L (3.8-10.6) k/uL RBC 4.01 L 3.63 L (4.30-5.90) m/uL Hgb 10.6 L 9.3 L (13.0-17.5) gm/dL Hct 33.3 L 30.2 L (39.0-53.0) % Plt Count 193 157 (150-450) k/uL Comprehensive Metabolic Panel 08/16/19 Range/Units 14:55 Sodium 136 L (137-145) mmol/L Potassium 3.6 (3.5-5.1) mmol/L Chloride 104 (98-107) mmol/L Carbon Dioxide 25 (22-30) mmol/L BUN 31 H (9-20) mg/dL Creatinine 1.18 (0.66-1.25) mg/dL Glucose 65 L (74-99) mg/dL Calcium 7.9 L (8.4-10.2) mg/dL AST 39 (17-59) U/L ALT 12 (4-49) U/L Alkaline Phosphatase 94 (38-126) U/L Total Protein 5.6 L (6.3-8.2) g/dL Albumin 2.4 L (3.5-5.0) g/dL Current Medications Generic Name Dose Route Start Last Admin Trade Name Freq PRN Reason Stop Dose Admin Acetaminophen 500 mg 08/16/19 23:51 Tylenol Tab PO Q6HR PRN Pain Aspirin 81 mg 08/17/19 09:00 08/17/19 09:42 Aspirin PO 81 mg DAILY MOLLY Administration Atorvastatin Calcium 80 mg 08/17/19 21:00 Lipitor PO HS MOLLY Carvedilol 6.25 mg 08/17/19 09:00 08/17/19 08:00 Coreg PO 6.25 mg BID MOLLY Administration Cyanocobalamin 1,000 mcg 08/17/19 09:00 08/17/19 08:00 Vitamin B-12 PO 1,000 mcg DAILY MOLLY Administration Ferrous Sulfate 325 mg 08/17/19 09:00 08/17/19 08:00 Feosol PO 325 mg DAILY MOLLY Administration Furosemide 40 mg 08/16/19 16:30 08/17/19 08:00 Lasix IV 40 mg Q8H MOLLY Administration Heparin Sodium (Porcine) 0 unit 08/16/19 16:26 Heparin IV PER PROTOCOL PRN Low PTT Protocol Heparin Sodium/Sodium Chloride 250 mls @ 9.977 mls/hr 08/16/19 16:30 08/16/19 23:54 25,000 unit/ Sodium Chloride IV 12.4 units/kg/hr .Q24H MO[facility] 13.161 mls/hr Titration Protocol 9.4 UNITS/KG/HR Insulin Aspart 0 unit 08/17/19 07:30 08/17/19 06:10 Novolog SQ Not Given ACHS MOLLY Protocol Isosorbide Mononitrate 30 mg 08/17/19 09:00 08/17/19 08:00 Imdur PO 30 mg QAM MOLLY Administration Lisinopril 40 mg 08/17/19 09:00 08/17/19 08:00 Zestril PO 40 mg QAM MOLLY Administration Sodium Chloride 10 ml 08/16/19 21:00 08/17/19 08:01 Saline Flush IV 10 ml BID MOLLY Administration Spironolactone 12.5 mg 08/17/19 09:00 08/17/19 08:00 Aldactone PO 12.5 mg QAM MOLLY Administration Tamsulosin HCl 0.4 mg 08/17/19 21:00 Flomax PO HS MOLLY Intake and Output 08/16/19 08/17/19 08/17/19 22:59 06:59 14:59 Intake Total 64.352 0 Output Total 325 75 Balance -260.648 -75 Intake: Intake, IV Titration 64.352 Amount Heparin Sod,Pork in 0.45% 64.352 NaCl 25,000 unit In 0.45 % NaCl 1 250ml.bag @ 9.4 UNITS/KG/HR 9.977 mls/hr IV .Q24H [facility] Rx#: [id number] Oral 0 Output: Urine 325 75 Other: Voiding Method Toilet Toilet # Voids 2 Weight 106.141 kg 104.5 kg 08/17/19 07:57 08/16/19 14:55 EKG Interpretations (text) EKG shows a normal sinus rhythm with a first-degree AV block and right bundle branch block pattern, occasional PAC Assessment and Plan Plan: Assessment and plan #1 generalized weakness, frequent falls. No clear-cut evidence of syncope #2 abnormality in troponin, not consistent with acute coronary syndrome, with no significant rise and fall pattern, is also noted on patient's prior admissions that he does have abnormality in troponin. He denies any chest discomfort. #3 hypertension #4 prior CVA #5 diabetes #6 hyperlipidemia #7 nicotine dependence #8 Elevated BNP level, mild congestive heart failure, diastolic acute on chronic. #9 anemia, chronic Plan Patient did have an echocardiogram with Doppler study performed in April which revealed an ejection fraction of 45-50%. We will repeat an echo on this admission as well. Check orthostatic heart rate and blood pressure every shift, monitor for any significant tachycardia or bradycardia arrhythmias. Further recommendations to follow. DNP note has been reviewed, I agree with a documented findings and plan of care. Patient was seen and examined.
[2019-08-17] MEDS ORDERED: NITROGLYCERIN SL TABS 0.4 MG TAB SUBLINGUAL PRN (10:20)
[2019-08-17] MEDS ORDERED: ALPRAZolam 0.25 MG TAB PO PRN (10:20)
[2019-08-17] MEDS ORDERED: FUROSEMIDE 20 MG TAB PO SCH (10:30)
[2019-08-17] MEDS: HEPARIN SOD,PORK IN 0.45% NACL 25,000 UNIT in 0.45% NACL 1 250ML.BAG IV SCH (10:42)
[2019-08-17] MEDS: INSULIN DETEMIR (LEVEMIR) 100 UNIT/ML SYR SQ SCH (11:40)
[2019-08-17 12:16] LABS: Glucose,Whole Blood 163 mg/dL (75-99)
--- NOTE | 2019-08-17 13:17 | P.HPIM ---
History of Present Illness H&P Date: 08/17/19 Prashant Alonzo, is a 74-year-old male who presented to [facility] with multiple vague symptoms, patient has generalized weakness, shortness of breath, and had multiple falls over the last 2 weeks, patient was evaluated in the emergency room, he was afebrile, blood pressure on presentation 112/64 pulse 64 pulse ox 95% on room air, he had bilateral crackles in the lungs and 2+ bilateral lower extremity edema, laboratory data was significant for elevated troponin level of 0.118 and elevated BNP of 14,900, patient also had evidence of anemia with hemoglobin of 10.6. Due to elevated troponin level patient was started on IV heparin and was admitted to telemetry floor, patient was also started on IV Lasix due to shortness of breath and elevated BNP level. Patient has a known history of congestive heart failure, echocardiogram done in April revealed an ejection fraction of 45-50%, patient also has known history of diabetes mellitus, hypertension, hyperlipidemia, and chronic anemia. Past Medical History Past Medical History: Chest Pain / Angina, Heart Failure, CVA/TIA, Diabetes Mellitus, Hyperlipidemia, Hypertension, Osteoarthritis (OA) Additional Past Medical History / Comment(s): incontinent of stools intermittently. low iron levels, possible GI bleed-dark tarry stools per son, Son stated "has had recent falls related to blood sugar going low 60s"-HX 2016 and 2018 had episodes of CHF approx 7-10 days post receiving flu vaccine,TIA,Type2 IDDM History of Any Multi-Drug Resistant Organisms: None Reported Past Surgical History: Hernia Repair Additional Past Surgical History / Comment(s): 10/31/17 robot assisted laprascopic umbilical hernia repair with mesh., 07/30/18 repair recurrent incarerated hernia Past Anesthesia/Blood Transfusion Reactions: No Reported Reaction Additional Past Anesthesia/Blood Transfusion Reaction / Comment(s): never had anesthesia Past Psychological History: Depression Additional Psychological History / Comment(s): Pt resides with his spouse. He states he uses no assistive devices. He no longer drives, his spouse does the driving and manages his medications. Smoking Status: Former smoker Past Alcohol Use History: None Reported Additional Past Alcohol Use History / Comment(s): started smoking age teen, stopped for 25 years and restarted smoking occasionally/lightly-a pack will last 2 weeks Past Drug Use History: None Reported - Past Family History Mother Family Medical History: Cancer Additional Family Medical History / Comment(s): breast cancer Father Family Medical History: Unable to Obtain Sister(s) Family Medical History: Cancer Brother(s) Family Medical History: Diabetes Mellitus Medications and Allergies Home Medications Medication Instructions Recorded Confirmed Type Benazepril HCl 40 mg PO QAM 01/22/17 08/16/19 History Aspirin 81 mg PO DAILY 01/23/17 08/16/19 History Tamsulosin [Flomax] 0.4 mg PO HS 01/23/17 08/16/19 History Carvedilol [Coreg] 6.25 mg PO BID 10/25/17 08/16/19 History Isosorbide Mononitrate ER [Imdur] 30 mg PO QAM 10/25/17 08/16/19 History Spironolactone [Aldactone] 12.5 mg PO QAM 10/25/17 08/16/19 History Ferrous Sulfate [Iron (65 MG 325 mg PO DAILY #30 tab 01/22/18 08/16/19 Rx Elemental)] Insulin Glargine,Hum.rec.anlog 40 unit SQ QAM 02/27/19 08/16/19 History [Basaglar Kwikpen U-100] ALPRAZolam [Xanax] 0.25 mg PO Q6HR PRN tab 04/27/19 08/16/19 Rx Furosemide [Lasix] 20 mg PO BID tab 04/27/19 08/16/19 Rx Atorvastatin [Lipitor] 80 mg PO HS 08/16/19 08/16/19 History Cyanocobalamin (Vitamin B-12) 1,000 mcg PO DAILY 08/16/19 08/16/19 History [Vitamin B-12] Nitroglycerin Sl Tab (0.3mg) 0.3 mg SUBLINGUAL Q5M PRN 08/16/19 08/16/19 History Allergies Allergy/AdvReac Type Severity Reaction Status Date / Time No Known Allergies Allergy Verified 08/16/19 17:27 Physical Exam Vitals: Vital Signs Temp Pulse Pulse Resp BP BP Pulse Ox 08/17/19 08:00 98.6 F 74 18 140/65 94 L 08/17/19 04:00 98.4 F 71 18 133/63 100 08/17/19 00:00 98 F 90 19 131/60 95 08/16/19 21:45 98.2 F 71 19 146/68 94 L 08/16/19 20:57 99 08/16/19 20:45 97.8 F 66 20 116/60 92 L 08/16/19 19:40 70 08/16/19 17:22 73 18 115/58 95 08/16/19 15:58 64 18 107/70 94 L 08/16/19 15:16 61 08/16/19 15:06 67 08/16/19 14:25 97.8 F 64 20 112/64 95 Intake and Output 08/16/19 08/17/19 08/17/19 22:59 06:59 14:59 Intake Total 64.352 0 Output Total 325 75 Balance -260.648 -75 Intake: Intake, IV Titration 64.352 Amount Heparin Sod,Pork in 0.45% 64.352 NaCl 25,000 unit In 0.45 % NaCl 1 250ml.bag @ 9.4 UNITS/KG/HR 9.977 mls/hr IV .Q24H [facility] Rx#: [id number] Oral 0 Output: Urine 325 75 Other: Voiding Method Toilet Toilet # Voids 2 Weight 106.141 kg 104.5 kg In general patient is alert and oriented 3 in no apparent distress, he has some difficulty understanding [place], his is in the room and answering most of the questions HEENT head normocephalic and atraumatic Neck is supple no JVD no goiter no lymphadenopathy Chest exam reveals crackles in both lung bases no wheezing Cardiac exam reveals regular heart sounds S1 and S2 no gallops no murmurs Abdomen is soft nontender no organomegaly with normal bowel sounds Extremity exam reveals no edema no cyanosis or clubbing Neurological examination reveals no gross focal deficits Results CBC & Chem 7: 08/17/19 07:57 08/16/19 14:55 Labs: Abnormal Lab Results - Last 24 Hours (Table) 08/16/19 08/16/19 08/16/19 Range/Units 14:42 14:55 14:55 WBC (3.8-10.6) k/uL RBC 4.01 L (4.30-5.90) m/uL Hgb 10.6 L (13.0-17.5) gm/dL Hct 33.3 L (39.0-53.0) % Lymphocytes # 0.7 L (1.0-4.8) k/uL APTT (22.0-30.0) sec Sodium 136 L (137-145) mmol/L BUN 31 H (9-20) mg/dL Glucose 65 L (74-99) mg/dL POC Glucose (mg/dL) 70 L (75-99) mg/dL Calcium 7.9 L (8.4-10.2) mg/dL Creatine Kinase 635 H (55-170) U/L Troponin I (0.000-0.034) ng/mL Total Protein 5.6 L (6.3-8.2) g/dL Albumin 2.4 L (3.5-5.0) g/dL Urine Protein (Negative) Amorphous Sediment (None) /hpf Hyaline Casts (0-2) /lpf Urine Mucus (None) /hpf 08/16/19 08/16/19 08/16/19 Range/Units 14:55 15:12 15:58 WBC (3.8-10.6) k/uL RBC (4.30-5.90) m/uL Hgb (13.0-17.5) gm/dL Hct (39.0-53.0) % Lymphocytes # (1.0-4.8) k/uL APTT (22.0-30.0) sec Sodium (137-145) mmol/L BUN (9-20) mg/dL Glucose (74-99) mg/dL POC Glucose (mg/dL) 72 L (75-99) mg/dL Calcium (8.4-10.2) mg/dL Creatine Kinase (55-170) U/L Troponin I 0.138 H* (0.000-0.034) ng/mL Total Protein (6.3-8.2) g/dL Albumin (3.5-5.0) g/dL Urine Protein 1+ H (Negative) Amorphous Sediment Rare H (None) /hpf Hyaline Casts 14 H (0-2) /lpf Urine Mucus Rare H (None) /hpf 08/16/19 08/16/19 08/17/19 Range/Units 17:45 21:12 02:07 WBC (3.8-10.6) k/uL RBC (4.30-5.90) m/uL Hgb (13.0-17.5) gm/dL Hct (39.0-53.0) % Lymphocytes # (1.0-4.8) k/uL APTT (22.0-30.0) sec Sodium (137-145) mmol/L BUN (9-20) mg/dL Glucose (74-99) mg/dL POC Glucose (mg/dL) 112 H (75-99) mg/dL Calcium (8.4-10.2) mg/dL Creatine Kinase (55-170) U/L Troponin I 0.138 H* 0.118 H* (0.000-0.034) ng/mL Total Protein (6.3-8.2) g/dL Albumin (3.5-5.0) g/dL Urine Protein (Negative) Amorphous Sediment (None) /hpf Hyaline Casts (0-2) /lpf Urine Mucus (None) /hpf 08/17/19 08/17/19 08/17/19 Range/Units 06:08 07:57 07:57 WBC 3.0 L (3.8-10.6) k/uL RBC 3.63 L (4.30-5.90) m/uL Hgb 9.3 L (13.0-17.5) gm/dL Hct 30.2 L (39.0-53.0) % Lymphocytes # 0.4 L (1.0-4.8) k/uL APTT 31.5 H (22.0-30.0) sec Sodium (137-145) mmol/L BUN (9-20) mg/dL Glucose (74-99) mg/dL POC Glucose (mg/dL) 101 H (75-99) mg/dL Calcium (8.4-10.2) mg/dL Creatine Kinase (55-170) U/L Troponin I (0.000-0.034) ng/mL Total Protein (6.3-8.2) g/dL Albumin (3.5-5.0) g/dL Urine Protein (Negative) Amorphous Sediment (None) /hpf Hyaline Casts (0-2) /lpf Urine Mucus (None) /hpf Assessment and Plan Plan: 1. Acute on chronic systolic and diastolic congestive heart failure with exacerbation, given IV Lasix 40 mg every 8 hours in the emergency room, at this time will discontinue IV Lasix, and increase oral Lasix dose from 20 mg twice d aily to 40 mg twice daily, will monitor kidney function closely. 2. Elevated troponin level, not consistent with acute myocardial infarction, IV heparin was discontinued by cardiology, no intervention recommended at this time. 3. Generalized weakness with multiple falls, Will consult physical therapy and occupational therapy, and assess need for rehabilitation after this admission. 4. Anemia, will monitor hemoglobin closely, will check stool Hemoccult, and assess need for GI workup, will check iron level and folate and vitamin B12 levels 5. Underlying history of hyperlipidemia maintained on Lipitor continue 6. Underlying history of insulin-dependent diabetes mellitus, continue with insulin and check hemoglobin A1c 7. Underlying history of hypertension 8. Underlying history of benign prostatic hypertrophy maintained on Flomax 9. Underlying history of anxiety disorder maintained on Xanax At this time will switch to oral Lasix and monitor kidney function closely IV heparin was discontinued by cardiology, will use subcu Lovenox for DVT prophylaxis Protonix for GI prophylaxis Will check stool Hemoccult check anemia workup Will follow in a.m.
[2019-08-17 13:28] VITALS: BMI 35.0
[2019-08-17 13:32] LABS: Albumin 2.3 g/dL (3.5-5.0); Calcium 7.8 mg/dL (8.4-10.2); Potassium 3.2 mmol/L (3.5-5.1); Total Bilirubin 0.5 mg/dL (0.2-1.3); Total Protein 5.5 g/dL (6.3-8.2)
--- NOTE | 2019-08-17 13:37 | ECHOF ---
Referral Reason:chf MEASUREMENTS -------- HEIGHT: 172.7 cm WEIGHT: 104.3 kg BP: 133/63 RVIDd: 3.6 cm (< 3.3) IVSd: 1.5 cm (0.6 - 1.1) LVIDd: 4.9 cm (3.9 - 5.3) LVPWd: 1.5 cm (0.6 - 1.1) IVSs: 2.0 cm LVIDs: 4.0 cm LVPWs: 1.9 cm LA Diam: 3.9 cm (2.7 - 3.8) LAESV Index (A-L): 43.49 ml/m Ao Diam: 3.2 cm (2.0 - 3.7) AV Cusp: 1.5 cm (1.5 - 2.6) MV EXCURSION: 11.800 mm (> 18.000) MV EF SLOPE: 26 mm/s (70 - 150) EPSS: 1.5 cm AV maxP.26 mmHg AV meanP.25 mmHg RAP: 5.00 mmHg RVSP: 32.51 mmHg FINDINGS -------- Sinus rhythm. This was a technically adequate study. The left ventricular size is normal. There is moderate concentric left ventricular hypertrophy. O verall left ventricular systolic function is mildly impaired with, an EF between 45 - 50 %. Basal i nferior LV wall motion is hypokinetic. Basal inferoseptal LV wall motion is hypokinetic. The right ventricle is mildly enlarged. LA is severely dilated >40 ml/m2 The right atrium is normal in size. Interatrial and interventricular septum intact. There is mild aortic valve sclerosis. There is mild aortic stenosis present. Peak/mean gradient a cross the Aortic Valve is 28.26mmHg / 14.25mmHg. The mitral valve leaflets are mildly thickened. Mild mitral annular calcification present. Mild m itral regurgitation is present. Mild tricuspid regurgitation present. Right ventricular systolic pressure is normal at < 35 mmHg. The pulmonic valve was not well visualized. The aortic root size is normal. Normal inferior vena cava with normal inspiratory collapse consistent with estimated right atrial pre ssure of 5 mmHg. There is no pericardial effusion. CONCLUSIONS -------- 1. Sinus rhythm. 2. This was a technically adequate study. 3. The left ventricular size is normal. 4. There is moderate concentric left ventricular hypertrophy. 5. Overall left ventricular systolic function is mildly impaired with, an EF between 45 - 50 %. 6. Basal inferior LV wall motion is hypokinetic. 7. Basal inferoseptal LV wall motion is hypokinetic. 8. The right ventricle is mildly enlarged. 9. LA is severely dilated >40 ml/m2 10. The right atrium is normal in size. 11. Interatrial and interventricular septum intact. 12. There is mild aortic valve sclerosis. 13. There is mild aortic stenosis present. 14. Peak/mean gradient across the Aortic Valve is 28.26mmHg / 14.25mmHg. 15. The mitral valve leaflets are mildly thickened. 16. Mild mitral annular calcification present. 17. Mild mitral regurgitation is present. 18. Mild tricuspid regurgitation present. 19. Right ventricular systolic pressure is normal at < 35 mmHg. 20. The pulmonic valve was not well visualized. 21. The aortic root size is normal. 22. Normal inferior vena cava with normal inspiratory collapse consistent with estimated right atrial pressure of 5 mmHg. 23. There is no pericardial effusion. LAST TURNER: Amara Hector RDCS
[2019-08-17] MEDS: FUROSEMIDE 40 MG TAB PO SCH (15:35)
[2019-08-17 17:01] LABS: Glucose,Whole Blood 111 mg/dL (75-99)
[2019-08-17 20:13] LABS: Glucose,Whole Blood 43 mg/dL (75-99)
[2019-08-17 20:32] LABS: Glucose,Whole Blood 70 mg/dL (75-99)
[2019-08-17] MEDS: ATORVASTATIN 80 MG TAB PO SCH (20:43)
[2019-08-17] MEDS: TAMSULOSIN 0.4 MG CAP.ER.24H PO SCH (20:43)
[2019-08-17 22:35] LABS: Glucose,Whole Blood 117 mg/dL (75-99)
[2019-08-18 02:12] LABS: Glucose,Whole Blood 49 mg/dL (75-99)
[2019-08-18 02:12] LABS: Glucose,Whole Blood 52 mg/dL (75-99)
[2019-08-18 02:32] LABS: Glucose,Whole Blood 76 mg/dL (75-99)
[2019-08-18 04:54] LABS: Glucose,Whole Blood 153 mg/dL (75-99)
[2019-08-18 06:50] LABS: Basophils % (A) 0 %; Eosinophils # (A) 0.1 k/uL (0-0.7); Eosinophils % (A) 2 %; HCT 30.7 % (39.0-53.0); HGB 9.2 gm/dL (13.0-17.5); Hypochromasia Slight; Lymphocytes # (A) 0.6 k/uL (1.0-4.8); Lymphocytes % (A) 17 %; MCH 25.2 pg (25.0-35.0); MCV 83.8 fL (80.0-100.0); Mean Platelet Volume 7.7; Monocytes # (A) 0.4 k/uL (0-1.0); Monocytes % (A) 10 %; Neutrophils # (A) 2.6 k/uL (1.3-7.7); Neutrophils % (A) 68 %; Platelet Count 160 k/uL (150-450); RBC 3.66 m/uL (4.30-5.90); RDW 14.5 % (11.5-15.5); WBC 3.8 k/uL (3.8-10.6)
[2019-08-18 06:55] LABS: Albumin 2.2 g/dL (3.5-5.0); Calcium 7.4 mg/dL (8.4-10.2); Potassium 3.7 mmol/L (3.5-5.1); Total Bilirubin 0.5 mg/dL (0.2-1.3); Total Protein 5.4 g/dL (6.3-8.2)
[2019-08-18 07:47] LABS: Glucose,Whole Blood 108 mg/dL (75-99)
[2019-08-18] MEDS: INSULIN ASPART (NovoLOG) 100 UNIT/ML VIAL SQ SCH ×4 (08:17→20:20)
[2019-08-18] MEDS: SPIRONOLACTONE 25 MG TAB PO SCH (08:22)
[2019-08-18] MEDS: LISINOPRIL 20 MG TAB PO SCH (08:22)
[2019-08-18] MEDS: CYANOCOBALAMIN 500 MCG TAB PO SCH (08:22)
[2019-08-18] MEDS: ISOSORBIDE MONONITRATE ER 30 MG TAB.ER.24H PO SCH (08:22)
[2019-08-18] MEDS: CARVEDILOL 6.25 MG TAB PO SCH ×2 (08:22→20:19)
[2019-08-18] MEDS: FERROUS SULFATE 325 MG TAB PO SCH (08:22)
[2019-08-18] MEDS: ASPIRIN 81 MG PO SCH ×2 (08:23)
[2019-08-18] MEDS: FUROSEMIDE 40 MG TAB PO SCH ×2 (08:23→16:01)
[2019-08-18 09:56] LABS: Amylase 31 U/L (30-110)
[2019-08-18] MEDS: IOPAMIDOL CONTRAST (ORAL USE) VIAL PO PRN ×2 (09:59→11:00)
[2019-08-18] MEDS: POTASSIUM CHLORIDE ER 20 MEQ TAB.ER PO SCH ×3 (11:00→18:05)
[2019-08-18] MEDS: INSULIN DETEMIR (LEVEMIR) 100 UNIT/ML SYR SQ SCH (11:29)
--- NOTE | 2019-08-18 11:49 | P.PN ---
Subjective Progress Note Date: 08/18/19 Prashant Alonzo, is a 74-year-old male who presented to [facility] with multiple vague symptoms, patient has generalized weakness, shortness of breath, and had multiple falls over the last 2 weeks, patient was evaluated in the emergency room, he was afebrile, blood pressure on presentation 112/64 pulse 64 pulse ox 95% on room air, he had bilateral crackles in the lungs and 2+ bilateral lower extremity edema, laboratory data was significant for elevated troponin level of 0.118 and elevated BNP of 14,900, patient also had evidence of anemia with hemoglobin of 10.6. Due to elevated troponin level patient was started on IV heparin and was admitted to telemetry floor, patient was also started on IV Lasix due to shortness of breath and elevated BNP level. Patient has a known history of congestive heart failure, echocardiogram done in April revealed an ejection fraction of 45-50%, patient also has known history of diabetes mellitus, hypertension, hyperlipidemia, and chronic anemia. On 08/18/2019 patient was seen and examined on the medical floor he is alert and oriented 3 in no apparent distress is raising concern about abdominal distention and abdominal discomfort. There is no fever or chills no headache or dizziness no chest pain no shortness of breath no cough no nausea or vomiting no burning was urination no frequency or urgency and no hematuria Objective - Vital Signs Vital signs: Vital Signs Temp 98.2 F 08/18/19 11:04 Pulse 62 08/18/19 11:04 Resp 18 08/18/19 11:04 BP 136/67 08/18/19 11:04 Pulse Ox 94 L 08/18/19 11:04 Intake & Output 08/17/19 08/18/19 08/18/19 18:59 06:59 18:59 Intake Total 505.495 7620 240 Output Total 75 625 Balance 787.139 875 240 Weight 104.5 kg 105.4 kg Intake: Intake, IV Titration 142.139 Amount Heparin Sod,Pork in 0.45% 142.139 NaCl 25,000 unit In 0.45 % NaCl 1 250ml.bag @ 9.4 UNITS/KG/HR 9.977 mls/hr IV .Q24H [facility] Rx#: [id number] Oral 720 1500 240 Output: Urine 75 625 Other: Voiding Method Toilet Toilet Toilet # Voids 1 1 # Bowel Movements 3 1 - Exam In general patient is alert and oriented 3 in no apparent distress, he has some difficulty understanding Welsh, his is in the room and answering most of the questions HEENT head normocephalic and atraumatic Neck is supple no JVD no goiter no lymphadenopathy Chest exam reveals crackles in both lung bases no wheezing Cardiac exam reveals regular heart sounds S1 and S2 no gallops no murmurs Abdomen is soft nontender no organomegaly with normal bowel sounds Extremity exam reveals no edema no cyanosis or clubbing Neurological examination reveals no gross focal deficits - Labs CBC & Chem 7: 08/18/19 05:44 08/18/19 05:44 Labs: Abnormal Lab Results - Last 24 Hours (Table) 08/17/19 08/17/19 08/17/19 Range/Units 07:57 12:00 16:52 RBC (4.30-5.90) m/uL Hgb (13.0-17.5) gm/dL Hct (39.0-53.0) % MCHC (31.0-37.0) g/dL Lymphocytes # (1.0-4.8) k/uL Potassium 3.2 L (3.5-5.1) mmol/L Carbon Dioxide (22-30) mmol/L BUN 30 H (9-20) mg/dL Creatinine (0.66-1.25) mg/dL Glucose (74-99) mg/dL POC Glucose (mg/dL) 163 H 111 H (75-99) mg/dL Calcium 7.8 L (8.4-10.2) mg/dL Total Protein 5.5 L (6.3-8.2) g/dL Albumin 2.3 L (3.5-5.0) g/dL 08/17/19 08/17/19 08/17/19 Range/Units 20:11 20:30 22:34 RBC (4.30-5.90) m/uL Hgb (13.0-17.5) gm/dL Hct (39.0-53.0) % MCHC (31.0-37.0) g/dL Lymphocytes # (1.0-4.8) k/uL Potassium (3.5-5.1) mmol/L Carbon Dioxide (22-30) mmol/L BUN (9-20) mg/dL Creatinine (0.66-1.25) mg/dL Glucose (74-99) mg/dL POC Glucose (mg/dL) 43 L 70 L 117 H (75-99) mg/dL Calcium (8.4-10.2) mg/dL Total Protein (6.3-8.2) g/dL Albumin (3.5-5.0) g/dL 08/18/19 08/18/19 08/18/19 Range/Units 02:09 02:10 04:51 RBC (4.30-5.90) m/uL Hgb (13.0-17.5) gm/dL Hct (39.0-53.0) % MCHC (31.0-37.0) g/dL Lymphocytes # (1.0-4.8) k/uL Potassium (3.5-5.1) mmol/L Carbon Dioxide (22-30) mmol/L BUN (9-20) mg/dL Creatinine (0.66-1.25) mg/dL Glucose (74-99) mg/dL POC Glucose (mg/dL) 49 L 52 L 153 H (75-99) mg/dL Calcium (8.4-10.2) mg/dL Total Protein (6.3-8.2) g/dL Albumin (3.5-5.0) g/dL 08/18/19 08/18/19 08/18/19 Range/Units 05:44 05:44 07:26 RBC 3.66 L (4.30-5.90) m/uL Hgb 9.2 L (13.0-17.5) gm/dL Hct 30.7 L (39.0-53.0) % MCHC 30.0 L (31.0-37.0) g/dL Lymphocytes # 0.6 L (1.0-4.8) k/uL Potassium (3.5-5.1) mmol/L Carbon Dioxide 31 H (22-30) mmol/L BUN 29 H (9-20) mg/dL Creatinine 1.27 H (0.66-1.25) mg/dL Glucose 114 H (74-99) mg/dL POC Glucose (mg/dL) 108 H (75-99) mg/dL Calcium 7.4 L (8.4-10.2) mg/dL Total Protein 5.4 L (6.3-8.2) g/dL Albumin 2.2 L (3.5-5.0) g/dL Assessment and Plan Plan: 1. Acute on chronic systolic and diastolic congestive heart failure with exacerbation, given IV Lasix 40 mg every 8 hours in the emergency room, at this time will discontinue IV Lasix, and increase oral Lasix dose from 20 mg twice daily to 40 mg twice daily, will monitor kidney function closely. 2. Elevated troponin level, not consistent with acute myocardial infarction, IV heparin was discontinued by cardiology, no intervention recommended at this time. 3. Generalized weakness with multiple falls, Will consult physical therapy and occupational therapy, and assess need for rehabilitation after this admission. 4. Anemia, will monitor hemoglobin closely, will check stool Hemoccult, and assess need for GI workup, will check iron level and folate and vitamin B12 levels 5. Underlying history of hyperlipidemia maintained on Lipitor continue 6. Underlying history of insulin-dependent diabetes mellitus, continue with insulin and check hemoglobin A1c 7. Underlying history of hypertension 8. Underlying history of benign prostatic hypertrophy maintained on Flomax 9. Underlying history of anxiety disorder maintained on Xanax 10. Symptoms of abdominal distention and discomfort will check computed tomography scan of the abdomen and pelvis Will consult gastroenterology At this time will switch to oral Lasix and monitor kidney function closely IV heparin was discontinued by cardiology, will use subcu Lovenox for DVT prophylaxis Protonix for GI prophylaxis Will check stool Hemoccult check anemia workup Will follow in a.m.
[2019-08-18 12:04] LABS: Glucose,Whole Blood 134 mg/dL (75-99)
--- NOTE | 2019-08-18 12:24 | P.PN ---
Subjective Progress Note Date: 08/18/19 This is a 74-year-old gentleman with past medical history significant for diabetes, prior CVA, hyperlipidemia, hypertension, obesity, who came to the hospital mainly with symptoms of generalized weakness, he also has not been eating or drinking at home, patient states he's had several falls within the pas t one week. He denies any chest discomfort he does get occasionally dizzy according to him. Breathing is overall stable. He does state that he is more swelling in his lower extremities than his normal. CAT scan of the brain performed on arrival here showed degenerative and nonspecific white matter changes, most typical of remote microvascular ischemia. Chest x-ray did not reveal any acute process. EKG shows normal sinus rhythm with a first-degree AV block, right bundle branch block pattern. Blood pressure on arrival here 112/60 with a heart rate in the 60s, 95% on room air. Blood pressure this morning 140/60 with a heart rate in the 70s, 94% on room air. Laboratory data, white blood cell count on admission 6.8, 3.0 this morning, hemoglobin 10.6, 9.3 this morning. Platelet count 157. Sodium 136, potassium 3.6, BUN 31, creatinine 1.1, troponin 0.13, 0.13, 0.11. BNP level 14,900. TSH level 3.0. A cardiology consultation has been requested because of the abnormality in troponin as well as the elevated BNP level. On review of the patient's prior admissions, he is also noted at that time to have abnormality in troponin. 08/18/2019 Patient was seen and examined this morning, feeling well overall. Blood pressure 136/60, heart rate in the 60s, 94% on room air. White blood cell count 3.8, hemoglobin 9.2, platelet count 160. Sodium 137, potassium 3.7, BUN 29, creatinine 1.2. Echocardiogram with Doppler study was performed which revealed an ejection fraction of 45-50%, basal inferior and inferior septal wall hypokinesia noted. Objective - Vital Signs Vital signs: Vital Signs Temp 98.2 F 08/18/19 11:04 Pulse 62 08/18/19 11:04 Resp 18 08/18/19 11:04 BP 136/67 08/18/19 11:04 Pulse Ox 94 L 08/18/19 11:04 Intake & Output 08/17/19 08/18/1908/17/20 18:59 06:59 18:59 Intake Total 603.216 5479 240 Output Total 75 625 Balance 787.139 875 240 Weight 104.5 kg 105.4 kg Intake: Intake, IV Titration 142.139 Amount Heparin Sod,Pork in 0.45% 142.139 NaCl 25,000 unit In 0.45 % NaCl 1 250ml.bag @ 9.4 UNITS/KG/HR 9.977 mls/hr IV .Q24H [facility] Rx#: [id number] Oral 720 1500 240 Output: Urine 75 625 Other: Voiding Method Toilet Toilet Toilet # Voids 1 1 # Bowel Movements 3 1 - Exam PHYSICAL EXAMINATION: GENERAL: 74-year-old gentleman in no acute distress at the time of my examination HEENT: Head is atraumatic, normocephalic. Pupils equal, round. Sclera anicteric. Conjunctiva are clear. Mucous membranes of the mouth are moist. N manpreet is supple. There is no elevated jugular venous pressure. No carotid bruit is heard. HEART EXAMINATION: Heart S1, S2 normal. No murmur or gallop heard. CHEST EXAMINATION: Lungs are clear with fine crackles to the bases bilaterally ABDOMEN: Soft, obese, nontender. Bowel sounds are heard. No organomegaly noted. EXTREMITIES: 2+ peripheral pulses with 1-2+ evidence of peripheral edema and no calf tenderness noted. NEUROLOGIC patient is awake, alert and oriented 2. . - Labs CBC & Chem 7: 08/18/19 05:44 08/18/19 05:44 Labs: Abnormal Lab Results - Last 24 Hours (Table) 08/17/19 08/17/19 08/17/19 Range/Units 07:57 16:52 20:11 RBC (4.30-5.90) m/uL Hgb (13.0-17.5) gm/dL Hct (39.0-53.0) % MCHC (31.0-37.0) g/dL Lymphocytes # (1.0-4.8) k/uL Potassium 3.2 L (3.5-5.1) mmol/L Carbon Dioxide (22-30) mmol/L BUN 30 H (9-20) mg/dL Creatinine (0.66-1.25) mg/dL Glucose (74-99) mg/dL POC Glucose (mg/dL) 111 H 43 L (75-99) mg/dL Calcium 7.8 L (8.4-10.2) mg/dL Total Protein 5.5 L (6.3-8.2) g/dL Albumin 2.3 L (3.5-5.0) g/dL 08/17/19 08/17/19 08/18/19 Range/Units 20:30 22:34 02:09 RBC (4.30-5.90) m/uL Hgb (13.0-17.5) gm/dL Hct (39.0-53.0) % MCHC (31.0-37.0) g/dL Lymphocytes # (1.0-4.8) k/uL Potassium (3.5-5.1) mmol/L Carbon Dioxide (22-30) mmol/L BUN (9-20) mg/dL Creatinine (0.66-1.25) mg/dL Glucose (74-99) mg/dL POC Glucose (mg/dL) 70 L 117 H 49 L (75-99) mg/dL Calcium (8.4-10.2) mg/dL Total Protein (6.3-8.2) g/dL Albumin (3.5-5.0) g/dL 08/18/19 08/18/19 08/18/19 Range/Units 02:10 04:51 05:44 RBC 3.66 L (4.30-5.90) m/uL Hgb 9.2 L (13.0-17.5) gm/dL Hct 30.7 L (39.0-53.0) % MCHC 30.0 L (31.0-37.0) g/dL Lymphocytes # 0.6 L (1.0-4.8) k/uL Potassium (3.5-5.1) mmol/L Carbon Dioxide (22-30) mmol/L BUN (9-20) mg/dL Creatinine (0.66-1.25) mg/dL Glucose (74-99) mg/dL POC Glucose (mg/dL) 52 L 153 H (75-99) mg/dL Calcium (8.4-10.2) mg/dL Total Protein (6.3-8.2) g/dL Albumin (3.5-5.0) g/dL 08/18/19 08/18/19 08/18/19 Range/Units 05:44 07:26 11:40 RBC (4.30-5.90) m/uL Hgb (13.0-17.5) gm/dL Hct (39.0-53.0) % MCHC (31.0-37.0) g/dL Lymphocytes # (1.0-4.8) k/uL Potassium (3.5-5.1) mmol/L Carbon Dioxide 31 H (22-30) mmol/L BUN 29 H (9-20) mg/dL Creatinine 1.27 H (0.66-1.25) mg/dL Glucose 114 H (74-99) mg/dL POC Glucose (mg/dL) 108 H 134 H (75-99) mg/dL Calcium 7.4 L (8.4-10.2) mg/dL Total Protein 5.4 L (6.3-8.2) g/dL Albumin 2.2 L (3.5-5.0) g/dL Assessment and Plan Plan: Assessment and plan #1 generalized weakness, frequent falls. No clear-cut evidence of syncope #2 abnormality in troponin, not consistent with acute coronary syndrome, with no significant rise and fall pattern, is also noted on patient's prior admissions that he does have abnormality in troponin. He denies any chest discomfort. #3 hypertension #4 prior CVA #5 diabetes #6 hyperlipidemia #7 nicotine dependence #8 Elevated BNP level, mild congestive heart failure, diastolic acute on chronic. #9 anemia, chronic Plan Echocardiogram with Doppler study performed at revealed an ejection fraction of 45-50%, similar to prior echo. From cardiology's perspective, we'll continue the patient on his current medications. No evidence of any orthostatic. He did have 1 run of nonsustained ventricular tachycardia. We will replace his potassium. DNP note has been reviewed, I agree with a documented findings and plan of care. Patient was seen and examined.
--- NOTE | 2019-08-18 13:03 | CT ---
EXAMINATION TYPE: CT abdomen pelvis wo con DATE OF EXAM: 08/18/2019 COMPARISON: Previous study dated 04/23/2019. HISTORY: abdominal pain ,distention CT DLP: 1604.2 mGycm Automated exposure control for dose reduction was used. FINDINGS: Visualized portions of the lungs are clear. No definite pleural fluid is seen. The heart is enlarged. There is a 7 mm pericardial effusion anteriorly. Within the abdomen, there is moderate ascites. The liver is mildly prominent measuring 18.4 cm. The g allbladder is contracted. There is evidence of old granulomatous disease involving the spleen. The sp eileen is enlarged measuring 19 cm. Both adrenal glands appear normal. There is no hydronephrosis or nephrolithiasis. Very Limited views of the pancreas are unremarkable. There is moderate atheromatous calcification of the visualized arterial tree. There is no significant retroperitoneal, iliac or inguinal adenopathy. There is an indirect inguinal hernia on the right containing fluid. The bladder is unremarkable. There is focal dilatation of the proximal sigmoid colon. This is very similar in its appearance to th e previous examination. The appendix appears unremarkable. Small bowel loops are normal. No free air is seen. There is mild, diffuse anasarca involving the lower abdomen and pelvis. There is degenerative disc disease and facet arthropathy in the lower lumbar spine. IMPRESSION: 1. INTERVAL DEVELOPMENT OF MODERATE ASCITES. 2. CARDIOMEGALY AND A SMALL, 7 MM PERICARDIAL EFFUSION. 3. MILD HEPATOMEGALY. 4. SPLENOMEGALY AND EVIDENCE OF OLD GRANULOMATOUS DISEASE OF THE SPLEEN. 5. INDIRECT RIGHT-SIDED INGUINAL HERNIA CONTAINING FLUID. 6. FOCAL DILATATION OF THE PROXIMAL SIGMOID COLON WITH A TRANSITION POINT WITHIN THE PROXIMAL SIGMOID . THIS APPEARS UNCHANGED FROM PREVIOUS. 7. MILD, DIFFUSE ANASARCA. 8. DEGENERATIVE CHANGES WITHIN THE SPINE.
[2019-08-18 17:02] LABS: Glucose,Whole Blood 149 mg/dL (75-99)
[2019-08-18 20:08] LABS: Glucose,Whole Blood 206 mg/dL (75-99)
[2019-08-18] MEDS: ATORVASTATIN 80 MG TAB PO SCH (20:19)
[2019-08-18] MEDS: TAMSULOSIN 0.4 MG CAP.ER.24H PO SCH (20:19)
[2019-08-19 02:08] LABS: Glucose,Whole Blood 128 mg/dL (75-99)
[2019-08-19] MEDS: INSULIN DETEMIR (LEVEMIR) 100 UNIT/ML SYR SQ SCH (06:21)
[2019-08-19] MEDS: INSULIN ASPART (NovoLOG) 100 UNIT/ML VIAL SQ SCH ×4 (06:21→21:06)
[2019-08-19 06:29] LABS: Glucose,Whole Blood 124 mg/dL (75-99)
[2019-08-19 07:14] LABS: Basophils % (A) 0 %; Eosinophils # (A) 0.1 k/uL (0-0.7); Eosinophils % (A) 1 %; HGB 9.6 gm/dL (13.0-17.5); Hypochromasia Slight; Lymphocytes # (A) 0.9 k/uL (1.0-4.8); Lymphocytes % (A) 17 %; MCH 26.9 pg (25.0-35.0); MCHC 32.1 g/dL (31.0-37.0); MCV 83.8 fL (80.0-100.0); Mean Platelet Volume 7.6; Monocytes # (A) 0.4 k/uL (0-1.0); Monocytes % (A) 8 %; Neutrophils # (A) 3.8 k/uL (1.3-7.7); Neutrophils % (A) 72 %; Platelet Count 156 k/uL (150-450); RBC 3.58 m/uL (4.30-5.90); RDW 14.1 % (11.5-15.5); WBC 5.3 k/uL (3.8-10.6)
[2019-08-19 07:28] LABS: Albumin 2.3 g/dL (3.5-5.0); Calcium 7.5 mg/dL (8.4-10.2); Potassium 4.1 mmol/L (3.5-5.1); Total Bilirubin 0.6 mg/dL (0.2-1.3); Total Protein 5.5 g/dL (6.3-8.2)
[2019-08-19] MEDS: ISOSORBIDE MONONITRATE ER 30 MG TAB.ER.24H PO SCH (08:37)
[2019-08-19] MEDS: LISINOPRIL 20 MG TAB PO SCH (08:37)
[2019-08-19] MEDS: ASPIRIN 81 MG PO SCH ×2 (08:37→08:38)
[2019-08-19] MEDS: FERROUS SULFATE 325 MG TAB PO SCH (08:37)
[2019-08-19] MEDS: CYANOCOBALAMIN 500 MCG TAB PO SCH (08:37)
[2019-08-19] MEDS: SPIRONOLACTONE 25 MG TAB PO SCH (08:37)
[2019-08-19] MEDS: CARVEDILOL 6.25 MG TAB PO SCH ×2 (08:38→21:04)
[2019-08-19] MEDS: FUROSEMIDE 40 MG TAB PO SCH ×2 (08:38→18:16)
[2019-08-19 11:30] LABS: % Iron Saturation 5.04 (15.00-50.00); Folate, Serum 12.4 ng/mL
--- NOTE | 2019-08-19 11:40 | P.PN ---
Subjective Progress Note Date: 08/19/19 This is a 74-year-old gentleman with past medical history significant for diabetes, prior CVA, hyperlipidemia, hypertension, obesity, who came to the hospital mainly with symptoms of generalized weakness, he also has not been eating or drinking at home, patient states he's had several falls within the pas t one week. He denies any chest discomfort he does get occasionally dizzy according to him. Breathing is overall stable. He does state that he is more swelling in his lower extremities than his normal. CAT scan of the brain performed on arrival here showed degenerative and nonspecific white matter changes, most typical of remote microvascular ischemia. Chest x-ray did not reveal any acute process. EKG shows normal sinus rhythm with a first-degree AV block, right bundle branch block pattern. Blood pressure on arrival here 112/60 with a heart rate in the 60s, 95% on room air. Blood pressure this morning 140/60 with a heart rate in the 70s, 94% on room air. Laboratory data, white blood cell count on admission 6.8, 3.0 this morning, hemoglobin 10.6, 9.3 this morning. Platelet count 157. Sodium 136, potassium 3.6, BUN 31, creatinine 1.1, troponin 0.13, 0.13, 0.11. BNP level 14,900. TSH level 3.0. A cardiology consultation has been requested because of the abnormality in troponin as well as the elevated BNP level. On review of the patient's prior admissions, he is also noted at that time to have abnormality in troponin. 08/18/2019 Patient was seen and examined this morning, feeling well overall. Blood pressure 136/60, heart rate in the 60s, 94% on room air. White blood cell count 3.8, hemoglobin 9.2, platelet count 160. Sodium 137, potassium 3.7, BUN 29, creatinine 1.2. Echocardiogram with Doppler study was performed which revealed an ejection fraction of 45-50%, basal inferior and inferior septal wall hypokinesia noted. 08/19/2019 Patient seen and examined this morning, appears to be more sleepy today, breathing is stable. Weight is down 2 kg, on by mouth Lasix. Blood pressure 108/50 with a heart rate in the 70s, 94% on room air. Objective - Vital Signs Vital signs: Vital Signs Temp 98.6 F 08/19/19 08:00 Pulse 73 08/19/19 08:00 Resp 16 08/19/19 08:00 BP 107/53 08/19/19 08:00 Pulse Ox 94 L 08/19/19 08:00 Intake & Output 08/18/19 08/19/19 08/19/19 18:59 06:59 18:59 Intake Total 1080 240 Output Total 1350 Balance 1080 -1350 240 Weight 103.3 kg Intake: Oral 1080 240 Output: Urine 1350 Other: Voiding Method Toilet Toilet Toilet # Voids 4 1 1 # Bowel Movements 2 1 1 - Exam PHYSICAL EXAMINATION: GENERAL: 74-year-old gentleman in no acute distress at the time of my examination HEENT: Head is atraumatic, normocephalic. Pupils equal, round. Sclera anicteric. Conjunctiva are clear. Mucous membranes of the mouth are moist. Neck is supple. There is no elevated jugular venous pressure. No carotid bruit is heard. HEART EXAMINATION: Heart S1, S2 normal. No murmur or gallop heard. CHEST EXAMINATION: Lungs are clear with fine crackles to the bases bilaterally ABDOMEN: Soft, obese, nontender. Bowel sounds are heard. No organomegaly noted. EXTREMITIES: 2+ peripheral pulses with 1-2+ evidence of peripheral edema and no calf tenderness noted. NEUROLOGIC patient is awake, alert and oriented 2. . - Labs CBC & Chem 7: 08/19/19 06:35 08/19/19 06:35 Labs: Abnormal Lab Results - Last 24 Hours (Table) 08/17/19 08/18/19 08/18/19 Range/Units 07:57 11:40 17:00 RBC (4.30-5.90) m/uL Hgb (13.0-17.5) gm/dL Hct (39.0-53.0) % Lymphocytes # (1.0-4.8) k/uL Sodium (137-145) mmol/L Carbon Dioxide (22-30) mmol/L BUN (9-20) mg/dL Glucose (74-99) mg/dL POC Glucose (mg/dL) 134 H 149 H (75-99) mg/dL Calcium (8.4-10.2) mg/dL Iron 12 L (65-175) ug/dL % Saturation 5.04 L (15.00-50.00) Total Protein (6.3-8.2) g/dL Albumin (3.5-5.0) g/dL 08/18/19 08/19/19 08/19/19 Range/Units 20:06 02:07 06:16 RBC (4.30-5.90) m/uL Hgb (13.0-17.5) gm/dL Hct (39.0-53.0) % Lymphocytes # (1.0-4.8) k/uL Sodium (137-145) mmol/L Carbon Dioxide (22-30) mmol/L BUN (9-20) mg/dL Glucose (74-99) mg/dL POC Glucose (mg/dL) 206 H 128 H 124 H (75-99) mg/dL Calcium (8.4-10.2) mg/dL Iron (65-175) ug/dL % Saturation (15.00-50.00) Total Protein (6.3-8.2) g/dL Albumin (3.5-5.0) g/dL 08/19/19 08/19/19 Range/Units 06:35 06:35 RBC 3.58 L (4.30-5.90) m/uL Hgb 9.6 L (13.0-17.5) gm/dL Hct 30.0 L (39.0-53.0) % Lymphocytes # 0.9 L (1.0-4.8) k/uL Sodium 136 L (137-145) mmol/L Carbon Dioxide 34 H (22-30) mmol/L BUN 23 H (9-20) mg/dL Glucose 108 H (74-99) mg/dL POC Glucose (mg/dL) (75-99) mg/dL Calcium 7.5 L (8.4-10.2) mg/dL Iron (65-175) ug/dL % Saturation (15.00-50.00) Total Protein 5.5 L (6.3-8.2) g/dL Albumin 2.3 L (3.5-5.0) g/dL Assessment and Plan Plan: Assessment and plan #1 generalized weakness, frequent falls. No clear-cut evidence of syncope #2 abnormality in troponin, not consistent with acute coronary syndrome, with no significant rise and fall pattern, is also noted on patient's prior admissions that he does have abnormality in troponin. He denies any chest discomfort. #3 hypertension #4 prior CVA #5 diabetes #6 hyperlipidemia #7 nicotine dependence #8 Elevated BNP level, mild congestive heart failure, diastolic acute on chronic. #9 anemia, chronic Plan Echocardiogram with Doppler study performed at revealed an ejection fraction of 45-50%, similar to prior echo. From cardiology's perspective, we'll continue the patient on his current medications. No evidence of any orthostatic. DNP note has been reviewed, I agree with a documented findings and plan of care. Patient was seen and examined.
[2019-08-19 11:46] LABS: Reticulocyte % 1.2 % (0.5-2.0)
[2019-08-19 11:48] LABS: Glucose,Whole Blood 146 mg/dL (75-99)
--- NOTE | 2019-08-19 13:55 | US ---
EXAMINATION TYPE: US abdomen limited DATE OF EXAM: 08/19/2019 COMPARISON: CT 08/18/2019 CLINICAL HISTORY: assess for fluid pocket. Ascites check abdominal pain and distention Abdominal ascites seen within all 4 quadrants with largest pocket within LLQ IMPRESSION: Moderate ascites.
--- NOTE | 2019-08-19 15:41 | P.GSCN ---
History of Present Illness Consult date: 08/19/19 Reason for Consult: Sigmoid colon narrowing History of present illness: This is a 74-year-old male known to the medical service. Patient has a known history of abdominal wall hernia. The patient has ascites. His Recent CAT scan shows evidence of possible sigmoid colon narrowing. The patient has a known right internal hernia. And ascites. Past Medical History Past Medical History: Chest Pain / Angina, Heart Failure, CVA/TIA, Diabetes Mellitus, Hyperlipidemia, Hypertension, Osteoarthritis (OA) Additional Past Medical History / Comment(s): incontinent of stools intermit tently. low iron levels, possible GI bleed-dark tarry stools per son, Son stated "has had recent falls related to blood sugar going low 60s"-HX 2016 and 2018 had episodes of CHF approx 7-10 days post receiving flu vaccine,TIA,Type2 IDDM History of Any Multi-Drug Resistant Organisms: None Reported Past Surgical History: Hernia Repair Additional Past Surgical History / Comment(s): 10/31/17 robot assisted laprascopic umbilical hernia repair with mesh., 07/30/18 repair recurrent incarerated hernia Past Anesthesia/Blood Transfusion Reactions: No Reported Reaction Additional Past Anesthesia/Blood Transfusion Reaction / Comm: never had anesthesia Past Psychological History: Depression Additional Psychological History / Comment(s): Pt resides with his spouse. He states he uses no assistive devices. He no longer drives, his spouse does the driving and manages his medications. Smoking Status: Former smoker Past Alcohol Use History: None Reported Additional Past Alcohol Use History / Comment(s): started smoking age teen, stopped for 25 years and restarted smoking occasionally/lightly-a pack will last 2 weeks Past Drug Use History: None Reported - Past Family History Mother Family Medical History: Cancer Additional Family Medical History / Comment(s): breast cancer Father Family Medical History: Unable to Obtain Sister(s) Family Medical History: Cancer Brother(s) Family Medical History: Diabetes Mellitus Medications and Allergies Home Medications Medication Instructions Recorded Confirmed Type Benazepril HCl 40 mg PO QAM 01/22/17 08/16/19 History Aspirin 81 mg PO DAILY 01/23/17 08/16/19 History Tamsulosin [Flomax] 0.4 mg PO HS 01/23/17 08/16/19 History Carvedilol [Coreg] 6.25 mg PO BID 10/25/17 08/16/19 History Isosorbide Mononitrate ER [Imdur] 30 mg PO QAM 10/25/17 08/16/19 History Spironolactone [Aldactone] 12.5 mg PO QAM 10/25/17 08/16/19 History Ferrous Sulfate [Iron (65 MG 325 mg PO DAILY #30 tab 01/22/18 08/16/19 Rx Elemental)] Insulin Glargine,Hum.rec.anlog 40 unit SQ QAM 02/27/19 08/16/19 History [Basaglar Kwikpen U-100] ALPRAZolam [Xanax] 0.25 mg PO Q6HR PRN tab 04/27/19 08/16/19 Rx Furosemide [Lasix] 20 mg PO BID tab 04/27/19 08/16/19 Rx Atorvastatin [Lipitor] 80 mg PO HS 08/16/19 08/16/19 History Cyanocobalamin (Vitamin B-12) 1,000 mcg PO DAILY 08/16/19 08/16/19 History [Vitamin B-12] Nitroglycerin Sl Tab (0.3mg) 0.3 mg SUBLINGUAL Q5M PRN 08/16/19 08/16/19 History Allergies Allergy/AdvReac Type Severity Reaction Status Date / Time No Known Allergies Allergy Verified 08/16/19 17:27 Surgical - Exam Vital Signs Temp Pulse Resp BP Pulse Ox 97.8 F 64 20 112/64 95 08/16/19 14:25 08/16/19 14:25 08/16/19 14:25 08/16/19 14:25 08/16/19 14:25 - General well developed, well nourished, no distress - Eyes PERRL - ENT normal pinna - Neck no masses - Respiratory normal expansion - Cardiovascular Rhythm: regular - Abdomen Abdomen is distended. Abdomen: soft, non tender Results - Labs 08/19/19 06:35 08/19/19 06:35 Abnormal Lab Results - Last 24 Hours (Table) 08/17/19 08/18/19 08/18/19 Range/Units 07:57 17:00 20:06 RBC (4.30-5.90) m/uL Hgb (13.0-17.5) gm/dL Hct (39.0-53.0) % Lymphocytes # (1.0-4.8) k/uL Sodium (137-145) mmol/L Carbon Dioxide (22-30) mmol/L BUN (9-20) mg/dL Glucose (74-99) mg/dL POC Glucose (mg/dL) 149 H 206 H (75-99) mg/dL Calcium (8.4-10.2) mg/dL Iron 12 L (65-175) ug/dL % Saturation 5.04 L (15.00-50.00) Total Protein (6.3-8.2) g/dL Albumin (3.5-5.0) g/dL 08/19/19 08/19/19 08/19/19 Range/Units 02:07 06:16 06:35 RBC 3.58 L (4.30-5.90) m/uL Hgb 9.6 L (13.0-17.5) gm/dL Hct 30.0 L (39.0-53.0) % Lymphocytes # 0.9 L (1.0-4.8) k/uL Sodium (137-145) mmol/L Carbon Dioxide (22-30) mmol/L BUN (9-20) mg/dL Glucose (74-99) mg/dL POC Glucose (mg/dL) 128 H 124 H (75-99) mg/dL Calcium (8.4-10.2) mg/dL Iron (65-175) ug/dL % Saturation (15.00-50.00) Total Protein (6.3-8.2) g/dL Albumin (3.5-5.0) g/dL 08/19/19 08/19/19 Range/Units 06:35 11:47 RBC (4.30-5.90) m/uL Hgb (13.0-17.5) gm/dL Hct (39.0-53.0) % Lymphocytes # (1.0-4.8) k/uL Sodium 136 L (137-145) mmol/L Carbon Dioxide 34 H (22-30) mmol/L BUN 23 H (9-20) mg/dL Glucose 108 H (74-99) mg/dL POC Glucose (mg/dL) 146 H (75-99) mg/dL Calcium 7.5 L (8.4-10.2) mg/dL Iron (65-175) ug/dL % Saturation (15.00-50.00) Total Protein 5.5 L (6.3-8.2) g/dL Albumin 2.3 L (3.5-5.0) g/dL Diabetes panel 08/19/19 Range/Units 06:35 Sodium 136 L (137-145) mmol/L Potassium 4.1 (3.5-5.1) mmol/L Chloride 99 (98-107) mmol/L Carbon Dioxide 34 H (22-30) mmol/L BUN 23 H (9-20) mg/dL Creatinine 1.16 (0.66-1.25) mg/dL Glucose 108 H (74-99) mg/dL Calcium 7.5 L (8.4-10.2) mg/dL AST 19 (17-59) U/L ALT 11 (4-49) U/L Alkaline Phosphatase 89 (38-126) U/L Total Protein 5.5 L (6.3-8.2) g/dL Albumin 2.3 L (3.5-5.0) g/dL Calcium panel 08/19/19 Range/Units 06:35 Calcium 7.5 L (8.4-10.2) mg/dL Albumin 2.3 L (3.5-5.0) g/dL Pituitary panel 08/19/19 Range/Units 06:35 Sodium 136 L (137-145) mmol/L Potassium 4.1 (3.5-5.1) mmol/L Chloride 99 (98-107) mmol/L Carbon Dioxide 34 H (22-30) mmol/L BUN 23 H (9-20) mg/dL Creatinine 1.16 (0.66-1.25) mg/dL Glucose 108 H (74-99) mg/dL Calcium 7.5 L (8.4-10.2) mg/dL Adrenal panel 08/19/19 Range/Units 06:35 Sodium 136 L (137-145) mmol/L Potassium 4.1 (3.5-5.1) mmol/L Chloride 99 (98-107) mmol/L Carbon Dioxide 34 H (22-30) mmol/L BUN 23 H (9-20) mg/dL Creatinine 1.16 (0.66-1.25) mg/dL Glucose 108 H (74-99) mg/dL Calcium 7.5 L (8.4-10.2) mg/dL Total Bilirubin 0.6 (0.2-1.3) mg/dL AST 19 (17-59) U/L ALT 11 (4-49) U/L Alkaline Phosphatase 89 (38-126) U/L Total Protein 5.5 L (6.3-8.2) g/dL Albumin 2.3 L (3.5-5.0) g/dL Assessment and Plan Assessment: Ascites Inguinal hernia Questionable sigmoid colon narrowing. The patient is stooling and tolerating regular diet. At this point recommend observation. We will follow with you.
[2019-08-19 18:06] LABS: Glucose,Whole Blood 168 mg/dL (75-99)
--- NOTE | 2019-08-19 18:16 | P.PN ---
Subjective Progress Note Date: 08/19/19 Prashant Alonzo, is a 74-year-old male who presented to [facility] with multiple vague symptoms, patient has generalized weakness, shortness of breath, and had multiple falls over the last 2 weeks, patient was evaluated in the emergency room, he was afebrile, blood pressure on presentation 112/64 pulse 64 pulse ox 95% on room air, he had bilateral crackles in the lungs and 2+ bilateral lower extremity edema, laboratory data was significant for elevated troponin level of 0.118 and elevated BNP of 14,900, patient also had evidence of anemia with hemoglobin of 10.6. Due to elevated troponin level patient was started on IV heparin and was admitted to telemetry floor, patient was also started on IV Lasix due to shortness of breath and elevated BNP level. Patient has a known history of congestive heart failure, echocardiogram done in April revealed an ejection fraction of 45-50%, patient also has known history of diabetes mellitus, hypertension, hyperlipidemia, and chronic anemia. On 08/18/2019 patient was seen and examined on the medical floor he is alert and oriented 3 in no apparent distress is raising concern about abdominal distention and abdominal discomfort. There is no fever or chills no headache or dizziness no chest pain no shortness of breath no cough no nausea or vomiting no burning was urination no frequency or urgency and no hematuria. On 08/19/2019 patient was seen and examined on the medical floor he is alert and oriented 3 in no apparent distress computed tomography scan of the abdomen and pelvis revealed evidence of ascites he is scheduled for paracentesis today there is no fever or chills no headache or dizziness no chest pain no shortness of breath no cough no nausea or vomiting no abdominal pain no diarrhea no burning with urination no frequency or urgency and no hematuria Objective - Vital Signs Vital signs: Vital Signs Temp 96.7 F L 08/19/19 15:28 Pulse 66 08/19/19 17:10 Resp 16 08/19/19 16:30 BP 113/68 08/19/19 17:10 Pulse Ox 95 08/19/19 17:10 Intake & Output 08/18/19 08/19/19 08/19/19 18:59 06:59 18:59 Intake Total 1080 480 Output Total 1350 Balance 1080 -1350 480 Weight 103.3 kg Intake: Oral 1080 480 Output: Urine 1350 Other: Voiding Method Toilet Toilet Toilet # Voids 4 1 2 # Bowel Movements 2 1 2 - Exam In general patient is alert and oriented 3 in no apparent distress, he has some difficulty understanding [place]ic, his is in the room and answering most of the questions HEENT head normocephalic and atraumatic Neck is supple no JVD no goiter no lymphadenopathy Chest exam reveals crackles in both lung bases no wheezing Cardiac exam reveals regular heart sounds S1 and S2 no gallops no murmurs Abdomen is soft nontender no organomegaly with normal bowel sounds Extremity exam reveals no edema no cyanosis or clubbing Neurological examination reveals no gross focal deficits - Labs CBC & Chem 7: 08/19/19 06:35 08/19/19 06:35 Labs: Abnormal Lab Results - Last 24 Hours (Table) 08/17/19 08/18/19 08/19/19 Range/Units 07:57 20:06 02:07 RBC (4.30-5.90) m/uL Hgb (13.0-17.5) gm/dL Hct (39.0-53.0) % Lymphocytes # (1.0-4.8) k/uL Sodium (137-145) mmol/L Carbon Dioxide (22-30) mmol/L BUN (9-20) mg/dL Glucose (74-99) mg/dL POC Glucose (mg/dL) 206 H 128 H (75-99) mg/dL Calcium (8.4-10.2) mg/dL Iron 12 L (65-175) ug/dL % Saturation 5.04 L (15.00-50.00) Total Protein (6.3-8.2) g/dL Albumin (3.5-5.0) g/dL 08/19/19 08/19/19 08/19/19 Range/Units 06:16 06:35 06:35 RBC 3.58 L (4.30-5.90) m/uL Hgb 9.6 L (13.0-17.5) gm/dL Hct 30.0 L (39.0-53.0) % Lymphocytes # 0.9 L (1.0-4.8) k/uL Sodium 136 L (137-145) mmol/L Carbon Dioxide 34 H (22-30) mmol/L BUN 23 H (9-20) mg/dL Glucose 108 H (74-99) mg/dL POC Glucose (mg/dL) 124 H (75-99) mg/dL Calcium 7.5 L (8.4-10.2) mg/dL Iron (65-175) ug/dL % Saturation (15.00-50.00) Total Protein 5.5 L (6.3-8.2) g/dL Albumin 2.3 L (3.5-5.0) g/dL 08/19/19 Range/Units 11:47 RBC (4.30-5.90) m/uL Hgb (13.0-17.5) gm/dL Hct (39.0-53.0) % Lymphocytes # (1.0-4.8) k/uL Sodium (137-145) mmol/L Carbon Dioxide (22-30) mmol/L BUN (9-20) mg/dL Glucose (74-99) mg/dL POC Glucose (mg/dL) 146 H (75-99) mg/dL Calcium (8.4-10.2) mg/dL Iron (65-175) ug/dL % Saturation (15.00-50.00) Total Protein (6.3-8.2) g/dL Albumin (3.5-5.0) g/dL Assessment and Plan Plan: 1. Acute on chronic systolic and diastolic congestive heart failure with exacerbation, given IV Lasix 40 mg every 8 hours in the emergency room, at this time will discontinue IV Lasix, and increase oral Lasix dose from 20 mg twice d aily to 40 mg twice daily, will monitor kidney function closely. 2. Elevated troponin level, not consistent with acute myocardial infarction, IV heparin was discontinued by cardiology, no intervention recommended at this time. 3. Generalized weakness with multiple falls, Will consult physical therapy and occupational therapy, and assess need for rehabilitation after this admission. 4. Anemia, will monitor hemoglobin closely, will check stool Hemoccult, and assess need for GI workup, will check iron level and folate and vitamin B12 levels 5. Underlying history of hyperlipidemia maintained on Lipitor continue 6. Underlying history of insulin-dependent diabetes mellitus, continue with insulin and check hemoglobin A1c 7. Underlying history of hypertension 8. Underlying history of benign prostatic hypertrophy maintained on Flomax 9. Underlying history of anxiety disorder maintained on Xanax 10. Symptoms of abdominal distention and discomfort will check computed tomography scan of the abdomen and pelvis Will consult gastroenterology At this time will switch to oral Lasix and monitor kidney function closely IV heparin was discontinued by cardiology, will use subcu Lovenox for DVT prophylaxis Protonix for GI prophylaxis Will check stool Hemoccult check anemia workup Will follow in a.m.
--- NOTE | 2019-08-19 18:19 | P.CONS ---
History of Present Illness - Reason for Consult Consult date: 08/19/19 splenomegaly, ascites Requesting physician: Cheryle Read - Chief Complaint CHF - History of Present Illness Mr. Alonzo is a very pleasant 74-year-old male admitted with signs and symptoms of congestive heart failure, who we've been asked to see for new ascites and splenomegaly, spleen measuring [address] of the abdomen and pelvis. Pt denies previous ascites, does not feel his abd is any larger then previously, no blood disorders, wt. loss, hepatitis, dysphagia, bleeding, was a drinker years ago, may have had a [place] in the past. Review of Systems 14 point ROS is negative except as stated in HPI Past Medical History Past Medical History: Chest Pain / Angina, Heart Failure, CVA/TIA, Diabetes Me llitus, Hyperlipidemia, Hypertension, Osteoarthritis (OA) Additional Past Medical History / Comment(s): incontinent of stools intermittently. low iron levels, possible GI bleed-dark tarry stools per son, Son stated "has had recent falls related to blood sugar going low 60s"-HX 2017 and 2018 had episodes of CHF approx 7-10 days post receiving flu vaccine,TIA,Type2 IDDM History of Any Multi-Drug Resistant Organisms: None Reported Past Surgical History: Hernia Repair Additional Past Surgical History / Comment(s): 10/31/17 robot assisted laprascopic umbilical hernia repair with mesh., 07/30/18 repair recurrent incarerated hernia Past Anesthesia/Blood Transfusion Reactions: No Reported Reaction Additional Past Anesthesia/Blood Transfusion Reaction / Comm: never had anesthesia Past Psychological History: Depression Additional Psychological History / Comment(s): Pt resides with his spouse. He states he uses no assistive devices. He no longer drives, his spouse does the driving and manages his medications. Smoking Status: Former smoker Past Alcohol Use History: None Reported Additional Past Alcohol Use History / Comment(s): started smoking age teen, stopped for 25 years and restarted smoking occasionally/lightly-a pack will last 2 weeks Past Drug Use History: None Reported - Past Family History Mother Family Medical History: Cancer Additional Family Medical History / Comment(s): breast cancer Father Family Medical History: Unable to Obtain Sister(s) Family Medical History: Cancer Brother(s) Family Medical History: Diabetes Mellitus Medications and Allergies Home Medications Medication Instructions Recorded Confirmed Type Benazepril HCl 40 mg PO QAM 01/22/17 08/16/19 History Aspirin 81 mg PO DAILY 01/23/17 08/16/19 History Tamsulosin [Flomax] 0.4 mg PO HS 01/23/17 08/16/19 History Carvedilol [Coreg] 6.25 mg PO BID 10/25/17 08/16/19 History Isosorbide Mononitrate ER [Imdur] 30 mg PO QAM 10/25/17 08/16/19 History Spironolactone [Aldactone] 12.5 mg PO QAM 10/25/17 08/16/19 History Ferrous Sulfate [Iron (65 MG 325 mg PO DAILY #30 tab 01/22/18 08/16/19 Rx Elemental)] Insulin Glargine,Hum.rec.anlog 40 unit SQ QAM 02/27/19 08/16/19 History [Basaglar Kwikpen U-100] ALPRAZolam [Xanax] 0.25 mg PO Q6HR PRN tab 04/27/19 08/16/19 Rx Furosemide [Lasix] 20 mg PO BID tab 04/27/19 08/16/19 Rx Atorvastatin [Lipitor] 80 mg PO HS 08/16/19 08/16/19 History Cyanocobalamin (Vitamin B-12) 1,000 mcg PO DAILY 08/16/19 08/16/19 History [Vitamin B-12] Nitroglycerin Sl Tab (0.3mg) 0.3 mg SUBLINGUAL Q5M PRN 08/16/19 08/16/19 History Allergies Allergy/AdvReac Type Severity Reaction Status Date / Time No Known Allergies Allergy Verified 08/16/19 17:27 Physical Exam Vitals: Vital Signs Temp Pulse Pulse Resp BP BP Pulse Ox 08/19/19 08:00 98.6 F 73 16 107/53 94 L 08/19/19 03:29 98.2 F 66 16 130/74 95 08/18/19 23:51 98.2 F 79 19 135/69 95 08/18/19 20:00 98.1 F 77 19 143/67 96 08/18/19 16:00 98.5 F 61 16 143/68 95 08/18/19 11:04 98.2 F 62 62 16 136/67 94 L Intake and Output 08/18/19 08/19/19 08/19/19 22:59 06:59 14:59 Intake Total 360 240 Output Total 175 1175 Balance 185 -1175 240 Intake: Oral 360 240 Output: Urine 175 1175 Other: Voiding Method Toilet Toilet # Voids 4 1 1 # Bowel Movements 2 1 1 Weight 103.3 kg - Constitutional General appearance: cooperative, mild distress, morbidly obese - EENT Eyes: anicteric sclerae, EOMI ENT: hearing grossly normal, normal oropharynx - Neck Neck: no lymphadenopathy - Respiratory Respiratory: bilateral: CTA - Cardiovascular Rhythm: regular Heart sounds: normal: S1, S2 - Gastrointestinal General gastrointestinal: distended, normal bowel sounds, soft - Integumentary Integumentary: normal - Neurologic Neurologic: CNII-XII intact - Musculoskeletal Musculoskeletal: strength equal bilaterally - Psychiatric Psychiatric: A&O x's 3, appropriate affect, intact judgment & insight Results CBC & Chem 7: 08/19/19 06:35 08/19/19 06:35 Labs: Abnormal Lab Results - Last 24 Hours (Table) 08/18/19 08/18/19 08/18/19 Range/Units 11:40 17:00 20:06 RBC (4.30-5.90) m/uL Hgb (13.0-17.5) gm/dL Hct (39.0-53.0) % Lymphocytes # (1.0-4.8) k/uL Sodium (137-145) mmol/L Carbon Dioxide (22-30) mmol/L BUN (9-20) mg/dL Glucose (74-99) mg/dL POC Glucose (mg/dL) 134 H 149 H 206 H (75-99) mg/dL Calcium (8.4-10.2) mg/dL Total Protein (6.3-8.2) g/dL Albumin (3.5-5.0) g/dL 08/19/19 08/19/19 08/19/19 Range/Units 02:07 06:16 06:35 RBC 3.58 L (4.30-5.90) m/uL Hgb 9.6 L (13.0-17.5) gm/dL Hct 30.0 L (39.0-53.0) % Lymphocytes # 0.9 L (1.0-4.8) k/uL Sodium (137-145) mmol/L Carbon Dioxide (22-30) mmol/L BUN (9-20) mg/dL Glucose (74-99) mg/dL POC Glucose (mg/dL) 128 H 124 H (75-99) mg/dL Calcium (8.4-10.2) mg/dL Total Protein (6.3-8.2) g/dL Albumin (3.5-5.0) g/dL 08/19/19 Range/Units 06:35 RBC (4.30-5.90) m/uL Hgb (13.0-17.5) gm/dL Hct (39.0-53.0) % Lymphocytes # (1.0-4.8) k/uL Sodium 136 L (137-145) mmol/L Carbon Dioxide 34 H (22-30) mmol/L BUN 23 H (9-20) mg/dL Glucose 108 H (74-99) mg/dL POC Glucose (mg/dL) (75-99) mg/dL Calcium 7.5 L (8.4-10.2) mg/dL Total Protein 5.5 L (6.3-8.2) g/dL Albumin 2.3 L (3.5-5.0) g/dL CT scan - abdomen: report reviewed (splenomegaly, ascites, anasarca) CT scan - pelvis: report reviewed Assessment and Plan (1) Bicytopenia Current Visit: Yes Status: Acute Priority: High Code(s): D75.89 - OTHER SPECIFIED DISEASES OF BLOOD AND BLOOD-FORMING ORGANS SNOMED Code(s): 84475621 (2) Splenomegaly Current Visit: Yes Status: Acute Priority: High Code(s): R16.1 - SPLENOMEGALY, NOT ELSEWHERE CLASSIFIED SNOMED Code(s): 32806183 Plan: Bicytopenia workup ordered. Paracentesis requested with cytology, albumin and full cytometry. Anemia workup ordered. Patient is not requiring transfusion at this time for hemoglobin of 9.6. Further recommendations to follow Doctor attests: I performed a history and physical examination of this patient, developed impression and plan of care. Discussed with dictator. I agree with dictators note, documented as a scribe.
[2019-08-19 20:32] LABS: Glucose,Whole Blood 197 mg/dL (75-99)
[2019-08-19] MEDS: TAMSULOSIN 0.4 MG CAP.ER.24H PO SCH (21:04)
[2019-08-19] MEDS: ATORVASTATIN 80 MG TAB PO SCH (21:04)
[2019-08-19 21:35] LABS: Protein, Total 5.3 g/dL (6.2-8.2)
[2019-08-19 21:45] LABS: Ferritin 58.8 ng/mL (22.0-322.0)
[2019-08-20 03:33] LABS: Albumin, Fluid Source Paracentesis Fluid
[2019-08-20 06:08] LABS: Glucose,Whole Blood 179 mg/dL (75-99)
[2019-08-20] MEDS: INSULIN ASPART (NovoLOG) 100 UNIT/ML VIAL SQ SCH ×4 (06:34→20:39)
[2019-08-20] MEDS: INSULIN DETEMIR (LEVEMIR) 100 UNIT/ML SYR SQ SCH (06:34)
--- NOTE | 2019-08-20 07:32 | P.CONS ---
History of Present Illness - Reason for Consult Consult date: 08/19/19 Abdominal pain Requesting physician: Cheryle Read - Chief Complaint Weakness, shortness of breath - History of Present Illness 74-year-old male with multiple medical comorbidities including diabetes mellitus, hypertension, hyperlipidemia, chronic anemia, diastolic and systolic heart failure, colonic polyps and gastric and esophageal varices on previous EGD who presented to the hospital due to complaints of weakness and shortness of breath. The patient had reported increasing weakness and shortness of breath prior to presentation with multiple falls over the past few weeks. Patient was admitted to the hospital and is being treated for exacerbation of his underlying heart failure. There were some concerns over the patient complaining of abdominal pain during his stay. He is currently denying any abdominal pain and tolerating his diet. The patient previously underwent EGD and colonoscopy in 02/2019 with findings on EGD of esophageal and gastric varices and polypectomy on colonoscopy. Patient had a computed tomography scan subsequent to this with concerns over sigmoid narrowing with flexible sigmoidoscopy performed in 04/2019 significant for diverticulosis, internal hemorrhoids and a poor prep with no mass seen. The patient denies any significant history of alcohol abuse or liver disease but has had findings of esophageal and gastric varices as well as ascites and hepatomegaly suggestive of underlying cirrhosis. Review of Systems REVIEW OF SYSTEMS: CONSTITUTIONAL: Denies any fevers, chills, weight change but has been reporting some fatigue. CARDIOVASCULAR: Denies any chest pain, palpitations high or low blood pressures RESPIRATORY: Denies any hemoptysis or cough but did report shortness of breath on presentation which is improved. GENITOURINARY: No dysuria or hematuria. MUSCULOSKELETAL: No focal weakness reported. SKIN: Denies any new rashes or lesions, jaundice or pallor. PSYCHIATRIC: Denies any depression or anxiety. NEUROLOGY: Denies headache, denies any new focal deficits. EARS/NOSE/THROAT: No recent hearing change, congestion, nasal discharge or sore throat. EYES: No pain in eyes, discharge or change in vision. GASTROINTESTINAL: As per HPI. Past Medical History Past Medical History: Chest Pain / Angina, Heart Failure, CVA/TIA, Diabetes Mellitus, Hyperlipidemia, Hypertension, Osteoarthritis (OA) Additional Past Medical History / Comment(s): incontinent of stools intermittently. low iron levels, possible GI bleed-dark tarry stools per son, Son stated "has had recent falls related to blood sugar going low 60s"-HX 2017 and 2018 had episodes of CHF approx 7-10 days post receiving flu v accine,TIA,Type2 IDDM History of Any Multi-Drug Resistant Organisms: None Reported Past Surgical History: Hernia Repair Additional Past Surgical History / Comment(s): 10/31/17 robot assisted laprascopic umbilical hernia repair with mesh., 07/30/18 repair recurrent incarerated hernia Past Anesthesia/Blood Transfusion Reactions: No Reported Reaction Additional Past Anesthesia/Blood Transfusion Reaction / Comm: never had anesthesia Past Psychological History: Depression Additional Psychological History / Comment(s): Pt resides with his spouse. He states he uses no assistive devices. He no longer drives, his spouse does the driving and manages his medications. Smoking Status: Former smoker Past Alcohol Use History: None Reported Additional Past Alcohol Use History / Comment(s): started smoking age teen, stopped for 25 years and restarted smoking occasionally/lightly-a pack will last 2 weeks Past Drug Use History: None Reported - Past Family History Mother Family Medical History: Cancer Additional Family Medical History / Comment(s): breast cancer Father Family Medical History: Unable to Obtain Sister(s) Family Medical History: Cancer Brother(s) Family Medical History: Diabetes Mellitus Medications and Allergies Home Medications Medication Instructions Recorded Confirmed Type Benazepril HCl 40 mg PO QAM 01/22/17 08/16/19 History Aspirin 81 mg PO DAILY 01/23/17 08/16/19 History Tamsulosin [Flomax] 0.4 mg PO HS 01/23/17 08/16/19 History Carvedilol [Coreg] 6.25 mg PO BID 10/25/17 08/16/19 History Isosorbide Mononitrate ER [Imdur] 30 mg PO QAM 10/25/17 08/16/19 History Spironolactone [Aldactone] 12.5 mg PO QAM 10/25/17 08/16/19 History Ferrous Sulfate [Iron (65 MG 325 mg PO DAILY #30 tab 01/22/18 08/16/19 Rx Elemental)] Insulin Glargine,Hum.rec.anlog 40 unit SQ QAM 02/27/19 08/16/19 History [[place] C[facility]denas U-100] ALPRAZolam [Xanax] 0.25 mg PO Q6HR PRN tab 04/27/19 08/16/19 Rx Furosemide [Lasix] 20 mg PO BID tab 04/27/19 08/16/19 Rx Atorvastatin [Lipitor] 80 mg PO HS 08/16/19 08/16/19 History Cyanocobalamin (Vitamin B-12) 1,000 mcg PO DAILY 08/16/19 08/16/19 History [Vitamin B-12] Nitroglycerin Sl Tab (0.3mg) 0.3 mg SUBLINGUAL Q5M PRN 08/16/19 08/16/19 History Allergies Allergy/AdvReac Type Severity Reaction Status Date / Time No Known Allergies Allergy Verified 08/16/19 17:27 Physical Exam Vitals: Vital Signs Temp Pulse Resp BP BP Pulse Ox 08/19/19 12:00 97.9 F 59 L 16 108/54 94 L 08/19/19 08:00 98.6 F 73 16 107/53 94 L 08/19/19 03:29 98.2 F 66 16 130/74 95 08/18/19 23:51 98.2 F 79 19 135/69 95 08/18/19 20:00 98.1 F 77 19 143/67 96 08/18/19 16:00 98.5 F 61 16 143/68 95 Intake and Output 08/18/19 08/19/19 08/19/19 22:59 06:59 14:59 Intake Total 360 240 Output Total 175 1175 Balance 185 -1175 240 Intake: Oral 360 240 Output: Urine 175 1175 Other: Voiding Method Toilet Toilet Toilet # Voids 4 1 1 # Bowel Movements 2 1 1 Weight 103.3 kg On physical examination, patient appears comfortable in no apparent distress. HEAD: Normocephalic, atraumatic. EYES: No scleral icterus. No conjunctival injection. MOUTH: No lesions, tongue midline. NECK: Trachea midline, no gross abnormalities. CHEST: Decreased air entry in all lung obrien. HEART: S1-S2 appreciated. ABDOMEN: Soft, mildly distended. Bowel sounds are positive. No organomegaly. No guarding or rigidity. EXTREMITIES: No pedal edema. SKIN: No rashes, no jaundice. NEUROLOGIC: Alert and oriented to person and place with no focal deficits noted. Results CBC & Chem 7: 08/19/19 06:35 08/19/19 06:35 Labs: Abnormal Lab Results - Last 24 Hours (Table) 08/17/19 08/18/19 08/18/19 Range/Units 07:57 17:00 20:06 RBC (4.30-5.90) m/uL Hgb (13.0-17.5) gm/dL Hct (39.0-53.0) % Lymphocytes # (1.0-4.8) k/uL Sodium (137-145) mmol/L Carbon Dioxide (22-30) mmol/L BUN (9-20) mg/dL Glucose (74-99) mg/dL POC Glucose (mg/dL) 149 H 206 H (75-99) mg/dL Calcium (8.4-10.2) mg/dL Iron 12 L (65-175) ug/dL % Saturation 5.04 L (15.00-50.00) Total Protein (6.3-8.2) g/dL Albumin (3.5-5.0) g/dL 08/19/19 08/19/19 08/19/19 Range/Units 02:07 06:16 06:35 RBC 3.58 L (4.30-5.90) m/uL Hgb 9.6 L (13.0-17.5) gm/dL Hct 30.0 L (39.0-53.0) % Lymphocytes # 0.9 L (1.0-4.8) k/uL Sodium (137-145) mmol/L Carbon Dioxide (22-30) mmol/L BUN (9-20) mg/dL Glucose (74-99) mg/dL POC Glucose (mg/dL) 128 H 124 H (75-99) mg/dL Calcium (8.4-10.2) mg/dL Iron (65-175) ug/dL % Saturation (15.00-50.00) Total Protein (6.3-8.2) g/dL Albumin (3.5-5.0) g/dL 08/19/19 08/19/19 Range/Units 06:35 11:47 RBC (4.30-5.90) m/uL Hgb (13.0-17.5) gm/dL Hct (39.0-53.0) % Lymphocytes # (1.0-4.8) k/uL Sodium 136 L (137-145) mmol/L Carbon Dioxide 34 H (22-30) mmol/L BUN 23 H (9-20) mg/dL Glucose 108 H (74-99) mg/dL POC Glucose (mg/dL) 146 H (75-99) mg/dL Calcium 7.5 L (8.4-10.2) mg/dL Iron (65-175) ug/dL % Saturation (15.00-50.00) Total Protein 5.5 L (6.3-8.2) g/dL Albumin 2.3 L (3.5-5.0) g/dL US - abdomen: report reviewed (Ascites noted on ultrasound the abdomen.) Assessment and Plan (1) Ascites Narrative/Plan: 74-year-old male with multiple medical comorbidities presenting to the hospital with worsening shortness of breath and currently being treated for an exacerbation of underlying diastolic and systolic heart failure. The patient has previously had endoscopic evaluation at the beginning of 2019 with findings of small gastric and esophageal varices. Currently ultrasound of the abdomen has shown a ascites with paracentesis ordered. Suspicion is for underlying liver disease, however cannot rule out heart failure as the cause of underlying ascites. Currently patient is receiving diuretic therapy. Current Visit: Yes Status: Acute Code(s): R18.8 - OTHER ASCITES SNOMED Code(s): 725858462 (2) Esophageal varices determined by endoscopy Current Visit: Yes Status: Acute Code(s): I85.00 - ESOPHAGEAL VARICES WITHOUT BLEEDING SNOMED Code(s): 94401926 (3) Abdominal pain Narrative/Plan: Likely multifactorial, cannot rule out a component of pain from underlying distention with ascites. Current Visit: Yes Status: Acute Code(s): R10.9 - UNSPECIFIED ABDOMINAL PAIN SNOMED Code(s): 03984365 Plan: Supportive care Continue diuresis with Aldactone 12.5 mg daily and Lasix 40 mg twice a day, can titrate medications based on electrolytes and kidney function Continue management by internal medicine and cardiology services Paracentesis ordered, await fluid studies Okay for sodium restricted diet as tolerated Hematology service consult to see the patient No complaints of abdominal pain at this time, we'll continue to monitor Thank you for allowing us to participate in the care of this patient
[2019-08-20] MEDS: LISINOPRIL 20 MG TAB PO SCH (09:24)
[2019-08-20] MEDS: FERROUS SULFATE 325 MG TAB PO SCH (09:24)
[2019-08-20] MEDS: ISOSORBIDE MONONITRATE ER 30 MG TAB.ER.24H PO SCH (09:25)
[2019-08-20] MEDS: SPIRONOLACTONE 25 MG TAB PO SCH (09:25)
[2019-08-20] MEDS: ASPIRIN 81 MG PO SCH ×2 (09:25→09:26)
[2019-08-20] MEDS: CARVEDILOL 6.25 MG TAB PO SCH (09:26)
[2019-08-20] MEDS: CYANOCOBALAMIN 500 MCG TAB PO SCH (09:26)
--- NOTE | 2019-08-20 11:32 | P.PN ---
Progress Note - Text Progress Note Date: 08/20/19 The patient underwent paracentesis yesterday. He really has no abdominal complaints. On exam her vital signs are stable. Abdomen soft. There is no significant tenderness. Patient will Receive supportive medical care. No surgical intervention is planned at this point.
[2019-08-20 11:52] LABS: Glucose,Whole Blood 188 mg/dL (75-99)
[2019-08-20] MEDS: SODIUM FERRIC GLUCONAT-SUCROSE 125 MG in SODIUM CHLORIDE 0.9% 100 ML IVPB SCH (11:58)
--- NOTE | 2019-08-20 12:02 | P.PN ---
Subjective Progress Note Date: 08/20/19 This is a 74-year-old gentleman with past medical history significant for diabetes, prior CVA, hyperlipidemia, hypertension, obesity, who came to the hospital mainly with symptoms of generalized weakness, he also has not been eating or drinking at home, patient states he's had several falls within the pas t one week. He denies any chest discomfort he does get occasionally dizzy according to him. Breathing is overall stable. He does state that he is more swelling in his lower extremities than his normal. CAT scan of the brain performed on arrival here showed degenerative and nonspecific white matter changes, most typical of remote microvascular ischemia. Chest x-ray did not reveal any acute process. EKG shows normal sinus rhythm with a first-degree AV block, right bundle branch block pattern. Blood pressure on arrival here 112/60 with a heart rate in the 60s, 95% on room air. Blood pressure this morning 140/60 with a heart rate in the 70s, 94% on room air. Laboratory data, white blood cell count on admission 6.8, 3.0 this morning, hemoglobin 10.6, 9.3 this morning. Platelet count 157. Sodium 136, potassium 3.6, BUN 31, creatinine 1.1, troponin 0.13, 0.13, 0.11. BNP level 14,900. TSH level 3.0. A cardiology consultation has been requested because of the abnormality in troponin as well as the elevated BNP level. On review of the patient's prior admissions, he is also noted at that time to have abnormality in troponin. 08/18/2019 Patient was seen and examined this morning, feeling well overall. Blood pressure 136/60, heart rate in the 60s, 94% on room air. White blood cell count 3.8, hemoglobin 9.2, platelet count 160. Sodium 137, potassium 3.7, BUN 29, creatinine 1.2. Echocardiogram with Doppler study was performed which revealed an ejection fraction of 45-50%, basal inferior and inferior septal wall hypokinesia noted. 08/19/2019 Patient seen and examined this morning, appears to be more sleepy today, breathing is stable. Weight is down 2 kg, on by mouth Lasix. Blood pressure 108/50 with a heart rate in the 70s, 94% on room air. 08/20/2019 Patient seen and examined this morning, he underwent a paracentesis yesterday. Blood pressure this morning 114/50 with a heart rate in the 60s, 94% on room air. Objective - Vital Signs Vital signs: Vital Signs Temp 97 F L 08/20/19 08:00 Pulse 60 08/20/19 08:00 Resp 18 08/20/19 08:00 BP 114/58 08/20/19 08:00 Pulse Ox 94 L 08/20/19 08:00 Intake & Output 08/19/19 08/20/19 08/20/19 18:59 06:59 18:59 Intake Total 720 240 240 Output Total 550 100 Balance 720 -310 140 Weight 96.1 kg Intake: Oral 720 240 240 Output: Urine 550 100 Other: Voiding Method Toilet Toilet Toilet # Voids 2 1 1 # Bowel Movements 2 1 - Exam PHYSICAL EXAMINATION: GENERAL: 74-year-old gentleman in no acute distress at the time of my examination HEENT: Head is atraumatic, normocephalic. Pupils equal, round. Sclera anicteric. Conjunctiva are clear. Mucous membranes of the mouth are moist. Neck is supple. There is no elevated jugular venous pressure. No carotid bruit is heard. HEART EXAMINATION: Heart S1, S2 normal. No murmur or gallop heard. CHEST EXAMINATION: Lungs are clear with fine crackles to the bases bilaterally ABDOMEN: Soft, obese, nontender. Bowel sounds are heard. No organomegaly noted. EXTREMITIES: 2+ peripheral pulses with 1-2+ evidence of peripheral edema and no calf tenderness noted. NEUROLOGIC patient is awake, alert and oriented 2. . - Labs CBC & Chem 7: 08/19/19 06:35 08/19/19 06:35 Labs: Abnormal Lab Results - Last 24 Hours (Table) 08/19/19 08/19/19 08/19/19 Range/Units 06:35 17:58 20:31 POC Glucose (mg/dL) 168 H 197 H (75-99) mg/dL Total Protein (PEP) 5.3 L (6.2-8.2) g/dL 08/20/19 08/20/19 Range/Units 06:07 11:50 POC Glucose (mg/dL) 179 H 188 H (75-99) mg/dL Total Protein (PEP) (6.2-8.2) g/dL Assessment and Plan Plan: Assessment and plan #1 generalized weakness, frequent falls. No clear-cut evidence of syncope #2 abnormality in troponin, not consistent with acute coronary syndrome, with no significant rise and fall pattern, is also noted on patient's prior admissions that he does have abnormality in troponin. He denies any chest discomfort. #3 hypertension #4 prior CVA #5 diabetes #6 hyperlipidemia #7 nicotine dependence #8 Elevated BNP level, mild congestive heart failure, diastolic acute on chronic. #9 anemia, chronic Plan Echocardiogram with Doppler study performed at revealed an ejection fraction of 45-50%, similar to prior echo. From cardiology's perspective, we'll continue the patient on his current medications. No evidence of any orthostatic. Discharged once cleared by primary. DNP note has been reviewed, I agree with a documented findings and plan of care. Patient was seen and examined.
[2019-08-20] MEDS: FUROSEMIDE 40 MG TAB PO SCH ×2 (12:03→17:52)
[2019-08-20 13:09] LABS: Free Kappa Lt Chain Qnt, Serum 7.61 mg/dL (0.33-1.94)
[2019-08-20 16:54] LABS: Glucose,Whole Blood 242 mg/dL (75-99)
--- NOTE | 2019-08-20 17:17 | P.PN ---
Subjective Progress Note Date: 08/20/19 Principal diagnosis: CHF In follow-up today, pt is sitting up in a chair, he did have the paracentesis, he denies any pain or discomfort from the procedure. We discussed the results of his labs, not exactly sure much he understands, he has asked me to get a hold of his son at some point. Patient denies any pain or bleeding Objective - Vital Signs Vital signs: Vital Signs Temp 97.5 F L 08/20/19 16:00 Pulse 97 08/20/19 16:00 Resp 16 08/20/19 16:00 BP 111/55 08/20/19 16:00 Pulse Ox 97 08/20/19 16:00 Intake & Output 08/19/19 08/20/19 08/20/19 18:59 06:59 18:59 Intake Total 720 240 720 Output Total 550 100 Balance 720 -310 620 Weight 96.1 kg Intake: Oral 720 240 720 Output: Urine 550 100 Other: Voiding Method Toilet Toilet Toilet # Voids 2 1 1 # Bowel Movements 2 1 - Constitutional General appearance: Present: cooperative, no acute distress, obese - EENT Eyes: Present: anicteric sclerae, EOMI ENT: Present: hearing grossly normal - Respiratory Details: mildly labored breathing, no audible abnormal breath sounds, chest expansion symmetrical - Gastrointestinal General gastrointestinal: Present: distended - Neurologic Neurologic: Present: CNII-XII intact - Musculoskeletal Musculoskeletal: Present: strength equal bilaterally - Psychiatric Psychiatric: Present: A&O x's 3, appropriate affect - Labs CBC & Chem 7: 08/19/19 06:35 08/19/19 06:35 Labs: Abnormal Lab Results - Last 24 Hours (Table) 08/19/19 08/19/19 08/19/19 Range/Units 06:35 17:58 20:31 POC Glucose (mg/dL) 168 H 197 H (75-99) mg/dL Total Protein (PEP) 5.3 L (6.2-8.2) g/dL Free [place] LC, Quant 7.61 H (0.33-1.94) mg/dL Free Lambda LC, Quant 7.60 H (0.57-2.63) mg/dL 08/20/19 08/20/19 08/20/19 Range/Units 06:07 11:50 16:51 POC Glucose (mg/dL) 179 H 188 H 242 H (75-99) mg/dL Total Protein (PEP) (6.2-8.2) g/dL Free [place] LC, Quant (0.33-1.94) mg/dL Free Lambda LC, Quant (0.57-2.63) mg/dL Assessment and Plan (1) Bicytopenia Current Visit: Yes Status: Acute Priority: High Code(s): D75.89 - OTHER SPECIFIED DISEASES OF BLOOD AND BLOOD-FORMING ORGANS SNOMED Code(s): 34662444 (2) Splenomegaly Current Visit: Yes Status: Acute Priority: High Code(s): R16.1 - SPLENOMEGALY, NOT ELSEWHERE CLASSIFIED SNOMED Code(s): 47587557 Plan: Bicytopenia workup shows no paraproteinemia, inflammatory markers within normal limits, no autoimmune markers positive Paracentesis is transudative when serum/ascitic albumin is calculated and interpreted by [facility], most consistent with chronic liver disease and clinical picture-splenomegaly and bicytopenia. Pending cytology and flow cytometry. Anemia workup showing iron deficiency. Parenteral iron ordered. GI consulted. Recommend follow up with Dr. Paz 4-6 weeks to reevaluate iron stores and bicytopenia. Doctor attests: I performed a history and physical examination of this patient, developed impression and plan of care. Discussed with dictator. I agree with dictators note, documented as a scribe.
[2019-08-20] MEDS: CARVEDILOL 12.5 MG TAB PO SCH (17:52)
--- NOTE | 2019-08-20 19:08 | P.PN ---
Subjective Progress Note Date: 08/20/19 Prashant Alonzo, is a 74-year-old male who presented to [facility] with multiple vague symptoms, patient has generalized weakness, shortness of breath, and had multiple falls over the last 2 weeks, patient was evaluated in the emergency room, he was afebrile, blood pressure on presentation 112/64 pulse 64 pulse ox 95% on room air, he had bilateral crackles in the lungs and 2+ bilateral lower extremity edema, laboratory data was significant for elevated troponin level of 0.118 and elevated BNP of 14,900, patient also had evidence of anemia with hemoglobin of 10.6. Due to elevated troponin level patient was started on IV heparin and was admitted to telemetry floor, patient was also started on IV Lasix due to shortness of breath and elevated BNP level. Patient has a known history of congestive heart failure, echocardiogram done in April revealed an ejection fraction of 45-50%, patient also has known history of diabetes mellitus, hypertension, hyperlipidemia, and chronic anemia. On 08/18/2019 patient was seen and examined on the medical floor he is alert and oriented 3 in no apparent distress is raising concern about abdominal distention and abdominal discomfort. There is no fever or chills no headache or dizziness no chest pain no shortness of breath no cough no nausea or vomiting no burning was urination no frequency or urgency and no hematuria. On 08/19/2019 patient was seen and examined on the medical floor he is alert and oriented 3 in no apparent distress computed tomography scan of the abdomen and pelvis revealed evidence of ascites he is scheduled for paracentesis today there is no fever or chills no headache or dizziness no chest pain no shortness of breath no cough no nausea or vomiting no abdominal pain no diarrhea no burning with urination no frequency or urgency and no hematuria On 08/20/2019 patient was seen and examined on the medical floor he is alert and oriented in no apparent distress he denies any symptoms at this time there is no fever or chills no headache or dizziness no chest pain no shortness of breath no cough no nausea or vomiting no abdominal pain no diarrhea no burning with urination no frequency or urgency and no hematuria. Patient had large amount of ascites fluid removed yesterday, results on fluid analysis is still pending, will continue to monitor most likely patient has liver cirrhosis, possible dis charge to home tomorrow with outpatient follow-up with gastroenterology and cardiology Objective - Vital Signs Vital signs: Vital Signs Temp 97.5 F L 08/20/19 16:00 Pulse 97 08/20/19 16:00 Resp 16 08/20/19 16:00 BP 111/55 08/20/19 16:00 Pulse Ox 97 08/20/19 16:00 Intake & Output 08/20/19 08/20/19 08/21/19 06:59 18:59 06:59 Intake Total 240 720 Output Total 550 100 Balance -310 620 Weight 96.1 kg Intake: Oral 240 720 Output: Urine 550 100 Other: Voiding Method Toilet Toilet # Voids 1 1 # Bowel Movements 1 - Exam In general patient is alert and oriented 3 in no apparent distress, he has some difficulty understanding Wol[place], his is in the room and answering most of the questions HEENT head normocephalic and atraumatic Neck is supple no JVD no goiter no lymphadenopathy Chest exam reveals crackles in both lung bases no wheezing Cardiac exam reveals regular heart sounds S1 and S2 no gallops no murmurs Abdomen is soft nontender no organomegaly with normal bowel sounds Extremity exam reveals no edema no cyanosis or clubbing Neurological examination reveals no gross focal deficits - Labs CBC & Chem 7: 08/19/19 06:35 08/19/19 06:35 Labs: Abnormal Lab Results - Last 24 Hours (Table) 08/19/19 08/19/19 08/20/19 Range/Units 06:35 20:31 06:07 POC Glucose (mg/dL) 197 H 179 H (75-99) mg/dL Total Protein (PEP) 5.3 L (6.2-8.2) g/dL Free [place] LC, Quant 7.61 H (0.33-1.94) mg/dL Free Lambda LC, Quant 7.60 H (0.57-2.63) mg/dL 08/20/19 08/20/19 Range/Units 11:50 16:51 POC Glucose (mg/dL) 188 H 242 H (75-99) mg/dL Total Protein (PEP) (6.2-8.2) g/dL Free [place] LC, Quant (0.33-1.94) mg/dL Free Lambda LC, Quant (0.57-2.63) mg/dL Assessment and Plan Plan: 1. Acute on chronic systolic and diastolic congestive heart failure with exacerbation, given IV Lasix 40 mg every 8 hours in the emergency room, at this time will discontinue IV Lasix, and increase oral Lasix dose from 20 mg twice daily to 40 mg twice daily, will monitor kidney function closely. 2. Elevated troponin level, not consistent with acute myocardial infarction, IV heparin was discontinued by cardiology, no intervention recommended at this time. 3. Generalized weakness with multiple falls, Will consult physical therapy and occupational therapy, and assess need for rehabilitation after this admission. 4. Anemia, will monitor hemoglobin closely, will check stool Hemoccult, and assess need for GI workup, will check iron level and folate and vitamin B12 levels 5. Underlying history of hyperlipidemia maintained on Lipitor continue 6. Underlying history of insulin-dependent diabetes mellitus, continue with insulin and check hemoglobin A1c 7. Underlying history of hypertension 8. Underlying history of benign prostatic hypertrophy maintained on Flomax 9. Underlying history of anxiety disorder maintained on Xanax 10. Symptoms of abdominal distention and discomfort will check computed tomography scan of the abdomen and pelvis Will consult gastroenterology At this time will switch to oral Lasix and monitor kidney function closely IV heparin was discontinued by cardiology, will use subcu Lovenox for DVT prophylaxis Protonix for GI prophylaxis Will check stool Hemoccult check anemia workup Will follow in a.m.
[2019-08-20 19:36] LABS: Magnesium 1.9 mg/dL (1.6-2.3); Potassium 4.1 mmol/L (3.5-5.1)
[2019-08-20 20:08] LABS: Glucose,Whole Blood 185 mg/dL (75-99)
[2019-08-20] MEDS: TAMSULOSIN 0.4 MG CAP.ER.24H PO SCH (20:39)
[2019-08-20] MEDS: ATORVASTATIN 80 MG TAB PO SCH (20:39)
--- NOTE | 2019-08-21 02:04 | P.PN ---
Subjective Progress Note Date: 08/20/19 Principal diagnosis: Ascites, esophageal varices, abdominal pain The patient seen lying in bed in no acute complaints. Tolerating diet. No bowel movement today. Objective - Vital Signs Vital signs: Vital Signs Temp 97.3 F L 08/20/19 12:00 Pulse 56 L 08/20/19 12:00 Resp 16 08/20/19 12:00 BP 103/51 08/20/19 12:00 Pulse Ox 94 L 08/20/19 12:00 Intake & Output 08/19/19 08/20/19 08/20/19 18:59 06:59 18:59 Intake Total 720 240 240 Output Total 550 100 Balance 720 -310 140 Weight 96.1 kg Intake: Oral 720 240 240 Output: Urine 550 100 Other: Voiding Method Toilet Toilet Toilet # Voids 2 1 1 # Bowel Movements 2 1 - Exam On physical examination, patient appears comfortable in no apparent distress. HEAD: Normocephalic, atraumatic. EYES: No scleral icterus. No conjunctival injection. MOUTH: No lesions, tongue midline. NECK: Trachea midline, no gross abnormalities. ABDOMEN: Soft, obese, nontender to palpation. Bowel sounds are positive. No organomegaly. No guarding or rigidity. EXTREMITIES: No pedal edema. SKIN: No rashes, no jaundice. NEUROLOGIC: Alert and oriented x3. No focal deficits. - Labs CBC & Chem 7: 08/19/19 06:35 08/20/19 18:42 Labs: Abnormal Lab Results - Last 24 Hours (Table) 08/19/19 08/19/19 08/19/19 Range/Units 06:35 17:58 20:31 POC Glucose (mg/dL) 168 H 197 H (75-99) mg/dL Total Protein (PEP) 5.3 L (6.2-8.2) g/dL Free [place] LC, Quant 7.61 H (0.33-1.94) mg/dL Free Lambda LC, Quant 7.60 H (0.57-2.63) mg/dL 08/20/19 08/20/19 Range/Units 06:07 11:50 POC Glucose (mg/dL) 179 H 188 H (75-99) mg/dL Total Protein (PEP) (6.2-8.2) g/dL Free [place] LC, Quant (0.33-1.94) mg/dL Free Lambda LC, Quant (0.57-2.63) mg/dL Assessment and Plan (1) Ascites Narrative/Plan: 74-year-old male with multiple medical comorbidities presenting to the hospital with worsening shortness of breath and currently being treated for an exacerbation of underlying diastolic and systolic heart failure. The patient has previously had endoscopic evaluation at the beginning of 2019 with findings of small gastric and esophageal varices. Currently ultrasound of the abdomen has shown a ascites with paracentesis ordered. Suspicion is for underlying liver disease, however cannot rule out heart failure as the cause of underlying ascites. Currently patient is receiving diuretic therapy. Current Visit: Yes Status: Acute Code(s): R18.8 - OTHER ASCITES SNOMED Code(s): 891139432 (2) Esophageal varices determined by endoscopy Current Visit: Yes Status: Acute Code(s): I85.00 - ESOPHAGEAL VARICES WITHOUT BLEEDING SNOMED Code(s): 61698257 (3) Abdominal pain Narrative/Plan: Likely multifactorial, cannot rule out a component of pain from underlying distention with ascites. Current Visit: Yes Status: Acute Code(s): R10.9 - UNSPECIFIED ABDOMINAL PAIN SNOMED Code(s): 76924116 Plan: Supportive care Continue diuresis with Aldactone 12.5 mg daily and Lasix 40 mg twice a day, can titrate medications based on electrolytes and kidney function Continue management by internal medicine and cardiology services Paracentesis ordered, albumin consistent with cardiac or underlying liver source of the ascites, await protein and cell count Okay for sodium restricted diet as tolerated Hematology service consulted No complaints of abdominal pain at this time, we'll continue to monitor Thank you for allowing us to participate in the care of this patient
[2019-08-21 06:12] LABS: Glucose,Whole Blood 215 mg/dL (75-99)
[2019-08-21] MEDS: CARVEDILOL 12.5 MG TAB PO SCH ×2 (06:35→16:33)
[2019-08-21] MEDS: INSULIN ASPART (NovoLOG) 100 UNIT/ML VIAL SQ SCH ×3 (06:35→16:55)
[2019-08-21] MEDS: INSULIN DETEMIR (LEVEMIR) 100 UNIT/ML SYR SQ SCH (06:35)
[2019-08-21 08:02] VITALS: TEMP 97.9
[2019-08-21] MEDS: ASPIRIN 81 MG PO SCH ×2 (08:45)
[2019-08-21] MEDS: ISOSORBIDE MONONITRATE ER 30 MG TAB.ER.24H PO SCH (08:45)
[2019-08-21] MEDS: LISINOPRIL 20 MG TAB PO SCH (08:45)
[2019-08-21] MEDS: FERROUS SULFATE 325 MG TAB PO SCH (08:45)
[2019-08-21] MEDS: FUROSEMIDE 40 MG TAB PO SCH ×2 (08:45→16:33)
[2019-08-21] MEDS: CYANOCOBALAMIN 500 MCG TAB PO SCH (08:45)
[2019-08-21] MEDS: SPIRONOLACTONE 25 MG TAB PO SCH (08:46)
--- NOTE | 2019-08-21 08:54 | US ---
Ultrasound-guided paracentesis. DATE OF EXAM: 08/19/2019 CLINICAL HISTORY: Ascites The procedure was discussed with the patient. The risks, complications, benefits, and alternatives we re discussed and any questions were answered. Informed consent was obtained. The patient was placed s upine on the ultrasound table and prepped and draped in the usual sterile fashion. All elements of maximal barrier technique were utilized. Under ultrasound guidance, access into the left lower quadrant was obtained, via the paracentesis catheter system and direct ultrasound guidance . Approximately 4 liters of straw-colored fluid was removed. The patient was stable throughout the proc edure and remained stable upon discharge from Department of Radiology. IMPRESSION: Successful paracentesis under ultrasound guidance.
--- NOTE | 2019-08-21 09:11 | P.PN ---
Progress Note - Text Progress Note Date: 08/21/19 Patient maintained stable. His tolerating diet and stooling. On exam vital signs appear stable. Abdomen soft. The patient will be observed. No surgical intervention is planned.
[2019-08-21] MEDS: SODIUM FERRIC GLUCONAT-SUCROSE 125 MG in SODIUM CHLORIDE 0.9% 100 ML IVPB SCH (10:08)
[2019-08-21 11:59] VITALS: RESP 16
[2019-08-21 12:11] LABS: Glucose,Whole Blood 155 mg/dL (75-99)
--- NOTE | 2019-08-21 12:46 | P.PN ---
Subjective Progress Note Date: 08/21/19 Principal diagnosis: CHF, iron deficient anemia In follow-up today, pt had a shower, he denies any c/o, he is wanting to go home. Patient denies any pain or bleeding Objective - Vital Signs Vital signs: Vital Signs Temp 97.9 F 08/21/19 08:00 Pulse 69 08/21/19 12:00 Resp 16 08/21/19 12:00 BP 110/57 08/21/19 11:57 Pulse Ox 98 08/21/19 11:57 Intake & Output 08/20/19 08/21/19 08/21/19 18:59 06:59 18:59 Intake Total 720 240 120 Output Total 100 1125 250 Balance 620 -885 -130 Weight 99.1 kg Intake: Oral 720 240 120 Output: Urine 100 1125 250 Other: Voiding Method Toilet Toilet Toilet # Voids 1 1 # Bowel Movements 1 2 - Constitutional General appearance: Present: cooperative, morbidly obese, no acute distress - EENT Eyes: Present: anicteric sclerae, EOMI ENT: Present: hearing grossly normal - Respiratory Details: resp even and unlabored - Cardiovascular Details: skin warm and dry - Gastrointestinal General gastrointestinal: Present: distended, soft - Neurologic Neurologic: Present: CNII-XII intact - Musculoskeletal Musculoskeletal: Present: strength equal bilaterally - Psychiatric Psychiatric: Present: A&O x's 3, appropriate affect, intact judgment & insight - Labs CBC & Chem 7: 08/19/19 06:35 08/20/19 18:42 Labs: Abnormal Lab Results - Last 24 Hours (Table) 08/19/19 08/19/19 08/20/19 Range/Units 06:35 06:35 16:51 Sodium (137-145) mmol/L Chloride (98-107) mmol/L Carbon Dioxide (22-30) mmol/L POC Glucose (mg/dL) 242 H (75-99) mg/dL Methylmalonic Acid 0.64 H (<0.40) umol/L Free [place] LC, Quant 7.61 H (0.33-1.94) mg/dL Free Lambda LC, Quant 7.60 H (0.57-2.63) mg/dL 08/20/19 08/20/19 08/21/19 Range/Units 18:42 20:07 06:10 Sodium 133 L (137-145) mmol/L Chloride 94 L (98-107) mmol/L Carbon Dioxide 34 H (22-30) mmol/L POC Glucose (mg/dL) 185 H 215 H (75-99) mg/dL Methylmalonic Acid (<0.40) umol/L Free [place] LC, Quant (0.33-1.94) mg/dL Free Lambda LC, Quant (0.57-2.63) mg/dL 08/21/19 Range/Units 11:50 Sodium (137-145) mmol/L Chloride (98-107) mmol/L Carbon Dioxide (22-30) mmol/L POC Glucose (mg/dL) 155 H (75-99) mg/dL Methylmalonic Acid (<0.40) umol/L Free [place] LC, Quant (0.33-1.94) mg/dL Free Lambda LC, Quant (0.57-2.63) mg/dL Assessment and Plan (1) Bicytopenia Current Visit: Yes Status: Acute Priority: High Code(s): D75.89 - OTHER SPECIFIED DISEASES OF BLOOD AND BLOOD-FORMING ORGANS SNOMED Code(s): 68188486 (2) Splenomegaly Current Visit: Yes Status: Acute Priority: High Code(s): R16.1 - SPLENOMEGALY, NOT ELSEWHERE CLASSIFIED SNOMED Code(s): 42605812 Plan: Bicytopenia workup shows no paraproteinemia, inflammatory markers within normal limits, no autoimmune markers positive Paracentesis is transudative when serum/ascitic albumin is calculated and interpreted by [facility], most consistent with chronic liver disease and clinical picture-splenomegaly and bicytopenia. Pending cytology and flow cytometry as of 08/20, will cont to follow until resulted. Anemia workup showing iron deficiency. Parenteral iron started. Can be completed outpatient. GI consulted. Recommend follow up with Dr. Paz 4-6 weeks to reevaluate iron stores and bicytopenia. Plan from Hem same
[2019-08-21 15:37] LABS: Albumin 2.03 g/dL (3.80-4.90)
[2019-08-21 16:13] VITALS: BP 128/61
[2019-08-21 16:43] LABS: Glucose,Whole Blood 134 mg/dL (75-99)
[2019-08-21 17:28] VITALS: PULSE 69
--- NOTE | 2019-08-21 17:28 | P.DS ---
Providers Date of admission: 08/18/19 10:27 Expected date of discharge: 08/21/19 Attending physician: Cheryle Read Consults: 08/16/19 16:26 Consult Physician Urgent Consulting Provider: Mikey Thomason Consult Reason/Comments: chf, cardiac strain Do you want consulting provider notified?: Yes 08/18/19 09:14 Consult Physician Routine Consulting Provider: Edward Cheung Consult Reason/Comments: abdminal pain Do you want consulting provider notified?: Yes 08/18/19 15:01 Consult Physician Routine Consulting Provider: Ochoa Kulkarni Consult Reason/Comments: abnormal CT scan of the abdomen Do you want consulting provider notified?: Yes 08/18/19 15:02 Consult Physician Routine Consulting Provider: Reese Paz Consult Reason/Comments: ascites, splenomegaly Do you want consulting provider notified?: Yes Primary care physician: Minerva Edgar Hospital Course: Diagnosis on discharge: 1. Acute on chronic systolic and diastolic congestive heart failure with exacerbation, given IV Lasix 40 mg every 8 hours in the emergency room, at this time will discontinue IV Lasix, and increase oral Lasix dose from 20 mg twice daily to 40 mg twice daily, will monitor kidney function closely. Echocardiogram was done during this admission and was reviewed by cardiology, no evidence of pericardial effusion, computed tomography scan of the abdomen showed possible evidence of pericardial effusion cardiology reviewed echocardiogram again and assured patient that there is no pericardial effusion. 2. Elevated troponin level, not consistent with acute myocardial infarction, IV heparin was discontinued by cardiology, no intervention recommended at this time. 3. Generalized weakness with multiple falls, Will consult physical therapy and occupational therapy, and assess need for rehabilitation after this admission. 4. Anemia, will monitor hemoglobin closely, will check stool Hemoccult, and assess need for GI workup, will check iron level and folate and vitamin B12 levels 5. Underlying history of hyperlipidemia maintained on Lipitor continue 6. Underlying history of insulin-dependent diabetes mellitus, continue with insulin and check hemoglobin A1c 7. Underlying history of hypertension 8. Underlying history of benign prostatic hypertrophy maintained on Flomax 9. Underlying history of anxiety disorder maintained on Xanax 10. Symptoms of abdominal distention and discomfort will check computed tomography scan of the abdomen and pelvis Will consult gastroenterology. Patient underwent paracentesis during this admission and fluid is compatible with liver disease possible liver cirrhosis related to old alcohol use from many years ago. Hospital course: Prashant Alonzo, is a 74-year-old male who presented to [facility] with multiple vague symptoms, patient has generalized weakness, shortness of breath, and had multiple falls over the last 2 weeks, patient was evaluated in the emergency room, he was afebrile, blood pressure on presentation 112/64 pulse 64 pulse ox 95% on room air, he had bilateral crackles in the lungs and 2+ bilateral lower extremity edema, laboratory data was significant for elevated troponin level of 0.118 and elevated BNP of 14,900, patient also had evidence of anemia with hemoglobin of 10.6. Due to elevated troponin level patient was started on IV heparin and was admitted to telemetry floor, patient was also started on IV Lasix due to shortness of breath and elevated BNP level. Patient has a known history of congestive heart failure, echocardiogram done in April revealed an ejection fraction of 45-50%, patient also has known history of diabetes mellitus, hypertension, hyperlipidemia, and chronic anemia. On 08/18/2019 patient was seen and examined on the medical floor he is alert and oriented 3 in no apparent distress is raising concern about abdominal distention and abdominal discomfort. There is no fever or chills no headache or dizziness no chest pain no shortness of breath no cough no nausea or vomiting no burning was urination no frequency or urgency and no hematuria. On 08/19/2019 patient was seen and examined on the medical floor he is alert and oriented 3 in no apparent distress computed tomography scan of the abdomen and pelvis revealed evidence of ascites he is scheduled for paracentesis today there is no fever or chills no headache or dizziness no chest pain no shortness of breath no cough no nausea or vomiting no abdominal pain no diarrhea no burning with urination no frequency or urgency and no hematuria On 08/20/2019 patient was seen and examined on the medical floor he is alert and oriented in no apparent distress he denies any symptoms at this time there is no fever or chills no headache or dizziness no chest pain no shortness of breath no cough no nausea or vomiting no abdominal pain no diarrhea no burning with urination no frequency or urgency and no hematuria. Patient had large amount of ascites fluid removed yesterday, results on fluid analysis is still pending, will continue to monitor most likely patient has liver cirrhosis, possible discharge to home tomorrow with outpatient follow-up with gastroenterology and cardiology On 08/21/2019 patient was seen and examined on the medical floor he is alert and oriented 3 in no apparent distress there is no fever or chills no headache or dizziness no chest pain no shortness of breath no cough no nausea or vomiting no abdominal pain no diarrhea no burning with urination no frequency or urgency and no hematuria. Patient was seen by specialist today and was cleared for discharge He will need follow-up appointment with -Primary care physician Dr. Edgar -Substation Supervisor Dr. Jack -[facility] -Hematology Dr. Paz Overall prognosis is guarded due to advanced liver disease and congestive heart failure. Patient Condition at Discharge: Serious Plan - Discharge Summary Discharge Rx Participant: No New Discharge Prescriptions: New Spironolactone [Aldactone] 25 mg PO DAILY tab Carvedilol [Coreg*] 12.5 mg PO BID-W/MEALS tab Furosemide [Lasix] 40 mg PO BID@0900,1600 tab INSULIN ASPART (NovoLOG) [NovoLOG (formulary)] 4 unit SQ ACHS #2 vial Continue Benazepril HCl 40 mg PO QAM Aspirin 81 mg PO DAILY Tamsulosin [Flomax] 0.4 mg PO HS Isosorbide Mononitrate ER [Imdur] 30 mg PO QAM Ferrous Sulfate [Iron (65 MG Elemental)] 325 mg PO DAILY #30 tab ALPRAZolam [Xanax] 0.25 mg PO Q6HR PRN tab PRN Reason: Mild Anxiety Nitroglycerin Sl Tab (0.3mg) 0.3 mg SUBLINGUAL Q5M PRN PRN Reason: Chest Pain Cyanocobalamin (Vitamin B-12) [Vitamin B-12] 1,000 mcg PO DAILY Changed Insulin Glargine,Hum.rec.anlog [Basaglar Kwikpen U-100] 35 unit SQ QAM #0 Discontinued Carvedilol [Coreg] 6.25 mg PO BID Spironolactone [Aldactone] 12.5 mg PO QAM Furosemide [Lasix] 20 mg PO BID tab Atorvastatin [Lipitor] 80 mg PO HS Discharge Medication List Benazepril HCl 40 mg PO QAM 01/22/17 [History] Aspirin 81 mg PO DAILY 01/23/17 [History] Tamsulosin [Flomax] 0.4 mg PO HS 01/23/17 [History] Isosorbide Mononitrate ER [Imdur] 30 mg PO QAM 10/25/17 [History] Ferrous Sulfate [Iron (65 MG Elemental)] 325 mg PO DAILY #30 tab 01/22/18 [Rx] ALPRAZolam [Xanax] 0.25 mg PO Q6HR PRN tab 04/27/19 [Rx] Cyanocobalamin (Vitamin B-12) [Vitamin B-12] 1,000 mcg PO DAILY 08/16/19 [History] Nitroglycerin Sl Tab (0.3mg) 0.3 mg SUBLINGUAL Q5M PRN 08/16/19 [History] Carvedilol [Coreg*] 12.5 mg PO BID-W/MEALS tab 08/21/19 [Rx] Furosemide [Lasix] 40 mg PO BID@0900,1600 tab 08/21/19 [Rx] INSULIN ASPART (NovoLOG) [NovoLOG (formulary)] 4 unit SQ ACHS #2 vial 08/21/19 [Rx] Insulin Glargine,Hum.rec.anlog [Basaglar Kwikpen U-100] 35 unit SQ QAM #0 08/21/19 [Rx] Spironolactone [Aldactone] 25 mg PO DAILY tab 08/21/19 [Rx] Follow up Appointment(s)/Referral(s): Reese Paz MD [STAFF PHYSICIAN] - 4 Weeks Traci Polanco PAC [REFERRING] - 2 Weeks (2-4 weeks) Minerva Edgar MD [Primary Care Provider] - 1-2 days
--- NOTE | 2019-08-21 22:38 | P.PN ---
Subjective Progress Note Date: 08/21/19 Principal diagnosis: Ascites, esophageal varices, abdominal pain The patient seen sitting bedside. He is tolerating his diet. No abdominal pain reported. Objective - Vital Signs Vital signs: Vital Signs Temp 97.9 F 08/21/19 08:00 Pulse 69 08/21/19 12:00 Resp 16 08/21/19 12:00 BP 110/57 08/21/19 11:57 Pulse Ox 98 08/21/19 11:57 Intake & Output 08/20/19 08/21/19 08/21/19 18:59 06:59 18:59 Intake Total 720 240 360 Output Total 100 1125 550 Balance 620 -045 -190 Weight 99.1 kg Intake: Oral 720 240 360 Output: Urine 100 1125 550 Other: Voiding Method Toilet Toilet Toilet # Voids 1 1 # Bowel Movements 1 2 1 - Exam On physical examination, patient appears comfortable in no apparent distress. HEAD: Normocephalic, atraumatic. EYES: No scleral icterus. No conjunctival injection. MOUTH: No lesions, tongue midline. NECK: Trachea midline, no gross abnormalities. ABDOMEN: Soft, obese, nontender to palpation. Bowel sounds are positive. No organomegaly. No guarding or rigidity. EXTREMITIES: No pedal edema. SKIN: No rashes, no jaundice. NEUROLOGIC: Alert and oriented x3. No focal deficits. - Labs CBC & Chem 7: 08/19/19 06:35 08/20/19 18:42 Labs: Abnormal Lab Results - Last 24 Hours (Table) 08/19/19 08/20/19 08/20/19 Range/Units 06:35 16:51 18:42 Sodium 133 L (137-145) mmol/L Chloride 94 L (98-107) mmol/L Carbon Dioxide 34 H (22-30) mmol/L POC Glucose (mg/dL) 242 H (75-99) mg/dL Methylmalonic Acid 0.64 H (<0.40) umol/L 08/20/19 08/21/19 08/21/19 Range/Units 20:07 06:10 11:50 Sodium (137-145) mmol/L Chloride (98-107) mmol/L Carbon Dioxide (22-30) mmol/L POC Glucose (mg/dL) 185 H 215 H 155 H (75-99) mg/dL Methylmalonic Acid (<0.40) umol/L Assessment and Plan (1) Ascites Narrative/Plan: 74-year-old male with multiple medical comorbidities presenting to the hospital with worsening shortness of breath and currently being treated for an exacerbation of underlying diastolic and systolic heart failure. The patient has previously had endoscopic evaluation at the beginning of 2019 with findings of small gastric and esophageal varices. Currently ultrasound of the abdomen has shown a ascites with paracentesis ordered. Suspicion is for underlying liver disease, however cannot rule out heart failure as the cause of underlying ascites. Currently patient is receiving diuretic therapy. Status: Acute Code(s): R18.8 - OTHER ASCITES SNOMED Code(s): 065340024 (2) Esophageal varices determined by endoscopy Status: Acute Code(s): I85.00 - ESOPHAGEAL VARICES WITHOUT BLEEDING SNOMED Code(s): 05061457 (3) Abdominal pain Narrative/Plan: Likely multifactorial, cannot rule out a component of pain from underlying distention with ascites. Status: Acute Code(s): R10.9 - UNSPECIFIED ABDOMINAL PAIN SNOMED Code(s): 91629663 Plan: Supportive care Continue diuresis with Aldactone and Lasix therapy Sodium restricted diet discussed at length with patient's son Continue management by internal medicine and cardiology services Paracentesis ordered, albumin consistent with cardiac or underlying liver source of the ascites, await protein and cell count Okay for sodium restricted diet as tolerated Hematology service consulted Thank you for allowing us to participate in the care of this patient
[2019-08-22] MEDS ORDERED: SPIRONOLACTONE 25 MG TAB PO SCH (09:00)
== END 2019-08-21 20:35 | disposition home or self-care (01) | DRG 292 ==
LOC: EC 14:24 → 3SCARD 17:05 → OBSVTOIN 08-18 10:27
PROVIDERS: ADMIT Internal Medicine; ATTEND Internal Medicine
PROC: 0W9G3ZZ Drainage of Peritoneal Cavity, Percutaneous Approach (ICD-10-PCS; principal; 2019-08-21)
DX: I11.0 Hypertensive heart disease with heart failure (principal); R18.8 Other ascites; I85.10 Secondary esophageal varices without bleeding; E78.5 Hyperlipidemia, unspecified; M19.90 Unspecified osteoarthritis, unspecified site; F17.200 Nicotine dependence, unspecified, uncomplicated; F32.9 Major depressive disorder, single episode, unspecified; I45.10 Unspecified right bundle-branch block; E11.9 Type 2 diabetes mellitus without complications; D50.9 Iron deficiency anemia, unspecified; I50.43 Acute on chronic combined systolic (congestive) and diastolic (congestive) heart failure; R29.6 Repeated falls; N40.0 Benign prostatic hyperplasia without lower urinary tract symptoms; F41.9 Anxiety disorder, unspecified; R53.1 Weakness; K40.90 Unilateral inguinal hernia, without obstruction or gangrene, not specified as recurrent; I44.0 Atrioventricular block, first degree; K74.60 Unspecified cirrhosis of liver; K63.5 Polyp of colon; Z11.59 Encounter for screening for other viral diseases; Z79.82 Long term (current) use of aspirin; Z79.4 Long term (current) use of insulin; Z79.899 Other long term (current) drug therapy; Z98.890 Other specified postprocedural states; Z80.3 Family history of malignant neoplasm of breast; Z83.3 Family history of diabetes mellitus; Z86.73 Personal history of transient ischemic attack (TIA), and cerebral infarction without residual deficits; Z91.81 History of falling; I25.2 Old myocardial infarction
CPT/HCPCS: 36415; 49083; 70450; 71046; 74176; 76705; 80051; 80053; 81001; 82042; 82150; 82272; 82550; 82607; 82728; 82746; 83540; 83550; 83605; 83690; 83735; 83880; 83883; 83921; 84100; 84165; 84443; 84484; 85025; 85045; 85610; 85730; 86038; 86334; 86431; 87324; 93005; 93306; 94640; 96365; 96366; 96375; 96376; 99291

== ENCOUNTER 2019-09-16 17:58 | Inpatient (IN) | payer MEDICARE, BC ==
[2019-09-16] MEDS ORDERED: ACETAMINOPHEN TAB 500 MG TAB PO STA (18:05)
--- NOTE | 2019-09-16 18:07 | ED ---
General Adult HPI - General Stated complaint: fever Time Seen by Provider: 09/16/19 17:59 Source: patient, EMS, RN notes reviewed Mode of arrival: EMS Limitations: no limitations - History of Present Illness Initial comments: Patient is a pleasant 74-year-old male presenting to the emergency department with fever. Onset was this morning. Patient is a poor historian and provides little information. Patient did have some general weakness. Patient states he feels fine and has no specific complaints. No abdominal pain. No cough or dyspnea. No urinary symptoms. - Related Data Home Medications Medication Instructions Recorded Confirmed Benazepril HCl 40 mg PO QAM 01/22/17 08/16/19 Aspirin 81 mg PO DAILY 01/23/17 08/16/19 Tamsulosin [Flomax] 0.4 mg PO HS 01/23/17 08/16/19 Isosorbide Mononitrate ER [Imdur] 30 mg PO QAM 10/25/17 08/16/19 Cyanocobalamin (Vitamin B-12) 1,000 mcg PO DAILY 08/16/19 08/16/19 [Vitamin B-12] Nitroglycerin Sl Tab (0.3mg) 0.3 mg SUBLINGUAL Q5M PRN 08/16/19 08/16/19 Previous Rx's Medication Instructions Recorded Ferrous Sulfate [Iron (65 MG 325 mg PO DAILY #30 tab 01/22/18 Elemental)] ALPRAZolam [Xanax] 0.25 mg PO Q6HR PRN tab 04/27/19 Furosemide [Lasix] 40 mg PO BID@0900,1600 tab 08/21/19 INSULIN ASPART (NovoLOG) [NovoLOG 4 unit SQ ACHS #2 vial 08/21/19 (formulary)] Insulin Glargine,Hum.rec.anlog 35 unit SQ QAM #0 08/21/19 [Basaglar Kwikpen U-100] Spironolactone [Aldactone] 25 mg PO DAILY tab 08/21/19 carvediloL [Coreg*] 12.5 mg PO BID-W/MEALS tab 08/21/19 Allergies Allergy/AdvReac Type Severity Reaction Status Date / Time No Known Allergies Allergy Verified 09/16/19 20:26 Review of Systems ROS Statement: Those systems with pertinent positive or pertinent negative responses have been documented in the HPI. ROS Other: All systems not noted in ROS Statement are negative. Constitutional: Reports: fever Eyes: Denies: eye pain ENT: Denies: ear pain Respiratory: Denies: cough, dyspnea Cardiovascular: Denies: chest pain Endocrine: Reports: fatigue Gastrointestinal: Denies: abdominal pain Genitourinary: Denies: dysuria Musculoskeletal: Denies: back pain Skin: Denies: rash Neurological: Reports: weakness (Patient did have general weakness). Denies: headache Past Medical History Past Medical History: Chest Pain / Angina, Heart Failure, CVA/TIA, Diabetes Mellitus, Hyperlipidemia, Hypertension, Osteoarthritis (OA) Additional Past Medical History / Comment(s): incontinent of stools intermittently. low iron levels, possible GI bleed-dark tarry stools per son, Son stated "has had recent falls related to blood sugar going low 60s"-HX 2017 and 2018 had episodes of CHF approx 7-10 days post receiving flu vaccine,TIA,Type2 IDDM History of Any Multi-Drug Resistant Organisms: None Reported Past Surgical History: Hernia Repair Additional Past Surgical History / Comment(s): 10/31/17 robot assisted laprascopic umbilical hernia repair with mesh., 07/30/18 repair recurrent incarerated hernia Past Anesthesia/Blood Transfusion Reactions: No Reported Reaction Additional Past Anesthesia/Blood Transfusion Reaction / Comment(s): never had anesthesia Past Psychological History: Depression Additional Psychological History / Comment(s): Pt resides with his spouse. He states he uses no assistive devices. He no longer drives, his spouse does the driving and manages his medications. Past Alcohol Use History: None Reported Additional Past Alcohol Use History / Comment(s): started smoking age teen, stopped for 25 years and restarted smoking occasionally/lightly-a pack will last 2 weeks Past Drug Use History: None Reported - Past Family History Mother Family Medical History: Cancer Additional Family Medical History / Comment(s): breast cancer Father Family Medical History: Unable to Obtain Sister(s) Family Medical History: Cancer Brother(s) Family Medical History: Diabetes Mellitus General Exam Limitations: no limitations General appearance: alert, in no apparent distress Head exam: Present: normocephalic Eye exam: Present: normal appearance, PERRL ENT exam: Present: normal oropharynx Neck exam: Present: normal inspection. Absent: tenderness, meningismus Respiratory exam: Present: normal lung sounds bilaterally Cardiovascular Exam: Present: regular rate, normal rhythm GI/Abdominal exam: Present: soft. Absent: distended, tenderness Extremities exam: Present: normal inspection Neurological exam: Present: alert, CN II-XII intact. Absent: motor sensory deficit Expanded Neurological exam: Present: protecting the airway Patient oriented to: Present: person, place. Absent: time Motor strength exam: RUE: 5, LUE: 5, RLE: 5, LLE: 5 Psychiatric exam: Present: normal affect, normal mood Skin exam: Present: normal color Course Vital Signs 09/16/19 09/16/19 09/16/19 18:07 19:00 19:37 Temperature 102.6 F H 99.5 F Pulse Rate 93 87 Respiratory 18 24 Rate Blood Pressure 122/58 100/40 O2 Sat by Pulse 95 97 Oximetry - Reevaluation(s) Reevaluation #1: 09/16/19 20:16 Patient does have fever and there is concern for infection however etiology is unclear at this time. There is concern for sepsis diagnosed at 2014. Blood culture and lactic acid and IV antibiotics ordered. Fluid bolus ordered. [place] body weight of 76 kg 4 fluid bolus of 2300 mL EKG Findings - EKG Comments: EKG Findings:: Sinus rhythm at 90. For screening AV block [place] of 260. QRS 150. QT 492. QTC 61. Left axis. Right bundle branch block. Inferior Q waves. Le ft anterior fascicular block. Nonspecific ST-T. Medical Decision Making - Medical Decision Making Patient reevaluated. Son is present and helps provide history. Patient states he is feeling fine. Systolic blood pressure 95. Patient and family updated on results and plan. Case was discussed in detail with Dr. Read, who will admit for Dr. rosales. - Lab Data Result diagrams: 09/16/19 18:23 09/16/19 18:23 Lab Results 09/16/19 09/16/19 09/16/19 Range/Units 18:23 18:23 18:23 WBC 8.6 (3.8-10.6) k/uL RBC 3.96 L (4.30-5.90) m/uL Hgb 10.7 L (13.0-17.5) gm/dL Hct 32.4 L (39.0-53.0) % MCV 81.8 (80.0-100.0) fL MCH 27.1 (25.0-35.0) pg MCHC 33.2 (31.0-37.0) g/dL RDW 15.2 (11.5-15.5) % Plt Count 188 (150-450) k/uL Neutrophils % 95 % Lymphocytes % 2 % Monocytes % 2 % Eosinophils % 1 % Basophils % 0 % Neutrophils # 8.1 H (1.3-7.7) k/uL Lymphocytes # 0.2 L (1.0-4.8) k/uL Monocytes # 0.2 (0-1.0) k/uL Eosinophils # 0.1 (0-0.7) k/uL Basophils # 0.0 (0-0.2) k/uL PT 11.2 (9.0-12.0) sec INR 1.1 (<1.2) APTT 23.1 (22.0-30.0) sec Sodium 135 L (137-145) mmol/L Potassium 2.9 L (3.5-5.1) mmol/L Chloride 101 (98-107) mmol/L Carbon Dioxide 26 (22-30) mmol/L Anion Gap 8 mmol/L BUN 27 H (9-20) mg/dL Creatinine 1.28 H (0.66-1.25) mg/dL Est GFR (CKD-EPI)AfAm 63 (>60 ml/min/1.73 sqM) Est GFR (CKD-EPI)NonAf 54 (>60 ml/min/1.73 sqM) Glucose 93 (74-99) mg/dL Plasma Lactic Acid Calvin (0.7-2.0) mmol/L Calcium 7.7 L (8.4-10.2) mg/dL Magnesium 1.7 (1.6-2.3) mg/dL Total Bilirubin 0.8 (0.2-1.3) mg/dL AST 14 L (17-59) U/L ALT 9 (4-49) U/L Alkaline Phosphatase 168 H (38-126) U/L Lactate Dehydrogenase 216 L (313-618) U/L C-Reactive Protein 69.1 H (<10.0) mg/L Total Protein 5.6 L (6.3-8.2) g/dL Albumin 2.4 L (3.5-5.0) g/dL Urine Color Urine Appearance (Clear) Urine pH (5.0-8.0) Ur Specific [place] (1.001-1.035) Urine Protein (Negative) Urine Glucose (UA) (Negative) Urine Ketones (Negative) Urine Blood (Negative) Urine Nitrite (Negative) Urine Bilirubin (Negative) Urine Urobilinogen (<2.0) mg/dL Ur Leukocyte Esterase (Negative) Urine RBC (0-5) /hpf Urine WBC (0-5) /hpf Ur Squamous Epith Cells (0-4) /hpf Urine Bacteria (None) /hpf Hyaline Casts (0-2) /lpf Urine Mucus (None) /hpf 09/16/19 09/16/19 Range/Units 18:23 18:54 WBC (3.8-10.6) k/uL RBC (4.30-5.90) m/uL Hgb (13.0-17.5) gm/dL Hct (39.0-53.0) % MCV (80.0-100.0) fL MCH (25.0-35.0) pg MCHC (31.0-37.0) g/dL RDW (11.5-15.5) % Plt Count (150-450) k/uL Neutrophils % % Lymphocytes % % Monocytes % % Eosinophils % % Basophils % % Neutrophils # (1.3-7.7) k/uL Lymphocytes # (1.0-4.8) k/uL Monocytes # (0-1.0) k/uL Eosinophils # (0-0.7) k/uL Basophils # (0-0.2) k/uL PT (9.0-12.0) sec INR (<1.2) APTT (22.0-30.0) sec Sodium (137-145) mmol/L Potassium (3.5-5.1) mmol/L Chloride (98-107) mmol/L Carbon Dioxide (22-30) mmol/L Anion Gap mmol/L BUN (9-20) mg/dL Creatinine (0.66-1.25) mg/dL Est GFR (CKD-EPI)AfAm (>60 ml/min/1.73 sqM) Est GFR (CKD-EPI)NonAf (>60 ml/min/1.73 sqM) Glucose (74-99) mg/dL Plasma Lactic Acid Calvin 1.2 (0.7-2.0) mmol/L Calcium (8.4-10.2) mg/dL Magnesium (1.6-2.3) mg/dL Total Bilirubin (0.2-1.3) mg/dL AST (17-59) U/L ALT (4-49) U/L Alkaline Phosphatase (38-126) U/L Lactate Dehydrogenase (313-618) U/L C-Reactive Protein (<10.0) mg/L Total Protein (6.3-8.2) g/dL Albumin (3.5-5.0) g/dL Urine Color Yellow Urine Appearance Clear (Clear) Urine pH 5.5 (5.0-8.0) Ur Specific [place] 1.014 (1.001-1.035) Urine Protein 1+ H (Negative) Urine Glucose (UA) Negative (Negative) Urine Ketones Negative (Negative) Urine Blood Negative (Negative) Urine Nitrite Negative (Negative) Urine Bilirubin Negative (Negative) Urine Urobilinogen 2.0 (<2.0) mg/dL Ur Leukocyte Esterase Negative (Negative) Urine RBC <1 (0-5) /hpf Urine WBC 2 (0-5) /hpf Ur Squamous Epith Cells 1 (0-4) /hpf Urine Bacteria Rare H (None) /hpf Hyaline Casts 18 H (0-2) /lpf Urine Mucus Rare H (None) /hpf - Radiology Data Radiology results: image reviewed (Chest x-ray shows no acute process) Critical Care Time Critical Care Time: Yes Total Critical Care Time: 32 Disposition Clinical Impression: Fever, Sepsis, Hypokalemia Disposition: ADMITTED IP TO THIS [facility] Condition: Serious Is patient prescribed a controlled substance at d/c from ED?: No Referrals: Minerva Edgar MD [Primary Care Provider] - 1-2 days Decision Time: 20:18
[2019-09-16 18:32] LABS: Basophils % (A) 0 %; Eosinophils # (A) 0.1 k/uL (0-0.7); Eosinophils % (A) 1 %; HCT 32.4 % (39.0-53.0); HGB 10.7 gm/dL (13.0-17.5); Lymphocytes # (A) 0.2 k/uL (1.0-4.8); Lymphocytes % (A) 2 %; MCH 27.1 pg (25.0-35.0); MCHC 33.2 g/dL (31.0-37.0); MCV 81.8 fL (80.0-100.0); Mean Platelet Volume 8.1; Monocytes # (A) 0.2 k/uL (0-1.0); Monocytes % (A) 2 %; Neutrophils # (A) 8.1 k/uL (1.3-7.7); Neutrophils % (A) 95 %; Platelet Count 188 k/uL (150-450); RBC 3.96 m/uL (4.30-5.90); RDW 15.2 % (11.5-15.5); WBC 8.6 k/uL (3.8-10.6)
[2019-09-16 18:45] LABS: Albumin 2.4 g/dL (3.5-5.0); C Reactive Protein 69.1 mg/L (<10.0); Calcium 7.7 mg/dL (8.4-10.2); Magnesium 1.7 mg/dL (1.6-2.3); Potassium 2.9 mmol/L (3.5-5.1); Total Bilirubin 0.8 mg/dL (0.2-1.3); Total Protein 5.6 g/dL (6.3-8.2)
[2019-09-16 18:48] LABS: INR 1.1 (<1.2); Partial Thromboplastin Time 23.1 sec (22.0-30.0); Prothrombin Time 11.2 sec (9.0-12.0)
[2019-09-16 19:02] LABS: Appearance,Urine Clear (Clear); Bacteria,Urine Rare /hpf; Bilirubin,Urine Negative (Negative); Blood,Urine Negative (Negative); Color,Urine Yellow; Glucose,Urine (UA) Negative (Negative); Hyaline Casts,Urine 18 /lpf (0-2); Ketones,Urine Negative (Negative); Leukocyte Esterase,Urine Negative (Negative); Mucus,Urine Rare /hpf; Nitrite,Urine Negative (Negative); PH, Urine 5.5 (5.0-8.0); Protein,Urine 1+ (Negative); RBC,Urine <1 /hpf (0-5); Specific Gravity,Urine 1.014 (1.001-1.035); Squamous Epithelial Cell,Urine 1 /hpf (0-4); WBC,Urine 2 /hpf (0-5)
--- NOTE | 2019-09-16 19:18 | XR ---
EXAMINATION TYPE: XR chest 1V portable DATE OF EXAM: 09/16/2019 COMPARISON: 08/16/2019 HISTORY: Pneumonia. Fever. TECHNIQUE: 2 views FINDINGS: There is no heart failure nor confluent pneumonic infiltrate. Thoracic aorta is atheromatou s. There are chest leads. Costophrenic angles are clear. IMPRESSION: No active cardiopulmonary disease. Atheromatous aorta. No change compared to old exam.
[2019-09-16] MEDS ORDERED: SODIUM CHLORIDE 0.9% 1,000 ML IV STA ×3 (20:13)
[2019-09-16] MEDS ORDERED: SODIUM CHLORIDE 0.9% 500 ML 500 ML IV STA (20:13)
[2019-09-16] MEDS ORDERED: POTASSIUM CHLORIDE 20 MEQ in WATER FOR INJECTION 1 100ML.BAG IVPB STA (20:14)
[2019-09-16] MEDS ORDERED: POTASSIUM CHLORIDE ER 20 MEQ TAB.ER PO STA (20:14)
[2019-09-16] MEDS ORDERED: NALOXONE 0.4 MG/ML 1 ML VIAL IV PRN (20:18)
[2019-09-16 22:01] LABS: Glucose,Whole Blood 103 mg/dL (75-99)
[2019-09-17] MEDS ORDERED: ALPRAZolam 0.25 MG TAB PO PRN (00:46)
[2019-09-17] MEDS ORDERED: NITROGLYCERIN 0.3 MG SUBLINGUAL PRN (00:46)
[2019-09-17 06:17] LABS: Glucose,Whole Blood 97 mg/dL (75-99)
[2019-09-17 06:36] LABS: Basophils % (A) 0 %; Eosinophils # (A) 0.1 k/uL (0-0.7); Eosinophils % (A) 1 %; HCT 29.2 % (39.0-53.0); Lymphocytes # (A) 0.6 k/uL (1.0-4.8); Lymphocytes % (A) 9 %; MCHC 31.1 g/dL (31.0-37.0); MCV 83.8 fL (80.0-100.0); Mean Platelet Volume 7.5; Monocytes # (A) 0.5 k/uL (0-1.0); Monocytes % (A) 8 %; Neutrophils # (A) 5.4 k/uL (1.3-7.7); Neutrophils % (A) 80 %; Platelet Count 159 k/uL (150-450); RBC 3.48 m/uL (4.30-5.90); RDW 15.3 % (11.5-15.5); WBC 6.8 k/uL (3.8-10.6)
[2019-09-17 06:41] LABS: Calcium 7.4 mg/dL (8.4-10.2); Potassium 3.5 mmol/L (3.5-5.1); Total Bilirubin 0.4 mg/dL (0.2-1.3); Total Protein 4.9 g/dL (6.3-8.2)
[2019-09-17 06:59] LABS: HGB 9.1 gm/dL (13.0-17.5)
--- NOTE | 2019-09-17 09:03 | US ---
EXAMINATION TYPE: US abdomen complete DATE OF EXAM: 09/17/2019 COMPARISON: CT & US 2019 CLINICAL HISTORY: distended abd . Distended abdomen, exam done portable. EXAM MEASUREMENTS: Liver Length: 19.5 cm Gallbladder Wall: 0.4 cm CBD: 0.5 cm Spleen: 16.7 cm Right Kidney: 12.8 x 6.4 x 5.7 cm Left Kidney: 12.6 x 4.7 x 6.0 cm Pancreas: The visualized head is unremarkable. Remainder of pancreas obscured due to overlying bowel gas. Liver: Hepatomegaly. There is coarsened hepatic echotexture and peripheral nodularity. Gallbladder: There is minimal wall thickening likely related to cirrhotic liver. No pericholecystic edema. Natural Resources Instructor reports a negative sonographic Harper sign. CBD: Normal. No intrahepatic or extrahepatic biliary ductal dilatation. Spleen: Splenomegaly. Calcified granulomas redemonstrated. Right Kidney: Normal, though slightly obscured inferior pole. Left Kidney: Normal. Upper IVC: Normal. Abd Aorta: No proximal abdominal aortic aneurysm. Mid and distal portions obscured due to overlying bowel gas. Other: Ascites. IMPRESSION: Cirrhotic liver with signs of portal hypertension including splenomegaly and ascites.
[2019-09-17] MEDS: INSULIN ASPART (NovoLOG) 100 UNIT/ML VIAL SQ SCH ×3 (09:21→17:47)
[2019-09-17] MEDS: FERROUS SULFATE 325 MG TAB PO SCH (09:50)
[2019-09-17] MEDS: INSULIN DETEMIR (LEVEMIR) 100 UNIT/ML SYR SQ SCH (09:50)
[2019-09-17] MEDS: CYANOCOBALAMIN 500 MCG TAB PO SCH (09:50)
[2019-09-17] MEDS: FUROSEMIDE 40 MG TAB PO SCH ×3 (09:50→21:15)
[2019-09-17] MEDS: ISOSORBIDE MONONITRATE ER 30 MG TAB.ER.24H PO SCH (09:50)
[2019-09-17] MEDS: ASPIRIN 81 MG PO SCH (09:50)
[2019-09-17] MEDS: carvediloL 12.5 MG TAB PO SCH ×2 (09:50→17:47)
[2019-09-17] MEDS: SPIRONOLACTONE 25 MG TAB PO SCH ×2 (09:51→21:15)
[2019-09-17] MEDS: MULTIVITAMINS, THERA 1 EACH TAB PO SCH (09:51)
[2019-09-17] MEDS: lisinopriL 20 MG TAB PO SCH (09:51)
[2019-09-17 11:37] LABS: Glucose,Whole Blood 71 mg/dL (75-99)
[2019-09-17 12:56] LABS: Ferritin 128.2 ng/mL (22.0-322.0)
--- NOTE | 2019-09-17 16:30 | US ---
EXAMINATION TYPE: US paracentesis abd w/image DATE OF EXAM: 09/17/2019 CLINICAL HISTORY: Ascites Preprocedure preliminary imaging demonstrated moderate volume ascites of the bilateral lower quadrant s, and small volume ascites of the upper quadrant. The procedure was discussed with the patient and his son. The risks, complications, benefits, and alt ernatives were discussed and any questions were answered. Informed consent was obtained. The patient requested his son signed consent form. Verbal consent was also confirmed with the patient himself. Th e patient was placed supine on the ultrasound table and prepped and draped in the usual sterile fashi on. All elements of maximal barrier technique were utilized. Under ultrasound guidance, access into the left lower quadrant was obtained with a 5 [place] one-step centesis catheter. Approximately 2.2 liters of clear serous fluid was removed. Catheter was removed and sterile bandage was applied. The patient was stable throughout the procedure and remained stable upon discharge from Department of Radiology. IMPRESSION: Successful ultrasound-guided diagnostic and therapeutic paracentesis, with removal of 2.2 liters of c lear serous fluid.
[2019-09-17 16:48] LABS: Glucose,Whole Blood 78 mg/dL (75-99)
[2019-09-17 17:42] LABS: Appearance,BF Clear; Nucleated Cells, Body Fluid 195 /uL; RBC, Body Fluid 1525 /uL
[2019-09-17 17:44] LABS: Mononuclear WBC,Body Fluid 58 %; Polynuclear WBC,Body Fluid 42 %; Total Cells Counted,Body Fluid 100
--- NOTE | 2019-09-17 18:00 | P.HPIM ---
History of Present Illness [facility] of fever he was evaluated in the emergency room, his temperature on presentation was 102.6 pulse 93 respiration 18 blood pressure 122/58 pulse ox 95% on 3 L nasal cannula, patient had no other complaints, he had abdominal distention with evidence of sinusitis, otherwise he denies any complaints there was no chills no headache no dizziness no chest pain no shortness of breath no cough no nausea or vomiting no abdominal pain no diarrhea no burning with urination no frequency or urgency and no hematuria, he states his fevers started about 24 hours prior to presentation, chest x-ray was done in the emergency room and did not reveal any evidence of pneumonia, urine analysis was done and did not reveal any evidence of urinary tract infection, patient was admitted to medical floor, radiology consult was requested for paracentesis, gastroenterology consult and infectious disease consultation were requested. Patient was admitted recently to [facility] at that time he was diagnosed with sinusitis and possible liver cirrhosis. Past Medical History Past Medical History: Chest Pain / Angina, Heart Failure, CVA/TIA, Diabetes Mellitus, Hyperlipidemia, Hypertension, Osteoarthritis (OA) Additional Past Medical History / Comment(s): incontinent of stools intermittently. low iron levels, possible GI bleed-dark tarry stools per son, Son stated "has had recent falls related to blood sugar going low 60s"-HX 2016 and 2018 had episodes of CHF approx 7-10 days post receiving flu vaccine,TIA,Type2 IDDM History of Any Multi-Drug Resistant Organisms: None Reported Past Surgical History: Hernia Repair Additional Past Surgical History / Comment(s): 10/31/17 robot assisted lap rascopic umbilical hernia repair with mesh., 07/30/18 repair recurrent incarerated hernia Past Anesthesia/Blood Transfusion Reactions: No Reported Reaction Additional Past Anesthesia/Blood Transfusion Reaction / Comment(s): never had anesthesia Smoking Status: Current every day smoker - Past Family History Mother Family Medical History: Cancer Additional Family Medical History / Comment(s): breast cancer Father Family Medical History: Unable to Obtain Sister(s) Family Medical History: Cancer Brother(s) Family Medical History: Diabetes Mellitus Medications and Allergies Home Medications Medication Instructions Recorded Confirmed Type Benazepril HCl 40 mg PO QAM 01/22/17 09/16/19 History Aspirin 81 mg PO DAILY 01/23/17 09/16/19 History Tamsulosin [Flomax] 0.4 mg PO HS 01/23/17 09/16/19 History Isosorbide Mononitrate ER [Imdur] 30 mg PO QAM 10/25/17 09/16/19 History Ferrous Sulfate [Iron (65 MG 325 mg PO DAILY #30 tab 01/22/18 09/16/19 Rx Elemental)] ALPRAZolam [Xanax] 0.25 mg PO Q6HR PRN tab 04/27/19 09/16/19 Rx Cyanocobalamin (Vitamin B-12) 1,000 mcg PO DAILY 08/16/19 09/16/19 History [Vitamin B-12] Nitroglycerin Sl Tab (0.3mg) 0.3 mg SUBLINGUAL Q5M PRN 08/16/19 09/16/19 History carvediloL [Coreg*] 12.5 mg PO BID-W/MEALS tab 08/21/19 09/16/19 Rx Furosemide [Lasix] 40 mg PO TID 09/16/19 09/16/19 History INSULIN ASPART (NovoLOG) [NovoLOG 4 unit SQ AC-TID 09/16/19 09/16/19 History (formulary)] Insulin Glargine,Hum.rec.anlog 40 unit SQ QAM 09/16/19 09/16/19 History [Basaglar Kwikpen U-100] Multivitamins, Thera [Multivitamin 1 tab PO DAILY 09/16/19 09/16/19 History (formulary)] Spironolactone [Aldactone] 25 mg PO BID 09/16/19 09/16/19 History Allergies Allergy/AdvReac Type Severity Reaction Status Date / Time No Known Allergies Allergy Verified 09/16/19 20:26 Physical Exam Vitals: Vital Signs Temp Pulse Pulse Resp BP BP Pulse Ox 09/17/19 04:00 97.6 F 58 L 18 103/61 97 09/16/19 23:37 78 18 09/16/19 23:34 98 F 78 18 109/58 96 09/16/19 21:30 97.5 F L 81 18 114/56 98 09/16/19 21:02 99 F 09/16/19 20:30 78 20 95/44 95 09/16/19 20:00 75 20 92/36 93 L 09/16/19 19:37 99.5 F 09/16/19 19:30 101/40 09/16/19 19:00 87 24 100/40 97 09/16/19 18:07 102.6 F H 93 18 122/58 95 Intake and Output 09/16/19 09/17/19 09/17/19 22:59 06:59 14:59 Output Total 50 100 Balance -50 -100 Output: Urine 50 100 Other: # Voids 1 # Bowel Movements 2 Weight 101.605 kg 99.5 kg In general patient is alert and oriented 3 in no apparent distress HEENT head normocephalic and atraumatic Neck is supple no JVD no goiter no lymphadenopathy Chest exam reveals a few scattered rhonchi no wheezing Cardiac exam reveals regular heart sounds S1 and S2 no gallops no murmurs Abdomen is soft nontender distended no organomegaly no palpable masses with normal bowel sounds Extremity exam reveals no edema no cyanosis or clubbing Results CBC & Chem 7: 09/17/19 06:12 09/17/19 06:12 Labs: Abnormal Lab Results - Last 24 Hours (Table) 09/16/19 09/16/19 09/16/19 Range/Units 18:23 18:23 18:23 RBC 3.96 L (4.30-5.90) m/uL Hgb 10.7 L (13.0-17.5) gm/dL Hct 32.4 L (39.0-53.0) % Neutrophils # 8.1 H (1.3-7.7) k/uL Lymphocytes # 0.2 L (1.0-4.8) k/uL Sodium 135 L (137-145) mmol/L Potassium 2.9 L (3.5-5.1) mmol/L BUN 27 H (9-20) mg/dL Creatinine 1.28 H (0.66-1.25) mg/dL POC Glucose (mg/dL) (75-99) mg/dL Calcium 7.7 L (8.4-10.2) mg/dL AST 14 L (17-59) U/L Alkaline Phosphatase 168 H (38-126) U/L Lactate Dehydrogenase 216 L (313-618) U/L C-Reactive Protein 69.1 H (<10.0) mg/L Total Protein 5.6 L (6.3-8.2) g/dL Albumin 2.4 L (3.5-5.0) g/dL Procalcitonin 2.72 H (0.02-0.09) ng/mL Urine Protein (Negative) Urine Bacteria (None) /hpf Hyaline Casts (0-2) /lpf Urine Mucus (None) /hpf 09/16/19 09/16/19 09/17/19 Range/Units 18:54 21:59 06:12 RBC 3.48 L (4.30-5.90) m/uL Hgb 9.1 L D (13.0-17.5) gm/dL Hct 29.2 L (39.0-53.0) % Neutrophils # (1.3-7.7) k/uL Lymphocytes # 0.6 L (1.0-4.8) k/uL Sodium (137-145) mmol/L Potassium (3.5-5.1) mmol/L BUN (9-20) mg/dL Creatinine (0.66-1.25) mg/dL POC Glucose (mg/dL) 103 H (75-99) mg/dL Calcium (8.4-10.2) mg/dL AST (17-59) U/L Alkaline Phosphatase (38-126) U/L Lactate Dehydrogenase (313-618) U/L C-Reactive Protein (<10.0) mg/L Total Protein (6.3-8.2) g/dL Albumin (3.5-5.0) g/dL Procalcitonin (0.02-0.09) ng/mL Urine Protein 1+ H (Negative) Urine Bacteria Rare H (None) /hpf Hyaline Casts 18 H (0-2) /lpf Urine Mucus Rare H (None) /hpf 09/17/19 Range/Units 06:12 RBC (4.30-5.90) m/uL Hgb (13.0-17.5) gm/dL Hct (39.0-53.0) % Neutrophils # (1.3-7.7) k/uL Lymphocytes # (1.0-4.8) k/uL Sodium (137-145) mmol/L Potassium (3.5-5.1) mmol/L BUN 29 H (9-20) mg/dL Creatinine (0.66-1.25) mg/dL POC Glucose (mg/dL) (75-99) mg/dL Calcium 7.4 L (8.4-10.2) mg/dL AST (17-59) U/L Alkaline Phosphatase (38-126) U/L Lactate Dehydrogenase (313-618) U/L C-Reactive Protein (<10.0) mg/L Total Protein 4.9 L (6.3-8.2) g/dL Albumin 2.0 L (3.5-5.0) g/dL Procalcitonin (0.02-0.09) ng/mL Urine Protein (Negative) Urine Bacteria (None) /hpf Hyaline Casts (0-2) /lpf Urine Mucus (None) /hpf Thrombosis Risk Factor Assmnt - Choose All That Apply Each Risk Factor Represents 3 Points: Age 75 years or older Thrombosis Risk Factor Assessment Total Risk Factor Score: 3 Thrombosis Risk Factor Assessment Level: Moderate Risk Assessment and Plan Plan: 1. Febrile illness cause is unclear, no evidence of pneumonia no evidence of urinary tract infection, Covid 19 testing pending 2. Ascites radiology consult requested for paracentesis 3. Underlying history of congestive heart failure systolic and diastolic, stable at this time. with recent admission to the hospital 1 months ago for congestive heart failure exacerbation. 4. Underlying history of hypertension 5. Underlying history of hyperlipidemia 6. Underlying history of BPH maintained on Flomax 7. Underlying history of anxiety disorder at this time medication and labs were reviewed consultation for gastroenterology and infectious disease requested will follow closely
[2019-09-17 20:30] LABS: Glucose,Whole Blood 77 mg/dL (75-99)
[2019-09-17] MEDS: TAMSULOSIN 0.4 MG CAP.ER.24H PO SCH (21:15)
[2019-09-18 01:05] LABS: Total Protein, Body Fluid 1980 mg/dL
[2019-09-18 01:21] LABS: Albumin, Fluid Source Ascites
[2019-09-18 01:58] LABS: Glucose,Whole Blood 55 mg/dL (75-99)
[2019-09-18 02:13] LABS: Glucose,Whole Blood 72 mg/dL (75-99)
[2019-09-18 06:20] LABS: Glucose,Whole Blood 92 mg/dL (75-99)
[2019-09-18] MEDS: INSULIN DETEMIR (LEVEMIR) 100 UNIT/ML SYR SQ SCH (06:27)
[2019-09-18] MEDS: INSULIN ASPART (NovoLOG) 100 UNIT/ML VIAL SQ SCH ×3 (06:27→16:41)
[2019-09-18] MEDS: carvediloL 12.5 MG TAB PO SCH ×2 (06:31→16:41)
[2019-09-18 06:52] LABS: Basophils % (A) 0 %; Eosinophils % (A) 1 %; HGB 9.1 gm/dL (13.0-17.5); Lymphocytes # (A) 0.8 k/uL (1.0-4.8); Lymphocytes % (A) 20 %; MCH 26.3 pg (25.0-35.0); MCHC 31.5 g/dL (31.0-37.0); MCV 83.4 fL (80.0-100.0); Mean Platelet Volume 7.4; Monocytes # (A) 0.4 k/uL (0-1.0); Monocytes % (A) 9 %; Neutrophils # (A) 2.6 k/uL (1.3-7.7); Neutrophils % (A) 67 %; Platelet Count 138 k/uL (150-450); RBC 3.48 m/uL (4.30-5.90); RDW 15.4 % (11.5-15.5); WBC 3.9 k/uL (3.8-10.6)
[2019-09-18 07:01] LABS: Albumin 2.1 g/dL (3.5-5.0); Calcium 7.2 mg/dL (8.4-10.2); Potassium 3.5 mmol/L (3.5-5.1); Total Bilirubin 0.4 mg/dL (0.2-1.3); Total Protein 5.1 g/dL (6.3-8.2)
[2019-09-18] MEDS: ASPIRIN 81 MG PO SCH (10:45)
[2019-09-18] MEDS: CYANOCOBALAMIN 500 MCG TAB PO SCH (10:45)
[2019-09-18] MEDS: ISOSORBIDE MONONITRATE ER 30 MG TAB.ER.24H PO SCH (10:46)
[2019-09-18] MEDS: lisinopriL 20 MG TAB PO SCH (10:46)
[2019-09-18] MEDS: FERROUS SULFATE 325 MG TAB PO SCH (10:46)
[2019-09-18] MEDS: MULTIVITAMINS, THERA 1 EACH TAB PO SCH (10:46)
[2019-09-18] MEDS: FUROSEMIDE 40 MG TAB PO SCH ×3 (10:47→19:58)
[2019-09-18] MEDS: SPIRONOLACTONE 25 MG TAB PO SCH ×2 (10:47→19:58)
[2019-09-18 12:17] LABS: Glucose,Whole Blood 134 mg/dL (75-99)
--- NOTE | 2019-09-18 14:40 | P.PN ---
Subjective Progress Note Date: 09/17/19 Principal diagnosis: Cirrhosis Attempt was made to see the patient, however the patient was unavailable and she was undergoing paracentesis. We'll see the patient tomorrow. Objective - Vital Signs Vital signs: Vital Signs Temp 98.1 F 09/18/19 12:00 Pulse 58 L 09/18/19 12:00 Resp 16 09/18/19 12:00 BP 136/63 09/18/19 12:00 Pulse Ox 95 09/18/19 12:00 Intake & Output 09/17/19 09/18/19 09/18/19 18:59 06:59 18:59 Intake Total 240 50 476 Output Total 250 950 Balance -10 900 476 Weight 102 kg Intake: Intake, IV Titration 50 Amount cefTRIAXone 1 gm In 50 Sodium Chloride 0.9% 50 ml @ 100 mls/hr IVPB Q12HR [facility] Rx#:[id number] Oral 240 476 Output: Urine 250 950 Other: Voiding Method Urinal Urinal # Voids 1 2 1 # Bowel Movements 1 - Labs CBC & Chem 7: 09/18/19 06:32 09/18/19 06:32 Labs: Abnormal Lab Results - Last 24 Hours (Table) 09/18/19 09/18/19 09/18/19 Range/Units 01:57 02:12 06:32 RBC (4.30-5.90) m/uL Hgb (13.0-17.5) gm/dL Hct (39.0-53.0) % Plt Count (150-450) k/uL Lymphocytes # (1.0-4.8) k/uL Sodium 135 L (137-145) mmol/L BUN 25 H (9-20) mg/dL POC Glucose (mg/dL) 55 L 72 L (75-99) mg/dL Calcium 7.2 L (8.4-10.2) mg/dL Alkaline Phosphatase 130 H (38-126) U/L Total Protein 5.1 L (6.3-8.2) g/dL Albumin 2.1 L (3.5-5.0) g/dL 09/18/19 09/18/19 Range/Units 06:32 12:16 RBC 3.48 L (4.30-5.90) m/uL Hgb 9.1 L (13.0-17.5) gm/dL Hct 29.0 L (39.0-53.0) % Plt Count 138 L (150-450) k/uL Lymphocytes # 0.8 L (1.0-4.8) k/uL Sodium (137-145) mmol/L BUN (9-20) mg/dL POC Glucose (mg/dL) 134 H (75-99) mg/dL Calcium (8.4-10.2) mg/dL Alkaline Phosphatase (38-126) U/L Total Protein (6.3-8.2) g/dL Albumin (3.5-5.0) g/dL Microbiology - Last 24 Hours (Table) 09/17/19 14:59 Gram Stain - Preliminary Ascites Fluid Body Fluid Culture - Preliminary 09/17/19 14:59 Anaerobic Culture - Preliminary Ascites Fluid 09/16/19 18:23 Blood Culture - Preliminary Blood No Growth after 24 hours
[2019-09-18 16:20] VITALS: RESP 18
[2019-09-18 16:35] LABS: Glucose,Whole Blood 202 mg/dL (75-99)
--- NOTE | 2019-09-18 17:27 | P.PN ---
Subjective Progress Note Date[facility] chief [facility] of fever he was evaluated in the emergency room, his temperature on presentation was 102.6 pulse 93 respiration 18 blood pressure 122/58 pulse ox 95% on 3 L nasal cannula, patient had no other complaints, he had abdominal distention with evidence of sinusitis, otherwise he denies any complaints there was no chills no headache no dizziness no chest pain no shortness of breath no cough no nausea or vomiting no abdominal pain no diarrhea no burning with urination no frequency or urgency and no hematuria, he states his fevers started about 24 hours prior to presentation, chest x-ray was done in the emergency room and did not reveal any evidence of pneumonia, urine analysis was done and did not reveal any evidence of urinary tract infection, patient was admitted to medical floor, radiology consult was requested for paracentesis, gastroenterology consult and infectious disease consultation were requested. Patient was admitted recently to [facility] at that time he was diagnosed with sinusitis and possible liver cirrhosis. On 09/18/2019 patient was seen and examined on the medical floor he is alert and oriented 3 in no apparent distress there is no new episodes of fever no chills no headache or dizziness no chest pain no shortness of breath no cough no nausea or vomiting no abdominal pain no diarrhea no burning with urination no frequency or urgency and no hematuria, which are from the ascites fluid is still pending, patient is maintained on empiric antibiotic with Rocephin Objective - Vital Signs Vital signs: Vital Signs Temp 98.1 F 09/18/19 16:00 Pulse 59 L 09/18/19 16:00 Resp 18 09/18/19 16:00 BP 137/65 09/18/19 16:00 Pulse Ox 96 09/18/19 16:00 Intake & Output 09/17/19 09/18/19 09/18/19 18:59 06:59 18:59 Intake Total 240 50 952 Output Total 250 950 Balance -10 900 952 Weight 102 kg Intake: Intake, IV Titration 50 Amount cefTRIAXone 1 gm In 50 Sodium Chloride 0.9% 50 ml @ 100 mls/hr IVPB Q12HR [facility] Rx#:[id number] Oral 240 952 Output: Urine 250 950 Other: Voiding Method Urinal Urinal # Voids 1 2 2 # Bowel Movements 1 - Exam In general patient is alert and oriented 3 in no apparent distress HEENT head normocephalic and atraumatic Neck is supple no JVD no goiter no lymphadenopathy Chest exam reveals a few scattered rhonchi no wheezing Cardiac exam reveals regular heart sounds S1 and S2 no gallops no murmurs Abdomen is soft nontender distended no organomegaly no palpable masses with normal bowel sounds Extremity exam reveals no edema no cyanosis or clubbing - Labs CBC & Chem 7: 09/18/19 06:32 09/18/19 06:32 Labs: Abnormal Lab Results - Last 24 Hours (Table) 09/18/19 09/18/19 09/18/19 Range/Units 01:57 02:12 06:32 RBC (4.30-5.90) m/uL Hgb (13.0-17.5) gm/dL Hct (39.0-53.0) % Plt Count (150-450) k/uL Lymphocytes # (1.0-4.8) k/uL Sodium 135 L (137-145) mmol/L BUN 25 H (9-20) mg/dL POC Glucose (mg/dL) 55 L 72 L (75-99) mg/dL Calcium 7.2 L (8.4-10.2) mg/dL Alkaline Phosphatase 130 H (38-126) U/L Total Protein 5.1 L (6.3-8.2) g/dL Albumin 2.1 L (3.5-5.0) g/dL 09/18/19 09/18/19 09/18/19 Range/Units 06:32 12:16 16:34 RBC 3.48 L (4.30-5.90) m/uL Hgb 9.1 L (13.0-17.5) gm/dL Hct 29.0 L (39.0-53.0) % Plt Count 138 L (150-450) k/uL Lymphocytes # 0.8 L (1.0-4.8) k/uL Sodium (137-145) mmol/L BUN (9-20) mg/dL POC Glucose (mg/dL) 134 H 202 H (75-99) mg/dL Calcium (8.4-10.2) mg/dL Alkaline Phosphatase (38-126) U/L Total Protein (6.3-8.2) g/dL Albumin (3.5-5.0) g/dL Microbiology - Last 24 Hours (Table) 09/17/19 14:59 Gram Stain - Preliminary Ascites Fluid Body Fluid Culture - Preliminary 09/17/19 14:59 Anaerobic Culture - Preliminary Ascites Fluid 09/16/19 18:23 Blood Culture - Preliminary Blood No Growth after 24 hours Assessment and Plan Plan: 1. Febrile illness cause is unclear, no evidence of pneumonia no evidence of urinary tract infection, Covid 19 testing pending 2. Ascites radiology consult requested for paracentesis 3. Underlying history of congestive heart failure systolic and diastolic, stable at this time. with recent admission to the hospital 1 months ago for congestive heart failure exacerbation. 4. Underlying history of hypertension 5. Underlying history of hyperlipidemia 6. Underlying history of BPH maintained on Flomax 7. Underlying history of anxiety disorder at this time medication and labs were reviewed consultation for gastroenterology and infectious disease requested will follow closely
[2019-09-18] MEDS: TAMSULOSIN 0.4 MG CAP.ER.24H PO SCH (19:58)
[2019-09-18 20:35] LABS: Glucose,Whole Blood 152 mg/dL (75-99)
--- NOTE | 2019-09-18 23:59 | P.CONS ---
History of Present Illness - Reason for Consult Consult date: 09/18/19 Fever Requesting physician: Cheryle Read - Chief Complaint Fever x 1 day - History of Present Illness Patient is a 74-year-old male Past medical history significant for cirrhosis of the liver this patient has been brought into the ER on 09/16/2019 for evaluation of fever that the pain started that day the sed rate here the patient did have symptoms of some confusion and mental status, patient was brought into the ER on the wound. The patient did have a fever of 102 Fahrenheit patient did have initial workup Including a chest x-ray that was reported negative patient did have a negative UA abdominal ultrasound was done with evidence of ascites the patient is status post abdominal paracentesis with removal of 2.2 L of serous fluid, fluid was also sent for analysis and it shows a white count of 195 with mostly neutrophils patient has been empirically t reated with Rocephin 1 g every 12 hours infectious disease was consulted last evening for further management of antibiotic therapy, since the patient has been started on Rocephin the patient fever has resolved patient is feeling better mentation is back to baseline, the patient denies having any headache nor URI symptoms with chest pain shortness of breath or cough denies any abdominal pain and no urinary symptoms and no worsening diarrhea Review of Systems Positive point has been mentioned in the HPI rest of the systems are negative Past Medical History Past Medical History: Chest Pain / Angina, Heart Failure, CVA/TIA, Diabetes Mellitus, Hyperlipidemia, Hypertension, Osteoarthritis (OA) Additional Past Medical History / Comment(s): incontinent of stools intermittently. low iron levels, possible GI bleed-dark tarry stools per son, Son stated "has had recent falls related to blood sugar going low 60s"- 2016 and 2018 had episodes of CHF approx 7-10 days post receiving flu vaccine,TIA,Type2 IDDM History of Any Multi-Drug Resistant Organisms: None Reported Past Surgical History: Hernia Repair Additional Past Surgical History / Comment(s): 10/31/17 robot assisted laprascopic umbilical hernia repair with mesh., 07/30/18 repair recurrent incarerated hernia Past Anesthesia/Blood Transfusion Reactions: No Reported Reaction Additional Past Anesthesia/Blood Transfusion Reaction / Comm: never had anesthesia Smoking Status: Current every day smoker - Past Family History Mother Family Medical History: Cancer Additional Family Medical History / Comment(s): breast cancer Father Family Medical History: Unable to Obtain Sister(s) Family Medical History: Cancer Brother(s) Family Medical History: Diabetes Mellitus Medications and Allergies Home Medications Medication Instructions Recorded Confirmed Type Benazepril HCl 40 mg PO QAM 01/22/17 09/16/19 History Aspirin 81 mg PO DAILY 01/23/17 09/16/19 History Tamsulosin [Flomax] 0.4 mg PO HS 01/23/17 09/16/19 History Isosorbide Mononitrate ER [Imdur] 30 mg PO QAM 10/25/17 09/16/19 History Ferrous Sulfate [Iron (65 MG 325 mg PO DAILY #30 tab 01/22/18 09/16/19 Rx Elemental)] ALPRAZolam [Xanax] 0.25 mg PO Q6HR PRN tab 04/27/19 09/16/19 Rx Cyanocobalamin (Vitamin B-12) 1,000 mcg PO DAILY 08/16/19 09/16/19 History [Vitamin B-12] Nitroglycerin Sl Tab (0.3mg) 0.3 mg SUBLINGUAL Q5M PRN 08/16/19 09/16/19 History carvediloL [Coreg*] 12.5 mg PO BID-W/MEALS tab 08/21/19 09/16/19 Rx Furosemide [Lasix] 40 mg PO TID 09/16/19 09/16/19 History INSULIN ASPART (NovoLOG) [NovoLOG 4 unit SQ AC-TID 09/16/19 09/16/19 History (formulary)] Insulin Glargine,Hum.rec.anlog 40 unit SQ QAM 09/16/19 09/16/19 History [Basaglar Kwikpen U-100] Multivitamins, Thera [Multivitamin 1 tab PO DAILY 09/16/19 09/16/19 History (formulary)] Spironolactone [Aldactone] 25 mg PO BID 09/16/19 09/16/19 History Allergies Allergy/AdvReac Type Severity Reaction Status Date / Time No Known Allergies Allergy Verified 09/16/19 20:26 Physical Exam Vitals: Vital Signs Temp Pulse Resp BP Pulse Ox 09/18/19 12:00 98.1 F 58 L 16 136/63 95 09/18/19 09:40 98.0 F 63 16 118/54 97 09/18/19 04:00 98.7 F 74 16 126/61 96 09/17/19 23:49 70 16 09/17/19 23:47 99.2 F 70 16 126/61 94 L 09/17/19 21:45 63 18 09/17/19 20:45 97.9 F 63 18 117/59 98 09/17/19 16:00 16 Intake and Output 09/18/19 09/18/19 09/18/19 06:59 14:59 22:59 Intake Total 50 952 Output Total 950 Balance -900 952 Intake: Intake, IV Titration 50 Amount cefTRIAXone 1 gm In 50 Sodium Chloride 0.9% 50 ml @ 100 mls/hr IVPB Q12HR [facility] Rx#:[id number] Oral 952 Output: Urine 950 Other: Voiding Method Urinal Urinal # Voids 2 1 2 Weight 102 kg GENERAL DESCRIPTION: An elderly male lying in bed, no distress. No tachypnea or accessory muscle of respiration use. HEENT: Shows Pallor , no scleral icterus. Oral mucous membrane is dry. No pharyngeal erythema or thrush NECK: Trachea central, no thyromegaly. LUNGS: Unlabored breathing. Clear to auscultation anteriorly. No wheeze or crackle. HEART: S1, S2, regular rate and rhythm. No loud murmur ABDOMEN: Soft, no tenderness , guarding or rigidity, no organomegaly EXTREMITIES: 2+ edema feet SKIN: No rash, no masses palpable. NEUROLOGICAL: The patient is awake, alert, oriented x3, mood and affect normal. Results CBC & Chem 7: 09/18/19 06:32 09/18/19 06:32 Labs: Abnormal Lab Results - Last 24 Hours (Table) 09/18/19 09/18/19 09/18/19 Range/Units 01:57 02:12 06:32 RBC (4.30-5.90) m/uL Hgb (13.0-17.5) gm/dL Hct (39.0-53.0) % Plt Count (150-450) k/uL Lymphocytes # (1.0-4.8) k/uL Sodium 135 L (137-145) mmol/L BUN 25 H (9-20) mg/dL POC Glucose (mg/dL) 55 L 72 L (75-99) mg/dL Calcium 7.2 L (8.4-10.2) mg/dL Alkaline Phosphatase 130 H (38-126) U/L Total Protein 5.1 L (6.3-8.2) g/dL Albumin 2.1 L (3.5-5.0) g/dL 09/18/19 09/18/19 Range/Units 06:32 12:16 RBC 3.48 L (4.30-5.90) m/uL Hgb 9.1 L (13.0-17.5) gm/dL Hct 29.0 L (39.0-53.0) % Plt Count 138 L (150-450) k/uL Lymphocytes # 0.8 L (1.0-4.8) k/uL Sodium (137-145) mmol/L BUN (9-20) mg/dL POC Glucose (mg/dL) 134 H (75-99) mg/dL Calcium (8.4-10.2) mg/dL Alkaline Phosphatase (38-126) U/L Total Protein (6.3-8.2) g/dL Albumin (3.5-5.0) g/dL Microbiology - Last 24 Hours (Table) 09/17/19 14:59 Gram Stain - Preliminary Ascites Fluid Body Fluid Culture - Preliminary 09/17/19 14:59 Anaerobic Culture - Preliminary Ascites Fluid 09/16/19 18:23 Blood Culture - Preliminary Blood No Growth after 24 hours Assessment and Plan Assessment: 1- patient presented to hospital with fever along with mental status changes this patient with underlying cirrhosis so far workup including a chest x-ray that has been negative and the patient did not have any respiratory symptoms patient also have a negative UA patient did have abdominal ascites and status post paracentesis with elevated white count clinical suspicious for spontaneous bacterial peritonitis likely from enteric gram-negative pathogen and the patient seemed to clinically respond to the Rocephin (1) Spontaneous bacterial peritonitis Current Visit: Yes Status: Acute Code(s): K65.2 - SPONTANEOUS BACTERIAL PERITONITIS SNOMED Code(s): 53445625 (2) Fever Current Visit: Yes Status: Acute Code(s): R50.9 - FEVER, UNSPECIFIED SNOMED Code(s): 564337204 Plan: 1- we will switch Rocephin to 2 g daily and the patient has clinically responded to it 2- if continued to improve clinically therapy with oral Ceftin We will follow on clinical condition and cultures to further adjust medication if needed Thank you for this consultation will follow this patient with you
[2019-09-19 02:02] LABS: Glucose,Whole Blood 136 mg/dL (75-99)
[2019-09-19 06:03] LABS: Glucose,Whole Blood 115 mg/dL (75-99)
[2019-09-19] MEDS: carvediloL 12.5 MG TAB PO SCH ×2 (06:25→17:41)
--- NOTE | 2019-09-19 06:26 | P.CONS ---
History of Present Illness - Reason for Consult Consult date: 09/18/19 Cirrhosis, ascites Requesting physician: Cheryle Read - Chief Complaint Altered mental status - History of Present Illness 74-year-old male with multiple medical comorbidities including diabetes mellitus, hypertension, hyperlipidemia, chronic anemia, diastolic and systolic heart failure, colonic polyps, nonalcoholic cirrhosis with ascites and gastric and esophageal varices on EGD who presented to the hospital due to concerns over fever and altered mental status. History is been taken in discussion with the patient and his son who is seated bedside. According to their history the patient had been doing well since recent discharge from the hospital. The patient had been compliant with diuretic therapy with Aldactone and Lasix in the outpatient setting. As per reports from the patient's son he had been doing well the morning prior to developing symptoms, however after the son returned from picking up the patient's he was found to be confused and febrile. Previously evaluation has been significant for hepatomegaly and cirrhosis on imaging and the patient also has been found to have varices on EGD performed in 02/2019 both in the esophagus and stomach and colonoscopy at that time was significant for a poor colon prep, diverticulosis and internal hemorrhoids. On current presentation laboratory evaluation was significant for WBC 6.8, hemoglobin 9.1, platelet count 259,000, INR 1.1, total bilirubin 0.8, alkaline phosphatase 168, AST 14 and ALT 9 with a CRP of 69. Ammonia level was found to be normal 22. Ultrasound of the abdomen was significant for a coarsened liver echotexture suggestive of cirrhosis with splenomegaly, ascites and evidence of portal hypertension. Currently the patient is being seen by the infectious disease service with paracentesis performed with fluid studies pending. Review of Systems REVIEW OF SYSTEMS: CONSTITUTIONAL: Denies any weight change or fatigue but patient did have fevers prior to presentation. CARDIOVASCULAR: Denies any chest pain, palpitations high or low blood pressures RESPIRATORY: Denies any shortness of breath, hemoptysis or cough. GENITOURINARY: No dysuria or hematuria. MUSCULOSKELETAL: No focal weakness reported. SKIN: Denies any new rashes or lesions, jaundice or pallor. PSYCHIATRIC: Denies any depression or anxiety. NEUROLOGY: Denies headache, denies any new focal deficits, patient was confused on presentation which is improved. EARS/NOSE/THROAT: No recent hearing change, congestion, nasal discharge or sore throat. EYES: No pain in eyes, discharge or change in vision. GASTROINTESTINAL: As per HPI. Past Medical History Past Medical History: Chest Pain / Angina, Heart Failure, CVA/TIA, Diabetes Mellitus, Hyperlipidemia, Hypertension, Osteoarthritis (OA) Additional Past Medical History / Comment(s): incontinent of stools intermittently. low iron levels, possible GI bleed-dark tarry stools per son, Son stated "has had recent falls related to blood sugar going low 60s"-HX 2016 and 2018 had episodes of CHF approx 7-10 days post receiving flu vaccine,TIA,Type2 IDDM History of Any Multi-Drug Resistant Organisms: None Reported Past Surgical History: Hernia Repair Additional Past Surgical History / Comment(s): 10/31/17 robot assisted laprascopic umbilical hernia repair with mesh., 07/30/18 repair recurrent incarerated hernia Past Anesthesia/Blood Transfusion Reactions: No Reported Reaction Additional Past Anesthesia/Blood Transfusion Reaction / Comm: never had anesthesia Smoking Status: Current every day smoker - Past Family History Mother Family Medical History: Cancer Additional Family Medical History / Comment(s): breast cancer Father Family Medical History: Unable to Obtain Sister(s) Family Medical History: Cancer Brother(s) Family Medical History: Diabetes Mellitus Medications and Allergies Home Medications Medication Instructions Recorded Confirmed Type Benazepril HCl 40 mg PO QAM 01/22/17 09/16/19 History Aspirin 81 mg PO DAILY 01/23/17 09/16/19 History Tamsulosin [Flomax] 0.4 mg PO HS 01/23/17 09/16/19 History Isosorbide Mononitrate ER [Imdur] 30 mg PO QAM 10/25/17 09/16/19 History Ferrous Sulfate [Iron (65 MG 325 mg PO DAILY #30 tab 01/22/18 09/16/19 Rx Elemental)] ALPRAZolam [Xanax] 0.25 mg PO Q6HR PRN tab 04/27/19 09/16/19 Rx Cyanocobalamin (Vitamin B-12) 1,000 mcg PO DAILY 08/16/19 09/16/19 History [Vitamin B-12] Nitroglycerin Sl Tab (0.3mg) 0.3 mg SUBLINGUAL Q5M PRN 08/16/19 09/16/19 History carvediloL [Coreg*] 12.5 mg PO BID-W/MEALS tab 08/21/19 09/16/19 Rx Furosemide [Lasix] 40 mg PO TID 09/16/19 09/16/19 History INSULIN ASPART (NovoLOG) [NovoLOG 4 unit SQ AC-TID 09/16/19 09/16/19 History (formulary)] Insulin Glargine,Hum.rec.anlog 40 unit SQ QAM 09/16/19 09/16/19 History [Basaglar Kwikpen U-100] Multivitamins, Thera [Multivitamin 1 tab PO DAILY 09/16/19 09/16/19 History (formulary)] Spironolactone [Aldactone] 25 mg PO BID 09/16/19 09/16/19 History Allergies Allergy/AdvReac Type Severity Reaction Status Date / Time No Known Allergies Allergy Verified 09/16/19 20:26 Physical Exam Vitals: Vital Signs Temp Pulse Resp BP Pulse Ox 09/18/19 12:00 98.1 F 58 L 16 136/63 95 09/18/19 09:40 98.0 F 63 16 118/54 97 09/18/19 04:00 98.7 F 74 16 126/61 96 09/17/19 23:49 70 16 09/17/19 23:47 99.2 F 70 16 126/61 94 L 09/17/19 21:45 63 18 09/17/19 20:45 97.9 F 63 18 117/59 98 09/17/19 16:00 16 09/17/19 15:40 52 L 16 116/62 99 09/17/19 15:31 54 L 14 115/60 09/17/19 15:20 54 L 16 110/61 98 09/17/19 15:10 54 L 16 121/62 99 09/17/19 14:59 54 L 14 130/60 98 Intake and Output 09/17/19 09/18/19 09/18/19 22:59 06:59 14:59 Intake Total 240 50 476 Output Total 250 950 Balance -900 476 Intake: Intake, IV Titration 50 Amount cefTRIAXone 1 gm In 50 Sodium Chloride 0.9% 50 ml @ 100 mls/hr IVPB Q12HR [facility] Rx#:[id number] Oral 240 476 Output: Urine 250 950 Other: Voiding Method Urinal Urinal Urinal # Voids 1 2 1 Weight 102 kg On physical examination, patient appears comfortable in no apparent distress. HEAD: Normocephalic, atraumatic. EYES: No scleral icterus. No conjunctival injection. MOUTH: No lesions, tongue midline. NECK: Trachea midline, no gross abnormalities. CHEST: Decreased air entry in all lung obrien. HEART: S1-S2 appreciated. ABDOMEN: Soft, obese, nontender to palpation. Bowel sounds are positive. No organomegaly. No guarding or rigidity. EXTREMITIES: No pedal edema. SKIN: No rashes, no jaundice. NEUROLOGIC: Alert and oriented x3 with no asterixis noted on physical exam. Results CBC & Chem 7: 09/18/19 06:32 09/18/19 06:32 Labs: Abnormal Lab Results - Last 24 Hours (Table) 09/18/19 09/18/19 09/18/19 Range/Units 01:57 02:12 06:32 RBC (4.30-5.90) m/uL Hgb (13.0-17.5) gm/dL Hct (39.0-53.0) % Plt Count (150-450) k/uL Lymphocytes # (1.0-4.8) k/uL Sodium 135 L (137-145) mmol/L BUN 25 H (9-20) mg/dL POC Glucose (mg/dL) 55 L 72 L (75-99) mg/dL Calcium 7.2 L (8.4-10.2) mg/dL Alkaline Phosphatase 130 H (38-126) U/L Total Protein 5.1 L (6.3-8.2) g/dL Albumin 2.1 L (3.5-5.0) g/dL 09/18/19 09/18/19 Range/Units 06:32 12:16 RBC 3.48 L (4.30-5.90) m/uL Hgb 9.1 L (13.0-17.5) gm/dL Hct 29.0 L (39.0-53.0) % Plt Count 138 L (150-450) k/uL Lymphocytes # 0.8 L (1.0-4.8) k/uL Sodium (137-145) mmol/L BUN (9-20) mg/dL POC Glucose (mg/dL) 134 H (75-99) mg/dL Calcium (8.4-10.2) mg/dL Alkaline Phosphatase (38-126) U/L Total Protein (6.3-8.2) g/dL Albumin (3.5-5.0) g/dL Microbiology - Last 24 Hours (Table) 09/17/19 14:59 Gram Stain - Preliminary Ascites Fluid Body Fluid Culture - Preliminary 09/17/19 14:59 Anaerobic Culture - Preliminary Ascites Fluid 09/16/19 18:23 Blood Culture - Preliminary Blood No Growth after 24 hours US - abdomen: report reviewed (Ultrasound of the abdomen was significant for a coarsened liver echotexture suggestive of cirrhosis with splenomegaly, ascites and evidence of portal hypertension.) Assessment and Plan (1) Cirrhosis Narrative/Plan: 74-year-old male with multiple medical comorbidities including findings of esophageal and gastric varices on EGD, ascites and cirrhosis recently diagnosed and secondary to 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 No elevation in ammonia our clinical signs of encephalopathy. Patient has been started on antibiotic therapy. Unclear if presentation is secondary to spontaneous bacterial peritonitis or other source of infection. Patient currently being seen by the infectious disease service. Current Visit: Yes Status: Acute Code(s): K74.60 - UNSPECIFIED CIRRHOSIS OF LIVER SNOMED Code(s): 77222719 (2) Ascites Current Visit: No Status: Acute Code(s): R18.8 - OTHER ASCITES SNOMED Code(s): 281579840 (3) Esophageal varices determined by endoscopy Current Visit: No Status: Acute Code(s): I85.00 - ESOPHAGEAL VARICES WITHOUT BLEEDING SNOMED Code(s): 84282995 Plan: Supportive care Okay for sodium restricted diet Continue to monitor CBC, BMP, LFTs and clinically Infectious disease service following Continue antibiotic therapy as per the infectious disease service Fluid cultures and studies from paracentesis pending Continue Lasix 40 mg 3 times a day and Aldactone 25 mg twice a day Thank you for allowing us to participate in the care of the patient we will continue to follow
[2019-09-19 06:35] LABS: Basophils % (A) 0 %; Eosinophils # (A) 0.1 k/uL (0-0.7); Eosinophils % (A) 1 %; HCT 30.2 % (39.0-53.0); HGB 9.6 gm/dL (13.0-17.5); Lymphocytes # (A) 0.7 k/uL (1.0-4.8); Lymphocytes % (A) 11 %; MCH 25.9 pg (25.0-35.0); MCHC 31.6 g/dL (31.0-37.0); MCV 81.9 fL (80.0-100.0); Mean Platelet Volume 7.7; Monocytes # (A) 0.3 k/uL (0-1.0); Monocytes % (A) 6 %; Neutrophils # (A) 4.8 k/uL (1.3-7.7); Neutrophils % (A) 81 %; Platelet Count 158 k/uL (150-450); RBC 3.69 m/uL (4.30-5.90); RDW 15.2 % (11.5-15.5)
[2019-09-19 06:43] LABS: Albumin 2.3 g/dL (3.5-5.0); Calcium 7.6 mg/dL (8.4-10.2); INR 1.1 (<1.2); Potassium 3.6 mmol/L (3.5-5.1); Prothrombin Time 11.1 sec (9.0-12.0); Total Bilirubin 0.5 mg/dL (0.2-1.3); Total Protein 5.4 g/dL (6.3-8.2)
[2019-09-19 07:30] LABS: C Reactive Protein 74.1 mg/L (<10.0)
[2019-09-19] MEDS: INSULIN ASPART (NovoLOG) 100 UNIT/ML VIAL SQ SCH ×3 (07:59→17:41)
[2019-09-19] MEDS: SPIRONOLACTONE 25 MG TAB PO SCH ×2 (08:05→19:48)
[2019-09-19] MEDS: FERROUS SULFATE 325 MG TAB PO SCH (08:05)
[2019-09-19] MEDS: MULTIVITAMINS, THERA 1 EACH TAB PO SCH (08:05)
[2019-09-19] MEDS: FUROSEMIDE 40 MG TAB PO SCH ×3 (08:05→19:48)
[2019-09-19] MEDS: ISOSORBIDE MONONITRATE ER 30 MG TAB.ER.24H PO SCH (08:05)
[2019-09-19] MEDS: CYANOCOBALAMIN 500 MCG TAB PO SCH (08:05)
[2019-09-19] MEDS: ASPIRIN 81 MG PO SCH (08:05)
[2019-09-19] MEDS: lisinopriL 20 MG TAB PO SCH (08:05)
[2019-09-19 11:52] LABS: Glucose,Whole Blood 192 mg/dL (75-99)
[2019-09-19 12:03] LABS: Alpha Fetoprotein, Tumor Mkr <2.5 ng/mL (0.0-7.9)
[2019-09-19] MEDS: INSULIN DETEMIR (LEVEMIR) 100 UNIT/ML SYR SQ SCH (12:06)
--- NOTE | 2019-09-19 15:23 | PN ---
PROGRESS NOTE DATE OF SERVICE: 09/19/2019 REASON FOR FOLLOWUP: Fever; possible spontaneous bacterial peritonitis. INTERVAL HISTORY: The patient is currently afebrile. The patient is breathing comfortably. The patient denies having any chest pain or shortness of breath. Minimal cough. No nausea, no vomiting. No abdominal pain or diarrhea. PHYSICAL EXAMINATION: Blood pressure 113/54 with a pulse of 64, temperature 98.2. He is 93% on room air. General description is an elderly male lying in bed in no distress. RESPIRATORY SYSTEM: Unlabored breathing with decreased breath sounds at the base. No wheeze. HEART: S1, S2. Regular rate and rhythm. ABDOMEN: Soft. No tenderness. LABS: Hemoglobin 9.6, white count 6.0, BUN of 20, creatinine 1.08. DIAGNOSTIC IMPRESSION AND PLAN: Patient with fever, possible spontaneous bacterial peritonitis, as the patient currently does not have any focus of infection. Patient seems to clinically respond to the Rocephin with a plan to finish therapy with oral Ceftin mg twice a day for another 10 days with close outpatient followup. MMODL / IJN: [id number] /
[2019-09-19 15:47] LABS: Hepatitis B Surface AB- Quant 3.5 mIU/mL; Hepatitis B Surface Antibody Non-Reactive (Non-Reactive); Hepatitis B Surface Antigen Non-Reactive (Non-Reactive); Hepatitis C IgG Antibody Non-Reactive (Non-Reactive); Procalcitonin 13.66 ng/mL (0.02-0.09)
[2019-09-19 16:52] LABS: Glucose,Whole Blood 173 mg/dL (75-99)
--- NOTE | 2019-09-19 17:22 | P.PN ---
Subjective Progress Note Date: [facility]19[facility] chief [facility] of fever he was evaluated in the emergency room, his temperature on presentation was 102.6 pulse 93 respiration 18 blood pressure 122/58 pulse ox 95% on 3 L nasal cannula, patient had no other complaints, he had abdominal distention with evidence of sinusitis, otherwise he denies any complaints there was no chills no headache no dizziness no chest pain no shortness of breath no cough no nausea or vomiting no abdominal pain no diarrhea no burning with urination no frequency or urgency and no hematuria, he states his fevers started about 24 hours prior to presentation, chest x-ray was done in the emergency room and did not reveal any evidence of pneumonia, urine analysis was done and did not reveal any evidence of urinary tract infection, patient was admitted to medical floor, radiology consult was requested for paracentesis, gastroenterology consult and infectious disease consultation were requested. Patient was admitted recently to [facility] at that time he was diagnosed with sinusitis and possible liver cirrhosis. On 09/18/2019 patient was seen and examined on the medical floor he is alert and oriented 3 in no apparent distress there is no new episodes of fever no chills no headache or dizziness no chest pain no shortness of breath no cough no nausea or vomiting no abdominal pain no diarrhea no burning with urination no frequency or urgency and no hematuria, which are from the ascites fluid is still pending, patient is maintained on empiric antibiotic with Rocephin On 09/19/2019 patient was seen and examined on the medical floor he is alert and oriented 3 in no distress there is no fever or chills no headache or dizziness no chest pain no shortness of breath no cough no nausea or vomiting no abdominal pain no diarrhea no burning with urination no frequency or urgency no hematuria. Plan to continue IV Rocephin until tomorrow discharge tomorrow on oral Ceftin for 10 more days follow-up with Dr. Muse he does outpatient Objective - Vital Signs Vital signs: Vital Signs Temp 97.8 F 09/19/19 16:00 Pulse 63 09/19/19 16:00 Resp 18 09/19/19 16:00 BP 117/56 09/19/19 16:00 Pulse Ox 96 09/19/19 16:00 Intake & Output 09/18/19 09/19/19 09/19/19 18:59 06:59 18:59 Intake Total 952 1250 445 Output Total 1500 Balance 952 -250 445 Weight 95.4 kg Intake: Intake, IV Titration 50 Amount cefTRIAXone 1 gm In 50 Sodium Chloride 0.9% 50 ml @ 100 mls/hr IVPB Q12HR [facility] Rx#:[id number] Oral 952 1200 445 Output: Urine 1500 Other: Voiding Method Urinal Urinal Urinal # Voids 2 2 - Exam In general patient is alert and oriented 3 in no apparent distress HEENT head normocephalic and atraumatic Neck is supple no JVD no goiter no lymphadenopathy Chest exam reveals a few scattered rhonchi no wheezing Cardiac exam reveals regular heart sounds S1 and S2 no gallops no murmurs Abdomen is soft nontender distended no organomegaly no palpable masses with normal bowel sounds Extremity exam reveals no edema no cyanosis or clubbing - Labs CBC & Chem 7: 09/19/19 06:13 09/19/19 06:13 Labs: Abnormal Lab Results - Last 24 Hours (Table) 09/18/19 09/19/19 09/19/19 Range/Units 20:31 02:00 06:01 RBC (4.30-5.90) m/uL Hgb (13.0-17.5) gm/dL Hct (39.0-53.0) % Lymphocytes # (1.0-4.8) k/uL Sodium (137-145) mmol/L Glucose (74-99) mg/dL POC Glucose (mg/dL) 152 H 136 H 115 H (75-99) mg/dL Calcium (8.4-10.2) mg/dL AST (17-59) U/L C-Reactive Protein (<10.0) mg/L Total Protein (6.3-8.2) g/dL Albumin (3.5-5.0) g/dL Procalcitonin (0.02-0.09) ng/mL 09/19/19 09/19/19 09/19/19 Range/Units 06:13 06:13 06:13 RBC 3.69 L (4.30-5.90) m/uL Hgb 9.6 L (13.0-17.5) gm/dL Hct 30.2 L (39.0-53.0) % Lymphocytes # 0.7 L (1.0-4.8) k/uL Sodium 135 L (137-145) mmol/L Glucose 115 H (74-99) mg/dL POC Glucose (mg/dL) (75-99) mg/dL Calcium 7.6 L (8.4-10.2) mg/dL AST 15 L (17-59) U/L C-Reactive Protein 74.1 H (<10.0) mg/L Total Protein 5.4 L (6.3-8.2) g/dL Albumin 2.3 L (3.5-5.0) g/dL Procalcitonin 13.66 H (0.02-0.09) ng/mL 09/19/19 09/19/19 Range/Units 11:51 16:50 RBC (4.30-5.90) m/uL Hgb (13.0-17.5) gm/dL Hct (39.0-53.0) % Lymphocytes # (1.0-4.8) k/uL Sodium (137-145) mmol/L Glucose (74-99) mg/dL POC Glucose (mg/dL) 192 H 173 H (75-99) mg/dL Calcium (8.4-10.2) mg/dL AST (17-59) U/L C-Reactive Protein (<10.0) mg/L Total Protein (6.3-8.2) g/dL Albumin (3.5-5.0) g/dL Procalcitonin (0.02-0.09) ng/mL Microbiology - Last 24 Hours (Table) 09/16/19 18:23 Blood Culture - Preliminary Blood No Growth after 48 hours 09/17/19 14:59 Gram Stain - Preliminary Ascites Fluid Body Fluid Culture - Preliminary Assessment and Plan Plan: 1. Febrile illness cause is unclear, no evidence of pneumonia no evidence of urinary tract infection, Covid 19 testing pending 2. Ascites radiology consult requested for paracentesis 3. Underlying history of congestive heart failure systolic and diastolic, stable at this time. with recent admission to the hospital 1 months ago for congestive heart failure exacerbation. 4. Underlying history of hypertension 5. Underlying history of hyperlipidemia 6. Underlying history of BPH maintained on Flomax 7. Underlying history of anxiety disorder at this time medication and labs were reviewed consultation for gastroenterol ogy and infectious disease requested will follow closely Case discussed was Dr. Grider, plan for discharge to home tomorrow with oral Ceftin 500 mg twice daily for 10 more days
[2019-09-19] MEDS: TAMSULOSIN 0.4 MG CAP.ER.24H PO SCH (19:48)
[2019-09-19 20:06] LABS: Glucose,Whole Blood 126 mg/dL (75-99)
[2019-09-20 06:30] LABS: Glucose,Whole Blood 146 mg/dL (75-99)
[2019-09-20] MEDS: carvediloL 12.5 MG TAB PO SCH (07:10)
[2019-09-20] MEDS: INSULIN ASPART (NovoLOG) 100 UNIT/ML VIAL SQ SCH ×2 (07:10→12:17)
[2019-09-20] MEDS: INSULIN DETEMIR (LEVEMIR) 100 UNIT/ML SYR SQ SCH (07:10)
[2019-09-20 09:06] VITALS: BP 132/63; PULSE 61; TEMP 98.1
[2019-09-20] MEDS: MULTIVITAMINS, THERA 1 EACH TAB PO SCH (09:28)
[2019-09-20] MEDS: FUROSEMIDE 40 MG TAB PO SCH (09:28)
[2019-09-20] MEDS: lisinopriL 20 MG TAB PO SCH (09:29)
[2019-09-20] MEDS: CYANOCOBALAMIN 500 MCG TAB PO SCH (09:29)
[2019-09-20] MEDS: ISOSORBIDE MONONITRATE ER 30 MG TAB.ER.24H PO SCH (09:29)
[2019-09-20] MEDS: FERROUS SULFATE 325 MG TAB PO SCH (09:29)
[2019-09-20] MEDS: ASPIRIN 81 MG PO SCH (09:29)
[2019-09-20] MEDS: SPIRONOLACTONE 25 MG TAB PO SCH (09:29)
--- NOTE | 2019-09-20 11:19 | P.DS ---
Providers Date of admission: 09/16/19 20:18 Expected date of discharge: 09/20/19 Attending physician: Cheryle Read Consults: 09/16/19 20:19 Consult Physician Urgent Consulting Provider: Klarissa Thomason Consult Reason/Comments: liver disease, fever Do you want consulting provider notified?: Yes 09/17/19 17:18 Consult Physician Routine Consulting Provider: Carissa Grider Consult Reason/Comments: fever Do you want consulting provider notified?: Yes Consult Physician Routine Consulting Provider: Edward Cheung Consult Reason/Comments: ascites Do you want consulting provider notified?: Yes Primary care physician: Minerva Edgar [facility] Course: Diagnoses on discharge: 1. Febrile illness cause is unclear, no evidence of pneumonia no evidence of urinary tract infection, Covid 19 testing pending 2. Ascites radiology consult requested for paracentesis , fluid culture was negative however infectious disease felt that most likely diagnosis is spontaneous bacterial peritonitis he was kept on IV Rocephin during this admission, he was discharged home on oral Ceftin 500 mg twice daily for 10 days 3. Underlying history of congestive heart failure systolic and diastolic, stable at this time. with recent admission to the hospital 1 months ago for congestive heart failure exacerbation. 4. Underlying history of hypertension 5. Underlying history of hyperlipidemia 6. Underlying history of BPH maintained on Flomax 7. Underlying history of anxiety disorder Hospital course: [facility] emergency room with a chief complaint of fever he was evaluated in the emergency room, his temperature on presentation was 102.6 pulse 93 respiration 18 blood pressure 122/58 pulse ox 95% on 3 L nasal cannula, patient had no other complaints, he had abdominal distention with evidence of sinusitis, otherwise he denies any complaints there was no chills no headache no dizziness no chest pain no shortness of breath no cough no nausea or vomiting no abdominal pain no diarrhea no burning with urination no frequency or urgency and no hematuria, he states his fevers started about 24 hours prior to presentation, chest x-ray was done in the emergency room and did not reveal any evidence of pneumonia, urine analysis was done and did not reveal any evidence of urinary tract infection, patient was admitted to medical floor, radiology consult was requested for paracentesis, gastroenterology consult and infectious disease consultation were requested. Patient was admitted recently to [facility] at that time he was diagnosed with sinusitis and possible liver cirrhosis. On 09/18/2019 patient was seen and examined on the medical floor he is alert and oriented 3 in no apparent distress there is no new episodes of fever no chills no headache or dizziness no chest pain no shortness of breath no cough no nausea or vomiting no abdominal pain no diarrhea no burning with urination no frequency or urgency and no hematuria, which are from the ascites fluid is still pending, patient is maintained on empiric antibiotic with Rocephin On 09/19/2019 patient was seen and examined on the medical floor he is alert and oriented 3 in no distress there is no fever or chills no headache or dizziness no chest pain no shortness of breath no cough no nausea or vomiting no abdominal pain no diarrhea no burning with urination no frequency or urgency no hematuria. Plan to continue IV Rocephin until tomorrow discharge tomorrow on oral Ceftin for 10 more days follow-up with Dr. Muse he does outpatient On 09/20/2019 patient was seen and examined on the medical floor he is alert and oriented 3 he denies any complaint there is no fever or chills no headache or dizziness no chest pain no shortness of breath no cough no nausea or vomiting no abdominal pain no diarrhea no burning with urination no frequency or urgency and no hematuria. All culture were negative cause of febrile illness on presentation is not 100% clear however infectious disease felt that this is most likely spontaneous bacterial peritonitis and it responded well to Rocephin during this admission, patient was discharged home on Ceftin 500 mg twice daily for 10 days he will be followed up by Dr. Grider infectious disease within 10 days. Patient should also follow with Dr. Edgar his primary care physician in 1-2 weeks Patient Condition at Discharge: Serious Plan - Discharge Summary Discharge Rx Participant: Yes New Discharge Prescriptions: New Cefuroxime Axetil [Ceftin] 500 mg PO BID 10 Days #20 tab Continue Benazepril HCl 40 mg PO QAM Aspirin 81 mg PO DAILY Tamsulosin [Flomax] 0.4 mg PO HS Isosorbide Mononitrate ER [Imdur] 30 mg PO QAM Ferrous Sulfate [Iron (65 MG Elemental)] 325 mg PO DAILY #30 tab ALPRAZolam [Xanax] 0.25 mg PO Q6HR PRN tab PRN Reason: Mild Anxiety Nitroglycerin Sl Tab (0.3mg) 0.3 mg SUBLINGUAL Q5M PRN PRN Reason: Chest Pain Cyanocobalamin (Vitamin B-12) [Vitamin B-12] 1,000 mcg PO DAILY carvediloL [Coreg*] 12.5 mg PO BID-W/MEALS tab Spironolactone [Aldactone] 25 mg PO BID Insulin Glargine,Hum.rec.anlog [Basaglar Kwikpen U-100] 40 unit SQ QAM INSULIN ASPART (NovoLOG) [NovoLOG (formulary)] 4 unit SQ AC-TID Multivitamins, Thera [Multivitamin (formulary)] 1 tab PO DAILY Furosemide [Lasix] 40 mg PO TID Discharge Medication List Benazepril HCl 40 mg PO QAM 01/22/17 [History] Aspirin 81 mg PO DAILY 01/23/17 [History] Tamsulosin [Flomax] 0.4 mg PO HS 01/23/17 [History] Isosorbide Mononitrate ER [Imdur] 30 mg PO QAM 10/25/17 [History] Ferrous Sulfate [Iron (65 MG Elemental)] 325 mg PO DAILY #30 tab 01/22/18 [Rx] ALPRAZolam [Xanax] 0.25 mg PO Q6HR PRN tab 04/27/19 [Rx] Cyanocobalamin (Vitamin B-12) [Vitamin B-12] 1,000 mcg PO DAILY 08/16/19 [History] Nitroglycerin Sl Tab (0.3mg) 0.3 mg SUBLINGUAL Q5M PRN 08/16/19 [History] carvediloL [Coreg*] 12.5 mg PO BID-W/MEALS tab 08/21/19 [Rx] Furosemide [Lasix] 40 mg PO TID 09/16/19 [History] INSULIN ASPART (NovoLOG) [NovoLOG (formulary)] 4 unit SQ AC-TID 09/16/19 [History] Insulin Glargine,Hum.rec.anlog [Basaglar Kwikpen U-100] 40 unit SQ QAM 09/16/19 [History] Multivitamins, Thera [Multivitamin (formulary)] 1 tab PO DAILY 09/16/19 [History] Spironolactone [Aldactone] 25 mg PO BID 09/16/19 [History] Cefuroxime Axetil [Ceftin] 500 mg PO BID 10 Days #20 tab 09/20/19 [Rx] Follow up Appointment(s)/Referral(s): Minerva Edgar MD [Primary Care Provider] - 1-2 days
[2019-09-20 11:57] LABS: Glucose,Whole Blood 195 mg/dL (75-99)
--- NOTE | 2019-09-20 13:06 | PN ---
PROGRESS NOTE DATE OF SERVICE: 09/20/2019 REASON FOR FOLLOWUP: Fever, possible medical peritonitis. INTERVAL HISTORY: Patient is currently afebrile. The patient overall is feeling better. Breathing comfortably. The patient denies having any chest pain. No shortness of breath or cough. No nausea, no vomiting. No abdominal pain or diarrhea. Overall feeling better and wants to go home. PHYSICAL EXAMINATION: Blood pressure is 132/63 with a pulse of 61, temperature is 98.1. General description is an elderly male, lying in bed in no distress. RESPIRATORY SYSTEM: Unlabored breathing, clear to auscultation anteriorly. HEART: S1, S2. Regular rate and rhythm. ABDOMEN: Soft, no tenderness. LABS: No new labs have been obtained today. Blood cultures have been negative. DIAGNOSTIC IMPRESSION AND PLAN: Patient admitted to the hospital with fever, concern likely for a medical peritonitis. Plan at this time is to continue with Rocephin while the patient finished therapy with Ceftin 500 mg twice a day for another 10 days and close outpatient followup. MMODL / IJN: [id number] /
--- NOTE | 2019-09-20 18:36 | P.PN ---
Subjective Progress Note Date: 09/19/19 Principal diagnosis: Cirrhosis Patient is seen lying in bed today reporting that he is feeling well. No abdominal pain. No fevers. Tolerating diet. Objective - Vital Signs Vital signs: Vital Signs Temp 98.2 F 09/19/19 19:51 Pulse 66 09/19/19 19:52 Resp 18 09/19/19 19:52 BP 146/64 09/19/19 19:51 Pulse Ox 97 09/19/19 19:51 Intake & Output 09/19/19 09/19/19 09/20/19 06:59 18:59 06:59 Intake Total 1250 670 Output Total 1500 Balance -250 670 Weight 95.4 kg Intake: Intake, IV Titration 50 Amount cefTRIAXone 1 gm In 50 Sodium Chloride 0.9% 50 ml @ 100 mls/hr IVPB Q12HR [facility] Rx#:[id number] Oral 1200 670 Output: Urine 1500 Other: Voiding Method Urinal Urinal Urinal # Voids 2 - Exam On physical examination, patient appears comfortable in no apparent distress. HEAD: Normocephalic, atraumatic. EYES: No scleral icterus. No conjunctival injection. MOUTH: No lesions, tongue midline. NECK: Trachea midline, no gross abnormalities. ABDOMEN: Soft, obese. Bowel sounds are positive. No organomegaly. No guarding or rigidity. EXTREMITIES: No pedal edema. SKIN: No rashes, no jaundice. NEUROLOGIC: Alert and oriented x3. No focal deficits. - Labs CBC & Chem 7: 09/19/19 06:13 09/19/19 06:13 Labs: Abnormal Lab Results - Last 24 Hours (Table) 09/18/19 09/19/19 09/19/19 Range/Units 20:31 02:00 06:01 RBC (4.30-5.90) m/uL Hgb (13.0-17.5) gm/dL Hct (39.0-53.0) % Lymphocytes # (1.0-4.8) k/uL Sodium (137-145) mmol/L Glucose (74-99) mg/dL POC Glucose (mg/dL) 152 H 136 H 115 H (75-99) mg/dL Calcium (8.4-10.2) mg/dL AST (17-59) U/L C-Reactive Protein (<10.0) mg/L Total Protein (6.3-8.2) g/dL Albumin (3.5-5.0) g/dL Procalcitonin (0.02-0.09) ng/mL 09/19/19 09/19/19 09/19/19 Range/Units 06:13 06:13 06:13 RBC 3.69 L (4.30-5.90) m/uL Hgb 9.6 L (13.0-17.5) gm/dL Hct 30.2 L (39.0-53.0) % Lymphocytes # 0.7 L (1.0-4.8) k/uL Sodium 135 L (137-145) mmol/L Glucose 115 H (74-99) mg/dL POC Glucose (mg/dL) (75-99) mg/dL Calcium 7.6 L (8.4-10.2) mg/dL AST 15 L (17-59) U/L C-Reactive Protein 74.1 H (<10.0) mg/L Total Protein 5.4 L (6.3-8.2) g/dL Albumin 2.3 L (3.5-5.0) g/dL Procalcitonin 13.66 H (0.02-0.09) ng/mL 09/19/19 09/19/19 09/19/19 Range/Units 11:51 16:50 20:05 RBC (4.30-5.90) m/uL Hgb (13.0-17.5) gm/dL Hct (39.0-53.0) % Lymphocytes # (1.0-4.8) k/uL Sodium (137-145) mmol/L Glucose (74-99) mg/dL POC Glucose (mg/dL) 192 H 173 H 126 H (75-99) mg/dL Calcium (8.4-10.2) mg/dL AST (17-59) U/L C-Reactive Protein (<10.0) mg/L Total Protein (6.3-8.2) g/dL Albumin (3.5-5.0) g/dL Procalcitonin (0.02-0.09) ng/mL Microbiology - Last 24 Hours (Table) 09/17/19 14:59 Gram Stain - Preliminary Ascites Fluid Body Fluid Culture - Preliminary 09/16/19 18:23 Blood Culture - Preliminary Blood No Growth after 48 hours Assessment and Plan (1) Cirrhosis Narrative/Plan: 74-year-old male with multiple medical comorbidities including findings of esophageal and gastric varices on EGD, ascites and cirrhosis recently diagnosed and secondary to 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 No elevation in ammonia our clinical signs of encephalopathy. Patient has been started on antibiotic therapy. Unclear if presentation is secondary to spontaneous bacterial peritonitis or other source of infection, however fluid studies not consistent with peritonitis. Patient currently being seen by the infectious disease service. Status: Acute Code(s): K74.60 - UNSPECIFIED CIRRHOSIS OF LIVER SNOMED Code(s): 48047725 (2) Ascites Status: Acute Code(s): R18.8 - OTHER ASCITES SNOMED Code(s): 908064496 (3) Esophageal varices determined by endoscopy Status: Acute Code(s): I85.00 - ESOPHAGEAL VARICES WITHOUT BLEEDING SNOMED Code(s): 02862587 Plan: Supportive care Okay for sodium restricted diet Continue to monitor CBC, BMP, LFTs and clinically Infectious disease service following Continue antibiotic therapy as per the infectious disease service Fluid cultures and studies from paracentesis pending, however analysis not consistent with peritonitis Continue Lasix 40 mg 3 times a day and Aldactone 25 mg twice a day Thank you for allowing us to participate in the care of the patient we will continue to follow
== END 2019-09-20 13:47 | disposition home or self-care (01) | DRG 372 ==
LOC: EC 17:58 → 3SCARD 20:18
PROVIDERS: ADMIT Internal Medicine; ATTEND Internal Medicine
PROC: 0W9G3ZZ Drainage of Peritoneal Cavity, Percutaneous Approach (ICD-10-PCS; principal; 2019-09-17)
DX: K65.2 Spontaneous bacterial peritonitis (principal); R18.8 Other ascites; I50.42 Chronic combined systolic (congestive) and diastolic (congestive) heart failure; I85.10 Secondary esophageal varices without bleeding; N40.0 Benign prostatic hyperplasia without lower urinary tract symptoms; E78.5 Hyperlipidemia, unspecified; I11.0 Hypertensive heart disease with heart failure; M19.90 Unspecified osteoarthritis, unspecified site; E11.9 Type 2 diabetes mellitus without complications; F32.9 Major depressive disorder, single episode, unspecified; E87.6 Hypokalemia; F17.200 Nicotine dependence, unspecified, uncomplicated; F41.9 Anxiety disorder, unspecified; K74.60 Unspecified cirrhosis of liver; K63.5 Polyp of colon; D64.9 Anemia, unspecified; Z20.828 Contact with and (suspected) exposure to other viral communicable diseases; Z79.82 Long term (current) use of aspirin; Z79.899 Other long term (current) drug therapy; Z79.4 Long term (current) use of insulin; Z86.73 Personal history of transient ischemic attack (TIA), and cerebral infarction without residual deficits; Z98.890 Other specified postprocedural states; Z80.3 Family history of malignant neoplasm of breast; Z83.3 Family history of diabetes mellitus
CPT/HCPCS: 36415; 49083; 71045; 76700; 80053; 81001; 82042; 82105; 82140; 82728; 83605; 83615; 83735; 84145; 84157; 85025; 85610; 85730; 86140; 86704; 86706; 86803; 87040; 87070; 87075; 87205; 87340; 89050; 93005; 96365; 96368; 99291

== ENCOUNTER 2019-10-07 16:15 | Inpatient (IN) | payer MEDICARE, BC ==
[2019-10-07] MEDS ORDERED: VANCOMYCIN IV PER PHARMACY 1 EACH MISC MISCELLANE PRN (16:44)
[2019-10-07] MEDS ORDERED: PIPERACILLIN-TAZOBACTAM 3.375 GM in SODIUM CHLORIDE 0.9% 100 ML IVPB STA (16:44)
[2019-10-07] MEDS ORDERED: VANCOMYCIN 1,500 MG in SODIUM CHLORIDE 0.9% 250 ML IVPB ONE (17:00)
--- NOTE | 2019-10-07 17:01 | ED ---
General Adult HPI - General Chief complaint: Altered Mental Status Stated complaint: sepsis Time Seen by Provider: 10/07/19 16:30 Source: patient, EMS, RN notes reviewed, old records reviewed Mode of arrival: EMS Limitations: no limitations - History of Present Illness Initial comments: 74-year-old male, very poor historian presented for evaluation of dyspnea, fever and altered level consciousness. Patient is aware that he is in the hospital but was unable to answer questions regarding his illness. He denies a physical complaint of pain. There was no reported vomiting. Apparently EMS did note that the patient's abdomen seemed distended, uncertain if this is baseline or not. Medical record will be reviewed. - Related Data Home Medications Medication Instructions Recorded Confirmed Benazepril HCl 40 mg PO QAM 01/22/17 09/16/19 Aspirin 81 mg PO DAILY 01/23/17 09/16/19 Tamsulosin [Flomax] 0.4 mg PO HS 01/23/17 09/16/19 Isosorbide Mononitrate ER [Imdur] 30 mg PO QAM 10/25/17 09/16/19 Cyanocobalamin (Vitamin B-12) 1,000 mcg PO DAILY 08/16/19 09/16/19 [Vitamin B-12] Nitroglycerin Sl Tab (0.3mg) 0.3 mg SUBLINGUAL Q5M PRN 08/16/19 09/16/19 Furosemide [Lasix] 40 mg PO TID 09/16/19 09/16/19 INSULIN ASPART (NovoLOG) [NovoLOG 4 unit SQ AC-TID 09/16/19 09/16/19 (formulary)] Insulin Glargine,Hum.rec.anlog 40 unit SQ QAM 09/16/19 09/16/19 [Basaglar Kwikpen U-100] Multivitamins, Thera [Multivitamin 1 tab PO DAILY 09/16/19 09/16/19 (formulary)] Spironolactone [Aldactone] 25 mg PO BID 09/16/19 09/16/19 Previous Rx's Medication Instructions Recorded Ferrous Sulfate [Iron (65 MG 325 mg PO DAILY #30 tab 01/22/18 Elemental)] ALPRAZolam [Xanax] 0.25 mg PO Q6HR PRN tab 04/27/19 carvediloL [Coreg*] 12.5 mg PO BID-W/MEALS tab 08/21/19 Cefuroxime Axetil [Ceftin] 500 mg PO BID 10 Days #20 tab 09/20/19 Allergies Allergy/AdvReac Type Severity Reaction Status Date / Time No Known Allergies Allergy Verified 09/16/19 20:26 Review of Systems ROS Statement: Those systems with pertinent positive or pertinent negative responses have been documented in the HPI. ROS Other: All systems not noted in ROS Statement are negative. Past Medical History Past Medical History: Chest Pain / Angina, Heart Failure, CVA/TIA, Diabetes Mellitus, Hyperlipidemia, Hypertension, Osteoarthritis (OA) Additional Past Medical History / Comment(s): incontinent of stools intermittent ly. low iron levels, possible GI bleed-dark tarry stools per son, Son stated "has had recent falls related to blood sugar going low 60s"-HX 2016 and 2018 had episodes of CHF approx 7-10 days post receiving flu vaccine,TIA,Type2 IDDM History of Any Multi-Drug Resistant Organisms: None Reported Past Surgical History: Hernia Repair Additional Past Surgical History / Comment(s): 10/31/17 robot assisted laprascopic umbilical hernia repair with mesh., 07/30/18 repair recurrent incarerated hernia Past Anesthesia/Blood Transfusion Reactions: No Reported Reaction Additional Past Anesthesia/Blood Transfusion Reaction / Comment(s): never had anesthesia Past Psychological History: Depression Smoking Status: Current every day smoker - Past Family History Mother Family Medical History: Cancer Additional Family Medical History / Comment(s): breast cancer Father Family Medical History: Unable to Obtain Sister(s) Family Medical History: Cancer Brother(s) Family Medical History: Diabetes Mellitus General Exam Limitations: no limitations General appearance: alert, in distress Head exam: Present: atraumatic, normocephalic Eye exam: Present: PERRL Respiratory exam: Present: respiratory distress, rales, rhonchi Cardiovascular Exam: Present: regular rate, normal rhythm GI/Abdominal exam: Present: soft, distended, tenderness ( right upper quadrant and epigastric tenderness) exam: Present: normal inspection. Absent: testicular tenderness, scrotal swelling Extremities exam: Present: normal inspection, normal capillary refill Neurological exam: Present: alert. Absent: oriented X3, motor sensory deficit (Patient moving all extremities symmetrically) Skin exam: Present: warm, diaphoretic Course Vital Signs 08/17/20 16:19 Temperature 102.7 F H Pulse Rate 89 Respiratory 18 Rate Blood Pressure 105/49 O2 Sat by Pulse 97 Oximetry EKG Findings - EKG Comments: EKG Findings:: EKG: Sinus rhythm with a first-degree AV block, right bundle branch block, left anterior fascicular block, rate of 87, [place] interval 276, QRS duration 154, QTC [address] segment elevation. Medical Decision Making - Medical Decision Making 74-year-old male presenting with fever, confusion. This patient did appear to have some right upper quadrant tenderness. Workup was initiated. Head CT which is negative for intracranial hemorrhage or mass effect, chest x-ray negative for focal pneumonia. He has mild leukocytosis at 11.8. He has a normal lactic acid, creatinine 1.3 which is baseline for this patient. He [place] 6300, and albumin 2.5. He was worked up for spontaneous bacterial peritonitis on a recent admission approximately 3 weeks ago. Review the cultures are peritoneal fluid were negative. Ultrasound was performed which does show concern for an acalculous cholecystitis with gallbladder wall thickening. Given the fever. He he was initiated on antibiotics, Zosyn and vancomycin. Case was discussed with Dr. Read who will admit. I did also discuss the case with regarding the gallbladder findings. Patient given bolus and placed on normal saline at 130 mL/h. - Lab Data Result diagrams: 10/07/19 16:50 10/07/19 16:50 Lab Results 10/07/19 10/07/19 10/07/19 Range/Units 16:50 16:50 16:50 WBC 11.8 H (3.8-10.6) k/uL RBC 3.80 L (4.30-5.90) m/uL Hgb 9.8 L (13.0-17.5) gm/dL Hct 31.4 L (39.0-53.0) % MCV 82.7 (80.0-100.0) fL MCH 25.9 (25.0-35.0) pg MCHC 31.3 (31.0-37.0) g/dL RDW 16.2 H (11.5-15.5) % Plt Count 235 (150-450) k/uL Neutrophils % 95 % Lymphocytes % 1 % Monocytes % 2 % Eosinophils % 1 % Basophils % 0 % Neutrophils # 11.2 H (1.3-7.7) k/uL Lymphocytes # 0.2 L (1.0-4.8) k/uL Monocytes # 0.3 (0-1.0) k/uL Eosinophils # 0.1 (0-0.7) k/uL Basophils # 0.0 (0-0.2) k/uL Anisocytosis Slight PT 11.0 (9.0-12.0) sec INR 1.1 (<1.2) APTT 22.2 (22.0-30.0) sec VBG pH (7.31-7.41) VBG pCO2 (37-51) mmHg VBG HCO3 (24-28) mmol/L Sodium 133 L (137-145) mmol/L Potassium 3.4 L (3.5-5.1) mmol/L Chloride 99 (98-107) mmol/L Carbon Dioxide 26 (22-30) mmol/L Anion Gap 8 mmol/L BUN 34 H (9-20) mg/dL Creatinine 1.33 H (0.66-1.25) mg/dL Est GFR (CKD-EPI)AfAm 60 (>60 ml/min/1.73 sqM) Est GFR (CKD-EPI)NonAf 52 (>60 ml/min/1.73 sqM) Glucose 55 L (74-99) mg/dL Plasma Lactic Acid Calvin (0.7-2.0) mmol/L Calcium 7.9 L (8.4-10.2) mg/dL Total Bilirubin 0.8 (0.2-1.3) mg/dL AST 21 (17-59) U/L ALT 14 (4-49) U/L Alkaline Phosphatase 252 H (38-126) U/L Ammonia (<30) umol/L NT-Pro-B Natriuret Pep pg/mL Total Protein 5.7 L (6.3-8.2) g/dL Albumin 2.5 L (3.5-5.0) g/dL Amylase 37 (30-110) U/L Lipase 94 (23-300) U/L Blood Type Blood Type Recheck Bld Type Recheck Status Antibody Screen Spec Expiration Date 08/17/20 08/17/20 08/17/20 Range/Units 16:50 16:50 16:50 WBC (3.8-10.6) k/uL RBC (4.30-5.90) m/uL Hgb (13.0-17.5) gm/dL Hct (39.0-53.0) % MCV (80.0-100.0) fL MCH (25.0-35.0) pg MCHC (31.0-37.0) g/dL RDW (11.5-15.5) % Plt Count (150-450) k/uL Neutrophils % % Lymphocytes % % Monocytes % % Eosinophils % % Basophils % % Neutrophils # (1.3-7.7) k/uL Lymphocytes # (1.0-4.8) k/uL Monocytes # (0-1.0) k/uL Eosinophils # (0-0.7) k/uL Basophils # (0-0.2) k/uL Anisocytosis PT (9.0-12.0) sec INR (<1.2) APTT (22.0-30.0) sec VBG pH (7.31-7.41) VBG pCO2 (37-51) mmHg VBG HCO3 (24-28) mmol/L Sodium (137-145) mmol/L Potassium (3.5-5.1) mmol/L Chloride (98-107) mmol/L Carbon Dioxide (22-30) mmol/L Anion Gap mmol/L BUN (9-20) mg/dL Creatinine (0.66-1.25) mg/dL Est GFR (CKD-EPI)AfAm (>60 ml/min/1.73 sqM) Est GFR (CKD-EPI)NonAf (>60 ml/min/1.73 sqM) Glucose (74-99) mg/dL Plasma Lactic Acid Calvin 1.4 (0.7-2.0) mmol/L Calcium (8.4-10.2) mg/dL Total Bilirubin (0.2-1.3) mg/dL AST (17-59) U/L ALT (4-49) U/L Alkaline Phosphatase (38-126) U/L Ammonia 15 (<30) umol/L NT-Pro-B Natriuret Pep 6320 pg/mL Total Protein (6.3-8.2) g/dL Albumin (3.5-5.0) g/dL Amylase (30-110) U/L Lipase (23-300) U/L Blood Type B Positive Blood Type Recheck B Pos Bld Type Recheck Status No Antibody Screen NEGATIVE Spec Expiration Date 10/10/2019 - 234910/07/19 Range/Units 16:50 WBC (3.8-10.6) k/uL RBC (4.30-5.90) m/uL Hgb (13.0-17.5) gm/dL Hct (39.0-53.0) % MCV (80.0-100.0) fL MCH (25.0-35.0) pg MCHC (31.0-37.0) g/dL RDW (11.5-15.5) % Plt Count (150-450) k/uL Neutrophils % % Lymphocytes % % Monocytes % % Eosinophils % % Basophils % % Neutrophils # (1.3-7.7) k/uL Lymphocytes # (1.0-4.8) k/uL Monocytes # (0-1.0) k/uL Eosinophils # (0-0.7) k/uL Basophils # (0-0.2) k/uL Anisocytosis PT (9.0-12.0) sec INR (<1.2) APTT (22.0-30.0) sec VBG pH 7.49 H (7.31-7.41) VBG pCO2 34 L (37-51) mmHg VBG HCO3 26 (24-28) mmol/L Sodium (137-145) mmol/L Potassium (3.5-5.1) mmol/L Chloride (98-107) mmol/L Carbon Dioxide (22-30) mmol/L Anion Gap mmol/L BUN (9-20) mg/dL Creatinine (0.66-1.25) mg/dL Est GFR (CKD-EPI)AfAm (>60 ml/min/1.73 sqM) Est GFR (CKD-EPI)NonAf (>60 ml/min/1.73 sqM) Glucose (74-99) mg/dL Plasma Lactic Acid Calvin (0.7-2.0) mmol/L Calcium (8.4-10.2) mg/dL Total Bilirubin (0.2-1.3) mg/dL AST (17-59) U/L ALT (4-49) U/L Alkaline Phosphatase (38-126) U/L Ammonia (<30) umol/L NT-Pro-B Natriuret Pep pg/mL Total Protein (6.3-8.2) g/dL Albumin (3.5-5.0) g/dL Amylase (30-110) U/L Lipase (23-300) U/L Blood Type Blood Type Recheck Bld Type Recheck Status Antibody Screen Spec Expiration Date Critical Care Time Critical Care Time: Yes Total Critical Care Time: 35 Disposition Clinical Impression: Altered mental status, Sepsis, Acalculous cholecystitis Disposition: ADMITTED IP TO THIS [facility] Condition: Serious Is patient prescribed a controlled substance at d/c from ED?: No Referrals: Minerva Edgar MD [Primary Care Provider] - 1-2 days Decision to Admit Reason: Admit from EC Decision Date: 10/07/19 Decision Time: 18:45
[2019-10-07 17:11] LABS: Anisocytosis Slight; Basophils % (A) 0 %; Eosinophils # (A) 0.1 k/uL (0-0.7); Eosinophils % (A) 1 %; HCT 31.4 % (39.0-53.0); HGB 9.8 gm/dL (13.0-17.5); Lymphocytes # (A) 0.2 k/uL (1.0-4.8); Lymphocytes % (A) 1 %; MCH 25.9 pg (25.0-35.0); MCHC 31.3 g/dL (31.0-37.0); MCV 82.7 fL (80.0-100.0); Mean Platelet Volume 7.4; Monocytes # (A) 0.3 k/uL (0-1.0); Monocytes % (A) 2 %; Neutrophils # (A) 11.2 k/uL (1.3-7.7); Neutrophils % (A) 95 %; Platelet Count 235 k/uL (150-450); RDW 16.2 % (11.5-15.5); WBC 11.8 k/uL (3.8-10.6)
[2019-10-07 17:12] LABS: VBG PH 7.49 (7.31-7.41)
[2019-10-07] MEDS: SODIUM CHLORIDE 0.9% 1,000 ML IV SCH (17:12)
[2019-10-07 17:21] LABS: Albumin 2.5 g/dL (3.5-5.0); Calcium 7.9 mg/dL (8.4-10.2); Potassium 3.4 mmol/L (3.5-5.1); Total Bilirubin 0.8 mg/dL (0.2-1.3); Total Protein 5.7 g/dL (6.3-8.2)
[2019-10-07 17:22] LABS: Lactic Acid, Venous 1.4 mmol/L (0.7-2.0)
[2019-10-07 17:36] LABS: INR 1.1 (<1.2); Partial Thromboplastin Time 22.2 sec (22.0-30.0)
--- NOTE | 2019-10-07 17:36 | XR ---
EXAMINATION TYPE: XR chest 2V DATE OF EXAM: 10/07/2019 COMPARISON: 09/16/2019 HISTORY: Fever TECHNIQUE: 2 views FINDINGS: Heart and mediastinum are within normal limits. Lungs are clear. Costophrenic angles are cl ear. There are no hilar masses. There is no heart failure. Bony thorax is intact. Thoracic aorta is a theromatous. IMPRESSION: No active cardiopulmonary disease. No change.
--- NOTE | 2019-10-07 17:51 | CT ---
EXAMINATION TYPE: CT brain wo con DATE OF EXAM: 10/07/2019 COMPARISON: None HISTORY: AMS CT DLP: 1161.4 mGycm Automated exposure control for dose reduction was used. There is diffuse cerebral cortical atrophy. There is no mass effect nor midline shift. There is no si gn of intracranial hemorrhage. There is some patchy hypodensity around the frontal horns of the later al ventricles. Calvarium is intact. Skull base is intact. There is normal aeration of the mastoid sin uses. IMPRESSION: Cerebral atrophy and chronic small vessel ischemia. No acute intracranial abnormality.
[2019-10-07] MEDS ORDERED: DEXTROSE 50% SYRINGE 50 ML IVP STA ×2 (18:06→19:22)
--- NOTE | 2019-10-07 18:31 | US ---
EXAMINATION TYPE: US gallbladder DATE OF EXAM: 10/07/2019 COMPARISON: US CLINICAL HISTORY: fever/AMS. ABD distention EXAM MEASUREMENTS: Liver Length: 19.9 cm Gallbladder Wall: 0.7 cm CBD: 0.5 cm Right Kidney: 14.0 x 5.9 x 5.7 cm Pt unable to roll LLD, AMS Pancreas: Obscured by bowel gas Liver: Enlarged Gallbladder: Wall thickened Evidence for sonographic Harper's sign: No CBD: wnl Right Kidney: wnl, lower pole gassed out Small amount of ascites right flank and near dome of liver IMPRESSION: There is gallbladder wall thickening. No gallstones seen. This could be a calculus cholecystitis. No dilated ducts.
[2019-10-07] MEDS ORDERED: SODIUM CHLORIDE 0.9% 500 ML 500 ML IV ONE (18:35)
[2019-10-07] MEDS ORDERED: NALOXONE 0.4 MG/ML 1 ML VIAL IV PRN (18:38)
[2019-10-07] MEDS ORDERED: ACETAMINOPHEN TAB 325 MG TAB PO PRN (18:38)
[2019-10-07 18:42] LABS: Glucose,Whole Blood 108 mg/dL (75-99)
[2019-10-07 19:34] LABS: Glucose,Whole Blood 67 mg/dL (75-99)
[2019-10-07 20:00] LABS: Glucose,Whole Blood 133 mg/dL (75-99)
[2019-10-07 20:47] LABS: Glucose,Whole Blood 113 mg/dL (75-99)
[2019-10-08] MEDS: PIPERACILLIN-TAZOBACTAM 3.375 GM in SODIUM CHLORIDE 0.9% 100 ML IVPB SCH ×4 (01:16→23:30)
[2019-10-08] MEDS: SODIUM CHLORIDE 0.9% 1,000 ML IV SCH ×4 (01:16→23:30)
[2019-10-08 01:48] LABS: Appearance,Urine Slightly Cloudy (Clear)
[2019-10-08 01:49] LABS: Bilirubin,Urine Negative (Negative); Blood,Urine Negative (Negative); Color,Urine Yellow; Glucose,Urine (UA) Negative (Negative); Ketones,Urine Negative (Negative); Leukocyte Esterase,Urine Negative (Negative); Nitrite,Urine Negative (Negative); Protein,Urine Negative (Negative); Specific Gravity,Urine 1.005 (1.001-1.035)
[2019-10-08 06:16] LABS: Glucose,Whole Blood 119 mg/dL (75-99)
[2019-10-08] MEDS: INSULIN ASPART (NovoLOG) 100 UNIT/ML VIAL SQ SCH ×4 (06:20→20:26)
[2019-10-08 09:02] LABS: Basophils % (A) 0 %; Eosinophils # (A) 0.1 k/uL (0-0.7); Eosinophils % (A) 2 %; HCT 27.6 % (39.0-53.0); HGB 8.7 gm/dL (13.0-17.5); Hypochromasia Slight; Lymphocytes # (A) 0.8 k/uL (1.0-4.8); Lymphocytes % (A) 15 %; MCH 26.7 pg (25.0-35.0); MCHC 31.3 g/dL (31.0-37.0); MCV 85.1 fL (80.0-100.0); Mean Platelet Volume 8.7; Monocytes # (A) 0.4 k/uL (0-1.0); Monocytes % (A) 8 %; Neutrophils # (A) 3.9 k/uL (1.3-7.7); Neutrophils % (A) 73 %; Platelet Count 162 k/uL (150-450); RBC 3.25 m/uL (4.30-5.90); RDW 15.9 % (11.5-15.5); WBC 5.4 k/uL (3.8-10.6)
[2019-10-08 09:20] LABS: Albumin 2.1 g/dL (3.5-5.0); Calcium 7.2 mg/dL (8.4-10.2); Potassium 3.6 mmol/L (3.5-5.1); Total Bilirubin 0.5 mg/dL (0.2-1.3); Total Protein 5.1 g/dL (6.3-8.2)
[2019-10-08 12:21] LABS: Glucose,Whole Blood 86 mg/dL (75-99)
--- NOTE | 2019-10-08 12:22 | P.GSCN ---
History of Present Illness Consult date: 10/08/19 History of present illness: CHIEF COMPLAINT: Abdominal pain HISTORY OF PRESENT ILLNESS: This is a 74-year-old male with a known history of diabetes, CVA, CHF, hypertension, hyperlipidemia, umbilical hernia repair. He also was admitted hospital 3 weeks ago for possible bacterial peritonitis. Fluid cultures were negative. Patient presents to the emergency room with altered mental status and fever. He is also complaining of abdominal pain. He was febrile with a temp of 102.7 hypotensive and white count elevated at 11.8. Patient was started on IV antibiotics and IV fluids in the ER. We've been consulted for the abdominal pain and abnormal gallbladder ultrasound. PAST MEDICAL HISTORY: See list. PAST SURGICAL HISTORY: See list. MEDICATIONS: See list. ALLERGIES: See list. SOCIAL HISTORY: No illicit drug use. REVIEW OF SYSTEMS: CONSTITUTIONAL: Denies fever or chills. HEENT: Denies blurred vision, vision changes, or eye pain. Denies hemoptysis CARDIOVASCULAR: Denies chest pain or pressure. RESPIRATORY: No shortness of breath. GASTROINTESTINAL: See HPI for pertinent findings HEMATOLOGIC: Denies bleeding disorders. GENITOURINARY: Denies any blood in urine or increased urinary frequency. SKIN: Denies pruitis. Denies rash. PHYSICAL EXAM: VITAL SIGNS: Reviewed GENERAL: Well-developed in no acute distress. HEENT: No sclera icterus. Extraocular movements grossly intact. Moist buccal mucosa. Head is atraumatic, normocephalic. No nasal drainage. ABDOMEN: Soft. Right upper quadrant Palpation NEUROLOGIC: Awake and alert. Slightly confused LABORATORY DATA: WBC 11.8 hemoglobin 9.8 creatinine 1.4 to AST 20 ALT 13, alk phos 252 lipase 94. UA negative IMAGING: Abdominal ultrasound. Gallbladder wall thickening. No gallstones seen. This could be acalculous cholecystitis. No dilated ducts ASSESSMENT: 1. Acalculous cholecystitis with sepsis PLAN: -Patient is scheduled for laparoscopic cholecystectomy with Dr. Kulkarni today -Continue IV antibiotics -Continue IV fluids Physician Patient Registration Supervisor note has been reviewed by physician. Signing provider agrees with the documented findings, assessment, and plan of care. Past Medical History Past Medical History: Chest Pain / Angina, Heart Failure, CVA/TIA, Diabetes Mellitus, Hyperlipidemia, Hypertension, Osteoarthritis (OA) Additional Past Medical History / Comment(s): incontinent of stools intermittently. low iron levels, possible GI bleed-dark tarry stools per son, Son stated "has had recent falls related to blood sugar going low 60s"-HX 2017 and 2018 had episodes of CHF approx 7-10 days post receiving flu vaccine,TIA,Type2 IDDM History of Any Multi-Drug Resistant Organisms: None Reported Past Surgical History: Hernia Repair Additional Past Surgical History / Comment(s): 10/31/17 robot assisted laprascopic umbilical hernia repair with mesh., 07/30/18 repair recurrent incarerated hernia Past Anesthesia/Blood Transfusion Reactions: No Reported Reaction Additional Past Anesthesia/Blood Transfusion Reaction / Comm: never had anesthesia Past Psychological History: Depression Additional Psychological History / Comment(s): Pt resides with his spouse. He states he uses no assistive devices. He no longer drives, his spouse does the driving and manages his medications. Smoking Status: Current every day smoker Past Alcohol Use History: None Reported Additional Past Alcohol Use History / Comment(s): started smoking age teen, stopped for 25 years and restarted smoking occasionally/lightly-a pack will last 2 weeks Past Drug Use History: None Reported - Past Family History Mother Family Medical History: Cancer Additional Family Medical History / Comment(s): breast cancer Father Family Medical History: Unable to Obtain Sister(s) Family Medical History: Cancer Brother(s) Family Medical History: Diabetes Mellitus Medications and Allergies Home Medications Medication Instructions Recorded Confirmed Type Benazepril HCl 40 mg PO QAM 01/22/17 10/07/19 History Tamsulosin [Flomax] 0.4 mg PO HS 01/23/17 10/07/19 History Isosorbide Mononitrate ER [Imdur] 30 mg PO QAM 10/25/17 10/07/19 History Ferrous Sulfate [Iron (65 MG 325 mg PO DAILY #30 tab 01/22/18 10/07/19 Rx Elemental)] Cyanocobalamin (Vitamin B-12) 5,000 mcg PO DAILY 08/16/19 10/07/19 History [Vitamin B-12] Nitroglycerin Sl Tab (0.3mg) 0.3 mg SUBLINGUAL Q5M PRN 08/16/19 10/07/19 History carvediloL [Coreg*] 12.5 mg PO BID-W/MEALS tab 08/21/19 10/07/19 Rx Furosemide [Lasix] 40 mg PO BID 09/16/19 10/07/19 History Insulin Glargine,Hum.rec.anlog 40 unit SQ QAM 09/16/19 10/07/19 History [Basaglmyles Guypen U-100] Multivitamins, Thera [Multivitamin 1 tab PO DAILY 09/16/19 10/07/19 History (formulary)] Spironolactone [Aldactone] 50 mg PO BID 09/16/19 10/07/19 History ALPRAZolam [Xanax] 0.25 mg PO BID PRN 10/07/19 10/07/19 History Cholecalciferol [Vitamin D3 (25 1,000 unit PO DAILY 10/07/19 10/07/19 History Mcg = 1000 Iu)] Potassium Gluconate 99 mg PO DAILY 10/07/19 10/07/19 History Allergies Allergy/AdvReac Type Severity Reaction Status Date / Time No Known Allergies Allergy Verified 10/07/19 18:58 Surgical - Exam Vital Signs Temp Pulse Resp BP Pulse Ox 102.7 F H 89 18 105/49 97 10/07/19 16:19 10/07/19 16:19 10/07/19 16:19 10/07/19 16:19 10/07/19 16:19 Results - Labs 10/08/19 08:42 10/08/19 08:42 Abnormal Lab Results - Last 24 Hours (Table) 10/07/19 10/07/19 10/07/19 Range/Units 16:50 16:50 16:50 WBC 11.8 H (3.8-10.6) k/uL RBC 3.80 L (4.30-5.90) m/uL Hgb 9.8 L (13.0-17.5) gm/dL Hct 31.4 L (39.0-53.0) % RDW 16.2 H (11.5-15.5) % Neutrophils # 11.2 H (1.3-7.7) k/uL Lymphocytes # 0.2 L (1.0-4.8) k/uL VBG pH 7.49 H (7.31-7.41) VBG pCO2 34 L (37-51) mmHg Sodium 133 L (137-145) mmol/L Potassium 3.4 L (3.5-5.1) mmol/L BUN 34 H (9-20) mg/dL Creatinine 1.33 H (0.66-1.25) mg/dL Glucose 55 L (74-99) mg/dL POC Glucose (mg/dL) (75-99) mg/dL Calcium 7.9 L (8.4-10.2) mg/dL Alkaline Phosphatase 252 H (38-126) U/L Total Protein 5.7 L (6.3-8.2) g/dL Albumin 2.5 L (3.5-5.0) g/dL 10/07/19 10/07/19 10/07/19 Range/Units 18:34 19:20 19:58 WBC (3.8-10.6) k/uL RBC (4.30-5.90) m/uL Hgb (13.0-17.5) gm/dL Hct (39.0-53.0) % RDW (11.5-15.5) % Neutrophils # (1.3-7.7) k/uL Lymphocytes # (1.0-4.8) k/uL VBG pH (7.31-7.41) VBG pCO2 (37-51) mmHg Sodium (137-145) mmol/L Potassium (3.5-5.1) mmol/L BUN (9-20) mg/dL Creatinine (0.66-1.25) mg/dL Glucose (74-99) mg/dL POC Glucose (mg/dL) 108 H 67 L 133 H (75-99) mg/dL Calcium (8.4-10.2) mg/dL Alkaline Phosphatase (38-126) U/L Total Protein (6.3-8.2) g/dL Albumin (3.5-5.0) g/dL 10/07/19 10/08/19 10/08/19 Range/Units 20:46 06:14 08:42 WBC (3.8-10.6) k/uL RBC 3.25 L (4.30-5.90) m/uL Hgb 8.7 L (13.0-17.5) gm/dL Hct 27.6 L (39.0-53.0) % RDW 15.9 H (11.5-15.5) % Neutrophils # (1.3-7.7) k/uL Lymphocytes # 0.8 L (1.0-4.8) k/uL VBG pH (7.31-7.41) VBG pCO2 (37-51) mmHg Sodium (137-145) mmol/L Potassium (3.5-5.1) mmol/L BUN (9-20) mg/dL Creatinine (0.66-1.25) mg/dL Glucose (74-99) mg/dL POC Glucose (mg/dL) 113 H 119 H (75-99) mg/dL Calcium (8.4-10.2) mg/dL Alkaline Phosphatase (38-126) U/L Total Protein (6.3-8.2) g/dL Albumin (3.5-5.0) g/dL 10/08/19 Range/Units 08:42 WBC (3.8-10.6) k/uL RBC (4.30-5.90) m/uL Hgb (13.0-17.5) gm/dL Hct (39.0-53.0) % RDW (11.5-15.5) % Neutrophils # (1.3-7.7) k/uL Lymphocytes # (1.0-4.8) k/uL VBG pH (7.31-7.41) VBG pCO2 (37-51) mmHg Sodium 136 L (137-145) mmol/L Potassium (3.5-5.1) mmol/L BUN 33 H (9-20) mg/dL Creatinine 1.42 H (0.66-1.25) mg/dL Glucose (74-99) mg/dL POC Glucose (mg/dL) (75-99) mg/dL Calcium 7.2 L (8.4-10.2) mg/dL Alkaline Phosphatase 162 H (38-126) U/L Total Protein 5.1 L (6.3-8.2) g/dL Albumin 2.1 L (3.5-5.0) g/dL Diabetes panel 10/07/19 10/08/19 Range/Units 16:50 08:42 Sodium 133 L 136 L (137-145) mmol/L Potassium 3.4 L 3.6 (3.5-5.1) mmol/L Chloride 99 103 (98-107) mmol/L Carbon Dioxide 26 27 (22-30) mmol/L BUN 34 H 33 H (9-20) mg/dL Creatinine 1.33 H 1.42 H (0.66-1.25) mg/dL Glucose 55 L 79 (74-99) mg/dL Calcium 7.9 L 7.2 L (8.4-10.2) mg/dL AST 21 20 (17-59) U/L ALT 14 13 (4-49) U/L Alkaline Phosphatase 252 H 162 H (38-126) U/L Total Protein 5.7 L 5.1 L (6.3-8.2) g/dL Albumin 2.5 L 2.1 L (3.5-5.0) g/dL Calcium panel 10/07/19 10/08/19 Range/Units 16:50 08:42 Calcium 7.9 L 7.2 L (8.4-10.2) mg/dL Albumin 2.5 L 2.1 L (3.5-5.0) g/dL Pituitary panel 10/07/19 10/08/19 Range/Units 16:50 08:42 Sodium 133 L 136 L (137-145) mmol/L Potassium 3.4 L 3.6 (3.5-5.1) mmol/L Chloride 99 103 (98-107) mmol/L Carbon Dioxide 26 27 (22-30) mmol/L BUN 34 H 33 H (9-20) mg/dL Creatinine 1.33 H 1.42 H (0.66-1.25) mg/dL Glucose 55 L 79 (74-99) mg/dL Calcium 7.9 L 7.2 L (8.4-10.2) mg/dL Adrenal panel 10/07/19 10/08/19 Range/Units 16:50 08:42 Sodium 133 L 136 L (137-145) mmol/L Potassium 3.4 L 3.6 (3.5-5.1) mmol/L Chloride 99 103 (98-107) mmol/L Carbon Dioxide 26 27 (22-30) mmol/L BUN 34 H 33 H (9-20) mg/dL Creatinine 1.33 H 1.42 H (0.66-1.25) mg/dL Glucose 55 L 79 (74-99) mg/dL Calcium 7.9 L 7.2 L (8.4-10.2) mg/dL Total Bilirubin 0.8 0.5 (0.2-1.3) mg/dL AST 21 20 (17-59) U/L ALT 14 13 (4-49) U/L Alkaline Phosphatase 252 H 162 H (38-126) U/L Total Protein 5.7 L 5.1 L (6.3-8.2) g/dL Albumin 2.5 L 2.1 L (3.5-5.0) g/dL
[2019-10-08] MEDS ORDERED: ALPRAZolam 0.25 MG TAB PO PRN (14:19)
[2019-10-08] MEDS ORDERED: NITROGLYCERIN SL TABS 0.4 MG TAB SUBLINGUAL PRN (14:19)
[2019-10-08] MEDS: carvediloL 12.5 MG TAB PO SCH (17:41)
[2019-10-08] MEDS: lisinopriL 20 MG TAB PO SCH (17:41)
[2019-10-08] MEDS: FUROSEMIDE 40 MG TAB PO SCH (17:41)
[2019-10-08] MEDS: ISOSORBIDE MONONITRATE ER 30 MG TAB.ER.24H PO SCH (17:41)
[2019-10-08] MEDS: NON FORMULARY DRUG (Potassium Gluconate [Potassium Gluconate] 99 MG) PO SCH (17:43)
[2019-10-08] MEDS: CHOLECALCIFEROL 1,000 UNIT TAB PO SCH (17:43)
[2019-10-08] MEDS: MULTIVITAMINS, THERA 1 EACH TAB PO SCH (17:43)
[2019-10-08 17:49] LABS: Glucose,Whole Blood 130 mg/dL (75-99)
[2019-10-08] MEDS ORDERED: VANCOMYCIN 1,500 MG in SODIUM CHLORIDE 0.9% 250 ML IVPB SCH (18:00)
--- NOTE | 2019-10-08 18:37 | P.HPIM ---
History of Present Illness H&P Date: 10/08/19 Prashant Alonzo, is a 74-year-old male who presented to [facility] emergency room with fever , his temperature was 103 at home , mental status changes , and abdominal pain , patient was recently diagnosed with liver cirrhosis he had ascites with history of paracentesis, he was admitted with fever 3 weeks ago, and diagnosis was presumed as spontaneous bacterial peritonitis although cultures were negative, patient improved and was discharged home he returned to emergency room with similar symptoms. Patient was evaluated in the emergency room his temperature was 1 or 2.7 pulse 89 respiration 18 and blood pressure 105/49 pulse ox 97% on room air, his white blood count was 11.8 hemoglobin 9.8 platelet count 235 BUN was elevated at 34 creatinine 1.33 alkaline phosphatase was elevated at 252 AST and ALT were normal. Gallbladder ultrasound revealed gallbladder wall thickening patient was admitted to medical floor, he was started on IV antibiotic Zosyn, surgical consultation was requested. Patient has a known history of diabetes Gutierrez's, history of hypertension, history of hyperlipidemia, history of stroke, history of congestive heart failure, and history of benign prostatic hypertrophy. On review of systems patient is alert and oriented in no distress he is denying any symptoms at this time there is no fever or chills no headache or dizziness no chest pain no shortness of breath no cough no nausea or vomiting no abdominal pain no diarrhea no burning with urination no frequency or urgency no hematuria Past Medical History Past Medical History: Chest Pain / Angina, Heart Failure, CVA/TIA, Diabetes Mellitus, Hyperlipidemia, Hypertension, Osteoarthritis (OA) Additional Past Medical History / Comment(s): incontinent of stools intermittently. low iron levels, possible GI bleed-dark tarry stools per son, Son stated "has had recent falls related to blood sugar going low 60s"-HX 2017 and 2018 had episodes of CHF approx 7-10 days post receiving flu vaccine,TIA,Type2 IDDM History of Any Multi-Drug Resistant Organisms: None Reported Past Surgical History: Hernia Repair Additional Past Surgical History / Comment(s): 10/31/17 robot assisted laprascopic umbilical hernia repair with mesh., 07/30/18 repair recurrent incarerated hernia Past Anesthesia/Blood Transfusion Reactions: No Reported Reaction Additional Past Anesthesia/Blood Transfusion Reaction / Comment(s): never had anesthesia Past Psychological History: Depression Additional Psychological History / Comment(s): Pt resides with his spouse. He states he uses no assistive devices. He no longer drives, his spouse does the driving and manages his medications. Smoking Status: Current every day smoker Past Alcohol Use History: None Reported Additional Past Alcohol Use History / Comment(s): started smoking age teen, stopped for 25 years and restarted smoking occasionally/lightly-a pack will last 2 weeks Past Drug Use History: None Reported - Past Family History Mother Family Medical History: Cancer Additional Family Medical History / Comment(s): breast cancer Father Family Medical History: Unable to Obtain Sister(s) Family Medical History: Cancer Brother(s) Family Medical History: Diabetes Mellitus Medications and Allergies Home Medications Medication Instructions Recorded Confirmed Type Benazepril HCl 40 mg PO QAM 01/22/17 10/07/19 History Tamsulosin [Flomax] 0.4 mg PO HS 01/23/17 10/07/19 History Isosorbide Mononitrate ER [Imdur] 30 mg PO QAM 10/25/17 10/07/19 History Ferrous Sulfate [Iron (65 MG 325 mg PO DAILY #30 tab 01/22/18 10/07/19 Rx Elemental)] Cyanocobalamin (Vitamin B-12) 5,000 mcg PO DAILY 08/16/19 10/07/19 History [Vitamin B-12] Nitroglycerin Sl Tab (0.3mg) 0.3 mg SUBLINGUAL Q5M PRN 08/16/19 10/07/19 History carvediloL [Coreg*] 12.5 mg PO BID-W/MEALS tab 08/21/19 10/07/19 Rx Furosemide [Lasix] 40 mg PO BID 09/16/19 10/07/19 History Insulin Glargine,Hum.rec.anlog 40 unit SQ QAM 09/16/19 10/07/19 History [[place] Avi U-100] Multivitamins, Thera [Multivitamin 1 tab PO DAILY 09/16/19 10/07/19 History (formulary)] Spironolactone [Aldactone] 50 mg PO BID 09/16/19 10/07/19 History ALPRAZolam [Xanax] 0.25 mg PO BID PRN 10/07/19 10/07/19 History Cholecalciferol [Vitamin D3 (25 1,000 unit PO DAILY 10/07/19 10/07/19 History Mcg = 1000 Iu)] Potassium Gluconate 99 mg PO DAILY 10/07/19 10/07/19 History Allergies Allergy/AdvReac Type Severity Reaction Status Date / Time No Known Allergies Allergy Verified 10/07/19 18:58 Physical Exam Vitals: Vital Signs Temp Pulse Pulse Resp BP BP Pulse Ox 10/08/19 04:00 98.8 F 62 20 101/57 96 10/08/19 00:00 98.8 F 70 18 108/60 95 10/07/19 20:27 78 16 110/58 93 L 10/07/19 19:17 98.5 F 66 18 105/66 95 10/07/19 19:14 98.2 F 78 18 89/44 92 L 10/07/19 19:01 82 18 95/49 96 10/07/19 18:52 93/58 10/07/19 16:19 102.7 F H 89 18 105/49 97 Intake and Output 10/07/19 10/08/19 10/08/19 22:59 06:59 14:59 Intake Total 0 Output Total 250 300 Balance -250 -300 Intake: Oral 0 Output: Urine 250 300 Other: Voiding Method Toilet Diaper # Voids 1 1 # Bowel Movements 1 1 1 Weight 100.244 kg 97 kg In general patient is alert and oriented in no apparent distress HEENT head normocephalic and atraumatic Neck is supple no JVD no goiter no lymphadenopathy Chest exam reveals a few scattered rhonchi no wheezing Cardiac exam reveals regular heart sounds no gallops no murmurs Abdomen is soft nontender no organomegaly Extremity exam reveals no edema no cyanosis or clubbing Neurological examination reveals no gross focal deficits Results CBC & Chem 7: 10/08/19 08:42 10/08/19 08:42 Labs: Abnormal Lab Results - Last 24 Hours (Table) 10/07/19 10/07/19 10/07/19 Range/Units 16:50 16:50 16:50 WBC 11.8 H (3.8-10.6) k/uL RBC 3.80 L (4.30-5.90) m/uL Hgb 9.8 L (13.0-17.5) gm/dL Hct 31.4 L (39.0-53.0) % RDW 16.2 H (11.5-15.5) % Neutrophils # 11.2 H (1.3-7.7) k/uL Lymphocytes # 0.2 L (1.0-4.8) k/uL VBG pH 7.49 H (7.31-7.41) VBG pCO2 34 L (37-51) mmHg Sodium 133 L (137-145) mmol/L Potassium 3.4 L (3.5-5.1) mmol/L BUN 34 H (9-20) mg/dL Creatinine 1.33 H (0.66-1.25) mg/dL Glucose 55 L (74-99) mg/dL POC Glucose (mg/dL) (75-99) mg/dL Calcium 7.9 L (8.4-10.2) mg/dL Alkaline Phosphatase 252 H (38-126) U/L Total Protein 5.7 L (6.3-8.2) g/dL Albumin 2.5 L (3.5-5.0) g/dL 10/07/19 10/07/19 10/07/19 Range/Units 18:34 19:20 19:58 WBC (3.8-10.6) k/uL RBC (4.30-5.90) m/uL Hgb (13.0-17.5) gm/dL Hct (39.0-53.0) % RDW (11.5-15.5) % Neutrophils # (1.3-7.7) k/uL Lymphocytes # (1.0-4.8) k/uL VBG pH (7.31-7.41) VBG pCO2 (37-51) mmHg Sodium (137-145) mmol/L Potassium (3.5-5.1) mmol/L BUN (9-20) mg/dL Creatinine (0.66-1.25) mg/dL Glucose (74-99) mg/dL POC Glucose (mg/dL) 108 H 67 L 133 H (75-99) mg/dL Calcium (8.4-10.2) mg/dL Alkaline Phosphatase (38-126) U/L Total Protein (6.3-8.2) g/dL Albumin (3.5-5.0) g/dL 10/07/19 10/08/19 10/08/19 Range/Units 20:46 06:14 08:42 WBC (3.8-10.6) k/uL RBC 3.25 L (4.30-5.90) m/uL Hgb 8.7 L (13.0-17.5) gm/dL Hct 27.6 L (39.0-53.0) % RDW 15.9 H (11.5-15.5) % Neutrophils # (1.3-7.7) k/uL Lymphocytes # 0.8 L (1.0-4.8) k/uL VBG pH (7.31-7.41) VBG pCO2 (37-51) mmHg Sodium (137-145) mmol/L Potassium (3.5-5.1) mmol/L BUN (9-20) mg/dL Creatinine (0.66-1.25) mg/dL Glucose (74-99) mg/dL POC Glucose (mg/dL) 113 H 119 H (75-99) mg/dL Calcium (8.4-10.2) mg/dL Alkaline Phosphatase (38-126) U/L Total Protein (6.3-8.2) g/dL Albumin (3.5-5.0) g/dL 10/08/19 Range/Units 08:42 WBC (3.8-10.6) k/uL RBC (4.30-5.90) m/uL Hgb (13.0-17.5) gm/dL Hct (39.0-53.0) % RDW (11.5-15.5) % Neutrophils # (1.3-7.7) k/uL Lymphocytes # (1.0-4.8) k/uL VBG pH (7.31-7.41) VBG pCO2 (37-51) mmHg Sodium 136 L (137-145) mmol/L Potassium (3.5-5.1) mmol/L BUN 33 H (9-20) mg/dL Creatinine 1.42 H (0.66-1.25) mg/dL Glucose (74-99) mg/dL POC Glucose (mg/dL) (75-99) mg/dL Calcium 7.2 L (8.4-10.2) mg/dL Alkaline Phosphatase 162 H (38-126) U/L Total Protein 5.1 L (6.3-8.2) g/dL Albumin 2.1 L (3.5-5.0) g/dL Thrombosis Risk Factor Assmnt - Choose All That Apply Each Factor Represents 1 point: Sepsis (< 1month), Swollen legs (current) Each Risk Factor Represents 3 Points: Age 75 years or older Other congenital or acquired thrombophilia - If yes, enter type in comment: No Thrombosis Risk Factor Assessment Total Risk Factor Score: 5 Thrombosis Risk Factor Assessment Level: High Risk Assessment and Plan Plan: 1. Acalculous cholecystitis, surgical consultation requested 2. Underlying history of liver cirrhosis, with history of Acites, history of paracentesis and history of spontaneous bacterial peritonitis 3. Underlying history of diabetes mellitus 4. Underlying history of hypertension 5. Underlying history of hyperlipidemia 6. Previous history of stroke 7. Previous history of congestive heart failure, stable at this time. Patient was started on IV Zosyn surgical consultation, gastroenterology consultation and infectious disease consultation were requested
[2019-10-08 20:07] LABS: Glucose,Whole Blood 160 mg/dL (75-99)
[2019-10-08] MEDS: SPIRONOLACTONE 25 MG TAB PO SCH (20:26)
[2019-10-08] MEDS: TAMSULOSIN 0.4 MG CAP.ER.24H PO SCH (20:27)
--- NOTE | 2019-10-08 21:58 | P.CONS ---
History of Present Illness - Reason for Consult Consult date: 10/08/19 Sepsis Requesting physician: Cheryle Read - Chief Complaint Fever and mental status changes x one day - History of Present Illness Patient is 74-year-old male was brought into the ER at [facility] yesterday for evaluation of fever and mental status changes that apparently started the day he was presented to the hospital patient apparently did have a fever of 102F he did have elevated white count of 11.1 thousand patient chest x-ray was negative for any acute infiltrate was negative patient did have ultrasound of the gallbladder that was suggestive of acute or chronic cholecystitis patient was started on vancomycin and Zosyn and she was admitted to the hospital infectious disease was consulted for further management of antibiotic therapy and concern for sepsis On today's induration that is 10/08/2019 the patient is afebrile, the patient denies having any chest pain or shortness of breath or cough the patient did have some vague pain in the right upper quadrant area however he is unable to quantify it any further denies any nausea no vomiting no diarrhea and no urinary symptoms Review of Systems Positive point has been mentioned in the HPI rest of the systems are negative Past Medical History Past Medical History: Chest Pain / Angina, Heart Failure, CVA/TIA, Diabetes Mellitus, Hyperlipidemia, Hypertension, Osteoarthritis (OA) Additional Past Medical History / Comment(s): incontinent of stools intermittently. low iron levels, possible GI bleed-dark tarry stools per son, Son stated "has had recent falls related to blood sugar going low 60s"-HX 2017 and 2018 had episodes of CHF approx 7-10 days post receiving flu vaccine,TIA,Type2 IDDM History of Any Multi-Drug Resistant Organisms: None Reported Past Surgical History: Hernia Repair Additional Past Surgical History / Comment(s): 10/31/17 robot assisted laprascopic umbilical hernia repair with mesh., 07/30/18 repair recurrent incarerated hernia Past Anesthesia/Blood Transfusion Reactions: No Reported Reaction Additional Past Anesthesia/Blood Transfusion Reaction / Comm: never had anesthesia Past Psychological History: Depression Additional Psychological History / Comment(s): Pt resides with his spouse. He states he uses no assistive devices. He no longer drives, his spouse does the driving and manages his medications. Smoking Status: Current every day smoker Past Alcohol Use History: None Reported Additional Past Alcohol Use History / Comment(s): started smoking age teen, stopped for 25 years and restarted smoking occasionally/lightly-a pack will last 2 weeks Past Drug Use History: None Reported - Past Family History Mother Family Medical History: Cancer Additional Family Medical History / Comment(s): breast cancer Father Family Medical History: Unable to Obtain Sister(s) Family Medical History: Cancer Brother(s) Family Medical History: Diabetes Mellitus Medications and Allergies Home Medications Medication Instructions Recorded Confirmed Type Benazepril HCl 40 mg PO QAM 01/22/17 10/07/19 History Tamsulosin [Flomax] 0.4 mg PO HS 01/23/17 10/07/19 History Isosorbide Mononitrate ER [Imdur] 30 mg PO QAM 10/25/17 10/07/19 History Ferrous Sulfate [Iron (65 MG 325 mg PO DAILY #30 tab 01/22/18 10/07/19 Rx Elemental)] Cyanocobalamin (Vitamin B-12) 5,000 mcg PO DAILY 08/16/19 10/07/19 History [Vitamin B-12] Nitroglycerin Sl Tab (0.3mg) 0.3 mg SUBLINGUAL Q5M PRN 08/16/19 10/07/19 History carvediloL [Coreg*] 12.5 mg PO BID-W/MEALS tab 08/21/19 10/07/19 Rx Furosemide [Lasix] 40 mg PO BID 09/16/19 10/07/19 History Insulin Glargine,Hum.rec.anlog 40 unit SQ QAM 09/16/19 10/07/19 History [[place] U-100] Multivitamins, Thera [Multivitamin 1 tab PO DAILY 09/16/19 10/07/19 History (formulary)] Spironolactone [Aldactone] 50 mg PO BID 09/16/19 10/07/19 History ALPRAZolam [Xanax] 0.25 mg PO BID PRN 10/07/19 10/07/19 History Cholecalciferol [Vitamin D3 (25 1,000 unit PO DAILY 10/07/19 10/07/19 History Mcg = 1000 Iu)] Potassium Gluconate 99 mg PO DAILY 10/07/19 10/07/19 History Allergies Allergy/AdvReac Type Severity Reaction Status Date / Time No Known Allergies Allergy Verified 10/07/19 18:58 Physical Exam Vitals: Vital Signs Temp Pulse Pulse Resp BP BP Pulse Ox 10/08/19 08:00 97.7 F 58 L 115/56 94 L 10/08/19 04:00 98.8 F 62 20 101/57 96 10/08/19 00:00 98.8 F 70 18 108/60 95 10/07/19 20:27 78 16 110/58 93 L 10/07/19 19:17 98.5 F 66 18 105/66 95 10/07/19 19:14 98.2 F 78 18 89/44 92 L 10/07/19 19:01 82 18 95/49 96 10/07/19 18:52 93/58 10/07/19 16:19 102.7 F H 89 18 105/49 97 Intake and Output 10/07/19 10/08/19 10/08/19 22:59 06:59 14:59 Intake Total 0 Output Total 250 450 Balance -250 -450 Intake: Oral 0 Output: Urine 250 450 Other: Voiding Method Toilet Toilet Diaper Diaper # Voids 1 1 # Bowel Movements 1 1 1 Weight 100.244 kg 97 kg GENERAL DESCRIPTION: An elderly male up in the chair , no distress. No tachypnea or accessory muscle of respiration use. HEENT: Shows Pallor , no scleral icterus. Oral mucous membrane is dry. No pharyngeal erythema or thrush NECK: Trachea central, no thyromegaly. LUNGS: Unlabored breathing. Clear to auscultation anteriorly. No wheeze or crackle. HEART: S1, S2, regular rate and rhythm. No loud murmur ABDOMEN: Soft, mild right upper quadrant tenderness , no guarding or rigidity, no organomegaly EXTREMITIES: No edema of feet. SKIN: No rash, no masses palpable. NEUROLOGICAL: The patient is awake, alert, oriented x3, mood and affect normal. Results CBC & Chem 7: 10/08/19 08:42 10/08/19 08:42 Labs: Abnormal Lab Results - Last 24 Hours (Table) 10/07/19 10/07/19 10/07/19 Range/Units 16:50 16:50 16:50 WBC 11.8 H (3.8-10.6) k/uL RBC 3.80 L (4.30-5.90) m/uL Hgb 9.8 L (13.0-17.5) gm/dL Hct 31.4 L (39.0-53.0) % RDW 16.2 H (11.5-15.5) % Neutrophils # 11.2 H (1.3-7.7) k/uL Lymphocytes # 0.2 L (1.0-4.8) k/uL VBG pH 7.49 H (7.31-7.41) VBG pCO2 34 L (37-51) mmHg Sodium 133 L (137-145) mmol/L Potassium 3.4 L (3.5-5.1) mmol/L BUN 34 H (9-20) mg/dL Creatinine 1.33 H (0.66-1.25) mg/dL Glucose 55 L (74-99) mg/dL POC Glucose (mg/dL) (75-99) mg/dL Calcium 7.9 L (8.4-10.2) mg/dL Alkaline Phosphatase 252 H (38-126) U/L Total Protein 5.7 L (6.3-8.2) g/dL Albumin 2.5 L (3.5-5.0) g/dL 10/07/19 10/07/19 10/07/19 Range/Units 18:34 19:20 19:58 WBC (3.8-10.6) k/uL RBC (4.30-5.90) m/uL Hgb (13.0-17.5) gm/dL Hct (39.0-53.0) % RDW (11.5-15.5) % Neutrophils # (1.3-7.7) k/uL Lymphocytes # (1.0-4.8) k/uL VBG pH (7.31-7.41) VBG pCO2 (37-51) mmHg Sodium (137-145) mmol/L Potassium (3.5-5.1) mmol/L BUN (9-20) mg/dL Creatinine (0.66-1.25) mg/dL Glucose (74-99) mg/dL POC Glucose (mg/dL) 108 H 67 L 133 H (75-99) mg/dL Calcium (8.4-10.2) mg/dL Alkaline Phosphatase (38-126) U/L Total Protein (6.3-8.2) g/dL Albumin (3.5-5.0) g/dL 10/07/19 10/08/19 10/08/19 Range/Units 20:46 06:14 08:42 WBC (3.8-10.6) k/uL RBC 3.25 L (4.30-5.90) m/uL Hgb 8.7 L (13.0-17.5) gm/dL Hct 27.6 L (39.0-53.0) % RDW 15.9 H (11.5-15.5) % Neutrophils # (1.3-7.7) k/uL Lymphocytes # 0.8 L (1.0-4.8) k/uL VBG pH (7.31-7.41) VBG pCO2 (37-51) mmHg Sodium (137-145) mmol/L Potassium (3.5-5.1) mmol/L BUN (9-20) mg/dL Creatinine (0.66-1.25) mg/dL Glucose (74-99) mg/dL POC Glucose (mg/dL) 113 H 119 H (75-99) mg/dL Calcium (8.4-10.2) mg/dL Alkaline Phosphatase (38-126) U/L Total Protein (6.3-8.2) g/dL Albumin (3.5-5.0) g/dL 10/08/19 Range/Units 08:42 WBC (3.8-10.6) k/uL RBC (4.30-5.90) m/uL Hgb (13.0-17.5) gm/dL Hct (39.0-53.0) % RDW (11.5-15.5) % Neutrophils # (1.3-7.7) k/uL Lymphocytes # (1.0-4.8) k/uL VBG pH (7.31-7.41) VBG pCO2 (37-51) mmHg Sodium 136 L (137-145) mmol/L Potassium (3.5-5.1) mmol/L BUN 33 H (9-20) mg/dL Creatinine 1.42 H (0.66-1.25) mg/dL Glucose (74-99) mg/dL POC Glucose (mg/dL) (75-99) mg/dL Calcium 7.2 L (8.4-10.2) mg/dL Alkaline Phosphatase 162 H (38-126) U/L Total Protein 5.1 L (6.3-8.2) g/dL Albumin 2.1 L (3.5-5.0) g/dL Assessment and Plan Assessment: 1- patient presented to the hospital with sepsis in this patient who did have a fever and elevated white count source is likely acute cholecystitis and will need to cover for the gram-negative enteric pathogen to the likely organism responsible for this sepsis and less likely gram-positive pathogen (1) Acute cholecystitis Current Visit: Yes Status: Acute Code(s): K81.0 - ACUTE CHOLECYSTITIS SNOMED Code(s): 10816579 (2) Sepsis Current Visit: Yes Status: Acute Code(s): A41.9 - SEPSIS, UNSPECIFIED ORGANISM SNOMED Code(s): 28368701 Plan: 1-Zosyn 3.375 g every 8 hours 2- surgeryon the case for possible cholecystectomy 3-discontinue vancomycin We will follow on clinical condition and cultures to further adjust medication if needed Thank you for this consultation will follow this patient with you Time with Patient: Greater than 30
--- NOTE | 2019-10-09 03:30 | CONS ---
CONSULTATION DATE OF DICTATION: 10/08/2019 REASON FOR CONSULTATION: History of cirrhosis of the liver and elevated LFTs. HISTORY OF PRESENT ILLNESS: The patient is a 74-year-old pleasant white male who was recently diagnosed with liver cirrhosis and ascites for which he underwent large-volume paracentesis during his last hospitalization 2 months ago. He was admitted to the hospital because of fever with a temperature of 102.1. He had a similar hospitalization about 3 weeks ago for fever and some abdominal pain, was thought to have spontaneous bacterial peritonitis treated with antibiotics and the patient was subsequently discharged home. He was seen in the office by me about 2 weeks ago and overall was doing well. Today he denies any abdominal pain. He reports no nausea, vomiting. He denies any rectal bleeding or melena. He did have ultrasound of the abdomen done that showed mild thickening of the gallbladder wall and possibility of acalculous cholecystitis could not be excluded. Because of the fever, he was started on broad-spectrum antibiotics and Surgery was consulted. PAST MEDICAL HISTORY: Significant for diabetes mellitus, cirrhosis of the liver, hypertension, hyperlipidemia, history of congestive heart failure, benign prostatic hypertrophy, ascites requiring paracentesis on 2 different occasions in the last 4 months. PAST SURGICAL HISTORY: Umbilical hernia repair. MEDICATIONS: Medications at home include Lasix, Aldactone 50 mg twice daily, potassium chloride, Xanax, vitamin D3, multivitamin, insulin, benazepril, Flomax, iron sulfate, nitroglycerin, carvedilol, Lasix. FAMILY HISTORY: Mother had breast cancer. Father unable to obtain. Sister had some kind of cancer and other brother has diabetes mellitus. ALLERGIES: None. REVIEW OF SYSTEMS: CARDIOPULMONARY: He denies any chest pain or shortness of breath. GENITOURINARY: No dysuria or hematuria. MUSCULOSKELETAL: Unremarkable. SKIN: Unremarkable. ENDOCRINE: Unremarkable. NEUROLOGY: Unremarkable. PSYCHIATRIC: Unremarkable. ENT/VISION: Unremarkable. CONSTITUTIONAL: No recent weight loss. No fever, chills, night sweats. PHYSICAL EXAMINATION: He appears comfortable. No apparent distress. Vital signs are stable. Blood pressure 115/56, pulse rate 58, temperature 97.7. HEENT EXAMINATION: Unremarkable. Conjunctivae pink. Sclerae anicteric. Oral cavity, no lesions. NECK: No JVD or lymph node enlargement. CHEST: Clear to auscultation. HEART: Regular rate and rhythm. ABDOMEN: Soft. It was nontender, nondistended. Bowel sounds are positive. No organomegaly. No ascites noted. EXTREMITIES: Trace pedal edema. SKIN: No rashes. NEURO: He is alert and oriented x3. No focal deficits. LABS: Labs from yesterday: WBC 11.8 today it is 5.4, hemoglobin 9.8, platelets 235. PTT, INR is within normal limits. AST and ALT 21 and , respectively. Alkaline phosphatase 252 and T-bilirubin is normal. Lipase is normal. IMPRESSION: 1. This is a patient with history of cirrhosis of the liver secondary to nonalcoholic fatty liver disease that was diagnosed about 2 months ago that presents to the hospital with fever, but no abdominal pain and no other symptoms. He had a similar hospitalization 3 weeks ago and was treated for presumed spontaneous bacterial peritonitis with antibiotics and he did well. He had a similar presentation during this time. Ultrasound of the abdomen did show mild thickening of the gallbladder wall. No gallstones noted and mild ascites seen. At this time it is likely that he may have spontaneous bacterial peritonitis again, but possibility of acalculous cholecystitis cannot be excluded and Surgery has been consulted. He presently remains on broad-spectrum antibiotics with Zosyn 3.375 grams clinically doing well and today has been afebrile. 2. History of cirrhosis of the liver with portal hypertension and mild ascites, status post large-volume paracentesis 2 months ago. 3. Longstanding history of diabetes mellitus. 4. Hypertension and hyperlipidemia. RECOMMENDATION: 1. Continue with broad-spectrum antibiotics. 2. Continue with Lasix and Aldactone at the current dose. 3. Start him on a clear liquid diet. 4. Await recommendations from surgical consultation. 5. We will follow with you closely. Thank you for this consultation. MMODL / IJN: [id number] /
[2019-10-09 06:17] LABS: Glucose,Whole Blood 147 mg/dL (75-99)
[2019-10-09 06:29] LABS: Basophils % (A) 1 %; Eosinophils # (A) 0.2 k/uL (0-0.7); Eosinophils % (A) 4 %; HCT 28.9 % (39.0-53.0); HGB 8.9 gm/dL (13.0-17.5); Hypochromasia Slight; Lymphocytes # (A) 0.6 k/uL (1.0-4.8); Lymphocytes % (A) 15 %; MCH 26.4 pg (25.0-35.0); MCHC 30.6 g/dL (31.0-37.0); MCV 86.3 fL (80.0-100.0); Mean Platelet Volume 7.8; Monocytes # (A) 0.3 k/uL (0-1.0); Monocytes % (A) 7 %; Neutrophils # (A) 2.6 k/uL (1.3-7.7); Neutrophils % (A) 71 %; Platelet Count 172 k/uL (150-450); RBC 3.35 m/uL (4.30-5.90); WBC 3.6 k/uL (3.8-10.6)
[2019-10-09 06:37] LABS: Albumin 2.4 g/dL (3.5-5.0); Calcium 7.4 mg/dL (8.4-10.2); Potassium 3.9 mmol/L (3.5-5.1); Total Bilirubin 0.4 mg/dL (0.2-1.3); Total Protein 5.5 g/dL (6.3-8.2)
[2019-10-09] MEDS: INSULIN DETEMIR (LEVEMIR) 100 UNIT/ML SYR SQ SCH (07:15)
[2019-10-09] MEDS: INSULIN ASPART (NovoLOG) 100 UNIT/ML VIAL SQ SCH ×4 (07:16→20:40)
[2019-10-09] MEDS: SODIUM CHLORIDE 0.9% 1,000 ML IV SCH ×3 (07:16→23:06)
[2019-10-09] MEDS: carvediloL 12.5 MG TAB PO SCH ×2 (07:17→17:27)
[2019-10-09] MEDS: PIPERACILLIN-TAZOBACTAM 3.375 GM in SODIUM CHLORIDE 0.9% 100 ML IVPB SCH ×3 (08:24→23:10)
[2019-10-09] MEDS: SPIRONOLACTONE 25 MG TAB PO SCH ×2 (08:25→20:40)
[2019-10-09] MEDS: CYANOCOBALAMIN 500 MCG TAB PO SCH (08:25)
[2019-10-09] MEDS: MULTIVITAMINS, THERA 1 EACH TAB PO SCH (08:25)
[2019-10-09] MEDS: FERROUS SULFATE 325 MG TAB PO SCH (08:25)
[2019-10-09] MEDS: lisinopriL 20 MG TAB PO SCH (08:25)
[2019-10-09] MEDS: CHOLECALCIFEROL 1,000 UNIT TAB PO SCH (08:26)
[2019-10-09] MEDS: NON FORMULARY DRUG (Potassium Gluconate [Potassium Gluconate] 99 MG) PO SCH (08:26)
[2019-10-09] MEDS: ISOSORBIDE MONONITRATE ER 30 MG TAB.ER.24H PO SCH (08:26)
[2019-10-09] MEDS: FUROSEMIDE 40 MG TAB PO SCH ×2 (08:26→17:27)
[2019-10-09 12:32] LABS: Glucose,Whole Blood 143 mg/dL (75-99)
--- NOTE | 2019-10-09 13:00 | P.PN ---
Subjective Progress Note Date: 10/09/19 CHIEF COMPLAINT: Abdominal pain HISTORY OF PRESENT ILLNESS: Patient is being treated for acalculous myke cystitis. He is on IV antibiotics. Patient reports improvement in his abdominal pain. He was initially scheduled for laparoscopic cholecystectomy yesterday. However, son refused the surgery. Patient seen with Dr. Kulkarni this morning. His son at bedside. Dr. Kulkarni and answered questions for the son. At this time son is hesitant for his dad to have the surgery. We are anticipating possible surgery early next week. PHYSICAL EXAM: VITAL SIGNS: Reviewed. GENERAL: Well-developed in no acute distress. HEENT: No sclera icterus. Extraocular movements grossly intact. Moist buccal mucosa. Head is atraumatic, normocephalic. ABDOMEN: Soft. Nondistended. Nontender. NEUROLOGIC: Alert and oriented. Cranial nerves II through XII grossly intact. ASSESSMENT: 1. Acute Acalculous cholecystitis with sepsis PLAN: -A cholecystectomy was canceled yesterday. Patient's son refused the surgery. The son's questions were all answered today by Dr. Kulkarni. At this time he is still hesitant to have his father proceed with surgery. But he will continue to think about it. We will plan for possible laparoscopic cholecystectomy early next week -Continue IV antibiotics -Continue IV fluids -Start carb consistent low-fat diet Physician Highway Painter note has been reviewed by physician. Signing provider agrees with the documented findings, assessment, and plan of care. Objective - Vital Signs Vital signs: Vital Signs Temp 96.9 F L 10/09/19 12:00 Pulse 59 L 10/09/19 12:00 Resp 18 10/09/19 12:00 BP 149/65 10/09/19 12:00 Pulse Ox 95 10/09/19 12:00 Intake & Output 10/08/19 10/09/19 10/09/19 18:59 06:59 18:59 Intake Total 240 Output Total 450 1600 301 Balance -210 -1600 -301 Weight 98.3 kg Intake: Oral 240 Output: Urine 450 1600 300 Urine/Stool Mix 1 Other: Voiding Method Toilet Toilet Diaper Diaper # Voids 1 # Bowel Movements 1 1 - Labs CBC & Chem 7: 10/09/19 05:49 10/09/19 05:49 Labs: Abnormal Lab Results - Last 24 Hours (Table) 10/08/19 10/08/19 10/09/19 Range/Units 17:27 20:06 05:49 WBC (3.8-10.6) k/uL RBC (4.30-5.90) m/uL Hgb (13.0-17.5) gm/dL Hct (39.0-53.0) % MCHC (31.0-37.0) g/dL RDW (11.5-15.5) % Lymphocytes # (1.0-4.8) k/uL BUN 31 H (9-20) mg/dL Creatinine 1.43 H (0.66-1.25) mg/dL Glucose 140 H (74-99) mg/dL POC Glucose (mg/dL) 130 H 160 H (75-99) mg/dL Calcium 7.4 L (8.4-10.2) mg/dL Alkaline Phosphatase 165 H (38-126) U/L Total Protein 5.5 L (6.3-8.2) g/dL Albumin 2.4 L (3.5-5.0) g/dL 10/09/19 10/09/19 10/09/19 Range/Units 05:49 06:16 12:24 WBC 3.6 L (3.8-10.6) k/uL RBC 3.35 L (4.30-5.90) m/uL Hgb 8.9 L (13.0-17.5) gm/dL Hct 28.9 L (39.0-53.0) % MCHC 30.6 L (31.0-37.0) g/dL RDW 16.0 H (11.5-15.5) % Lymphocytes # 0.6 L (1.0-4.8) k/uL BUN (9-20) mg/dL Creatinine (0.66-1.25) mg/dL Glucose (74-99) mg/dL POC Glucose (mg/dL) 147 H 143 H (75-99) mg/dL Calcium (8.4-10.2) mg/dL Alkaline Phosphatase (38-126) U/L Total Protein (6.3-8.2) g/dL Albumin (3.5-5.0) g/dL Microbiology - Last 24 Hours (Table) 10/07/19 16:50 Blood Culture - Preliminary Blood No Growth after 24 hours
[2019-10-09 16:55] LABS: Glucose,Whole Blood 164 mg/dL (75-99)
--- NOTE | 2019-10-09 17:10 | P.PN ---
Subjective Progress Note Date: 10/09/19 Prashant Alonzo, is a 74-year-old male who presented to [facility] emergency room with fever , his temperature was 103 at home , mental status changes , and abdominal pain , patient was recently diagnosed with liver cirrhosis he had ascites with history of paracentesis, he was admitted with fever 3 weeks ago, and diagnosis was presumed as spontaneous bacterial peritonitis although cultures were negative, patient improved and was discharged home he returned to emergency room with similar symptoms. Patient was evaluated in the emergency room his temperature was 1 or 2.7 pulse 89 respiration 18 and blood pressure 105/49 pulse ox 97% on room air, his white blood count was 11.8 hemoglobin 9.8 platelet count 235 BUN was elevated at 34 creatinine 1.33 alkaline phosphatase was elevated at 252 AST and ALT were normal. Gallbladder ultrasound revealed gallbladder wall thickening patient was admitted to medical floor, he was started on IV antibiotic Zosyn, surgical consultation was requested. Patient has a known history of diabetes Mellitus, history of hypertension, history of hyperlipidemia, history of stroke, history of congestive heart failure, and history of benign prostatic hypertrophy. On review of systems patient is alert and oriented in no distress he is denying any symptoms at this time there is no fever or chills no headache or dizziness no chest pain no shortness of breath no cough no nausea or vomiting no abdominal pain no diarrhea no burning with urination no frequency or urgency no hematuria. On 10/09/2019 patient was seen and examined on the medical floor he is alert and oriented 3 in no apparent distress, there is no fever or chills no headache or dizziness no chest pain no shortness of breath no cough no nausea or vomiting no abdominal pain no diarrhea no burning with urination no frequency or urgency and no hematuria. Patient and family have refused cholecystectomy yesterday, continue IV antibiotic, will continue discussion with son in regard to possible cholecystectomy early next week. Objective - Vital Signs Vital signs: Vital Signs Temp 96.9 F L 10/09/19 12:00 Pulse 59 L 10/09/19 12:00 Resp 18 10/09/19 12:00 BP 149/65 10/09/19 12:00 Pulse Ox 95 10/09/19 12:00 Intake & Output 10/08/19 10/09/19 10/09/19 18:59 06:59 18:59 Intake Total 240 Output Total 450 1600 301 Balance -210 -1600 -301 Weight 98.3 kg Intake: Oral 240 Output: Urine 450 1600 300 Urine/Stool Mix 1 Other: Voiding Method Toilet Toilet Diaper Diaper # Voids 1 # Bowel Movements 1 1 - Exam In general patient is alert and oriented in no apparent distress HEENT head normocephalic and atraumatic Neck is supple no JVD no goiter no lymphadenopathy Chest exam reveals a few scattered rhonchi no wheezing Cardiac exam reveals regular heart sounds no gallops no murmurs Abdomen is soft nontender no organomegaly Extremity exam reveals no edema no cyanosis or clubbing Neurological examination reveals no gross focal deficits - Labs CBC & Chem 7: 10/09/19 05:49 10/09/19 05:49 Labs: Abnormal Lab Results - Last 24 Hours (Table) 10/08/19 10/08/19 10/09/19 Range/Units 17:27 20:06 05:49 WBC (3.8-10.6) k/uL RBC (4.30-5.90) m/uL Hgb (13.0-17.5) gm/dL Hct (39.0-53.0) % MCHC (31.0-37.0) g/dL RDW (11.5-15.5) % Lymphocytes # (1.0-4.8) k/uL BUN 31 H (9-20) mg/dL Creatinine 1.43 H (0.66-1.25) mg/dL Glucose 140 H (74-99) mg/dL POC Glucose (mg/dL) 130 H 160 H (75-99) mg/dL Calcium 7.4 L (8.4-10.2) mg/dL Alkaline Phosphatase 165 H (38-126) U/L Total Protein 5.5 L (6.3-8.2) g/dL Albumin 2.4 L (3.5-5.0) g/dL 10/09/19 10/09/19 10/09/19 Range/Units 05:49 06:16 12:24 WBC 3.6 L (3.8-10.6) k/uL RBC 3.35 L (4.30-5.90) m/uL Hgb 8.9 L (13.0-17.5) gm/dL Hct 28.9 L (39.0-53.0) % MCHC 30.6 L (31.0-37.0) g/dL RDW 16.0 H (11.5-15.5) % Lymphocytes # 0.6 L (1.0-4.8) k/uL BUN (9-20) mg/dL Creatinine (0.66-1.25) mg/dL Glucose (74-99) mg/dL POC Glucose (mg/dL) 147 H 143 H (75-99) mg/dL Calcium (8.4-10.2) mg/dL Alkaline Phosphatase (38-126) U/L Total Protein (6.3-8.2) g/dL Albumin (3.5-5.0) g/dL Microbiology - Last 24 Hours (Table) 10/07/19 16:50 Blood Culture - Preliminary Blood No Growth after 24 hours Assessment and Plan Plan: 1. Acalculous cholecystitis, surgical consultation requested 2. Underlying history of liver cirrhosis, with history of Acites, history of paracentesis and history of spontaneous bacterial peritonitis 3. Underlying history of diabetes mellitus 4. Underlying history of hypertension 5. Underlying history of hyperlipidemia 6. Previous history of stroke 7. Previous history of congestive heart failure, stable at this time. Patient was started on IV Zosyn surgical consultation, gastroenterology consultation and infectious disease consultation were requested
--- NOTE | 2019-10-09 17:40 | PN ---
PROGRESS NOTE DATE OF SERVICE: 10/09/2019 REASON FOR FOLLOWUP: Acute cholecystitis with sepsis. INTERVAL HISTORY: The patient is afebrile as of this morning. The patient denies having any chest pain or shortness of breath or cough. No nausea, no vomiting. Abdominal pain only when he pushes in the right upper quadrant area. No vomiting. No diarrhea. PHYSICAL EXAMINATION: Blood pressure 149/65 with a pulse of 59, temperature 96.9. He is 95% on room air. General description is an elderly male lying in bed in no distress. RESPIRATORY SYSTEM: Unlabored breathing. Clear to auscultation anteriorly. HEART: S1, S2. Regular rate and rhythm. ABDOMEN: Soft. Mildly tender in the right upper quadrant. There is no guarding or rigidity. LABS: Hemoglobin is 8.9, white count 3.6, BUN of 31, creatinine 1.43. DIAGNOSTIC IMPRESSION AND PLAN: Patient admitted to hospital with sepsis. Source is acute cholecystitis. Surgery is on the case; recommended cholecystectomy. However, the family apparently is refusing. The patient's condition has been discussed in detail with the risk of recurrent cholecystitis and risk of perforation. May benefit from cholecystectomy during this admission. Continue with Zosyn and monitor his clinical course closely. MMODL / IJN: [id number] /
[2019-10-09 19:56] LABS: Glucose,Whole Blood 171 mg/dL (75-99)
[2019-10-09] MEDS: TAMSULOSIN 0.4 MG CAP.ER.24H PO SCH (20:41)
--- NOTE | 2019-10-09 23:43 | PN ---
PROGRESS NOTE DATE OF DICTATION: 10/09/2019 Patient is a 74-year-old pleasant white male admitted to hospital with fever, nausea, vomiting, not feeling well. He had a similar hospitalization 3 weeks ago for possible SBP, treated with antibiotics and was discharged home. Currently, he is on antibiotics and he is doing much better. He denies any abdominal pain. Reports no nausea or vomiting. There was question of acalculous cholecystitis and Dr. Kulkarni was consulted. However, the patient denies any abdominal pain since admission to the hospital and even prior to hospitalization. PHYSICAL EXAMINATION: He appears comfortable. Vital signs are stable. Blood pressure is 164/73, pulse rate 61, temperature 97.5. HEENT EXAMINATION: Unremarkable. Conjunctivae pink. Sclerae anicteric. Oral cavity, no lesions. NECK: No JVD or lymph node enlargement. CHEST: Clear to auscultation. HEART: Regular rate and rhythm. ABDOMEN: Was slightly distended, but it was very benign. Bowel sounds are positive. No organomegaly. EXTREMITIES: No pedal edema. NEURO: He is alert and oriented x3. No focal deficits. LABS: WBC 3.6, hemoglobin 8.9, platelets 172. Basic metabolic panel is within normal limits. BUN 31, creatinine 1.43. AST, ALT normal. T bilirubin 0.4. Alkaline phosphatase 165. IMPRESSION: 1. 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 2. Fever and leukocytosis at the time of admission to the hospital presently on broad- spectrum antibiotics. Overall clinical condition is significantly improved most likely dealing with spontaneous bacterial peritonitis. Ultrasound did show mild amount of ascites. 3. History of ascites currently maintained on diuretics with Lasix 40 mg twice daily and Aldactone 50 mg twice daily. 4. Longstanding history of diabetes mellitus and hypertension. RECOMMENDATIONS: 1. Continue broad-spectrum antibiotics. 2. Advance diet as tolerated. 3. Continue diuretics. 4. Monitor LFTs closely. 5. Patient can be discharged home on p.o. antibiotics and will consider starting him on maintenance antibiotics as a part of secondary prophylaxis to prevent spontaneous bacterial peritonitis in the future. The plan was discussed with the patient as well as his son at the bedside. Thank you for this consultation. MMODL / IJN: [id number] /
[2019-10-10 06:13] LABS: Glucose,Whole Blood 171 mg/dL (75-99)
[2019-10-10] MEDS: carvediloL 12.5 MG TAB PO SCH ×2 (06:16→17:07)
[2019-10-10] MEDS: INSULIN ASPART (NovoLOG) 100 UNIT/ML VIAL SQ SCH ×4 (06:16→20:30)
[2019-10-10 07:01] LABS: Basophils % (A) 1 %; Eosinophils # (A) 0.1 k/uL (0-0.7); Eosinophils % (A) 3 %; HCT 28.1 % (39.0-53.0); HGB 8.7 gm/dL (13.0-17.5); Hypochromasia Slight; Lymphocytes # (A) 0.9 k/uL (1.0-4.8); Lymphocytes % (A) 28 %; MCH 26.4 pg (25.0-35.0); MCHC 30.9 g/dL (31.0-37.0); MCV 85.2 fL (80.0-100.0); Mean Platelet Volume 7.4; Monocytes # (A) 0.2 k/uL (0-1.0); Monocytes % (A) 8 %; Neutrophils # (A) 1.9 k/uL (1.3-7.7); Neutrophils % (A) 58 %; Platelet Count 167 k/uL (150-450); WBC 3.2 k/uL (3.8-10.6)
[2019-10-10 07:12] LABS: Albumin 2.3 g/dL (3.5-5.0); Calcium 7.6 mg/dL (8.4-10.2); Potassium 3.8 mmol/L (3.5-5.1); Total Bilirubin 0.4 mg/dL (0.2-1.3); Total Protein 5.4 g/dL (6.3-8.2)
[2019-10-10] MEDS: PIPERACILLIN-TAZOBACTAM 3.375 GM in SODIUM CHLORIDE 0.9% 100 ML IVPB SCH ×3 (08:52→23:07)
[2019-10-10] MEDS: lisinopriL 20 MG TAB PO SCH (08:53)
[2019-10-10] MEDS: ISOSORBIDE MONONITRATE ER 30 MG TAB.ER.24H PO SCH (08:53)
[2019-10-10] MEDS: CHOLECALCIFEROL 1,000 UNIT TAB PO SCH (08:53)
[2019-10-10] MEDS: SPIRONOLACTONE 25 MG TAB PO SCH ×2 (08:53→20:49)
[2019-10-10] MEDS: FUROSEMIDE 40 MG TAB PO SCH ×2 (08:53→17:08)
[2019-10-10] MEDS: FERROUS SULFATE 325 MG TAB PO SCH (08:53)
[2019-10-10] MEDS: MULTIVITAMINS, THERA 1 EACH TAB PO SCH (08:53)
[2019-10-10] MEDS: CYANOCOBALAMIN 500 MCG TAB PO SCH (08:54)
[2019-10-10] MEDS: INSULIN DETEMIR (LEVEMIR) 100 UNIT/ML SYR SQ SCH (08:54)
[2019-10-10] MEDS: SODIUM CHLORIDE 0.9% 1,000 ML IV SCH ×3 (11:29→22:18)
[2019-10-10 11:52] LABS: Glucose,Whole Blood 108 mg/dL (75-99)
[2019-10-10] MEDS: NON FORMULARY DRUG (Potassium Gluconate [Potassium Gluconate] 99 MG) PO SCH (12:37)
--- NOTE | 2019-10-10 12:45 | P.PN ---
Subjective Progress Note Date: 10/10/19 CHIEF COMPLAINT: Abdominal pain HISTORY OF PRESENT ILLNESS: Patient is being treated for acalculous myke cystitis. He is on IV antibiotics. Patient no abdominal pain. He was initially scheduled for laparoscopic cholecystectomy. However, son refused the surgery. Patient tolerating low sodium diet. He is passing gas. No bowel movement today. Denies any nausea or vomiting. Afebrile. The before meals 2.2 hemoglobin 8.7 alk phos 137 PHYSICAL EXAM: VITAL SIGNS: Reviewed. GENERAL: Well-developed in no acute distress. HEENT: No sclera icterus. Extraocular movements grossly intact. Moist buccal mucosa. Head is atraumatic, normocephalic. ABDOMEN: Soft. Nondistended. Nontender. NEUROLOGIC: Alert and oriented. Cranial nerves II through XII grossly intact. ASSESSMENT: 1. Acute Acalculous cholecystitis with sepsis PLAN: -cholecystectomy was canceled because patient's son refused the surgery. The son's questions were all answered by Dr. Kulkarni. At this time he is still hesitant to have his father proceed with surgery. But he will continue to think about it. We will plan for possible laparoscopic cholecystectomy early next week -Continue IV antibiotics -Continue IV fluids -Continue current diet Physician High Worker note has been reviewed by physician. Signing provider agrees with the documented findings, assessment, and plan of care. Objective - Vital Signs Vital signs: Vital Signs Temp 98.0 F 10/10/19 11:56 Pulse 59 L 10/10/19 11:56 Resp 18 10/10/19 11:56 BP 155/80 10/10/19 11:56 Pulse Ox 96 10/10/19 11:56 Intake & Output 10/09/19 10/10/19 10/10/19 18:59 06:59 18:59 Intake Total 240 240 Output Total 301 475 400 Balance -61 -475 -160 Weight 98.1 kg Intake: Oral 240 240 Output: Urine 300 475 400 Urine/Stool Mix 1 Other: Voiding Method Toilet Toilet Diaper Diaper # Bowel Movements 2 - Labs CBC & Chem 7: 10/10/19 06:19 10/10/19 06:19 Labs: Abnormal Lab Results - Last 24 Hours (Table) 10/09/19 10/09/19 10/10/19 Range/Units 16:54 19:55 06:12 WBC (3.8-10.6) k/uL RBC (4.30-5.90) m/uL Hgb (13.0-17.5) gm/dL Hct (39.0-53.0) % MCHC (31.0-37.0) g/dL RDW (11.5-15.5) % Lymphocytes # (1.0-4.8) k/uL BUN (9-20) mg/dL Glucose (74-99) mg/dL POC Glucose (mg/dL) 164 H 171 H 171 H (75-99) mg/dL Calcium (8.4-10.2) mg/dL AST (17-59) U/L Alkaline Phosphatase (38-126) U/L Total Protein (6.3-8.2) g/dL Albumin (3.5-5.0) g/dL 10/10/19 10/10/19 10/10/19 Range/Units 06:19 06:19 11:50 WBC 3.2 L (3.8-10.6) k/uL RBC 3.30 L (4.30-5.90) m/uL Hgb 8.7 L (13.0-17.5) gm/dL Hct 28.1 L (39.0-53.0) % MCHC 30.9 L (31.0-37.0) g/dL RDW 16.0 H (11.5-15.5) % Lymphocytes # 0.9 L (1.0-4.8) k/uL BUN 23 H (9-20) mg/dL Glucose 149 H (74-99) mg/dL POC Glucose (mg/dL) 108 H (75-99) mg/dL Calcium 7.6 L (8.4-10.2) mg/dL AST 15 L (17-59) U/L Alkaline Phosphatase 137 H (38-126) U/L Total Protein 5.4 L (6.3-8.2) g/dL Albumin 2.3 L (3.5-5.0) g/dL Microbiology - Last 24 Hours (Table) 10/07/19 16:50 Blood Culture - Preliminary Blood No Growth after 48 hours
--- NOTE | 2019-10-10 13:55 | CDI ---
Documentation Clarification Form Date: 10/10/2019 01:43:29 PM From: Emily Cotter RN, CCDS Admit Date: 10/07/2019 06:38:00 PM Patient Name: Prashant Alonzo Visit Number: [id number] ATTENTION: The Clinical Documentation Specialists (CDI) and [facility] Coding Staff appreciate your assistance in clarifying documentation. Please respond to the clarification below the line at the bottom and electronically sign. The CDI & [facility] Coding staff will review the response and follow-up if needed. Please note: Queries are made part of the Legal Health Record. If you have any questions, please contact the author of this message via ITS. Dr. Cheryle Read CHF is documented in the PMH and requires further specificity. History/Risk Factors: CHF, DM, cirrhosis of liver, HTN, Ascities Clinical Indicators: 10/07 H&P: "Previous history of congestive heart failure, stable at this time" 10/06 1619 VS/Pulse OX: Temp 102.7, HR 89, RR 18, B/P 105/49, Spo2 97% RA 10/06 BNP: 6320 08/17/2019 Echocardiogram Results: EF 45-50%, moderate concentric LVH, Basal inferior and basal inferoseptal hypokinesis 10/06 Chest X Ray:"No active cardiopulmonary disease. No change." Treatment: Coreg 12.5 mg PO BID Lasix 40 mg PO BID Imdur 30 mg PO Q AM Zestril 40 mg PO Q AM 10/06 0.9% NS 500 cc fluid bolus followed by 130 cc/hr Aldactone 50 mg PO BID In your professional opinion, can you please clarify the acuity and type of CHF if known? Chronic Systolic Heart Failure: Chronic Diastolic Heart Failure: Chronic Systolic & Diastolic Heart Failure: Unable to Determine Other, please specify (Last Revision: May 2017) Chronic Systolic heart failure MTDD
--- NOTE | 2019-10-10 14:04 | CDI ---
Documentation Clarification Form Date: 10/10/2019 01:56:09 PM From: Emily Cotter RN, CCDS Admit Date: 10/07/2019 06:38:00 PM Patient Name: Prashant Alonzo Visit Number: [id number] ATTENTION: The Clinical Documentation Specialists (CDI) and [facility] Coding Staff appreciate your assistance in clarifying documentation. Please respond to the clarification below the line at the bottom and electronically sign. The CDI & [facility] Coding staff will review the response and follow-up if needed. Please note: Queries are made part of the Legal Health Record. If you have any questions, please contact the author of this message via ITS. Dr. Cheryle Read Please render your opinion on the clinical significance of the patients hemoglobin/hematocrit levels. History/Risk Factors: Liver cirrhosis with ascities, SBP, CHF, CVA, DM, low iron levels Clinical indicators: 10/06-10/09 Hgb: 9.8/8.7/8.9/8.7 10/06-10/09 Hct: 31.4/27.6/28.9/28.1 Treatment: Lab Monitoring AM Daily B-12 5000mcg PO QD Feosol 325 mg PO QD 10/06 500cc 0.9%NS IVF Bolus followed by 130cc/hr In order to capture the severity of condition, please clarify if the labs/clinical indicators signify: Acute on chronic blood loss anemia Chronic blood loss anemia Iron deficiency anemia Nutritional anemia Anemia of chronic disease Unable to determine Other, please specify (Last Form Revision: April 2019) Anemia of chronic disease MTDD
--- NOTE | 2019-10-10 14:12 | CDI ---
Documentation Clarification Form Date: 10/10/2019 02:04:51 PM From: Emily Cotter RN, CCDS Admit Date: 10/07/2019 06:38:00 PM Patient Name: Prashant Alonzo Visit Number: [id number] ATTENTION: The Clinical Documentation Specialists (CDI) and [facility] Coding Staff appreciate your assistance in clarifying documentation. Please respond to the clarification below the line at the bottom and electronically sign. The CDI & [facility] Coding staff will review the response and follow-up if needed. Please note: Queries are made part of the Legal Health Record. If you have any questions, please contact the author of this message via ITS. Dr. Cheryle Read An elevated BUN and Creatinine have been noted in the patient's laboratory studies. Please provide clinical significance. History/Risk Factors: 09/19/2019 Patients baseline BUN/CR/GFR: 11/03. HTN, CHF, Cirrhosis of liver with acites, DM Clinical Indicators: 10/06-10/09 Current BUN: 34/33/31/23 Cr: 1.33/1.42/1.43/1.19 GFR: 52/48/48/59 Treatment: Lasix 40 mg PO BID 10/06 500 cc 0.9% NS IVF Bolus followed by 130 cc/hr In order to capture the severity of condition, please clarify if the condition the labs signify: Acute renal failure, Please specify etiology (if known): Cortical Necrosis Medullary Necrosis Tubular Necrosis Acute kidney injury Acute on chronic renal failure CKD Stage 1 GFR >90 CKD Stage 2 GFR 60-89 CKD Stage 3 GFR 30-59 CKD Stage 4 GFR 15-29 CKD Stage 5 GFR <15 Chronic renal failure/Chronic Kidney disease (CKD) please stage (if known): CKD Stage 1 GFR >90 CKD Stage 2 GFR 60-89 CKD Stage 3 GFR 30-59 CKD Stage 4 GFR 15-29 CKD Stage 5 GFR <15 Other, please specify Unable to determine (Last Revision: May 2017) Chronic kidney disease stage 3 MTDD
[2019-10-10 17:00] LABS: Glucose,Whole Blood 105 mg/dL (75-99)
--- NOTE | 2019-10-10 18:29 | PN ---
PROGRESS NOTE DATE OF SERVICE: 10/10/2019 REASON FOR FOLLOWUP: Sepsis and acute cholecystitis. INTERVAL HISTORY: The patient is currently afebrile, has been breathing comfortably. The patient denies having any chest pain or shortness of breath or cough. No nausea, vomiting, abdominal pain or diarrhea. PHYSICAL EXAMINATION: Blood pressure 155/80 with a pulse of 55, temperature 98. He is 96% on room air. General description is an elderly male lying in bed in no distress. RESPIRATORY SYSTEM: Unlabored breathing with decreased breath sounds at the base. No wheeze. HEART: S1, S2. Regular rate and rhythm. ABDOMEN: Soft. No tenderness. LABS: Hemoglobin 8.6, white count 3.2, BUN of 23, creatinine 1.19. Blood culture has been negative. DIAGNOSTIC IMPRESSION AND PLAN: Patient admitted to hospital with sepsis; concern likely for acute cholecystitis. Clinically responding to Zosyn; to continue. Will monitor his clinical course closely. MMODL / IJN: [id number] /
--- NOTE | 2019-10-10 19:22 | PN ---
PROGRESS NOTE DATE OF SERVICE: 10/10/2019 HISTORY OF PRESENT ILLNESS: This patient is a 74-year-old white male with alcoholic cirrhosis of the liver, admitted to the hospital with possible spontaneous bacterial peritonitis. He had fever and leukocytosis. Presently on broad-spectrum antibiotics and doing well. No abdominal pain. No new symptoms. PHYSICAL EXAMINATION: Appears comfortable. VITAL SIGNS: Stable. Blood pressure 150/86, pulse is 61, temperature 97.5. HEENT: Examination unremarkable. Conjunctivae are pink. Sclerae anicteric. Oral cavity no lesions. NECK: No JVD or lymph node enlargement. CHEST: Clear to auscultation. HEART: Regular rate and rhythm. ABDOMEN: Soft, nontender, nondistended. Small umbilical hernia noted. Clinically no ascites. EXTREMITIES: Trace pedal edema. NEUROLOGIC: Alert and oriented x3. No focal deficits. LABS: From today WBC 3.2, hemoglobin 8.7, platelets 167. Basic metabolic panel is normal. BUN 23, creatinine 1.19. AST and ALT 59 and 11 respectively. IMPRESSION: 1. Fever and leukocytosis, possible spontaneous bacterial peritonitis. Had a similar episode 3 weeks ago. Presently on antibiotics and doing well. Fever and leukocytosis resolved. 2. History of ascites and diuretics. 3. Nonalcoholic cirrhosis of the liver diagnosed 4 months ago. RECOMMENDATIONS: 1. Continue with antibiotics. 2. Monitor labs closely. 3. Continue diuretics at the current dose. 4. If he remains stable, he can be discharged home in the next 24 to 48 hours with outpatient followup in 1 week. Thank you for this consultation. MMTRICIAL / CARROLLN: [id number] /
[2019-10-10 20:08] LABS: Glucose,Whole Blood 79 mg/dL (75-99)
[2019-10-10] MEDS: TAMSULOSIN 0.4 MG CAP.ER.24H PO SCH (20:49)
[2019-10-11 06:12] LABS: Glucose,Whole Blood 89 mg/dL (75-99)
[2019-10-11] MEDS: INSULIN ASPART (NovoLOG) 100 UNIT/ML VIAL SQ SCH ×2 (06:39→12:21)
[2019-10-11] MEDS: SODIUM CHLORIDE 0.9% 1,000 ML IV SCH ×2 (06:39→15:28)
[2019-10-11] MEDS: carvediloL 12.5 MG TAB PO SCH (06:44)
[2019-10-11 07:17] LABS: Glucose,Whole Blood 92 mg/dL (75-99)
[2019-10-11 09:19] LABS: Glucose,Whole Blood 169 mg/dL (75-99)
[2019-10-11] MEDS: CHOLECALCIFEROL 1,000 UNIT TAB PO SCH (09:21)
[2019-10-11] MEDS: ISOSORBIDE MONONITRATE ER 30 MG TAB.ER.24H PO SCH (09:21)
[2019-10-11] MEDS: lisinopriL 20 MG TAB PO SCH (09:21)
[2019-10-11] MEDS: FUROSEMIDE 40 MG TAB PO SCH (09:22)
[2019-10-11] MEDS: CYANOCOBALAMIN 500 MCG TAB PO SCH (09:22)
[2019-10-11] MEDS: INSULIN DETEMIR (LEVEMIR) 100 UNIT/ML SYR SQ SCH (09:22)
[2019-10-11] MEDS: SPIRONOLACTONE 25 MG TAB PO SCH (09:22)
[2019-10-11] MEDS: PIPERACILLIN-TAZOBACTAM 3.375 GM in SODIUM CHLORIDE 0.9% 100 ML IVPB SCH (09:22)
[2019-10-11] MEDS: FERROUS SULFATE 325 MG TAB PO SCH (09:22)
[2019-10-11] MEDS: MULTIVITAMINS, THERA 1 EACH TAB PO SCH (09:22)
[2019-10-11] MEDS: NON FORMULARY DRUG (Potassium Gluconate [Potassium Gluconate] 99 MG) PO SCH (09:23)
[2019-10-11 09:29] VITALS: TEMP 97.9
--- NOTE | 2019-10-11 09:59 | P.PN ---
Subjective Progress Note Date: 10/11/19 CHIEF COMPLAINT: Abdominal pain HISTORY OF PRESENT ILLNESS: Patient is being treated for acalculous myke cystitis. He is on IV antibiotics. Patient has no abdominal pain. He was initially scheduled for laparoscopic cholecystectomy. However, son refused the surgery. Patient tolerating low sodium diet. He is passing gas and having bowel movements. He denies any nausea or vomiting. Afebrile. PHYSICAL EXAM: VITAL SIGNS: Reviewed. GENERAL: Well-developed in no acute distress. HEENT: No sclera icterus. Extraocular movements grossly intact. Moist buccal mucosa. Head is atraumatic, normocephalic. ABDOMEN: Soft. Nondistended. Nontender. NEUROLOGIC: Alert and oriented. Cranial nerves II through XII grossly intact. ASSESSMENT: 1. Acute Acalculous cholecystitis with sepsis improving with antibiotics. PLAN: -Patient can be discharged from surgical standpoint. Patient to follow-up with Dr. Kulkarni in 1 week and readdress scheduling laparoscopic cholecystectomy outpatient -Continue IV antibiotics per ID -Continue current diet Physician [employer] note has been reviewed by physician. Signing provider agrees with the documented findings, assessment, and plan of care. Objective - Vital Signs Vital signs: Vital Signs Temp 97.9 F 10/11/19 09:28 Pulse 89 10/11/19 09:28 Resp 18 10/11/19 09:28 BP 121/61 10/11/19 09:28 Pulse Ox 94 L 10/11/19 09:28 Intake & Output 10/10/19 10/11/19 10/11/19 18:59 06:59 18:59 Intake Total 480 480 120 Output Total 400 2250 400 Balance 80 -1770 -280 Weight 97 kg Intake: Oral 480 480 120 Output: Urine 400 2250 400 Other: Voiding Method Toilet Toilet Diaper Diaper # Voids 1 # Bowel Movements 2 - Labs CBC & Chem 7: 10/10/19 06:19 10/11/19 07:30 Labs: Abnormal Lab Results - Last 24 Hours (Table) 10/10/19 10/10/19 10/11/19 Range/Units 11:50 16:59 09:17 POC Glucose (mg/dL) 108 H 105 H 169 H (75-99) mg/dL Microbiology - Last 24 Hours (Table) 10/07/19 16:50 Blood Culture - Preliminary Blood No Growth after 72 hours
[2019-10-11 12:08] LABS: Glucose,Whole Blood 106 mg/dL (75-99)
[2019-10-11 13:18] VITALS: BP 127/53; PULSE 65; RESP 20
--- NOTE | 2019-10-11 15:55 | P.PN ---
Subjective Progress Note Date: 10/10/19 Prashant Alonzo, is a 74-year-old male who presented to [facility] emergency room with fever , his temperature was 103 at home , mental status changes , and abdominal pain , patient was recently diagnosed with liver cirrhosis he had ascites with history of paracentesis, he was admitted with fever 3 weeks ago, and diagnosis was presumed as spontaneous bacterial peritonitis although cultures were negative, patient improved and was discharged home he returned to emergency room with similar symptoms. Patient was evaluated in the emergency room his temperature was 1 or 2.7 pulse 89 respiration 18 and blood pressure 105/49 pulse ox 97% on room air, his white blood count was 11.8 hemoglobin 9.8 platelet count 235 BUN was elevated at 34 creatinine 1.33 alkaline phosphatase was elevated at 252 AST and ALT were normal. Gallbladder ultrasound revealed gallbladder wall thickening patient was admitted to medical floor, he was started on IV antibiotic Zosyn, surgical consultation was requested. Patient has a known history of diabetes Mellitus, history of hypertension, history of hyperlipidemia, history of stroke, history of congestive heart failure, and history of benign prostatic hypertrophy. On review of systems patient is alert and oriented in no distress he is denying any symptoms at this time there is no fever or chills no headache or dizziness no chest pain no shortness of breath no cough no nausea or vomiting no abdominal pain no diarrhea no burning with urination no frequency or urgency no hematuria. On 10/09/2019 patient was seen and examined on the medical floor he is alert and oriented 3 in no apparent distress, there is no fever or chills no headache or dizziness no chest pain no shortness of breath no cough no nausea or vomiting no abdominal pain no diarrhea no burning with urination no frequency or urgency and no hematuria. Patient and family have refused cholecystectomy yesterday, continue IV antibiotic, will continue discussion with son in regard to possible cholecystectomy early next week.. On 10/10/2019 patient was seen and examined on the medical floor he is alert and oriented 3 in no distress there is no fever or chills no headache or dizziness no chest pain no shortness of breath no cough no nausea or vomiting no abdominal pain no diarrhea no burning with urination no frequency or urgency no hematuria Objective - Vital Signs Vital signs: Vital Signs Temp 97.8 F 10/10/19 08:00 Pulse 59 L 10/10/19 08:00 Resp 16 10/10/19 08:00 BP 135/79 10/10/19 08:00 Pulse Ox 96 10/10/19 08:00 Intake & Output 10/09/19 10/10/19 10/10/19 18:59 06:59 18:59 Intake Total 240 Output Total 301 475 Balance -61 -475 Weight 98.1 kg Intake: Oral 240 Output: Urine 300 475 Urine/Stool Mix 1 Other: Voiding Method Toilet Diaper - Exam In general patient is alert and oriented in no apparent distress HEENT head normocephalic and atraumatic Neck is supple no JVD no goiter no lymphadenopathy Chest exam reveals a few scattered rhonchi no wheezing Cardiac exam reveals regular heart sounds no gallops no murmurs Abdomen is soft nontender no organomegaly Extremity exam reveals no edema no cyanosis or clubbing Neurological examination reveals no gross focal deficits - Labs CBC & Chem 7: 10/10/19 06:19 10/11/19 07:30 Labs: Abnormal Lab Results - Last 24 Hours (Table) 10/09/19 10/09/19 10/09/19 Range/Units 12:24 16:54 19:55 WBC (3.8-10.6) k/uL RBC (4.30-5.90) m/uL Hgb (13.0-17.5) gm/dL Hct (39.0-53.0) % MCHC (31.0-37.0) g/dL RDW (11.5-15.5) % Lymphocytes # (1.0-4.8) k/uL BUN (9-20) mg/dL Glucose (74-99) mg/dL POC Glucose (mg/dL) 143 H 164 H 171 H (75-99) mg/dL Calcium (8.4-10.2) mg/dL AST (17-59) U/L Alkaline Phosphatase (38-126) U/L Total Protein (6.3-8.2) g/dL Albumin (3.5-5.0) g/dL 10/10/19 10/10/19 10/10/19 Range/Units 06:12 06:19 06:19 WBC 3.2 L (3.8-10.6) k/uL RBC 3.30 L (4.30-5.90) m/uL Hgb 8.7 L (13.0-17.5) gm/dL Hct 28.1 L (39.0-53.0) % MCHC 30.9 L (31.0-37.0) g/dL RDW 16.0 H (11.5-15.5) % Lymphocytes # 0.9 L (1.0-4.8) k/uL BUN 23 H (9-20) mg/dL Glucose 149 H (74-99) mg/dL POC Glucose (mg/dL) 171 H (75-99) mg/dL Calcium 7.6 L (8.4-10.2) mg/dL AST 15 L (17-59) U/L Alkaline Phosphatase 137 H (38-126) U/L Total Protein 5.4 L (6.3-8.2) g/dL Albumin 2.3 L (3.5-5.0) g/dL Microbiology - Last 24 Hours (Table) 10/07/19 16:50 Blood Culture - Preliminary Blood No Growth after 48 hours Assessment and Plan Plan: 1. Acalculous cholecystitis, surgical consultation requested 2. Underlying history of liver cirrhosis, with history of Acites, history of paracentesis and history of spontaneous bacterial peritonitis 3. Underlying history of diabetes mellitus 4. Underlying history of hypertension 5. Underlying history of hyperlipidemia 6. Previous history of stroke 7. Previous history of congestive heart failure, stable at this time. Patient was started on IV Zosyn surgical consultation, gastroenterology consultation and infectious disease consultation were requested
--- NOTE | 2019-10-11 15:56 | P.DS ---
Providers Date of admission: 10/07/19 18:38 Expected date of discharge: 10/11/19 Attending physician: Cheryle Read Consults: 10/07/19 18:40 Consult Physician Routine Consulting Provider: Ochoa Kulkarni Consult Reason/Comments: Acalculous cholecystitis Do you want consulting provider notified?: Already Contacted Consult Physician Routine Consulting Provider: Edward Cheung Consult Reason/Comments: Fever, acalculous cholecystitis Do you want consulting provider notified?: Yes 10/07/19 18:41 Consult Physician Routine Consulting Provider: Carissa Grider Consult Reason/Comments: Sepsis Do you want consulting provider notified?: Yes Primary care physician: Minerva [facility] Course: Diagnosis on discharge: 1. Acalculous cholecystitis, surgical consultation requested 2. Underlying history of liver cirrhosis, with history of Acites, history of paracentesis and history of spontaneous bacterial peritonitis 3. Underlying history of diabetes mellitus 4. Underlying history of hypertension 5. Underlying history of hyperlipidemia 6. Previous history of stroke 7. Acute on chronic diastolic congestive heart failure, stable at this time. Hospital course: Prashant Alonzo, is a 74-year-old male who presented to [facility] emergency room with fever , his temperature was 103 at home , mental status changes , and abdominal pain , patient was recently diagnosed with liver cirrhosis he had ascites with history of paracentesis, he was admitted with fever 3 weeks ago, and diagnosis was presumed as spontaneous bacterial peritonitis although cultures were negative, patient improved and was discharged home he returned to emergency room with similar symptoms. Patient was evaluated in the emergency room his temperature was 1 or 2.7 pulse 89 respiration 18 and blood pressure 105/49 pulse ox 97% on room air, his white blood count was 11.8 hemoglobin 9.8 platelet count 235 BUN was elevated at 34 creatinine 1.33 alkaline phosphatase was elevated at 252 AST and ALT were normal. Gallbladder ultrasound revealed gallbladder wall thickening patient was admitted to medical floor, he was started on IV antibiotic Zosyn, surgical consultation was requested. Patient has a known history of diabetes Mellitus, history of hypertension, history of hyperlipidemia, history of stroke, history of congestive heart failure, and history of benign prostatic hypertrophy. On review of systems patient is alert and oriented in no distress he is denying any symptoms at this time there is no fever or chills no headache or dizziness no chest pain no shortness of breath no cough no nausea or vomiting no abdominal pain no diarrhea no burning with urination no frequency or urgency no hematuria. On 10/09/2019 patient was seen and examined on the medical floor he is alert and oriented 3 in no apparent distress, there is no fever or chills no headache or dizziness no chest pain no shortness of breath no cough no nausea or vomiting no abdominal pain no diarrhea no burning with urination no frequency or urgency and no hematuria. Patient and family have refused cholecystectomy yesterday, co ntinue IV antibiotic, will continue discussion with son in regard to possible cholecystectomy early next week. On 10/10/2019 patient was seen and examined on the medical floor he is alert and oriented 3 in no distress there is no fever or chills no headache or dizziness no chest pain no shortness of breath no cough no nausea or vomiting no abdominal pain no diarrhea no burning with urination no frequency or urgency no hematuria. Patient Condition at Discharge: Serious Plan - Discharge Summary Discharge Rx Participant: No New Discharge Prescriptions: New Amoxicillin/Potassium Clav [Augmentin 500-125 Tablet] 1 tab PO Q12HR 10 Days #20 tab Acetaminophen Tab [Tylenol] 650 mg PO Q6HR PRN tab PRN Reason: Mild Pain Or Fever > 100.5 Continue Benazepril HCl 40 mg PO QAM Tamsulosin [Flomax] 0.4 mg PO HS Isosorbide Mononitrate ER [Imdur] 30 mg PO QAM Ferrous Sulfate [Iron (65 MG Elemental)] 325 mg PO DAILY #30 tab Nitroglycerin Sl Tab (0.3mg) 0.3 mg SUBLINGUAL Q5M PRN PRN Reason: Chest Pain Cyanocobalamin (Vitamin B-12) [Vitamin B-12] 5,000 mcg PO DAILY carvediloL [Coreg*] 12.5 mg PO BID-W/MEALS tab Spironolactone [Aldactone] 50 mg PO BID Insulin Glargine,Hum.rec.anlog [Basaglar Kwikpen U-100] 40 unit SQ QAM Multivitamins, Thera [Multivitamin (formulary)] 1 tab PO DAILY Furosemide [Lasix] 40 mg PO BID ALPRAZolam [Xanax] 0.25 mg PO BID PRN PRN Reason: Anxiety Cholecalciferol [Vitamin D3 (25 Mcg = 1000 Iu)] 1,000 unit PO DAILY Potassium Gluconate 99 mg PO DAILY Discharge Medication List Benazepril HCl 40 mg PO QAM 01/22/17 [History] Tamsulosin [Flomax] 0.4 mg PO HS 01/23/17 [History] Isosorbide Mononitrate ER [Imdur] 30 mg PO QAM 10/25/17 [History] Ferrous Sulfate [Iron (65 MG Elemental)] 325 mg PO DAILY #30 tab 01/22/18 [Rx] Cyanocobalamin (Vitamin B-12) [Vitamin B-12] 5,000 mcg PO DAILY 08/16/19 [History] Nitroglycerin Sl Tab (0.3mg) 0.3 mg SUBLINGUAL Q5M PRN 08/16/19 [History] carvediloL [Coreg*] 12.5 mg PO BID-W/MEALS tab 08/21/19 [Rx] Furosemide [Lasix] 40 mg PO BID 09/16/19 [History] Insulin Glargine,Hum.rec.anlog [Basaglar Kwikpen U-100] 40 unit SQ QAM 09/16/19 [History] Multivitamins, Thera [Multivitamin (formulary)] 1 tab PO DAILY 09/16/19 [History] Spironolactone [Aldactone] 50 mg PO BID 09/16/19 [History] ALPRAZolam [Xanax] 0.25 mg PO BID PRN 10/07/19 [History] Cholecalciferol [Vitamin D3 (25 Mcg = 1000 Iu)] 1,000 unit PO DAILY 10/07/19 [History] Potassium Gluconate 99 mg PO DAILY 10/07/19 [History] Acetaminophen Tab [Tylenol] 650 mg PO Q6HR PRN tab 10/11/19 [Rx] Amoxicillin/Potassium Clav [Augmentin 500-125 Tablet] 1 tab PO Q12HR 10 Days #20 tab 10/11/19 [Rx] Follow up Appointment(s)/Referral(s): Minerva Edgar MD [Primary Care Provider] - 10/16/19 1:30 pm Edward Cheung MD [STAFF PHYSICIAN] - 10/30/19 3:30 pm Ochoa Kulkarni MD [STAFF PHYSICIAN] - 1 Week (Patient to follow up with Dr. Rabago ) Patient Instructions/Handouts: Cholecystitis (GEN)
--- NOTE | 2019-10-11 15:57 | PN ---
PROGRESS NOTE DATE OF SERVICE: 10/11/2019 REASON FOR FOLLOWUP: Acute cholecystitis. INTERVAL HISTORY: The patient is currently afebrile. The patient is breathing comfortably. The patient denies having any chest pain or shortness of breath or cough. No nausea, no vomiting. No abdominal pain. No diarrhea. Anxious to go home. PHYSICAL EXAMINATION: Blood pressure 127/53 with a pulse of 85, temperature 97.9. He is 99% on room air. General description is an elderly male lying in bed in no distress. RESPIRATORY SYSTEM: Unlabored breathing. Clear to auscultation anteriorly. HEART: S1, S2. Regular rate and rhythm. ABDOMEN: Soft, no tenderness. LABS: Creatinine is 1.11. Culture has been negative. DIAGNOSTIC IMPRESSION AND PLAN: Patient admitted to hospital with sepsis. Source is acute cholecystitis. Family has refused any surgical intervention at this time. He is currently on Zosyn with overall improvement and wants to go home. Antibiotic was switched over to Augmentin 875 b.i.d. for about 10 days with close outpatient followup. This was discussed in detail with the patient; risks of recurrent cholecystitis and possible perforation. However, he does not want to go for any surgery. MMODL / IJN: [id number] /
--- NOTE | 2019-10-11 21:17 | PN ---
PROGRESS NOTE DATE OF SERVICE: 10/11/2019 INTERVAL HISTORY: Patient is a 74-year-old pleasant white male admitted to the hospital with possible SBP on broad-spectrum antibiotics. Doing well. He denies any symptoms today. PHYSICAL EXAMINATION: Vital signs are stable. Blood pressure 132/53, pulse rate 65, temperature 97.9. HEENT: Examination unremarkable. Conjunctivae are pink. Sclerae anicteric. Oral cavity no lesions. NECK: No JVD or lymph node enlargement. CHEST: Clear to auscultation. HEART: Regular rate and rhythm. ABDOMEN: Soft. Bowel sounds are positive. No organomegaly. NEURO: Alert and oriented x3. No focal deficits. LABS: None available from today. IMPRESSION: 1. The patient admitted to the hospital with fever and possible spontaneous bacterial peritonitis, on broad-spectrum antibiotics and doing well. Had a similar episode 3 weeks ago. 2. 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 3. Mild ascites. RECOMMENDATIONS: 1. Continue antibiotics. 2. Low-salt diet. 3. Continue diuretics. 4. Patient can be discharged home today with outpatient followup in 2 weeks. Thank you for this consultation. MMODL / IJN: [id number] /
--- NOTE | 2019-10-13 14:43 | CDI ---
Documentation Clarification Form Date: 10/13/19 From: Emily Lawson Phone: If you have a question about this query, please contact Holli Red, Shipping Hand at [phone] between 8am and 5pm. Admit Date: 10/06/20 Discharge Date:10/11/19 Patient Name: Ruba Alonzo Visit Number: [id number] ATTENTION: The Clinical Documentation Specialists (CDI) and [facility] Coding Staff appreciate your assistance in clarifying documentation. Please respond to the clarification below the line at the bottom and electronically sign. The CDI & [facility] Coding staff will review the response and follow-up if needed. Please note: Queries are made part of the Legal Health Record. If you have any questions, please contact the author of this message via ITS. Dear Dr. Read He was hypotensive is documented in Dr. Kulkarni's consult note. History/Risk Factors: Sepsis, acute cholecystitis, spontaneous bacterial peritonitis Clinical Indicators: Decreased blood pressure, confusion Patients B/P: 10/07/19 105/49, 93/58, 95/49, 89/44, 105/66, 110/58 Labs: WBC 11.8, sodium 133, potassium 3.4, BU 34, creatinine 1.33, glucose 55 Treatment: Bolus of NS then @130 mls/hr In your professional opinion, can you please specify the etiology of the hypotension if known? Iatrogenic Hypotension Postural Hypotension Idiopathic Hypotension Drug Induced Hypotension Chronic Hypotension Other Condition, please specify Unable to determine unable to determine MTDD
== END 2019-10-11 16:18 | disposition home or self-care (01) | DRG 871 ==
LOC: EC 16:15 → 3SCARD 18:38
PROVIDERS: ADMIT Internal Medicine; ATTEND Internal Medicine
DX: A41.9 Sepsis, unspecified organism (principal); K65.2 Spontaneous bacterial peritonitis; I50.32 Chronic diastolic (congestive) heart failure; K76.6 Portal hypertension; K81.0 Acute cholecystitis; I45.2 Bifascicular block; I13.0 Hypertensive heart and chronic kidney disease with heart failure and stage 1 through stage 4 chronic kidney disease, or unspecified chronic kidney disease; I50.22 Chronic systolic (congestive) heart failure; K74.60 Unspecified cirrhosis of liver; E11.9 Type 2 diabetes mellitus without complications; E78.5 Hyperlipidemia, unspecified; N18.3 Chronic kidney disease, stage 3 (moderate); D63.1 Anemia in chronic kidney disease; I95.9 Hypotension, unspecified; Z20.828 Contact with and (suspected) exposure to other viral communicable diseases; F17.200 Nicotine dependence, unspecified, uncomplicated; F32.9 Major depressive disorder, single episode, unspecified; N40.0 Benign prostatic hyperplasia without lower urinary tract symptoms; M19.90 Unspecified osteoarthritis, unspecified site; I44.0 Atrioventricular block, first degree; Z79.4 Long term (current) use of insulin; Z79.82 Long term (current) use of aspirin; Z79.899 Other long term (current) drug therapy; Z86.73 Personal history of transient ischemic attack (TIA), and cerebral infarction without residual deficits; Z98.890 Other specified postprocedural states; Z80.3 Family history of malignant neoplasm of breast; Z83.3 Family history of diabetes mellitus; Z80.9 Family history of malignant neoplasm, unspecified
CPT/HCPCS: 36415; 70450; 71046; 76705; 80053; 81001; 82105; 82140; 82150; 82565; 82803; 83605; 83690; 83880; 85025; 85610; 85730; 86850; 86900; 86901; 87040; 93005; 96365; 96366; 96367; 96375; 96376; 99291

== ENCOUNTER 2020-01-06 12:47 | Day surgery (SDC) | payer MEDICARE, BC ==
[2020-01-06 13:51] VITALS: TEMP 97.8
[2020-01-06 13:51] LABS: Mean Platelet Volume 7.4; Platelet Count 246 k/uL (150-450)
[2020-01-06 13:59] LABS: Prothrombin Time 10.7 sec (9.0-12.0)
[2020-01-06 14:38] VITALS: RESP 20
[2020-01-06] MEDS: ALBUMIN HUMAN 25% 50 ML in EMPTY BAG 1 BAG IVPB SCH ×4 (15:07→15:43)
[2020-01-06 16:33] VITALS: BP 110/56; PULSE 64
--- NOTE | 2020-01-07 08:49 | US ---
EXAMINATION TYPE: US paracentesis abd w/image DATE OF EXAM: 01/06/2020 COMPARISON: NONE HISTORY: Ascites. PROCEDURE: Maximal barrier technique was utilized. The skin overlying a suitable pocket of fluid was localized with ultrasound and the overlying skin was prepped and draped. Ultrasound was utilized with sterile technique. Lidocaine was used for local anesthesia and a skin katelin made with a scalpel. Catheter was advanced under direct ultrasound guidance into a suitable pocket of fluid and approximately 6 liters of serous fluid were removed. Catheter was withdrawn and hemostasis achieved. There is no immediate complication; the patient is discharged in stable condition. IMPRESSION: STATUS POST ULTRASOUND GUIDED PARACENTESIS FOR PALLIATION OF ASCITES. THIS PROCEDURE WA S PERFORMED BY THE UNDERSIGNED.
== END 2020-01-06 16:15 | disposition home or self-care (01) ==
LOC: RADPROMAIN 12:47
PROVIDERS: ATTEND Internal Medicine Gastroenterology
DX: R18.8 Other ascites (principal)
CPT/HCPCS: 82565; 82947; 85049; 85610; 36415; 49083; P9047

== ENCOUNTER 2020-02-12 13:49 | Day surgery (SDC) | payer MEDICARE, BC ==
[2020-02-12 14:32] LABS: Mean Platelet Volume 6.9; Platelet Count 317 k/uL (150-450)
[2020-02-12 14:36] VITALS: TEMP 97.7
[2020-02-12 14:37] LABS: INR 1.1 (<1.2); Prothrombin Time 11.1 sec (9.0-12.0)
[2020-02-12] MEDS: ALBUMIN HUMAN 25% 50 ML in EMPTY BAG 1 BAG IVPB SCH ×4 (15:14→15:45)
[2020-02-12 16:09] VITALS: BP 91/53; PULSE 89; RESP 18
--- NOTE | 2020-02-20 11:48 | US ---
Ultrasound-guided paracentesis. DATE OF EXAM: 02/12/2020 CLINICAL HISTORY: Ascites The procedure was discussed with the patient. The risks, complications, benefits, and alternatives we re discussed and any questions were answered. Informed consent was obtained. The patient was placed s upine on the ultrasound table and prepped and draped in the usual sterile fashion. All elements of maximal barrier technique were utilized. Under ultrasound guidance, access into the left lower quadrant was obtained, via the paracentesis catheter system and direct ultrasound guidance . Approximately 8.9 liters of straw-colored fluid was removed. The patient was stable throughout the pr ocedure and remained stable upon discharge from Department of Radiology. IMPRESSION: Successful paracentesis under ultrasound guidance.
== END 2020-02-12 16:25 | disposition home or self-care (01) ==
LOC: RADPROMAIN 13:49
PROVIDERS: ATTEND Internal Medicine Gastroenterology
DX: R19.8 Other specified symptoms and signs involving the digestive system and abdomen (principal)
CPT/HCPCS: 49083; 82565; 82947; 85049; 85610; 36415; P9047

== ENCOUNTER 2020-02-12 16:16 | Observation (INO) | payer MEDICARE, BC ==
[2020-02-12] MEDS ORDERED: SODIUM CHLORIDE 0.9% 1,000 ML IV STA (17:20)
--- NOTE | 2020-02-12 17:30 | ED ---
Fall HPI - General Chief Complaint: Fall Stated Complaint: Fall/head injury Time Seen by Provider: 02/12/20 16:39 Source: patient, family Mode of arrival: wheelchair - History of Present Illness Initial Comments: This is a 74-year-old male with a history of liver failure with ascites who was brought in by his family for evaluation after falling twice today. The second time he fell he currently hit his head against a toilet now complains of left- sided neck pain. No overt loss of consciousness. Subsequently after this happen he had a large Paracentesis with pressing 8.9 L of fluid removed it. He does complain of feeling weak also left-sided neck pain no overt fevers chills or sweats he has had decreased appetite recently. No other complaints or modifying factors at t his time. MD Complaint: fall, other - Related Data Home Medications Medication Instructions Recorded Confirmed Benazepril HCl 40 mg PO QAM 01/22/17 02/12/20 Tamsulosin [Flomax] 0.4 mg PO HS 01/23/17 02/12/20 Isosorbide Mononitrate ER [Imdur] 30 mg PO QAM 10/25/17 02/12/20 Cyanocobalamin (Vitamin B-12) 5,000 mcg PO DAILY 08/16/19 02/12/20 [Vitamin B-12] Nitroglycerin Sl Tab (0.3mg) 0.3 mg SUBLINGUAL Q5M PRN 08/16/19 02/12/20 Furosemide [Lasix] 40 mg PO QAM 09/16/19 02/12/20 Spironolactone [Aldactone] 50 mg PO BID 09/16/19 02/12/20 Cholecalciferol [Vitamin D3 (25 1,000 unit PO DAILY 10/07/19 02/12/20 Mcg = 1000 Iu)] Potassium Gluconate 99 mg PO DAILY 10/07/19 02/12/20 Ascorbic Acid [Vitamin C] 1,000 mg PO DAILY 01/01/20 02/12/20 Aspirin [Adult Low Dose Aspirin EC] 81 mg PO DAILY 01/01/20 02/12/20 Ferrous Sulfate [Iron (65 MG 650 mg PO DAILY 01/01/20 02/12/20 Elemental)] Previous Rx's Medication Instructions Recorded carvediloL [Coreg*] 12.5 mg PO BID-W/MEALS tab 08/21/19 Allergies Allergy/AdvReac Type Severity Reaction Status Date / Time No Known Allergies Allergy Verified 02/12/20 17:03 Review of Systems ROS Statement: Those systems with pertinent positive or pertinent negative responses have been documented in the HPI. ROS Other: All systems not noted in ROS Statement are negative. Past Medical History Past Medical History: Chest Pain / Angina, Heart Failure, Diabetes Mellitus, Hyperlipidemia, Hypertension, Osteoarthritis (OA) Additional Past Medical History / Comment(s): incontinent of stools intermittently. low iron levels, possible GI bleed-dark tarry stools per son, Son stated "has had recent falls related to blood sugar going low 60s" insulin was discontinued-HX 2016 and 2018 had episodes of CHF approx 7-10 days post receiving flu vaccine,Type2 IDDM, cirrhosis of the liver from fatty liver disease History of Any Multi-Drug Resistant Organisms: None Reported Past Surgical History: Hernia Repair Additional Past Surgical History / Comment(s): 10/31/17 robot assisted laprascopic umbilical hernia repair with mesh., 07/30/18 repair recurrent incarerated hernia, paracentesis times 2 Past Anesthesia/Blood Transfusion Reactions: No Reported Reaction Additional Past Anesthesia/Blood Transfusion Reaction / Comment(s): no previous blood transfusion Past Psychological History: Depression Smoking Status: Former smoker Past Alcohol Use History: None Reported Past Drug Use History: None Reported - Past Family History Mother Family Medical History: Cancer Additional Family Medical History / Comment(s): breast cancer Father Family Medical History: Unable to Obtain Sister(s) Family Medical History: Cancer Brother(s) Family Medical History: Diabetes Mellitus General Exam - General Exam Comments Initial Comments: This is a well-developed asthenic appearing male who is awake alert oriented 3 Limitations: no limitations General appearance: alert, in no apparent distress Head exam: Present: atraumatic, normocephalic, normal inspection Eye exam: Present: normal appearance, PERRL, EOMI. Absent: scleral icterus, conjunctival injection, periorbital swelling ENT exam: Present: mucous membranes dry Neck exam: Present: normal inspection, tenderness (Tenderness palpation of left paraspinous muscles no definite spinous process tenderness no step-off no crepitation.). Absent: meningismus, lymphadenopathy Respiratory exam: Present: normal lung sounds bilaterally. Absent: respiratory distress, wheezes, rales, rhonchi, stridor Cardiovascular Exam: Present: regular rate, normal rhythm, normal heart sounds. Absent: systolic murmur, diastolic murmur, rubs, gallop, clicks GI/Abdominal exam: Present: soft, normal bowel sounds. Absent: distended, tenderness, guarding, rebound, rigid, bruit, pulsatile mass Rectal exam: Present: other (Patient did have a small amount of liquid brown stool noted) Extremities exam: Present: normal inspection, full ROM, normal capillary refill. Absent: tenderness, pedal edema, joint swelling, calf tenderness Back exam: Present: normal inspection Neurological exam: Present: alert, oriented X3, CN II-XII intact Psychiatric exam: Present: normal affect, normal mood Skin exam: Present: warm, dry, intact, normal color. Absent: rash Course Vital Signs 02/12/20 02/12/20 02/12/20 16:20 16:33 17:00 Temperature 99.0 F Pulse Rate 86 67 Respiratory 20 Rate Blood Pressure 92/56 107/52 O2 Sat by Pulse 98 93 L 94 L Oximetry 02/12/20 02/12/20 02/12/20 17:30 18:00 18:30 Temperature Pulse Rate 74 Respiratory 17 Rate Blood Pressure 97/49 108/50 96/41 O2 Sat by Pulse 97 95 Oximetry 02/12/20 19:00 Temperature Pulse Rate Respiratory 18 Rate Blood Pressure 92/37 O2 Sat by Pulse 95 Oximetry Medical Decision Making - Medical Decision Making I did discuss findings with the patient family patient does demonstrate evidence of borderline hypotension with dehydration additionally he does have elevated troponin and the background of chronic renal insufficiency. He will be admitted I did discuss the case with Elana who is covering Dr. Kearns - Lab Data Result diagrams: 02/12/20 17:46 02/12/20 17:46 Lab Results 02/12/20 02/12/20 02/12/20 Range/Units 17:46 17:46 17:46 WBC 10.3 (3.8-10.6) k/uL RBC 3.22 L (4.30-5.90) m/uL Hgb 9.3 L D (13.0-17.5) gm/dL Hct 28.2 L (39.0-53.0) % MCV 87.5 (80.0-100.0) fL MCH 28.9 (25.0-35.0) pg MCHC 33.0 (31.0-37.0) g/dL RDW 14.5 (11.5-15.5) % Plt Count 172 (150-450) k/uL MPV 7.4 Neutrophils % 84 % Lymphocytes % 9 % Monocytes % 5 % Eosinophils % 0 % Basophils % 0 % Neutrophils # 8.7 H (1.3-7.7) k/uL Lymphocytes # 0.9 L (1.0-4.8) k/uL Monocytes # 0.6 (0-1.0) k/uL Eosinophils # 0.0 (0-0.7) k/uL Basophils # 0.0 (0-0.2) k/uL Sodium 136 L (137-145) mmol/L Potassium 3.3 L (3.5-5.1) mmol/L Chloride 103 (98-107) mmol/L Carbon Dioxide 27 (22-30) mmol/L Anion Gap 6 mmol/L BUN 31 H (9-20) mg/dL Creatinine 1.60 H (0.66-1.25) mg/dL Est GFR (CKD-EPI)AfAm 48 (>60 ml/min/1.73 sqM) Est GFR (CKD-EPI)NonAf 41 (>60 ml/min/1.73 sqM) Glucose 130 H (74-99) mg/dL Calcium 7.8 L (8.4-10.2) mg/dL Magnesium 1.7 (1.6-2.3) mg/dL Total Bilirubin 1.3 (0.2-1.3) mg/dL AST 15 L (17-59) U/L ALT 7 (4-49) U/L Alkaline Phosphatase 56 (38-126) U/L Creatine Kinase 106 (55-170) U/L Troponin I 0.048 H* (0.000-0.034) ng/mL Total Protein 5.7 L (6.3-8.2) g/dL Albumin 2.6 L (3.5-5.0) g/dL - Radiology Data Radiology results: report reviewed (I did review the imaging and report no evidence of acute findings on CT or x-ray.), image reviewed Disposition Clinical Impression: Elevated troponin, Chronic renal insufficiency, Dehydration, Hypotensive episode, Chronic liver disease Disposition: ADMITTED IP TO THIS HOSP Condition: Fair Referrals: Minerva Edgar MD [Primary Care Provider] - 1-2 days
[2020-02-12 18:01] LABS: Basophils % (A) 0 %; Eosinophils % (A) 0 %; HCT 28.2 % (39.0-53.0); Lymphocytes # (A) 0.9 k/uL (1.0-4.8); Lymphocytes % (A) 9 %; MCH 28.9 pg (25.0-35.0); MCV 87.5 fL (80.0-100.0); Mean Platelet Volume 7.4; Monocytes # (A) 0.6 k/uL (0-1.0); Monocytes % (A) 5 %; Neutrophils # (A) 8.7 k/uL (1.3-7.7); Neutrophils % (A) 84 %; Platelet Count 172 k/uL (150-450); RBC 3.22 m/uL (4.30-5.90); RDW 14.5 % (11.5-15.5); WBC 10.3 k/uL (3.8-10.6)
[2020-02-12 18:10] LABS: Albumin 2.6 g/dL (3.5-5.0); Calcium 7.8 mg/dL (8.4-10.2); Magnesium 1.7 mg/dL (1.6-2.3); Potassium 3.3 mmol/L (3.5-5.1); Total Bilirubin 1.3 mg/dL (0.2-1.3); Total Protein 5.7 g/dL (6.3-8.2)
[2020-02-12 18:11] LABS: HGB 9.3 gm/dL (13.0-17.5)
--- NOTE | 2020-02-12 18:56 | XR ---
EXAMINATION TYPE: XR chest 2V DATE OF EXAM: 02/12/2020 COMPARISON: 10/07/2019 HISTORY: Weakness TECHNIQUE: FINDINGS: There is no heart failure nor confluent pneumonic infiltrate. Costophrenic angles are clear . There are no hilar masses. Bony thorax is intact. IMPRESSION: No active cardiopulmonary disease. Normal heart. No change.
--- NOTE | 2020-02-12 19:01 | CT ---
EXAMINATION TYPE: CT brain joseine wo con DATE OF EXAM: 02/12/2020 COMPARISON: CT brain 10/07/2019 HISTORY: trauma with neck pain CT DLP: 1423 mGycm Automated exposure control for dose reduction was used. There is cerebral cortical moderate atrophy. There is no mass effect nor midline shift. There is no s ign of intracranial hemorrhage. There is some enlargement of the ventricles. The calvarium is intact. Skull base is intact. Cervical vertebra show some mild straightening. There is degenerative disc space narrowing throughout the cervical spine. There is no compression fracture. There is spurring of the endplates. There is m ild multilevel cervical hypertrophic facet arthropathy. There is uncovertebral spurring and endplate spur formation with mild multilevel cervical bony spinal stenosis. IMPRESSION: Cerebral atrophy. No acute intracranial abnormality. Chronic small vessel ischemia. No change. Multilevel spondylotic cervical changes with mild multilevel cervical bony spinal stenosis. No fractu re seen.
[2020-02-12] MEDS ORDERED: NALOXONE 0.4 MG/ML 1 ML VIAL IV PRN (19:45)
[2020-02-12] MEDS ORDERED: NITROGLYCERIN 0.3 MG SUBLINGUAL PRN (19:47)
[2020-02-12] MEDS: SPIRONOLACTONE 25 MG TAB PO SCH (22:58)
[2020-02-12] MEDS: SODIUM CHLORIDE 0.9% 1,000 ML IV SCH (22:59)
[2020-02-12] MEDS: TAMSULOSIN 0.4 MG CAP.ER.24H PO SCH (22:59)
[2020-02-13 00:06] LABS: Appearance,Urine Cloudy (Clear); Bacteria,Urine Rare /hpf; Bilirubin,Urine Negative (Negative); Blood,Urine Negative (Negative); Color,Urine Yellow; Glucose,Urine (UA) Negative (Negative); Hyaline Casts,Urine 21 /lpf (0-2); Ketones,Urine Negative (Negative); Leukocyte Esterase,Urine Negative (Negative); Mucus,Urine Rare /hpf; Nitrite,Urine Negative (Negative); PH, Urine 5.5 (5.0-8.0); Protein,Urine 1+ (Negative); RBC,Urine <1 /hpf (0-5); Specific Gravity,Urine 1.018 (1.001-1.035); Squamous Epithelial Cell,Urine 2 /hpf (0-4); WBC,Urine 1 /hpf (0-5)
[2020-02-13] MEDS ORDERED: Potassium Replacement Protocol 1 EACH MISC MISCELLANE PRN ×2 (01:04→10:02)
[2020-02-13] MEDS: POTASSIUM CHLORIDE ER 20 MEQ TAB.ER PO SCH ×2 (02:30→03:30)
[2020-02-13 06:30] LABS: Calcium 7.3 mg/dL (8.4-10.2)
[2020-02-13] MEDS: carvediloL 12.5 MG TAB PO SCH ×2 (06:30→16:51)
[2020-02-13] MEDS: SODIUM CHLORIDE 0.9% 1,000 ML IV SCH (08:02)
[2020-02-13] MEDS: FUROSEMIDE 40 MG TAB PO SCH (08:06)
[2020-02-13] MEDS: CYANOCOBALAMIN 500 MCG TAB PO SCH (08:06)
[2020-02-13] MEDS: FERROUS SULFATE 325 MG TAB PO SCH (08:06)
[2020-02-13] MEDS: ASCORBIC ACID 500 MG TAB PO SCH (08:06)
[2020-02-13] MEDS: SPIRONOLACTONE 25 MG TAB PO SCH ×2 (08:06→20:22)
[2020-02-13] MEDS: ASPIRIN 81 MG PO SCH (08:06)
[2020-02-13] MEDS: ISOSORBIDE MONONITRATE ER 30 MG TAB.ER.24H PO SCH (08:06)
[2020-02-13] MEDS ORDERED: NON FORMULARY DRUG (Potassium Gluconate [Potassium Gluconate] 99 MG Tablet.Er) PO SCH (09:00)
[2020-02-13] MEDS ORDERED: lisinopriL 20 MG TAB PO SCH (09:00)
[2020-02-13] MEDS: CHOLECALCIFEROL 1,000 UNIT TAB PO SCH (09:05)
[2020-02-13] MEDS ORDERED: MAGNESIUM SULFATE-D5W PMX 1 GM in DEXTROSE/WATER 1 100ML.BAG IVPB ONE (09:30)
--- NOTE | 2020-02-13 09:35 | P.HPIM ---
History of Present Illness 74-year-old male with a known history of cirrhosis sinusitis came in after a fall patient fell twice did not lose any consciousness. Patient had a paracentesis yesterday. Patient had mildly elevated troponins of 0.04 although these are better than his previous hospital physicians patient appears to have chronic kidney disease serum creatinine ranges anywhere between 1.2-1.8. Patient had a CT of the neck and the cervical spine which was negative. Patient was also having diarrhea which at this point of time resolved. C. diff was ordered but those are not available at this time. Patient had a paracentesis and removal of 8.59 L of fluid removed yesterday. Patient quit drinking years ago after his diagnosis of cirrhosis. The patient is bit weak. Patient has symptomatic right abnormality this including the hypokalemia. She and the EKG is abnormal but no significant change compared to previous EKG there multiple bilateral branch blocks predominantly right bundle-branch block with left axis deviation. Review of Systems REVIEW OF SYSTEMS: CONSTITUTIONAL: No fever, no malaise, no fatigue. HEENT: No recent visual problems or hearing problems. Denied any sore throat. CARDIOVASCULAR: No chest pain, orthopnea, PND, no palpitations, no syncope. PULMONARY: No shortness of breath, no cough, no hemoptysis. GASTROINTESTINAL: no nausea, no vomiting, no abdominal pain. NEUROLOGICAL: No headaches, no weakness, no numbness. HEMATOLOGICAL: Denies any bleeding or petechiae. GENITOURINARY: Denies any burning micturition, frequency, or urgency. MUSCULOSKELETAL/RHEUMATOLOGICAL: Denies any joint pain, swelling, or any muscle pain. ENDOCRINE: Denies any polyuria or polydipsia. The rest of the 14-point review of systems is negative. Past Medical History Past Medical History: Chest Pain / Angina, Heart Failure, Diabetes Mellitus, Hyperlipidemia, Hypertension, Osteoarthritis (OA) Additional Past Medical History / Comment(s): incontinent of stools intermittently. low iron levels, possible GI bleed-dark tarry stools per son, Son stated "has had recent falls related to blood sugar going low 60s" insulin was discontinued-HX 2017 and 2018 had episodes of CHF approx 7-10 days post receiving flu vaccine,Type2 IDDM, cirrhosis of the liver from fatty liver disease History of Any Multi-Drug Resistant Organisms: None Reported Past Surgical History: Hernia Repair Additional Past Surgical History / Comment(s): 10/31/17 robot assisted laprasc opic umbilical hernia repair with mesh., 07/30/18 repair recurrent incarerated hernia, paracentesis times 2 Past Anesthesia/Blood Transfusion Reactions: No Reported Reaction Additional Past Anesthesia/Blood Transfusion Reaction / Comment(s): no previous blood transfusion Past Psychological History: Depression Additional Psychological History / Comment(s): Pt resides with his spouse and son. He states he uses no assistive devices. He no longer drives, his son does the driving and manages his medications. Smoking Status: Current every day smoker Past Alcohol Use History: Daily Additional Past Alcohol Use History / Comment(s): started smoking at 3 years old, smokes 1 cigaretted a day now. Previous drinker. Past Drug Use History: None Reported - Past Family History Mother Family Medical History: Cancer Additional Family Medical History / Comment(s): breast cancer Father Family Medical History: Unable to Obtain Sister(s) Family Medical History: Cancer Brother(s) Family Medical History: Diabetes Mellitus Medications and Allergies Home Medications Medication Instructions Recorded Confirmed Type Benazepril HCl 40 mg PO QAM 01/22/17 02/12/20 History Tamsulosin [Flomax] 0.4 mg PO HS 01/23/17 02/12/20 History Isosorbide Mononitrate ER [Imdur] 30 mg PO QAM 10/25/17 02/12/20 History Cyanocobalamin (Vitamin B-12) 5,000 mcg PO DAILY 08/16/19 02/12/20 History [Vitamin B-12] Nitroglycerin Sl Tab (0.3mg) 0.3 mg SUBLINGUAL Q5M PRN 08/16/19 02/12/20 History carvediloL [Coreg*] 12.5 mg PO BID-W/MEALS tab 08/21/19 02/12/20 Rx Furosemide [Lasix] 40 mg PO QAM 09/16/19 02/12/20 History Spironolactone [Aldactone] 50 mg PO BID 09/16/19 02/12/20 History Cholecalciferol [Vitamin D3 (25 1,000 unit PO DAILY 10/07/19 02/12/20 History Mcg = 1000 Iu)] Potassium Gluconate 99 mg PO DAILY 10/07/19 02/12/20 History Ascorbic Acid [Vitamin C] 1,000 mg PO DAILY 01/01/20 02/12/20 History Aspirin [Adult Low Dose Aspirin EC] 81 mg PO DAILY 01/01/20 02/12/20 History Ferrous Sulfate [Iron (65 MG 650 mg PO DAILY 01/01/20 02/12/20 History Elemental)] Allergies Allergy/AdvReac Type Severity Reaction Status Date / Time No Known Allergies Allergy Verified 02/12/20 17:03 Physical Exam Vitals: Vital Signs Temp Pulse Pulse Resp BP BP Pulse Ox 02/13/20 08:00 97.8 F 71 18 107/53 97 02/13/20 03:35 97.9 F 77 18 106/50 100 02/13/20 02:00 81 17 02/13/20 00:33 81 17 104/50 98 02/13/20 00:22 72 18 98/62 96 02/12/20 23:00 83 18 97/52 97 02/12/20 21:30 107/63 95 02/12/20 21:00 118/66 02/12/20 20:30 100/51 95 02/12/20 20:00 101/44 02/12/20 19:30 90/52 93 L 02/12/20 19:00 18 92/37 95 02/12/20 18:30 96/41 02/12/20 18:00 74 17 108/50 95 02/12/20 17:30 97/49 97 02/12/20 17:00 107/52 94 L 02/12/20 16:33 67 93 L 02/12/20 16:20 99.0 F 86 20 92/56 98 Intake and Output 02/12/20 02/13/20 02/13/20 22:59 06:59 14:59 Other: Voiding Method Urinal Urinal Diaper Diaper Incontinent Incontinent Weight 97.976 kg 83 kg PHYSICAL EXAMINATION: GENERAL: The patient is alert and oriented x3, not in any acute distress. Well developed, well nourished. HEENT: Pupils are round and equally reacting to light. EOMI. No scleral icterus. No conjunctival pallor. Normocephalic, atraumatic. No pharyngeal erythema. No thyromegaly. CARDIOVASCULAR: S1 and S2 present. No murmurs, rubs, or gallops. PULMONARY: Chest is clear to auscultation, no wheezing or crackles. ABDOMEN: Distended ascites fluid shift does have bowel sounds. MUSCULOSKELETAL: No joint swelling or deformity. EXTREMITIES: No cyanosis, clubbing, or pedal edema. NEUROLOGICAL: Gross neurological examination did not reveal any focal deficits. SKIN: No rashes. Results CBC & Chem 7: 02/12/20 17:46 02/13/20 05:51 Labs: Abnormal Lab Results - Last 24 Hours (Table) 02/12/20 02/12/20 02/12/20 Range/Units 17:46 17:46 17:46 RBC 3.22 L (4.30-5.90) m/uL Hgb 9.3 L D (13.0-17.5) gm/dL Hct 28.2 L (39.0-53.0) % Neutrophils # 8.7 H (1.3-7.7) k/uL Lymphocytes # 0.9 L (1.0-4.8) k/uL Sodium 136 L (137-145) mmol/L Potassium 3.3 L (3.5-5.1) mmol/L BUN 31 H (9-20) mg/dL Creatinine 1.60 H (0.66-1.25) mg/dL Glucose 130 H (74-99) mg/dL Calcium 7.8 L (8.4-10.2) mg/dL AST 15 L (17-59) U/L Troponin I 0.048 H* (0.000-0.034) ng/mL Total Protein 5.7 L (6.3-8.2) g/dL Albumin 2.6 L (3.5-5.0) g/dL Urine Protein (Negative) Urine Bacteria (None) /hpf Hyaline Casts (0-2) /lpf Urine Mucus (None) /hpf 02/12/20 02/12/20 02/13/20 Range/Units 21:46 23:00 00:55 RBC (4.30-5.90) m/uL Hgb (13.0-17.5) gm/dL Hct (39.0-53.0) % Neutrophils # (1.3-7.7) k/uL Lymphocytes # (1.0-4.8) k/uL Sodium (137-145) mmol/L Potassium (3.5-5.1) mmol/L BUN (9-20) mg/dL Creatinine (0.66-1.25) mg/dL Glucose (74-99) mg/dL Calcium (8.4-10.2) mg/dL AST (17-59) U/L Troponin I 0.044 H* 0.044 H* (0.000-0.034) ng/mL Total Protein (6.3-8.2) g/dL Albumin (3.5-5.0) g/dL Urine Protein 1+ H (Negative) Urine Bacteria Rare H (None) /hpf Hyaline Casts 21 H (0-2) /lpf Urine Mucus Rare H (None) /hpf 02/13/20 Range/Units 05:51 RBC (4.30-5.90) m/uL Hgb (13.0-17.5) gm/dL Hct (39.0-53.0) % Neutrophils # (1.3-7.7) k/uL Lymphocytes # (1.0-4.8) k/uL Sodium 136 L (137-145) mmol/L Potassium 3.0 L (3.5-5.1) mmol/L BUN 33 H (9-20) mg/dL Creatinine 1.56 H (0.66-1.25) mg/dL Glucose 119 H (74-99) mg/dL Calcium 7.3 L (8.4-10.2) mg/dL AST (17-59) U/L Troponin I (0.000-0.034) ng/mL Total Protein (6.3-8.2) g/dL Albumin (3.5-5.0) g/dL Urine Protein (Negative) Urine Bacteria (None) /hpf Hyaline Casts (0-2) /lpf Urine Mucus (None) /hpf Thrombosis Risk Factor Assmnt - Choose All That Apply Any of the Below Risk Factors Present?: Yes Each Factor Represents 1 point: Heart failure (<1month) Other Risk Factors: Yes Each Risk Factor Represents 3 Points: Age 75 years or older Thrombosis Risk Factor Assessment Total Risk Factor Score: 4 Thrombosis Risk Factor Assessment Level: Moderate Risk Assessment and Plan Plan: -Falls and generalized weakness probably secondary to deconditioning and muscle loss from cirrhosis. Patient had a paracentesis yesterday may be bit hypotensive that the could've contributed to his fall. Patient was given IV f luids which were discontinued because of his volume overload status because of his cirrhosis. Physical therapy and occupational therapy evaluation. -Mildly elevated troponin secondary to chronic kidney disease no chest pain no significant EKG changes compared to old EKGs no further evaluation is necessary and the troponins are stable at the same level around 0.4. - diarrhea: Resolved etiology is unknown -Chronic kidney disease stage at 2-3 etiology unknown at this time. -Hypokalemia potassium will be supplemented Hyperlipidemia -Hypertension next and have not called cirrhosis: IV fluids risk and urine patient will be resumed on her home dose of Lasix and the Aldactone nicotine use: Counseling was provided patient only smokes 1 cigarette per day now.
[2020-02-13] MEDS: POTASSIUM CHLORIDE 10 MEQ in WATER FOR INJECTION 1 100ML.BAG IVPB SCH ×4 (11:08→17:05)
[2020-02-13] MEDS ORDERED: ACETAMINOPHEN TAB 325 MG TAB PO PRN (16:47)
[2020-02-13] MEDS: TAMSULOSIN 0.4 MG CAP.ER.24H PO SCH (20:22)
[2020-02-14] MEDS: carvediloL 12.5 MG TAB PO SCH (06:50)
[2020-02-14 08:04] LABS: Albumin 1.9 g/dL (3.5-5.0); Calcium 7.1 mg/dL (8.4-10.2); Potassium 3.6 mmol/L (3.5-5.1); Total Bilirubin 0.4 mg/dL (0.2-1.3); Total Protein 4.6 g/dL (6.3-8.2)
[2020-02-14] MEDS: CYANOCOBALAMIN 500 MCG TAB PO SCH (09:08)
[2020-02-14] MEDS: ASPIRIN 81 MG PO SCH (09:08)
[2020-02-14] MEDS: FERROUS SULFATE 325 MG TAB PO SCH (09:08)
[2020-02-14] MEDS: ASCORBIC ACID 500 MG TAB PO SCH (09:09)
[2020-02-14] MEDS: CHOLECALCIFEROL 1,000 UNIT TAB PO SCH (09:09)
[2020-02-14] MEDS: FUROSEMIDE 40 MG TAB PO SCH (09:09)
[2020-02-14] MEDS: SPIRONOLACTONE 25 MG TAB PO SCH (09:09)
[2020-02-14] MEDS: ISOSORBIDE MONONITRATE ER 30 MG TAB.ER.24H PO SCH (09:09)
[2020-02-14 10:50] VITALS: BP 106/61; PULSE 67; RESP 20; TEMP 97.9
--- NOTE | 2020-02-14 12:41 | P.DS ---
Providers Date of admission: 02/12/20 19:45 Attending physician: Madai Kearns Primary care physician: [facility] Course: 74-year-old male with a known history of cirrhosis sinusitis came in after a fall patient fell twice did not lose any consciousness. Patient had a paracentesis yesterday. Patient had mildly elevated troponins of 0.04 although these are better than his previous hospital physicians patient appears to have chronic kidney disease serum creatinine ranges anywhere between 1.2-1.8. Patient had a CT of the neck and the cervical spine which was negative. Patient was also having diarrhea which at this point of time resolved. C. diff was ordered but those are not available at this time. Patient had a paracentesis and removal of 8.59 L of fluid removed yesterday. Patient quit drinking years ago after his diagnosis of cirrhosis. The patient is bit weak. Patient has symptomatic right abnormality this including the hypokalemia. She and the EKG is abnormal but no significant change compared to previous EKG there multiple bilateral branch blocks predominantly right bundle-branch block with left axis deviation. 02/14/2020 Patient was evaluated by physical therapy initially they recommended subacute rehabilitation. Patient didn't feel that he needs to go to subacute rehab wanted to go home because of which asked physical therapy to reevaluate the patient although physical therapy declined reevaluation as per the nursing staff patient is independent walking to the bathroom and the nursing staff doesn't believe patient will require placement in subacute rehabitation either. Although patient creatinine went up along with the sodium that went down because of which I'll hold off on the diuretics for couple days although patient will need these diuretics because of his cirrhosis and also order repeat labs to be done in 3 days and results to be faxed to PCP. Patient is high risk for readmission because of his the cirrhosis and overall multiple medical problems. PHYSICAL EXAMINATION: GENERAL: The patient is alert and oriented x3, not in any acute distress. Well developed, well nourished. HEENT: Pupils are round and equally reacting to light. EOMI. No scleral icterus. No conjunctival pallor. Normocephalic, atraumatic. No pharyngeal erythema. No thyromegaly. CARDIOVASCULAR: S1 and S2 present. No murmurs, rubs, or gallops. PULMONARY: Chest is clear to auscultation, no wheezing or crackles. ABDOMEN: Distended ascites fluid shift does have bowel sounds. MUSCULOSKELETAL: No joint swelling or deformity. EXTREMITIES: No cyanosis, clubbing, or pedal edema. NEUROLOGICAL: Gross neurological examination did not reveal any focal deficits. SKIN: No rashes. Assessment and Plan Plan: -Falls and generalized weakness probably secondary to deconditioning and muscle loss from cirrhosis. Patient had a paracentesis yesterday may be bit hypotensive that the could've contributed to his fall. Physical therapy and occupational therapy evaluation as mentioned above -Mildly elevated troponin secondary to chronic kidney disease no chest pain no significant EKG changes compared to old EKGs no further evaluation is necessary and the troponins are stable at the same level around 0.4. - diarrhea: Resolved etiology is unknown -Chronic kidney disease stage at 2-3 etiology unknown at this time. Abdomen mild acute renal failure expected to improve with holding of diuretics for couple days -Hypokalemia potassium will be supplemented Hyperlipidemia -Hypertension Alcoholic cirrhosis. nicotine use: Counseling was provided patient only smokes 1 cigarette per day now. Patient Condition at Discharge: Fair Plan - Discharge Summary New Discharge Prescriptions: Continue Tamsulosin [Flomax] 0.4 mg PO HS Isosorbide Mononitrate ER [Imdur] 30 mg PO QAM Nitroglycerin Sl Tab (0.3mg) 0.3 mg SUBLINGUAL Q5M PRN PRN Reason: Chest Pain Cyanocobalamin (Vitamin B-12) [Vitamin B-12] 5,000 mcg PO DAILY carvediloL [Coreg*] 12.5 mg PO BID-W/MEALS tab Cholecalciferol [Vitamin D3 (25 Mcg = 1000 Iu)] 1,000 unit PO DAILY Ferrous Sulfate [Iron (65 MG Elemental)] 650 mg PO DAILY Aspirin [Adult Low Dose Aspirin EC] 81 mg PO DAILY Ascorbic Acid [Vitamin C] 1,000 mg PO DAILY Spironolactone [Aldactone] 50 mg PO BID #0 Furosemide [Lasix] 40 mg PO QAM #0 Potassium Gluconate 99 mg PO DAILY #0 Discontinued Benazepril HCl 40 mg PO QAM Discharge Medication List Tamsulosin [Flomax] 0.4 mg PO HS 01/23/17 [History] Isosorbide Mononitrate ER [Imdur] 30 mg PO QAM 10/25/17 [History] Cyanocobalamin (Vitamin B-12) [Vitamin B-12] 5,000 mcg PO DAILY 08/16/19 [History] Nitroglycerin Sl Tab (0.3mg) 0.3 mg SUBLINGUAL Q5M PRN 08/16/19 [History] carvediloL [Coreg*] 12.5 mg PO BID-W/MEALS tab 08/21/19 [Rx] Cholecalciferol [Vitamin D3 (25 Mcg = 1000 Iu)] 1,000 unit PO DAILY 10/07/19 [History] Ascorbic Acid [Vitamin C] 1,000 mg PO DAILY 01/01/20 [History] Aspirin [Adult Low Dose Aspirin EC] 81 mg PO DAILY 01/01/20 [History] Ferrous Sulfate [Iron (65 MG Elemental)] 650 mg PO DAILY 01/01/20 [History] Furosemide [Lasix] 40 mg PO QAM #0 02/14/20 [Rx] Potassium Gluconate 99 mg PO DAILY #0 02/14/20 [Rx] Spironolactone [Aldactone] 50 mg PO BID #0 02/14/20 [Rx] Follow up Appointment(s)/Referral(s): Minerva Edgar MD [Primary Care Provider] - 3 Days Discharge Disposition: HOME WITH HOME HEALTH SERVICES
[2020-02-16 09:31] LABS: Glucose,Whole Blood 216 mg/dL (75-99)
[2020-02-16 09:32] LABS: Glucose,Whole Blood 197 mg/dL (75-99)
[2020-02-16 09:37] LABS: Glucose,Whole Blood 175 mg/dL (75-99)
[2020-02-16 09:37] LABS: Glucose,Whole Blood 116 mg/dL (75-99)
[2020-02-16 09:38] LABS: Glucose,Whole Blood 149 mg/dL (75-99)
[2020-02-16 09:39] LABS: Glucose,Whole Blood 172 mg/dL (75-99)
== END 2020-02-14 16:03 | disposition home health service (06) ==
LOC: EC 16:16 → 3SCARD 19:45
PROVIDERS: ADMIT Internal Medicine; ATTEND Internal Medicine
DX: K72.90 Hepatic failure, unspecified without coma (principal); I95.9 Hypotension, unspecified; E86.0 Dehydration; E87.6 Hypokalemia; R53.1 Weakness; I11.0 Hypertensive heart disease with heart failure; I50.9 Heart failure, unspecified; R79.89 Other specified abnormal findings of blood chemistry; R19.7 Diarrhea, unspecified; W19.XXXA Unspecified fall, initial encounter; S09.90XA Unspecified injury of head, initial encounter; N17.9 Acute kidney failure, unspecified; K70.0 Alcoholic fatty liver; K70.30 Alcoholic cirrhosis of liver without ascites; R15.9 Full incontinence of feces; I44.0 Atrioventricular block, first degree; I45.10 Unspecified right bundle-branch block; M54.2 Cervicalgia; E11.9 Type 2 diabetes mellitus without complications; E78.5 Hyperlipidemia, unspecified; M19.90 Unspecified osteoarthritis, unspecified site; Z98.890 Other specified postprocedural states; F32.9 Major depressive disorder, single episode, unspecified; F17.210 Nicotine dependence, cigarettes, uncomplicated; Z80.3 Family history of malignant neoplasm of breast; Z80.9 Family history of malignant neoplasm, unspecified; Z83.3 Family history of diabetes mellitus; Z79.82 Long term (current) use of aspirin; Z79.899 Other long term (current) drug therapy
CPT/HCPCS: 96365; 96366; 96367; 96361; 99285; 36415 ×2; 93005; 97162; 80053 ×2; 80048; 82565; 82550; 83735; 82947; 84484 ×2; 85025; 85049; 85610; 81001; 87324; 71046; 49083; 72125; 70450; G0378 ×3; P9047; J3475; J3480

== ENCOUNTER 2020-03-06 08:24 | Day surgery (SDC) | payer MEDICARE, BC ==
[2020-03-06 08:53] VITALS: RESP 18; TEMP 98.3
[2020-03-06 09:00] LABS: Mean Platelet Volume 6.9; Platelet Count 257 k/uL (150-450)
[2020-03-06 09:06] LABS: INR 1.1 (<1.2); Prothrombin Time 11.2 sec (9.0-12.0)
[2020-03-06 09:12] LABS: Calcium 7.9 mg/dL (8.4-10.2); Potassium 3.6 mmol/L (3.5-5.1)
[2020-03-06] MEDS: ALBUMIN HUMAN 25% 50 ML in EMPTY BAG 1 BAG IVPB SCH ×4 (11:16→11:59)
[2020-03-06 12:20] VITALS: BP 129/62; PULSE 88
--- NOTE | 2020-03-06 13:06 | US ---
EXAMINATION TYPE: US paracentesis abd w/image DATE OF EXAM: 03/06/2020 COMPARISON: NONE HISTORY: Ascites. PROCEDURE: Maximal barrier technique was utilized. The skin overlying a suitable pocket of fluid was localized with ultrasound and the overlying skin was prepped and draped. Ultrasound was utilized with sterile technique. Lidocaine was used for local anesthesia and a skin katelin made with a scalpel. Catheter was advanced under direct ultrasound guidance into a suitable pocket of fluid and approximately 11.2 lite rs of serous fluid were removed. Catheter was withdrawn and hemostasis achieved. There is no immedi ate complication; the patient is discharged in stable condition. IMPRESSION: STATUS POST ULTRASOUND GUIDED PARACENTESIS FOR PALLIATION OF ASCITES. THIS PROCEDURE WA S PERFORMED BY THE UNDERSIGNED.
== END 2020-03-06 12:39 | disposition home or self-care (01) ==
LOC: RADPROMAIN 08:24
PROVIDERS: ATTEND Internal Medicine Gastroenterology
DX: R18.8 Other ascites (principal)
CPT/HCPCS: 80048; 85049; 85610; 36415; 49083; P9047

== ENCOUNTER 2020-03-25 12:20 | Day surgery (SDC) | payer MEDICARE, BC ==
[2020-03-25] MEDS: ALBUMIN HUMAN 25% 50 ML in EMPTY BAG 1 BAG IVPB SCH ×4 (12:54→14:47)
[2020-03-25 12:59] VITALS: TEMP 97.7
[2020-03-25 13:01] LABS: Mean Platelet Volume 6.7; Platelet Count 244 k/uL (150-450)
[2020-03-25 13:14] LABS: INR 1.1 (<1.2); Prothrombin Time 11.4 sec (9.0-12.0)
[2020-03-25 15:17] VITALS: RESP 16
--- NOTE | 2020-03-25 15:50 | US ---
EXAMINATION TYPE: US paracentesis abd w/image DATE OF EXAM: 03/25/2020 COMPARISON: NONE HISTORY: Ascites. PROCEDURE: Maximal barrier technique was utilized. The skin overlying a suitable pocket of fluid was localized with ultrasound and the overlying skin was prepped and draped. Ultrasound was utilized with sterile technique. Lidocaine was used for local anesthesia and a skin katelin made with a scalpel. Catheter was advanced under direct ultrasound guidance into a suitable pocket of fluid and approximately 11.4 lite rs of serous fluid were removed. Catheter was withdrawn and hemostasis achieved. There is no immedi ate complication; the patient is discharged in stable condition. IMPRESSION: STATUS POST ULTRASOUND GUIDED PARACENTESIS FOR PALLIATION OF ASCITES. THIS PROCEDURE WA S PERFORMED BY THE UNDERSIGNED.
[2020-03-25 16:10] VITALS: BP 135/62; PULSE 76
== END 2020-03-25 15:55 | disposition home or self-care (01) ==
LOC: RADPROMAIN 12:20
PROVIDERS: ATTEND Internal Medicine Gastroenterology
DX: R18.8 Other ascites (principal)
CPT/HCPCS: 82565; 82947; 85049; 85610; 36415; 49083; P9047

== ENCOUNTER 2020-04-08 12:25 | Day surgery (SDC) | payer MEDICARE, BC ==
[2020-04-08 13:07] LABS: Mean Platelet Volume 7.1; Platelet Count 245 k/uL (150-450)
[2020-04-08 13:15] LABS: INR 1.1 (<1.2); Prothrombin Time 11.9 sec (9.0-12.0)
[2020-04-08 13:33] VITALS: TEMP 98
[2020-04-08] MEDS: ALBUMIN HUMAN 25% 50 ML in EMPTY BAG 1 BAG IVPB SCH ×4 (13:41→14:24)
[2020-04-08 15:40] VITALS: BP 118/63; PULSE 81; RESP 16
--- NOTE | 2020-04-08 15:51 | US ---
Ultrasound-guided paracentesis. DATE OF EXAM: 04/08/2020 CLINICAL HISTORY: Ascites The procedure was discussed with the patient. The risks, complications, benefits, and alternatives we re discussed and any questions were answered. Informed consent was obtained. The patient was placed s upine on the ultrasound table and prepped and draped in the usual sterile fashion. All elements of maximal barrier technique were utilized. Under ultrasound guidance, access into the right lower quadrant was obtained, via the paracentesis catheter system and direct ultrasound guidanc e. Approximately 11.4 liters of straw-colored fluid was removed. The patient was stable throughout the p rocedure and remained stable upon discharge from Department of Radiology. IMPRESSION: Successful paracentesis under ultrasound guidance.
== END 2020-04-08 15:42 | disposition home or self-care (01) ==
LOC: RADPROMAIN 12:25
PROVIDERS: ATTEND Internal Medicine Gastroenterology
DX: R18.8 Other ascites (principal)
CPT/HCPCS: 82565; 82947; 85049; 85610; 36415; 49083; P9047

== ENCOUNTER 2020-04-20 12:14 | Day surgery (SDC) | payer MEDICARE, BC ==
[2020-04-20 13:06] LABS: Mean Platelet Volume 7.2; Platelet Count 238 k/uL (150-450)
[2020-04-20 13:11] LABS: INR 1.1 (<1.2); Prothrombin Time 11.2 sec (9.0-12.0)
[2020-04-20] MEDS: ALBUMIN HUMAN 25% 50 ML in EMPTY BAG 1 BAG IVPB SCH ×4 (13:30→15:37)
[2020-04-20 13:38] VITALS: RESP 16; TEMP 97.8
[2020-04-20 15:25] VITALS: BP 99/62; PULSE 68
--- NOTE | 2020-04-20 15:40 | US ---
EXAMINATION TYPE: US paracentesis abd w/image DATE OF EXAM: 04/20/2020 COMPARISON: NONE HISTORY: Ascites. PROCEDURE: Maximal barrier technique was utilized. The skin overlying a suitable pocket of fluid was localized with ultrasound and the overlying skin was prepped and draped. Ultrasound was utilized with sterile technique. Lidocaine was used for local anesthesia and a skin katelin made with a scalpel. Catheter was advanced under direct ultrasound guidance into a suitable pocket of fluid and approximately 9.3 liter s of serous fluid were removed. Catheter was withdrawn and hemostasis achieved. There is no immedia te complication; the patient is discharged in stable condition. IMPRESSION: STATUS POST ULTRASOUND GUIDED PARACENTESIS FOR PALLIATION OF ASCITES. THIS PROCEDURE WA S PERFORMED BY THE UNDERSIGNED.
== END 2020-04-20 15:35 | disposition home or self-care (01) ==
LOC: RADPROMAIN 12:14
PROVIDERS: ATTEND Internal Medicine Gastroenterology
DX: R18.8 Other ascites (principal)
CPT/HCPCS: 82565; 82947; 85049; 85610; 49083; P9047

== ENCOUNTER 2020-05-01 12:25 | Day surgery (SDC) | payer MEDICARE, BC ==
[2020-05-01 13:03] LABS: Mean Platelet Volume 6.8; Platelet Count 248 k/uL (150-450)
[2020-05-01 13:12] VITALS: RESP 16; TEMP 98.1
[2020-05-01] MEDS: ALBUMIN HUMAN 25% 50 ML in EMPTY BAG 1 BAG IVPB SCH ×4 (13:15→14:15)
[2020-05-01 13:17] LABS: INR 1.1 (<1.2); Prothrombin Time 11.2 sec (9.0-12.0)
[2020-05-01 15:02] VITALS: BP 93/54; PULSE 76
--- NOTE | 2020-05-01 21:18 | US ---
EXAMINATION TYPE: US paracentesis abd w/image DATE OF EXAM: 05/01/2020 COMPARISON: NONE HISTORY: Ascites. PROCEDURE: Maximal barrier technique was utilized. The skin overlying a suitable pocket of fluid was localized with ultrasound and the overlying skin was prepped and draped. Ultrasound was utilized with sterile technique. Lidocaine was used for local anesthesia and a skin katelin made with a scalpel. Catheter was advanced under direct ultrasound guidance into a suitable pocket of fluid and approximately 6.6 liter s of serous fluid were removed. Catheter was withdrawn and hemostasis achieved. There is no immedia te complication; the patient is discharged in stable condition. IMPRESSION: STATUS POST ULTRASOUND GUIDED PARACENTESIS FOR PALLIATION OF ASCITES. THIS PROCEDURE WA S PERFORMED BY THE UNDERSIGNED.
== END 2020-05-01 15:14 | disposition home or self-care (01) ==
LOC: RADPROMAIN 12:25
PROVIDERS: ATTEND Internal Medicine Gastroenterology
DX: R18.8 Other ascites (principal)
CPT/HCPCS: 82565; 82947; 85049; 85610; 36415; 49083; P9047

== ENCOUNTER 2020-05-01 21:32 | Emergency (ER) | payer MEDICARE, BC ==
[2020-05-01] MEDS ORDERED: SODIUM CHLORIDE 0.9% 500 ML 500 ML IV STA (21:48)
[2020-05-01 22:29] LABS: Appearance,Urine Clear (Clear); Bilirubin,Urine Negative (Negative); Blood,Urine Negative (Negative); Color,Urine Yellow; Glucose,Urine (UA) Negative (Negative); Ketones,Urine Negative (Negative); Leukocyte Esterase,Urine Negative (Negative); Nitrite,Urine Negative (Negative); Protein,Urine Negative (Negative); Specific Gravity,Urine 1.008 (1.001-1.035); Urobilinogen,Urine <2.0 mg/dL (<2.0)
--- NOTE | 2020-05-01 22:37 | ED ---
Fall HPI - General Chief Complaint: Fall Stated Complaint: Fall,weakness Time Seen by Provider: 05/01/20 21:42 Source: patient, EMS Mode of arrival: EMS - History of Present Illness Initial Comments: Patient is a 74-year-old male, history of heart failure, diabetes, hypertension, presenting to the emergency department via EMS after he had a fall today at home. He is also complaining of weakness today. Patient normally uses a walker to help ambulate, he did not have it and he fell while in the bathroom. He states he did hit his head on a stool. He denies any loss of consciousness. He denies having a headache, no blurry vision, no neck pain, no chest pain. He denies any pain in his extremities, no nausea or vomiting, no abdominal pain. Patient's son is here with him now and states that he just had a paracentesis done today, he is typically weaker, the next day, following the paracentesis. He's had no fevers or chills. Patient has no specific complaints at this time other than feeling weaker. Upon arrival to the ER, his vital signs are stable. - Related Data Home Medications Medication Instructions Recorded Confirmed Tamsulosin [Flomax] 0.4 mg PO HS 01/23/17 05/01/20 Isosorbide Mononitrate ER [Imdur] 30 mg PO QAM 10/25/17 05/01/20 Cyanocobalamin (Vitamin B-12) 5,000 mcg PO DAILY 08/16/19 05/01/20 [Vitamin B-12] Nitroglycerin Sl Tab (0.3mg) 0.3 mg SUBLINGUAL Q5M PRN 08/16/19 05/01/20 Cholecalciferol [Vitamin D3 (25 1,000 unit PO DAILY 10/07/19 05/01/20 Mcg = 1000 Iu)] Ascorbic Acid [Vitamin C] 1,000 mg PO DAILY 01/01/20 05/01/20 Aspirin [Adult Low Dose Aspirin EC] 81 mg PO DAILY 01/01/20 05/01/20 Ferrous Sulfate [Iron (65 MG 650 mg PO DAILY 01/01/20 05/01/20 Elemental)] Previous Rx's Medication Instructions Recorded carvediloL [Coreg*] 12.5 mg PO BID-W/MEALS tab 08/21/19 Furosemide [Lasix] 40 mg PO QAM #0 02/14/20 Potassium Gluconate 99 mg PO DAILY #0 02/14/20 Spironolactone [Aldactone] 50 mg PO BID #0 02/14/20 Allergies Allergy/AdvReac Type Severity Reaction Status Date / Time No Known Allergies Allergy Verified 05/01/20 21:57 Review of Systems ROS Statement: Those systems with pertinent positive or pertinent negative responses have been documented in the HPI. ROS Other: All systems not noted in ROS Statement are negative. Past Medical History Past Medical History: Chest Pain / Angina, Heart Failure, Diabetes Mellitus, Hyperlipidemia, Hypertension, Osteoarthritis (OA) Additional Past Medical History / Comment(s): incontinent of stools intermittently. low iron levels, possible GI bleed-dark tarry stools per son, Son stated "has had recent falls related to blood sugar going low 60s" insulin was discontinued-HX 2016 and 2018 had episodes of CHF approx 7-10 days post receiving flu vaccine,Type2 IDDM, cirrhosis of the liver from fatty liver disease History of Any Multi-Drug Resistant Organisms: None Reported Past Surgical History: Hernia Repair Additional Past Surgical History / Comment(s): 10/31/17 robot assisted laprascopic umbilical hernia repair with mesh., 07/30/18 repair recurrent incarerated hernia, paracentesis times 2 Past Anesthesia/Blood Transfusion Reactions: No Reported Reaction Additional Past Anesthesia/Blood Transfusion Reaction / Comment(s): no previous blood transfusion Past Psychological History: Depression Smoking Status: Current some day smoker Past Alcohol Use History: None Reported Past Drug Use History: None Reported - Past Family History Mother Family Medical History: Cancer Additional Family Medical History / Comment(s): breast cancer Father Family Medical History: Unable to Obtain Sister(s) Family Medical History: Cancer Brother(s) Family Medical History: Diabetes Mellitus General Exam - General Exam Comments Initial Comments: GENERAL: Patient is well-developed and well-nourished. Patient is nontoxic and in no acute distress. HEAD: Atraumatic, normocephalic. There are no hematomas, no signs of basal skull fracture. EYES: Pupils equal round and reactive to light, extraocular movements intact, sclera anicteric, conjunctiva are normal. Eyelids were unremarkable. ENT: TMs normal, nares patent, oropharynx clear without exudates. Moist mucous membranes. NECK: Normal range of motion, supple without lymphadenopathy or JVD. There is no midline tenderness. LUNGS: Unlabored respirations. Breath sounds clear to auscultation bilaterally and equal. No wheezes rales or rhonchi. HEART: Regular rate and rhythm without murmurs, rubs or gallops. ABDOMEN: Soft, nontender, normoactive bowel sounds. No guarding, no rebound. No masses appreciated. : Deferred MUSCULOSKELETAL: Normal extremities with adequate strength and normal range of motion, no pitting or edema. No clubbing or cyanosis. NEUROLOGICAL: Patient is alert and oriented x 3. Motor and sensory are also intact. Cranial nerves II through XII grossly intact. Symmetrical smile. Normal speech, normal gait. PSYCH: Normal mood, normal affect. SKIN: Warm, Dry, normal turgor, no rashes or lesions noted. Limitations: physical limitation Course Vital Signs 05/01/20 05/01/20 21:45 23:00 Temperature 99.1 F Pulse Rate 82 84 Respiratory 20 20 Rate Blood Pressure 120/58 100/56 O2 Sat by Pulse 99 96 Oximetry Medical Decision Making - Medical Decision Making Patient is a 74-year-old male here via EMS after he fell in his bathroom today. No loss of consciousness. Patient has no specific complaints at this time other than feeling weaker today. He did have a paracentesis today. His vital signs are stable his exam shows no acute findings. EKG showed no acute signs of acute ischemia, etc. his baseline. Lab work is also stable, normal white c ount, kidney function stable, troponin is normal, BNP is 6000 which is his normal. Urine shows no evidence of infection. Chest x-ray shows no acute process, CT of the brain/C-spine shows no acute process. Patient received half a liter bolus of fluids. His vitals have remained stable here in the ER. Patient was able to ambulate with a walker to the restroom. Patient's son and are here with him now and. With him coming home. Patient does not want to stay in the hospital, he wants to go home. Patient is stable for discharge. I did recommend follow-up with their regular doctor in 1-2 days. Family is in agreement with this plan of care. Return parameters were discussed with them and they verbalized understanding. Case discussed Dr. Coley. - Lab Data Result diagrams: 05/01/20 22:20 05/01/20 22:20 Lab Results 05/01/20 05/01/20 05/01/20 Range/Units 22:20 22:20 22:20 WBC 4.1 (3.8-10.6) k/uL RBC 3.00 L (4.30-5.90) m/uL Hgb 9.0 L (13.0-17.5) gm/dL Hct 26.5 L (39.0-53.0) % MCV 88.1 (80.0-100.0) fL MCH 30.1 (25.0-35.0) pg MCHC 34.2 (31.0-37.0) g/dL RDW 14.1 (11.5-15.5) % Plt Count 170 (150-450) k/uL MPV 6.9 Neutrophils % 79 % Lymphocytes % 12 % Monocytes % 6 % Eosinophils % 1 % Basophils % 1 % Neutrophils # 3.2 (1.3-7.7) k/uL Lymphocytes # 0.5 L (1.0-4.8) k/uL Monocytes # 0.2 (0-1.0) k/uL Eosinophils # 0.0 (0-0.7) k/uL Basophils # 0.0 (0-0.2) k/uL PT 11.6 (9.0-12.0) sec INR 1.1 (<1.2) APTT 27.4 (22.0-30.0) sec Sodium (137-145) mmol/L Potassium (3.5-5.1) mmol/L Chloride (98-107) mmol/L Carbon Dioxide (22-30) mmol/L Anion Gap mmol/L BUN (9-20) mg/dL Creatinine (0.66-1.25) mg/dL Est GFR (CKD-EPI)AfAm (>60 ml/min/1.73 sqM) Est GFR (CKD-EPI)NonAf (>60 ml/min/1.73 sqM) Glucose (74-99) mg/dL Plasma Lactic Acid Calvin (0.7-2.0) mmol/L Calcium (8.4-10.2) mg/dL Magnesium (1.6-2.3) mg/dL Total Bilirubin (0.2-1.3) mg/dL AST (17-59) U/L ALT (4-49) U/L Alkaline Phosphatase (38-126) U/L Troponin I (0.000-0.034) ng/mL NT-Pro-B Natriuret Pep pg/mL Total Protein (6.3-8.2) g/dL Albumin (3.5-5.0) g/dL Urine Color Yellow Urine Appearance Clear (Clear) Urine pH 5.0 (5.0-8.0) Ur Specific [place] 1.008 (1.001-1.035) Urine Protein Negative (Negative) Urine Glucose (UA) Negative (Negative) Urine Ketones Negative (Negative) Urine Blood Negative (Negative) Urine Nitrite Negative (Negative) Urine Bilirubin Negative (Negative) Urine Urobilinogen <2.0 (<2.0) mg/dL Ur Leukocyte Esterase Negative (Negative) 05/01/20 05/01/20 05/01/20 Range/Units 22:20 22:20 22:20 WBC (3.8-10.6) k/uL RBC (4.30-5.90) m/uL Hgb (13.0-17.5) gm/dL Hct (39.0-53.0) % MCV (80.0-100.0) fL MCH (25.0-35.0) pg MCHC (31.0-37.0) g/dL RDW (11.5-15.5) % Plt Count (150-450) k/uL MPV Neutrophils % % Lymphocytes % % Monocytes % % Eosinophils % % Basophils % % Neutrophils # (1.3-7.7) k/uL Lymphocytes # (1.0-4.8) k/uL Monocytes # (0-1.0) k/uL Eosinophils # (0-0.7) k/uL Basophils # (0-0.2) k/uL PT (9.0-12.0) sec INR (<1.2) APTT (22.0-30.0) sec Sodium 133 L (137-145) mmol/L Potassium 4.4 (3.5-5.1) mmol/L Chloride 103 (98-107) mmol/L Carbon Dioxide 24 (22-30) mmol/L Anion Gap 6 mmol/L BUN 35 H (9-20) mg/dL Creatinine 1.48 H (0.66-1.25) mg/dL Est GFR (CKD-EPI)AfAm 53 (>60 ml/min/1.73 sqM) Est GFR (CKD-EPI)NonAf 45 (>60 ml/min/1.73 sqM) Glucose 121 H (74-99) mg/dL Plasma Lactic Acid Calvin 1.1 (0.7-2.0) mmol/L Calcium 7.6 L (8.4-10.2) mg/dL Magnesium 1.8 (1.6-2.3) mg/dL Total Bilirubin 0.5 (0.2-1.3) mg/dL AST 12 L (17-59) U/L ALT 6 (4-49) U/L Alkaline Phosphatase 82 (38-126) U/L Troponin I <0.012 (0.000-0.034) ng/mL NT-Pro-B Natriuret Pep pg/mL Total Protein 4.8 L (6.3-8.2) g/dL Albumin 2.3 L (3.5-5.0) g/dL Urine Color Urine Appearance (Clear) Urine pH (5.0-8.0) Ur Specific [place] (1.001-1.035) Urine Protein (Negative) Urine Glucose (UA) (Negative) Urine Ketones (Negative) Urine Blood (Negative) Urine Nitrite (Negative) Urine Bilirubin (Negative) Urine Urobilinogen (<2.0) mg/dL Ur Leukocyte Esterase (Negative) 05/01/20 Range/Units 22:20 WBC (3.8-10.6) k/uL RBC (4.30-5.90) m/uL Hgb (13.0-17.5) gm/dL Hct (39.0-53.0) % MCV (80.0-100.0) fL MCH (25.0-35.0) pg MCHC (31.0-37.0) g/dL RDW (11.5-15.5) % Plt Count (150-450) k/uL MPV Neutrophils % % Lymphocytes % % Monocytes % % Eosinophils % % Basophils % % Neutrophils # (1.3-7.7) k/uL Lymphocytes # (1.0-4.8) k/uL Monocytes # (0-1.0) k/uL Eosinophils # (0-0.7) k/uL Basophils # (0-0.2) k/uL PT (9.0-12.0) sec INR (<1.2) APTT (22.0-30.0) sec Sodium (137-145) mmol/L Potassium (3.5-5.1) mmol/L Chloride (98-107) mmol/L Carbon Dioxide (22-30) mmol/L Anion Gap mmol/L BUN (9-20) mg/dL Creatinine (0.66-1.25) mg/dL Est GFR (CKD-EPI)AfAm (>60 ml/min/1.73 sqM) Est GFR (CKD-EPI)NonAf (>60 ml/min/1.73 sqM) Glucose (74-99) mg/dL Plasma Lactic Acid Calvin (0.7-2.0) mmol/L Calcium (8.4-10.2) mg/dL Magnesium (1.6-2.3) mg/dL Total Bilirubin (0.2-1.3) mg/dL AST (17-59) U/L ALT (4-49) U/L Alkaline Phosphatase (38-126) U/L Troponin I (0.000-0.034) ng/mL NT-Pro-B Natriuret Pep 6080 pg/mL Total Protein (6.3-8.2) g/dL Albumin (3.5-5.0) g/dL Urine Color Urine Appearance (Clear) Urine pH (5.0-8.0) Ur Specific [place] (1.001-1.035) Urine Protein (Negative) Urine Glucose (UA) (Negative) Urine Ketones (Negative) Urine Blood (Negative) Urine Nitrite (Negative) Urine Bilirubin (Negative) Urine Urobilinogen (<2.0) mg/dL Ur Leukocyte Esterase (Negative) - EKG Data EKG Comments: Sinus rhythm with first-degree AV block, left axis deviation, right BBB, inferior infarct age undetermined. No signs of acute ischemia. This is similar to his previous EKG on 02/12/2020. Ventricular rate 84, OH interval 250, QTC 416. Disposition Clinical Impression: Fall, Weakness Disposition: HOME SELF-CARE Condition: Stable Instructions (If sedation given, give patient instructions): Fall Prevention for Older Adults (ED) Additional Instructions: Please return to the Emergency Department if symptoms worsen or any other concerns. Please use walker for ambulation to prevent future falls. Follow-up with your regular doctor in 1-3 days. Is patient prescribed a controlled substance at d/c from ED?: No Referrals: Minerva Edgar MD [Primary Care Provider] - 1-2 days
--- NOTE | 2020-05-01 22:42 | CT ---
EXAMINATION TYPE: CT brain ted solano DATE OF EXAM: 05/01/2020 COMPARISON: None HISTORY: fall, ams, confusion CT DLP: 1337.8 mGycm Automated exposure control for dose reduction was used. There is cerebral atrophy. There is no mass effect nor midline shift. There is no sign of intracrania l hemorrhage. There is mild prominence of the ventricles. There is some hypodensity in the periventri cular white matter. The calvarium is intact. The cervical vertebra show mild kyphotic curvature. There is degenerative disc space narrowing from C 3 to C7. There is mild spurring of the endplates. Facet joints are intact. I see no bony destructive process. IMPRESSION: Cerebral atrophy and chronic small vessel ischemia. No acute intracranial abnormality. Cervical multilevel spondylotic changes. No fracture.
--- NOTE | 2020-05-01 22:44 | XR ---
EXAMINATION TYPE: XR chest 2V DATE OF EXAM: 05/01/2020 COMPARISON: NONE HISTORY: Weakness TECHNIQUE: 2 views FINDINGS: There is no heart failure nor confluent pneumonic infiltrate. Costophrenic angles are clear . There are no hilar masses. Thoracic aorta is atheromatous. IMPRESSION: No active cardiopulmonary disease. Atheromatous aorta.
[2020-05-01 23:11] LABS: Basophils % (A) 1 %; Eosinophils % (A) 1 %; HCT 26.5 % (39.0-53.0); Lymphocytes # (A) 0.5 k/uL (1.0-4.8); Lymphocytes % (A) 12 %; MCH 30.1 pg (25.0-35.0); MCHC 34.2 g/dL (31.0-37.0); MCV 88.1 fL (80.0-100.0); Mean Platelet Volume 6.9; Monocytes # (A) 0.2 k/uL (0-1.0); Monocytes % (A) 6 %; Neutrophils # (A) 3.2 k/uL (1.3-7.7); Neutrophils % (A) 79 %; Platelet Count 170 k/uL (150-450); RDW 14.1 % (11.5-15.5); WBC 4.1 k/uL (3.8-10.6)
[2020-05-01 23:25] LABS: Albumin 2.3 g/dL (3.5-5.0); Calcium 7.6 mg/dL (8.4-10.2); Magnesium 1.8 mg/dL (1.6-2.3); Potassium 4.4 mmol/L (3.5-5.1); Total Bilirubin 0.5 mg/dL (0.2-1.3); Total Protein 4.8 g/dL (6.3-8.2)
[2020-05-01 23:35] LABS: INR 1.1 (<1.2); Partial Thromboplastin Time 27.4 sec (22.0-30.0); Prothrombin Time 11.6 sec (9.0-12.0)
[2020-05-02 00:30] VITALS: BP 97/54; PULSE 82; RESP 18; TEMP 98
== END 2020-05-02 00:31 | disposition home or self-care (01) ==
LOC: EC 21:32
DX: R53.1 Weakness (principal); E11.9 Type 2 diabetes mellitus without complications; E78.5 Hyperlipidemia, unspecified; I11.0 Hypertensive heart disease with heart failure; I50.9 Heart failure, unspecified; M19.90 Unspecified osteoarthritis, unspecified site; Z79.82 Long term (current) use of aspirin
CPT/HCPCS: 36415; 70450; 71046; 72125; 80053; 81003; 83605; 83735; 83880; 84484; 85025; 85610; 85730; 93005; 99284

== ENCOUNTER 2020-05-15 12:32 | Day surgery (SDC) | payer MEDICARE, BC ==
[2020-05-15] MEDS: ALBUMIN HUMAN 25% 50 ML in EMPTY BAG 1 BAG IVPB SCH ×4 (13:06→15:21)
[2020-05-15 13:08] VITALS: RESP 16; TEMP 97.9
[2020-05-15 13:19] LABS: Mean Platelet Volume 7.2; Platelet Count 286 k/uL (150-450)
[2020-05-15 13:27] LABS: Prothrombin Time 10.9 sec (9.0-12.0)
[2020-05-15 15:27] VITALS: BP 121/61; PULSE 75
--- NOTE | 2020-05-15 15:56 | US ---
EXAMINATION TYPE: US paracentesis abd w/image DATE OF EXAM: 05/15/2020 COMPARISON: NONE HISTORY: Ascites. PROCEDURE: Maximal barrier technique was utilized. The skin overlying a suitable pocket of fluid was localized with ultrasound and the overlying skin was prepped and draped. Ultrasound was utilized with sterile technique. Lidocaine was used for local anesthesia and a skin katelin made with a scalpel. Catheter was advanced under direct ultrasound guidance into a suitable pocket of fluid and approximately 4 liters of serous fluid were removed. Catheter was withdrawn and hemostasis achieved. There is no immediate complication; the patient is discharged in stable condition. IMPRESSION: STATUS POST ULTRASOUND GUIDED PARACENTESIS FOR PALLIATION OF ASCITES. THIS PROCEDURE WA S PERFORMED BY THE UNDERSIGNED.
== END 2020-05-15 15:40 | disposition home or self-care (01) ==
LOC: RADPROMAIN 12:32
PROVIDERS: ATTEND Internal Medicine Gastroenterology
DX: R18.8 Other ascites (principal)
CPT/HCPCS: 82565; 82947; 85049; 85610; 36415; 49083; P9047